=== PATIENT | female | born 1950 | race Caucasian/White ===

== ENCOUNTER 2018-09-05 12:04 | Day surgery (SDC) | payer MEDICARE, OTHER ==
[2018-09-02 08:54] VITALS: BMI 37.3
--- NOTE | 2018-09-05 06:38 | P.GSHP ---
History of Present Illness H&P Date: 09/05/18 CHIEF COMPLAINT: GERD HISTORY OF PRESENT ILLNESS: The patient is a 68-year-old female who presents reports gastroesophageal reflux disease. Upper endoscopy was offered for further evaluation and management. PAST MEDICAL HISTORY: Please see list. PAST SURGICAL HISTORY: Please see list. MEDICATIONS: Please see list. ALLERGIES: Please see list. SOCIAL HISTORY: No illicit drug use FAMILY HISTORY: No reports of Crohn disease or ulcerative colitis. REVIEW OF ORGAN SYSTEMS: CONSTITUTIONAL: No reports of fevers or chills. GI: Denies any blood in stools or constipation. PHYSICAL EXAM: VITAL SIGNS: Stable GENERAL: Well-developed and pleasant in no acute distress. HEENT: No scleral icterus. Extraocular movements grossly intact. Moist buccal mucosa. NECK: Supple without lymphadenopathy. CHEST: Unlabored respirations. Equal bilateral excursions. CARDIOVASCULAR: Regular rate and rhythm. Distal 2+ pulses. ABDOMEN: Soft, nondistended. MUSCULOSKELETAL: No clubbing, cyanosis, or edema. ASSESSMENT: 1. Gastroesophageal reflux disease PLAN: 1. Recommend proceeding with an upper endoscopy Past Medical History Past Medical History: GERD/Reflux, Hypertension History of Any Multi-Drug Resistant Organisms: None Reported Past Surgical History: Bariatric Surgery, Cholecystectomy, Hysterectomy, Orthopedic Surgery Additional Past Surgical History / Comment(s): bilateral knee replacement sleeve gastrectomy 2016 at [facility] Past Anesthesia/Blood Transfusion Reactions: No Reported Reaction, Motion Sickness Smoking Status: Never smoker - Past Family History Mother Family Medical History: Cancer Additional Family Medical History / Comment(s): uterine cancer Medications and Allergies Home Medications Medication Instructions Recorded Confirmed Type Bisoprolol-Hctz 5-6.25 mg [Ziac 1 tab PO DAILY 09/01/18 09/02/18 History 5-6.25 MG] Omeprazole 20 mg PO DAILY 09/01/18 09/02/18 History Allergies Allergy/AdvReac Type Severity Reaction Status Date / Time Sulfa (Sulfonamide Allergy Rash/Hives Verified 09/02/18 08:47 Antibiotics) milk AdvReac Abdominal Verified 09/02/18 08:47 Pain
[~2018-09-05 12:04] MED LIST: LACTATED RINGERS 1,000 ML IV SCH; LIDOCAINE 1% 20 ML VIAL (10MG/ML) FOR IV START INTRADERMA PRN
[2018-09-05 13:05] VITALS: RESP 16; TEMP 97.3
[2018-09-05] MEDS ORDERED: PROPOFOL 10 MG/ML 20 ML VIAL IV ONE (16:30)
--- NOTE | 2018-09-05 16:49 | P.PCN ---
Date of Procedure: 09/05/18 Description of Procedure: PREOPERATIVE DIAGNOSIS: Status post sleeve gastrectomy. Gastroesophageal reflux disease. Epigastric abdominal pain. POSTOPERATIVE DIAGNOSIS: Status post sleeve gastrectomy. Gastroesophageal reflux disease. Epigastric abdominal pain. Diaphragmatic hiatal hernia without obstruction. Chronic superficial gastritis. OPERATION: Esophagogastroduodenoscopy with cold forceps biopsies along the antrum. SURGEON: Mackenzie Travis MD ANESTHESIA: MAC. INDICATIONS: The patient is a 68-year-old female who presents with a history of sleeve gastrectomy with abdominal pain. She is over 1 years out from her bariatric procedure. Benefits and risks of the procedure were described. Informed consent was obtained. DESCRIPTION: The patient was brought into the endoscopy suite and laid in the left lateral decubitus position. An Olympus gastroscope was passed along the posterior oropharynx down to the distal esophagus where the squamocolumnar junction was at 35 centimeters from the incisors remarkable for chronic erosive esophagitis, LA grade A without ulceration. The stomach was entered where she had a 5-cm hiatal hernia with a diaphragmatic hiatus found at 40 cm. The sleeve reservoir moderately large allowing easy retroflexion of the scope to view the lower esophageal valve. Moderate chronic gastritis was found along the antrum with cold biopsies obtained. The first through third portion of the duodenum was examined and unremarkable. The scope again had easily retroflexed along the antrum. The stomach was desufflated. The patient tolerated the procedure well. FINDINGS: No acute ulceration found along her sleeve. No corkscrewing sleeve gastrectomy. Squamocolumnar junction at 35 cm from the incisors. Diaphragmatic hiatus at 40 cm. Moderate large gastric reservoir with prior history of sleeve gastrectomy allowing easy retroflexion of the gastroscope to view the lower esophageal valve. Hiatal hernia 5 cm, fixed. LA grade A erosive esophagitis. No active duodenitis. Moderate chronic gastritis. RECOMMENDATIONS: Upper endoscopy as needed. May benefit from antireflux operation. Plan - Discharge Summary New Discharge Prescriptions: No Action Bisoprolol-Hctz 5-6.25 mg [Ziac 5-6.25 MG] 1 tab PO DAILY Omeprazole 20 mg PO DAILY Discharge Medication List Bisoprolol-Hctz 5-6.25 mg [Ziac 5-6.25 MG] 1 tab PO DAILY 09/01/18 [History] Omeprazole 20 mg PO DAILY 09/01/18 [History]
[2018-09-05 17:06] VITALS: BP 144/94; PULSE 55
== END 2018-09-05 17:26 | disposition home or self-care (01) ==
LOC: ORWHC2ENDO 12:04
PROVIDERS: ATTEND Surgery Plastic and Reconstructive Surgery
DX: K21.0 Gastro-esophageal reflux disease with esophagitis (principal); K29.30 Chronic superficial gastritis without bleeding; K31.9 Disease of stomach and duodenum, unspecified; K44.9 Diaphragmatic hernia without obstruction or gangrene; Z98.84 Bariatric surgery status; I10 Essential (primary) hypertension; Z79.899 Other long term (current) drug therapy; Z88.2 Allergy status to sulfonamides; Z91.011 Allergy to milk products
CPT/HCPCS: 88305; 43239; J2704

== ENCOUNTER → 2018-09-05 | Outpatient (CLI) | payer MEDICARE ==
[2018-09-05 17:47] LABS: HCT 37.6 % (34.0-46.0); HGB 12.7 gm/dL (11.4-16.0); MCH 31.7 pg (25.0-35.0); MCHC 33.8 g/dL (31.0-37.0); MCV 93.9 fL (80.0-100.0); Platelet Count 188 k/uL (150-450); RDW 12.6 % (11.5-15.5); WBC 4.8 k/uL (3.8-10.6)
[2018-09-05 17:57] LABS: INR 1.1 (<1.2); Partial Thromboplastin Time 22.7 sec (22.0-30.0); Prothrombin Time 10.8 sec (9.0-12.0)
[2018-09-06 03:43] LABS: Albumin 4.2 g/dL (3.80-4.90); Albumin/Globulin Ratio 2.33 (1.20-2.10); Anion Gap 7.2 mmol/L (4.00-12.00); Calcium 9.2 mg/dL (8.7-10.3); Carbon Dioxide 29.8 mmol/L (21.6-31.8); Globulin 1.8 g/dL (2.1-3.7); LDL Cholesterol,Calculated 84.8 mg/dL (0.0-131.0); Magnesium 1.6 mg/dL (1.5-2.4); Phosphorus 3.6 mg/dL (2.4-5.1); Potassium 3.8 mmol/L (3.5-5.5); Total Bilirubin 0.8 mg/dL (0.3-1.2); VLDL Calculation 21.2 mg/dL (5.00-40.00)
[2018-09-06 04:13] LABS: Iron Saturation 34.12 (12.00-45.00)
[2018-09-06 04:22] LABS: Vitamin D 25 Hydroxy 54.7 ng/mL (30.0-100.0)
[2018-09-06 05:10] LABS: Folate, Serum >24.0 ng/mL
[2018-09-06 05:12] LABS: Parathyroid Hormone Intact 44.9 pg/mL (14.0-72.0)
[2018-09-06 05:19] LABS: Hemoglobin A1C 5.4 % (4.0-6.0)
[2018-09-07 13:31] LABS: Zinc, Serum 90 ug/dL (60-130)
[2018-09-07 14:45] LABS: Vitamin A 22 ug/dL (38-106)
[2018-09-08 07:41] LABS: Vitamin B1 76 ug/L (38-122)
== END | disposition home or self-care (01) ==
LOC: LABWHC1 17:26
PROVIDERS: ATTEND Surgery Plastic and Reconstructive Surgery
DX: E66.01 Morbid (severe) obesity due to excess calories (principal); D50.8 Other iron deficiency anemias; E89.1 Postprocedural hypoinsulinemia; E44.0 Moderate protein-calorie malnutrition; E55.9 Vitamin D deficiency, unspecified; K74.1 Hepatic sclerosis; N19 Unspecified kidney failure; K50.90 Crohn's disease, unspecified, without complications
CPT/HCPCS: 36415; 80053; 80061; 82306; 82525; 82607; 82728; 82746; 83036; 83540; 83550; 83735; 83970; 84100; 84134; 84255; 84425; 84443; 84590; 84630; 85027; 85610; 85730

== ENCOUNTER → 2018-09-21 | Outpatient (CLI) | payer MEDICARE, OTHER ==
[2018-09-21 14:11] VITALS: BP 126/82; PULSE 48; RESP 16; TEMP 97.8; BMI 38.0
--- NOTE | 2018-09-21 14:18 | P.HPBAR ---
Bariatric H&P - History & Physicial H&P Date: 09/21/18 History & Physicial: Visit/CC: EGD follow-up/sleeve 2016 Patient initial contact: Initial weight: 127.006 kg Initial weight in pounds: 280.00 Height: 5 ft 2 in Initial BMI: 51.2 Last weight: Current weight: 94.347 kg Current weight in pounds: 208.00 Current BMI: 38.0 [place] body weight (based on NIH guidelines): 49.895 kg Excess body weight loss: 42.3% The patient is a 68 year-old F who presents for Bariatric Assessment. DATE OF SERVICE: 09/21/2018 REASON FOR CONSULTATION: Initial bariatric evaluation. HISTORY OF PRESENT ILLNESS: Deepti Dyson is a 68-year-old female who presents as a transfer from [place], [place] bariatric program. She had a sleeve gastrectomy over 2 years ago 2016 in [place], [place]. Her nutrition has been suboptimal. She comes in with complications of her sleeve gastrectomy including gastroesophageal reflux disease. Now she presents for possible revision of her sleeve gastrectomy. At height of 5 feet 2 inches, her ideal body weight is 135 pounds. She comes in 208 pounds. Her body mass index highest is 38.0. She is 73 pounds overweight. PAST MEDICAL HISTORY: 1. Morbid obesity due to excess calories 2. Body mass index of 38.0 3. Gastroesophageal reflux disease 4. Hypertensive heart disease 5. Osteoarthritis bilateral knees PAST SURGICAL HISTORY: 1. Sleeve gastrectomy 2. Bilateral knee replacement 3. Cholecystectomy 4. Hysterectomy HOME MEDICATIONS: ALLERGIES: Medications and Allergies Home Medications Medication Instructions Recorded Confirmed Type Bisoprolol-Hctz 5-6.25 mg [Ziac 2 tab PO DAILY 09/01/18 09/21/18 History 5-6.25 MG] Omeprazole 20 mg PO AC-[id number] 09/01/18 09/21/18 History Omeprazole 40 mg PO HS 09/21/18 09/21/18 History Allergies Allergy/AdvReac Type Severity Reaction Status Date / Time Sulfa (Sulfonamide Allergy Rash/Hives Verified 09/21/18 15:50 Antibiotics) milk AdvReac Abdominal Verified 09/21/18 15:50 Pain SOCIAL HISTORY: No past tobacco use. FAMILY HISTORY: No family history of ulcerative colitis disease or Crohn's disease. Family history of morbid obesity. No lupus in the family. No reports of stomach or esophageal cancer. REVIEW OF ORGAN SYSTEMS: CONSTITUTIONAL: At height of 5 feet 2 inches, her ideal body weight is 135 pounds. She comes in 208 pounds. Her body mass index highest is 38.0. She is 73 pounds overweight. HEENT: Denies any active troubles with vision or hearing. Has troubles with swallowing. ENDOCRINE: No diabetes. No hypothyroidism. CARDIOVASCULAR: No reports of palpitations or heart attacks or chest pain. RESPIRATORY: No daytime somnolence. Has asthma. GI: Denies any bright red blood per rectum. No diarrhea. Has GERD. MUSCULOSKELETAL: Has lower back pain and joint pain. Has osteoarthritis of the knees. NEURO: No headaches. No seizure disorders. PSYCH: No depression. No suicidal ideation. RHEUMATOLOGIC: No lupus. No rheumatoid arthritis. HEMATOLOGIC: Denies any abnormal bleeding or bruising. No personal history of DVTs. SKIN: No rash. No skin cancer. PHYSICAL EXAM: VITAL SIGNS: Height 5 foot 2 inches, weight 208 pounds. BMI 38.0 Vital Signs Temp 97.8 F 09/21/18 14:08 Pulse 48 L 09/21/18 14:08 Resp 16 09/21/18 14:08 BP 126/82 09/21/18 14:08 Pulse Ox GENERAL: Well-developed in no acute distress. HEENT: No scleral icterus. Extraocular movements grossly intact. Hears conversational speech. No nasal drainage. NECK: Supple without lymphadenopathy. CHEST: Nonlabored respirations with equal bilateral excursions. CARDIOVASCULAR: Regular rate and regular rhythm. Distal 2+ pulses. ABDOMEN: Obese, soft, nontender, nondistended. MUSCULOSKELETAL: No clubbing, cyanosis. Gross strength 5/5 distal lower extremities. NEURO: No focal or lateralizing signs. Cranial nerves 2 through 12 grossly within normal limits. PSYCH: Appropriate affect. Alert and oriented to person, place and time. SKIN: Good skin turgor. Well perfused. STUDIES: EGD FINDINGS: No acute ulceration found along her sleeve. No corkscrewing sleeve gastrectomy. Squamocolumnar junction at 35 cm from the incisors. Diaphragmatic hiatus at 40 cm. Moderate large gastric reservoir with prior history of sleeve gastrectomy allowing easy retroflexion of the gastroscope to view the lower esophageal valve. Hiatal hernia 5 cm, fixed. LA grade A erosive esophagitis. No active duodenitis. Moderate chronic gastritis. Final Pathologic Diagnosis GASTRIC ANTRAL MUCOSA, BIOPSY: Reactive gastropathy. No Helicobacter type microorganisms identified. LABS: Total protein is low. Pre-albumin is low. Vitamin A is low. Selenium is elevated. ASSESSMENT: 1. Morbid obesity due to excess calories 2. Body mass index of 38.0 3. Gastroesophageal reflux disease 4. Hypertensive heart disease 5. Osteoarthritis bilateral knees 6. Inadequate protein intake 7. Hiatal hernia 8. Vitamin A deficiency 9. Esophageal dysmotility PLAN: 1. Studies reviewed consistent with esophageal dysmotility. 2. Recommend manometry. 3. Vitamin A replacement of 8000 units prescribed 4. Increase protein intake over 75 grams daily. 5. She may need revision of her sleeve. Thank you for this consultation. Past Medical History Past Medical History: GERD/Reflux, Hypertension History of Any Multi-Drug Resistant Organisms: None Reported Past Surgical History: Bariatric Surgery, Cholecystectomy, Hysterectomy, Orthopedic Surgery Additional Past Surgical History / Comment(s): bilateral knee replacement sleeve gastrectomy 2016 at [facility] Past Anesthesia/Blood Transfusion Reactions: No Reported Reaction, Motion Sickness Past Psychological History: No Psychological Hx Reported Smoking Status: Never smoker Past Alcohol Use History: None Reported Past Drug Use History: None Reported - Past Family History Mother Family Medical History: Cancer Additional Family Medical History / Comment(s): uterine cancer Surgical - Exam Vital Signs Temp Pulse Resp BP 97.8 F 48 L 16 126/82 09/21/18 14:08 09/21/18 14:08 09/21/18 14:08 09/21/18 14:08 Bariatric Checklist Checklist: Plan: Checklist: EGD: 1. Hiatal hernia: 2. H. Pylori: HgbA1c: Vitamin D: Smoking: Never smoker Primary care physician referral: Psychiatry clearance: Cardiology clearance: Sleep study: Diet journal: VTE risk score: VTE risk level: Rehab needs at discharge:
== END | disposition home or self-care (01) ==
LOC: BARWHC3 12:55
PROVIDERS: ATTEND Surgery Plastic and Reconstructive Surgery
DX: E66.01 Morbid (severe) obesity due to excess calories (principal); K21.9 Gastro-esophageal reflux disease without esophagitis; I11.9 Hypertensive heart disease without heart failure; M17.0 Bilateral primary osteoarthritis of knee; K44.9 Diaphragmatic hernia without obstruction or gangrene; E50.9 Vitamin A deficiency, unspecified; K22.4 Dyskinesia of esophagus; E46 Unspecified protein-calorie malnutrition; Z68.38 Body mass index [BMI] 38.0-38.9, adult; Z98.84 Bariatric surgery status; Z90.49 Acquired absence of other specified parts of digestive tract; Z79.899 Other long term (current) drug therapy; Z88.2 Allergy status to sulfonamides
CPT/HCPCS: 97803; G0463; 99211

== ENCOUNTER → 2018-09-21 | Outpatient (CLI) | payer MEDICARE, OTHER ==
--- NOTE | 2018-09-21 11:33 | FL ---
EXAMINATION TYPE: FL barium swallow DATE OF EXAM: 09/21/2018 CLINICAL HISTORY: Acid reflux or epigastric pain since gastric sleeve surgery December 09, 2015 per patie nt. History of some sort of reversal? Per patient. TECHNIQUE: A single contrast esophagram is performed utilizing barium only due to history of prior s urgery. A total of 57 seconds of fluoroscopic time was utilized during procedure. 74 spot images are saved to PACS. COMPARISON: None FINDINGS: The esophagus shows some mild dysmotility with satisfactory emptying into the stomach. No evidence of fixed hiatal hernia or stricture noted. No diverticulum is present. Small sliding-type hi atal hernia is identified during portions of study. There is good caliber channel throughout the esop hagus including at level of diaphragmatic hiatus. Occasional gastroesophageal reflux was seen during real time performance of this study. IMPRESSION: Small sliding-type hiatal hernia. No obstruction. No suspicious mass or stricture. Occas ional gastroesophageal reflux. Mild underlying esophageal dysmotility.
== END | disposition home or self-care (01) ==
LOC: RADFLWHC 10:36
PROVIDERS: ATTEND Surgery Plastic and Reconstructive Surgery
DX: K44.9 Diaphragmatic hernia without obstruction or gangrene (principal); K21.9 Gastro-esophageal reflux disease without esophagitis; K22.4 Dyskinesia of esophagus; Z88.3 Allergy status to other anti-infective agents; Z91.011 Allergy to milk products
CPT/HCPCS: 74220

== ENCOUNTER → 2019-01-06 | Outpatient (CLI) | payer MEDICARE, OTHER ==
[2018-12-27 09:36] VITALS: BMI 36.6
[~2019-01-06] MED LIST changes: +CHLORHEXIDINE GLUCONATE 15 ML CUP MUCOUS MEM ONE; +DEXAMETHASONE SOD PHOSPHATE 10 MG/ML 1 ML VIAL IV ONE; +HEPARIN SODIUM,PORCINE 5,000 UNIT/ML 1 ML VIAL SQ ONE; +MIDAZOLAM (PF) 2 MG/2 ML VIAL IV PRN; +PANTOPRAZOLE 40 MG/10 ML VIAL IV ONE; +ceFAZolin IN SWFI 2 GM/20 ML SYRINGE IVP ONE; +fentaNYL (PF) 50 MCG/ML 2 ML AMP IV PRN
--- NOTE | 2019-01-06 02:49 | P.GSHP ---
History of Present Illness H&P Date: 01/06/19 CHIEF COMPLAINT: Paraesophageal hiatal hernia with gastroesophageal reflux disease. HISTORY OF PRESENT ILLNESS: The patient is a 68-year-old female who presents with paraesophageal hiatal hernia. She has completed an esophageal manometry including upper endoscopy workup. Now she presents for surgical intervention. PAST MEDICAL HISTORY: Please see list. PAST SURGICAL HISTORY: Please see list. MEDICATIONS: Please see list. ALLERGIES: Please see list. SOCIAL HISTORY: No illicit drug use FAMILY HISTORY: No reports of Crohn disease or ulcerative colitis. REVIEW OF ORGAN SYSTEMS: CONSTITUTIONAL: No reports of fevers or chills. GI: Denies any blood in stools or constipation. PHYSICAL EXAM: VITAL SIGNS: Stable GENERAL: Well-developed pleasant and in no acute distress. HEENT: No scleral icterus. Extraocular movements grossly intact. Moist buccal mucosa. NECK: Supple without lymphadenopathy. CHEST: Unlabored respirations. Equal bilateral excursions. CARDIOVASCULAR: Regular rate and rhythm. Distal 2+ pulses. ABDOMEN: Soft, nondistended. No peritoneal signs. MUSCULOSKELETAL: No clubbing, cyanosis, or edema. SKIN: Well-perfused. Good skin turgor. MANOMETRY: Shows no evidence of achalasia or scleroderma. ASSESSMENT: 1. Diaphragmatic paraesophageal hiatal hernia with severe gastroesophageal reflux disease. PLAN: 1. Recommend proceeding with a robotic paraesophageal hiatal hernia with possible mesh. 2. Benefits and risks of surgical intervention was discussed including possibility of open technique. 3. Inpatient hospitalization recommended of 2 nights 4. DVT prophylaxis. 5. Antibiotic prophylaxis. 6. She has also completed a very low caloric high-protein diet to address underlying hepatomegaly. Past Medical History Past Medical History: GERD/Reflux, Hypertension Additional Past Medical History / Comment(s): hiatal hernia, History of Any Multi-Drug Resistant Organisms: None Reported Past Surgical History: Bariatric Surgery, Cholecystectomy, Hernia Repair, Hysterectomy, Orthopedic Surgery Additional Past Surgical History / Comment(s): bilateral knee replacement, sleeve gastrectomy 2016 at [facility], hiatal hernia repair Past Anesthesia/Blood Transfusion Reactions: Motion Sickness Additional Past Anesthesia/Blood Transfusion Reaction / Comment(s): pt states always get UTI's from mcneal catheters Smoking Status: Never smoker - Past Family History Mother Family Medical History: Cancer Additional Family Medical History / Comment(s): uterine cancer Medications and Allergies Home Medications Medication Instructions Recorded Confirmed Type Omeprazole 40 mg PO QAM 09/21/18 12/27/18 History Bariatric Vitamin 1 tab PO TID 12/27/18 12/27/18 History Bisoprol/Hydrochlorothiazide [Ziac 1 each PO DAILY 12/27/18 12/27/18 History 10-6.25 MG] Calcium + Vitamin D 2 tab PO W/LUNCH 12/27/18 12/27/18 History Allergies Allergy/AdvReac Type Severity Reaction Status Date / Time Sulfa (Sulfonamide Allergy Rash/Hives Verified 12/27/18 09:26 Antibiotics) milk AdvReac Abdominal Verified 12/27/18 09:26 Pain
--- NOTE | 2019-01-06 12:54 | P.PN ---
Progress Note - Text Progress Note Date: 01/06/19 Case re-scheduled due to multiple surgical emergencies and trauma.
== END ==
LOC: EDSTATUS 07:30 → 2ORMAIN 11:58 → UNDOADMIN 11:58 → ORWHC2ENDO 11:58
PROVIDERS: ATTEND Surgery Plastic and Reconstructive Surgery
DX: K44.9 Diaphragmatic hernia without obstruction or gangrene (principal); Z53.9 Procedure and treatment not carried out, unspecified reason

== ENCOUNTER 2019-01-25 05:55 | Inpatient (IN) | payer MEDICARE, OTHER ==
[2019-01-20 14:55] VITALS: BMI 36.2
[~2019-01-25 05:55] MED LIST changes: -CHLORHEXIDINE GLUCONATE 15 ML CUP MUCOUS MEM ONE; -DEXAMETHASONE SOD PHOSPHATE 10 MG/ML 1 ML VIAL IV ONE; +HYDROmorphone 0.5 MG/0.5 ML SYRINGE IVP PRN; -MIDAZOLAM (PF) 2 MG/2 ML VIAL IV PRN; -PANTOPRAZOLE 40 MG/10 ML VIAL IV ONE; -fentaNYL (PF) 50 MCG/ML 2 ML AMP IV PRN
[2019-01-25] MEDS ORDERED: LIDOCAINE 1% 20 ML VIAL (10MG/ML) FOR IV START INTRADERMA ONE (06:38)
[2019-01-25] MEDS ORDERED: DEXAMETHASONE SOD PHOSPHATE 4 MG/ML 1 ML VIAL IVP ONE (06:42)
[2019-01-25] MEDS: ONDANSETRON 4 MG/2 ML VIAL IVP ONE ×2 (06:42→11:31)
[2019-01-25 06:59] LABS: Basophils % (A) 1 %; Eosinophils # (A) 0.1 k/uL (0-0.7); Eosinophils % (A) 3 %; HCT 39.5 % (34.0-46.0); HGB 13.4 gm/dL (11.4-16.0); Lymphocytes # (A) 1.5 k/uL (1.0-4.8); Lymphocytes % (A) 38 %; MCH 31.7 pg (25.0-35.0); MCHC 33.9 g/dL (31.0-37.0); MCV 93.5 fL (80.0-100.0); Mean Platelet Volume 6.6; Monocytes # (A) 0.2 k/uL (0-1.0); Monocytes % (A) 6 %; Neutrophils % (A) 51 %; Platelet Count 187 k/uL (150-450); RBC 4.22 m/uL (3.80-5.40); RDW 12.1 % (11.5-15.5); WBC 3.9 k/uL (3.8-10.6)
[2019-01-25 07:20] LABS: Anion Gap 9 mmol/L; Blood Urea Nitrogen 26 mg/dL (7-17); Calcium 9.3 mg/dL (8.4-10.2); Carbon Dioxide 26 mmol/L (22-30); Chloride 107 mmol/L (98-107); Glucose 83 mg/dL (74-99); Potassium 4.1 mmol/L (3.5-5.1); Sodium 142 mmol/L (137-145)
--- NOTE | 2019-01-25 07:42 | P.GSHP ---
History of Present Illness H&P Date: 01/25/19 CHIEF COMPLAINT: Paraesophageal hiatal hernia with gastroesophageal reflux disease. HISTORY OF PRESENT ILLNESS: The patient is a 68-year-old female who presents with paraesophageal hiatal hernia. She has completed an esophageal manometry including upper endoscopy workup. Now she presents for surgical intervention. PAST MEDICAL HISTORY: Please see list. PAST SURGICAL HISTORY: Please see list. MEDICATIONS: Please see list. ALLERGIES: Please see list. SOCIAL HISTORY: No illicit drug use FAMILY HISTORY: No reports of Crohn disease or ulcerative colitis. REVIEW OF ORGAN SYSTEMS: CONSTITUTIONAL: No reports of fevers or chills. GI: Denies any blood in stools or constipation. PHYSICAL EXAM: VITAL SIGNS: Stable GENERAL: Well-developed pleasant and in no acute distress. HEENT: No scleral icterus. Extraocular movements grossly intact. Moist buccal mucosa. NECK: Supple without lymphadenopathy. CHEST: Unlabored respirations. Equal bilateral excursions. CARDIOVASCULAR: Regular rate and rhythm. Distal 2+ pulses. ABDOMEN: Soft, nondistended. No peritoneal signs. MUSCULOSKELETAL: No clubbing, cyanosis, or edema. SKIN: Well-perfused. Good skin turgor. MANOMETRY: Shows no evidence of achalasia or scleroderma. ASSESSMENT: 1. Diaphragmatic paraesophageal hiatal hernia with severe gastroesophageal reflux disease. PLAN: 1. Recommend proceeding with a robotic paraesophageal hiatal hernia with possible mesh. 2. Benefits and risks of surgical intervention was discussed including possibility of open technique. 3. Inpatient hospitalization recommended of 2 nights 4. DVT prophylaxis. 5. Antibiotic prophylaxis. 6. She has also completed a very low caloric high-protein diet to address underlying hepatomegaly. Past Medical History Past Medical History: GERD/Reflux, Hypertension Additional Past Medical History / Comment(s): Hiatal hernia. History of Any Multi-Drug Resistant Organisms: None Reported Past Surgical History: Bariatric Surgery, Cholecystectomy, Hernia Repair, Hysterectomy, Orthopedic Surgery Additional Past Surgical History / Comment(s): bilateral knee replacement, sleeve gastrectomy [address] [facility], hiatal hernia repair Past Anesthesia/Blood Transfusion Reactions: Motion Sickness Additional Past Anesthesia/Blood Transfusion Reaction / Comment(s): pt states always get UTI's from mcneal catheters Smoking Status: Never smoker - Past Family History Mother Family Medical History: Cancer Additional Family Medical History / Comment(s): uterine cancer Medications and Allergies Home Medications Medication Instructions Recorded Confirmed Type Omeprazole 40 mg PO QAM 09/21/18 01/25/19 History Bariatric Vitamin 1 tab PO TID 12/27/18 01/25/19 History Bisoprol/Hydrochlorothiazide [Ziac 1 tab PO DAILY 12/27/18 01/25/19 History 10-6.25 MG] Calcium + Vitamin D 2 tab PO W/LUNCH 12/27/18 01/25/19 History Allergies Allergy/AdvReac Type Severity Reaction Status Date / Time Sulfa (Sulfonamide Allergy Rash/Hives Verified 01/25/19 06:31 Antibiotics) milk AdvReac Abdominal Verified 01/25/19 06:31 Pain Surgical - Exam Vital Signs Temp Pulse Resp BP Pulse Ox 97.6 F 48 L 16 177/77 100 01/25/19 06:27 01/25/19 06:27 01/25/19 06:27 01/25/19 06:27 01/25/19 06:27 Results - Labs 01/25/19 06:45 01/25/19 06:45 Abnormal Lab Results - Last 24 Hours (Table) 01/25/19 Range/Units 06:45 BUN 26 H (7-17) mg/dL Diabetes panel 01/25/19 Range/Units 06:45 Sodium 142 (137-145) mmol/L Potassium 4.1 (3.5-5.1) mmol/L Chloride 107 (98-107) mmol/L Carbon Dioxide 26 (22-30) mmol/L BUN 26 H (7-17) mg/dL Creatinine 0.57 (0.52-1.04) mg/dL Glucose 83 (74-99) mg/dL Calcium 9.3 (8.4-10.2) mg/dL Calcium panel 01/25/19 Range/Units 06:45 Calcium 9.3 (8.4-10.2) mg/dL Pituitary panel 01/25/19 Range/Units 06:45 Sodium 142 (137-145) mmol/L Potassium 4.1 (3.5-5.1) mmol/L Chloride 107 (98-107) mmol/L Carbon Dioxide 26 (22-30) mmol/L BUN 26 H (7-17) mg/dL Creatinine 0.57 (0.52-1.04) mg/dL Glucose 83 (74-99) mg/dL Calcium 9.3 (8.4-10.2) mg/dL Adrenal panel 01/25/19 Range/Units 06:45 Sodium 142 (137-145) mmol/L Potassium 4.1 (3.5-5.1) mmol/L Chloride 107 (98-107) mmol/L Carbon Dioxide 26 (22-30) mmol/L BUN 26 H (7-17) mg/dL Creatinine 0.57 (0.52-1.04) mg/dL Glucose 83 (74-99) mg/dL Calcium 9.3 (8.4-10.2) mg/dL
[2019-01-25] MEDS ORDERED: KETOROLAC 30 MG/ML 1 ML VIAL ONE (07:43)
[2019-01-25] MEDS ORDERED: ePHEDrine SULFATE/0.9% NACL/PF 50 MG/5 ML SYRINGE IV ONE (07:43)
[2019-01-25] MEDS ORDERED: fentaNYL (PF) 50 MCG/ML 2 ML AMP ONE (07:43)
[2019-01-25] MEDS ORDERED: MIDAZOLAM 2 MG/2 ML VIAL ONE (07:43)
[2019-01-25] MEDS ORDERED: LIDOCAINE 1% INJ 10MG/ML (20 ML MDV) ONE (07:43)
[2019-01-25] MEDS ORDERED: SUCCINYLCHOLINE CHLORIDE 100 MG/5 ML SYR IV ONE (07:43)
[2019-01-25] MEDS ORDERED: GLYCOPYRROLATE 0.2 MG/ML 2 ML VIAL ONE (07:43)
[2019-01-25] MEDS ORDERED: PROPOFOL 10 MG/ML 20 ML VIAL IV ONE (07:43)
[2019-01-25] MEDS ORDERED: MORPHINE SULFATE (PF) 0.3 MG/0.3 ML SYR ONE (07:43)
[2019-01-25] MEDS ORDERED: HYDROmorphone (PF) 1 MG/ML ONE (07:43)
[2019-01-25] MEDS ORDERED: ROCURONIUM BROMIDE 10 MG/ML 10 ML VIAL IV ONE (07:43)
[2019-01-25] MEDS ORDERED: NEOSTIGMINE 1 MG/ML 10 ML VIAL ONE (07:43)
[2019-01-25] MEDS ORDERED: BUPIVACAIN-EPI 0.5%-1:200,000 30 ML VIAL SQ ONE ×2 (08:01→08:17)
[2019-01-25] MEDS ORDERED: HYDROcodone/APAP 15 ML SOLUTION PO PRN (10:30)
[2019-01-25] MEDS ORDERED: diphenhydrAMINE 50 MG/ML 1 ML VIAL IVP PRN (10:30)
[2019-01-25] MEDS ORDERED: NALOXONE 0.4 MG/ML 1 ML VIAL IV PRN (10:30)
[2019-01-25] MEDS ORDERED: HYDROmorphone 1 MG/ML 1 ML SYRINGE IVP PRN (10:30)
[2019-01-25] MEDS ORDERED: ONDANSETRON 4 MG/2 ML VIAL IVP PRN (10:30)
--- NOTE | 2019-01-25 11:00 | P.OP ---
Date of Procedure: 01/25/19 Description of Procedure: DESCRIPTION OF PROCEDURE(S): SURGEON: HUMBERTO SCHILLING MD PREOPERATIVE DIAGNOSES: 1. Gastroesophageal reflux disease, with erosive esophagitis 2. Paraesophageal hiatal hernia, midline, recurrent 3. Morbid obesity due to excess calories, BMI of 36.2. 4. History of sleeve gastrectomy 5. Epigastric abdominal pain. 6. Ineffective esophageal motility 7. Upper esophageal sphincter hypertension 8. Complications from sleeve gastrectomy. 9. Dysphagia 10. Hypertensive heart disease POSTOPERATIVE DIAGNOSES: 1. Gastroesophageal reflux disease, with erosive esophagitis 2. Paraesophageal hiatal hernia, midline, recurrent with incarceration, 4 x 7 cm, type III 3. Morbid obesity due to excess calories, BMI of 36.2. 4. History of sleeve gastrectomy 5. Epigastric abdominal pain. 6. Ineffective esophageal motility 7. Upper esophageal sphincter hypertension 8. Complications from sleeve gastrectomy. 9. Dysphagia 10. Hypertensive heart disease 11. 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 Robotic-assisted da Khoa Xi laparoscopic reduction and repair of recurrent incarcerated paraesophageal hiatal hernia, 7 x 4 cm, with Cuttyhunk Biopatch A 8 x 8 cm. 2. Intraoperative esophagogastroscopy ANESTHESIA: General with local anesthetic. ESTIMATED BLOOD LOSS: 5 mL Pathology: None COMPLICATIONS: None. FINDINGS: 1. Thoracic length 14 cm. 2. Port placed 12 cm distal. 3. Incarcerated upper pole of the stomach within the mediastinum with moderate dissection performed with incision of mediastinal hernia sac, type III paraesophageal hiatal hernia 4. 7 cm paraesophageal incarcerated diaphragmatic hiatal hernia with moderate dissection into the mediastinum 5. Cuttyhunk Biopatch A onlay mesh placed. 6. Identified previous hiatal hernia repair with retained suture consistent with recurrent incarcerated hiatal hernia 7. Reduction of incarcerated 7 cm superior pole of stomach from previously gastrectomy 8. GE junction at 35 cm from the incisors 9. Intra-abdominal esophageal length over 1 cm obtained INDICATIONS: The patient is a 68-year-old female who presents with epigastric abdominal pain, dysphagia, history of sleeve gastrectomy, gastroesophageal reflux recalcitrant to medical therapy with a symptomatic diaphragmatic hiatal hernia. Preoperative workup including upper endoscopy demonstrated hiatal hernia with erosive esophagitis. She completed manometry demonstrating ineffective esophageal motility including hypertensive upper esophageal sphincter. Given the severity of her symptoms, she had elected for surgical intervention. Benefits and risks including bleeding, infection, recurrence, dysphagia, injury to the lung, need for further surgery was described at length. Informed consent was obtained. DESCRIPTION: The patient was brought into the operating room and placed in s upine position. Preoperatively she had received heparin subcutaneously for DVT prophylaxis. After general induction, the abdomen was prepped and draped in standard sterile fashion. The patient had previously voided prior to coming to the operating room. Ioban draping was placed along the abdomen. A timeout protocol was confirmed with the surgical team, for which the patient's name, procedure to be performed including DVT prophylaxis with bilateral SCDs, and preoperative antibiotics were also confirmed. A robotic da Khoa Xi system was prepped and primed. At 15 cm from the xiphoid to just below the umbilicus, proposed port sites were marked with indelible marker along the left axillary line, left mid-clavicular line with each ports were marked 10 cm from each other. A 5 mm 0 degrees laparoscopic trocar entry was performed along the left upper quadrant. The abdomen was insufflated to 15 mmHg pressure was tolerated well. Diagnostic laparoscopy demonstrated no injury to bowel, viscera. Severe peritoneal of the lower abdomen was identified and undisturbed. No additional adhesions were found along the liver or the sleeve gastrectomy to the liver. Next, one 8 mm robotic port was placed along the right upper abdomen. An 8-mm port was were placed along the left lateral abdominal wall. The camera 8-mm port was maintained along the epigastrium. Another 12 mm port was placed along the left upper abdominal wall after exchanging the 5 mm port. Please note that the ports were placed at least 20 cm away from the target anatomy. Care was taken to check that each robotic arm were safely away from collision with the bed or the patient. The patient was repositioned in reverse Trendelenburg position at 14-degrees after lowering the bed. The robot was docked above the left side of the patient. Using a grasper for arm 3, a grasper for arm 1, including vessel sealer for arm 2, the robotic system was docked and primed as described. Instruments were interchanged by the assistant cross country coach. I had sat at the console. Initial attention was brought to hiatus. Circumferentially the dissection at the hiatus was performed using vessel sealer including blunt dissection. Pre vious retained suture was found along the hiatus consistent with a prior repair. The hiatus hernia recurred anteriorly including a retained sac acting as a lead point for recurrence. To prevent any injury to the esophagus including proximal stomach, I performed an intraoperative upper endoscopy with the scope entering along the posterior oropharynx into the distal stomach and left in place as a bougie. The remnant gastrohepatic ligament was cleaved using a vessel sealer. Next, the phrenoesophageal ligament was mobilized and the distal esophagus was mobilized circumferentially. An incarcerated hernia sac was found into the mediastinum. As a result, deep dissection well into the mediastinum was needed to free the proximal sleeve gastrectomy including the mid to distal esophagus with retained gastric funduc consistent with a type III hiatal hernia. The left and right crura was identified. Significant mobilization of the distal to mid esophagus into the mediastinum was performed. Circumferentially, the hernia sac was incised and brought into the abdominal cavity. Care was taken to avoid any gastrotomy to the incarcerated upper pole of the stomach. The measured defect was measured with a ruler consistent with 7 cm axial length and 4 cm in width. After extensive dissection, the distal esophagus at least 1 cm was brought into the abdominal cavity. Once the hiatus and crura was dissected, 2-0 VLOC suture was placed as a running suture to re-approximate the diaphragmatic hiatus posteriorly. To buttress the repair, a Cuttyhunk Biopatch A was prepared along the back table and cut in a half gomez-hole fashion as to reinforce the repair as an underlay. The mesh was resized posteriorly placed along the crural repair and tagged using 2- 0 VLOC. I went to the head of the bed to perform intraoperative esophagogastroduodenoscopy. An Olympus gastroscope was passed through posterior oropharynx, where the squamocolumnar junction was confirmed at 35 cm from the incisors. The hiatus repair was confirmed from the incisors. The stomach was entered. The stomach had been desufflated. No evidence of leaks were found or mucosal defects of the esophagus or stomach. This concluded the endoscopic portion of the case. The robot was undocked from the patient. I re-scrubbed into the case. All instruments and pneumoperitoneum were evacuated from the abdominal cavity. The incisions were cleansed with dilute hydrogen peroxide with saline solution. Incisions were reapproximated using 4-0 Monocryl in an interrupted subcuticular fashion. The 12-mm port site fascial defect was less than 8 mm in size. Exofin was applied to the skin. Local anesthetic was infiltrated in all wounds for postop analgesia. Multiple intra-abdominal films were obtained. At the end of the procedure, needle, sponge, and instrument count was verified correct by the hydrology technician. The patient had tolerated the procedure well and was taken to the postanesthesia unit in stable condition. Intraoperative films were reviewed with the patient's family who were pleased with the level of care. Console time: 86 minutes
[2019-01-25] MEDS ORDERED: ACETAMINOPHEN IV (For NPO) 1,000 MG in EMPTY BAG 1 BAG IVPB ONE (11:30)
[2019-01-25] MEDS: ALBUTEROL NEBULIZED 2.5 MG/3 ML INHALATION SCH ×3 (11:57→19:36)
[2019-01-25] MEDS: SIMETHICONE 40 MG/0.6 ML DROPS 2,000 MG/30 ML BOTTLE PO SCH ×2 (11:58→17:35)
[2019-01-25] MEDS: METOCLOPRAMIDE 5 MG/ML 2 ML VIAL IVP SCH ×2 (11:58→17:35)
[2019-01-25] MEDS ORDERED: HYOSCYAMINE ORAL DROPS 1.875 MG/15 ML BOTTLE PO SCH (12:00)
[2019-01-25] MEDS: 0.9% NACL WITH KCL 20 MEQ/L 1,000 ML IV SCH ×2 (16:20→18:48)
[2019-01-25] MEDS: ceFAZolin IN SWFI 2 GM/20 ML SYRINGE IVP SCH (16:21)
[2019-01-25] MEDS ORDERED: SODIUM CHLORIDE 0.9% 1,000 ML IV ONE (16:32)
[2019-01-25] MEDS: DEXAMETHASONE SOD PHOSPHATE 4 MG/ML 1 ML VIAL IV SCH (17:35)
[2019-01-26] MEDS: 0.9% NACL WITH KCL 20 MEQ/L 1,000 ML IV SCH ×3 (00:17→11:00)
[2019-01-26] MEDS: METOCLOPRAMIDE 5 MG/ML 2 ML VIAL IVP SCH ×3 (00:18→12:18)
[2019-01-26] MEDS: DEXAMETHASONE SOD PHOSPHATE 4 MG/ML 1 ML VIAL IV SCH ×3 (00:18→12:18)
[2019-01-26] MEDS: ceFAZolin IN SWFI 2 GM/20 ML SYRINGE IVP SCH (00:19)
[2019-01-26] MEDS: SIMETHICONE 40 MG/0.6 ML DROPS 2,000 MG/30 ML BOTTLE PO SCH ×3 (00:20→12:17)
[2019-01-26 08:44] VITALS: RESP 16
[2019-01-26] MEDS ORDERED: ENOXAPARIN 40 MG/0.4 ML SYRINGE SQ SCH (09:00)
[2019-01-26 09:22] LABS: Basophils % (A) 0 %; Eosinophils % (A) 0 %; HCT 37.1 % (34.0-46.0); HGB 12.2 gm/dL (11.4-16.0); Lymphocytes # (A) 0.5 k/uL (1.0-4.8); Lymphocytes % (A) 7 %; MCH 30.7 pg (25.0-35.0); MCHC 32.8 g/dL (31.0-37.0); MCV 93.7 fL (80.0-100.0); Mean Platelet Volume 7.1; Monocytes # (A) 0.2 k/uL (0-1.0); Monocytes % (A) 3 %; Neutrophils # (A) 6.7 k/uL (1.3-7.7); Neutrophils % (A) 90 %; Platelet Count 171 k/uL (150-450); RBC 3.96 m/uL (3.80-5.40); RDW 12.8 % (11.5-15.5); WBC 7.4 k/uL (3.8-10.6)
--- NOTE | 2019-01-26 09:28 | FL ---
EXAMINATION TYPE: FL UGI DATE OF EXAM: 01/26/2019 CLINICAL HISTORY: Status post Zelda fundoplication with history of axillary TECHNIQUE: Postoperative upper GI is performed utilizing 1 ounce of Isovue-370. A total of 45 seconds of fluoroscopic time was utilized during procedure. 13 fluoroscopic images were saved FINDINGS: Small amount of pneumoperitoneum is seen deep to the right hemidiaphragm. The patient swall owed contrast without difficulty or delay. Esophageal peristalsis and motility are within normal campos its. There is good mildly delayed flow of contrast along the diaphragmatic hiatus into the stomach, t here is no evidence of contrast extravasation to suggest leak. No persistent hiatal hernia is seen. P atient remains asymptomatic. IMPRESSION: 1. No evidence of leak or with only mild delay at the gastroesophageal junction likely on the basis o f postoperative edema status post Toy fundoplication. 2. Small amount of postoperative pneumoperitoneum.
[2019-01-26] MEDS ORDERED: ACETAMINOPHEN ORAL SUSP 160 MG/5 ML CUP PO PRN (09:34)
[2019-01-26 09:35] LABS: Anion Gap 7 mmol/L; Blood Urea Nitrogen 15 mg/dL (7-17); Calcium 8.9 mg/dL (8.4-10.2); Carbon Dioxide 25 mmol/L (22-30); Chloride 108 mmol/L (98-107); Magnesium 1.6 mg/dL (1.6-2.3); Phosphorus 2.7 mg/dL (2.5-4.5); Potassium 4.4 mmol/L (3.5-5.1); Sodium 140 mmol/L (137-145)
[2019-01-26] MEDS: ALBUTEROL NEBULIZED 2.5 MG/3 ML INHALATION SCH ×2 (09:51→10:33)
[2019-01-26] MEDS ORDERED: Magnesium Replacement Protocol 1 EACH MISC MISCELLANE PRN (10:19)
--- NOTE | 2019-01-26 10:30 | P.DS ---
Providers Date of admission: 01/25/19 05:55 Expected date of discharge: 01/26/19 Attending physician: Mackenzie Travis Primary care physician: Stated None - Discharge Diagnosis(es) (1) Hiatal hernia Current Visit: Yes Status: Acute (2) History of sleeve gastrectomy Current Visit: Yes Status: Acute (3) Dysphagia Current Visit: Yes Status: Acute (4) Morbid obesity due to excess calories Current Visit: Yes Status: Acute (5) GERD (gastroesophageal reflux disease) Current Visit: Yes Status: Acute (6) GERD with esophagitis Current Visit: Yes Status: Acute Hospital Course: 68-year-old female who underwent robotic-assisted da Khoa Xi laparoscopic reduction and repair of recurrent incarcerated paraesophageal hiatal hernia by Dr. Travis on 01/25/2019. The patient is doing well postoperatively without immediate complications. She is tolerating clear liquid diet. Denies nausea. Pain is controlled with Tylenol. Vital signs stable. She is stable for discharge home today. Patient met with dietitian prior to discharge. Discharge diagnosis: 1. Gastroesophageal reflux disease, with erosive esophagitis 2. Paraesophageal hiatal hernia, midline, recurrent with incarceration, 4 x 7 cm, type III 3. Morbid obesity due to excess calories, BMI of 36.2. 4. History of sleeve gastrectomy 5. Epigastric abdominal pain. 6. Ineffective esophageal motility 7. Upper esophageal sphincter hypertension 8. Complications from sleeve gastrectomy. 9. Dysphagia 10. Hypertensive heart disease 11. Severe lower midline peritoneal adhesions of omentum to abdominal wall Nurse practitioner note has been reviewed by physician. Signing provider agrees with the documented findings, assessment, and plan of care. Patient Condition at Discharge: Stable Plan - Discharge Summary Discharge Rx Participant: No New Discharge Prescriptions: New Ondansetron Odt [Zofran Odt] 4 mg PO Q8HR PRN #9 tab PRN Reason: Nausea Bisacodyl [Dulcolax] 5 mg PO DAILY PRN #10 tablet.dr PRN Reason: Constipation Simethicone 40 mg/0.6 ml Drops [Mylicon Drops] 40 mg PO PCHS PRN #30 ml PRN Reason: gas No Action Omeprazole 40 mg PO QAM Bisoprol/Hydrochlorothiazide [Ziac 10-6.25 MG] 1 tab PO DAILY Bariatric Vitamin 1 tab PO TID Calcium + Vitamin D 2 tab PO W/LUNCH Discharge Medication List Omeprazole 40 mg PO QAM 09/21/18 [History] Bariatric Vitamin 1 tab PO TID 12/27/18 [History] Bisoprol/Hydrochlorothiazide [Ziac 10-6.25 MG] 1 tab PO DAILY 12/27/18 [History] Calcium + Vitamin D 2 tab PO W/LUNCH 12/27/18 [History] Bisacodyl [Dulcolax] 5 mg PO DAILY PRN #10 tablet. 01/26/19 [Rx] Ondansetron Odt [Zofran Odt] 4 mg PO Q8HR PRN #9 tab 01/26/19 [Rx] Simethicone 40 mg/0.6 ml Drops [Mylicon Drops] 40 mg PO PCHS PRN #30 ml 01/26/19 [Rx] Follow up Appointment(s)/Referral(s): Mackenzie Travis MD [STAFF PHYSICIAN] - 1 Week Activity/Diet/Wound Care/Special Instructions: Tylenol PRN for pain No lifting over 10 pounds You may shower. No soaking or tub baths Very light activity until you are reevaluated at your follow up appointment with your surgeon
[2019-01-26] MEDS: MAGNESIUM SULFATE-D5W PMX 1 GM in DEXTROSE/WATER 1 100ML.BAG IVPB SCH ×2 (10:59→12:17)
[2019-01-26 13:36] VITALS: BP 136/70; PULSE 70; TEMP 97.9
--- NOTE | 2019-01-30 12:28 | CDI ---
Documentation Clarification Form Date: 01/30/19 From: Beverly Izaguirre Phone: If you have a question regarding this query, please contact Em Wallace at [phone] between 8am and 5pm. Admit Date: 01/25/2019 5:55:00 AM Patient Name: Deepti Dyson Visit Number: [id number] Discharge Date: 01/26/2019 1:42:00 PM ATTENTION: The Clinical Documentation Specialists (CDI) and [facility] Coding Staff appreciate your assistance in clarifying documentation. Please respond to the clarification below the line at the bottom and electronically sign. The CDI & [facility] Coding staff will review the response and follow-up if needed. Please note: Queries are made part of the Legal Health Record. If you have any questions, please contact the author of this message via ITS. Dr. Mackenzie Travis The patient presented with paraesophageal hiatal hernia and GERD. Documentation in the Op Note and discharge summary also states complications from sleeve gastrectomy. History/Risk Factors: Patient has morbid obesity and previous sleeve gastrectomy. Clinical Indicators: Incarcerated hiatal hernia, GERD with esophagitis and dysphagia. Lab findings: Admit labs: BUN 26, all other values within normal limits. Vital Signs: T. 97.6, P. 48, R. 16, BP 177/77 Treatment: Repair of hiatal hernia. Consults: In your professional opinion, can you please clarify what the complications of the sleeve gastrectomy are? Hiatal Hernia GERD Esophagitis Hypertensive Esophageal Sphincter Other, please specify Unable to determine see discharge summary addendum MTDD
== END 2019-01-26 13:42 | disposition home or self-care (01) | DRG 327 ==
LOC: 2ORMAIN 05:55 → 6PED 11:10
PROVIDERS: ADMIT Surgery Plastic and Reconstructive Surgery; ATTEND Surgery Plastic and Reconstructive Surgery
PROC: 8E0W4CZ Robotic Assisted Procedure of Trunk Region, Percutaneous Endoscopic Approach (ICD-10-PCS; 2019-01-25)
PROC: 0DJ08ZZ Inspection of Upper Intestinal Tract, Via Natural or Artificial Opening Endoscopic (ICD-10-PCS; 2019-01-25)
PROC: 0BUT4JZ Supplement Diaphragm with Synthetic Substitute, Percutaneous Endoscopic Approach (ICD-10-PCS; principal; 2019-01-25 07:45)
DX: K44.0 Diaphragmatic hernia with obstruction, without gangrene (principal); K95.89 Other complications of other bariatric procedure; E66.01 Morbid (severe) obesity due to excess calories; I11.9 Hypertensive heart disease without heart failure; K21.0 Gastro-esophageal reflux disease with esophagitis; K66.0 Peritoneal adhesions (postprocedural) (postinfection); K22.4 Dyskinesia of esophagus; K22.8 Other specified diseases of esophagus; Z68.36 Body mass index [BMI] 36.0-36.9, adult; Z96.653 Presence of artificial knee joint, bilateral; Z79.899 Other long term (current) drug therapy; Z88.2 Allergy status to sulfonamides; Z91.011 Allergy to milk products; Z90.49 Acquired absence of other specified parts of digestive tract; Z80.49 Family history of malignant neoplasm of other genital organs
CPT/HCPCS: 74240; 80048; 80051; 82310; 82565; 83735; 84100; 84520; 85025; 94640

== ENCOUNTER → 2019-07-12 | Outpatient (CLI) | payer MEDICARE, OTHER ==
--- NOTE | 2019-07-12 13:33 | P.PN ---
Subjective Progress Note Date: 07/12/19 She comes in with recurrent reflux. She is back on omeprazole and does not improve her symptoms. She has chest pain from it. She has the sleeve and has choking. Her symptoms came back 2 months after her surgery. She comes in with trouble with water and has coughing spells. She feels fluids get stuck. PLAN: 1. Get esophogram 2. May need esophogram rigid may be of benefit 3. EGD with dilation 4. She has excellent weight loss.
[2019-07-12 13:34] VITALS: RESP 16; TEMP 97.7; BMI 36.0
[2019-07-12 13:52] VITALS: BP 187/121; PULSE 66
--- NOTE | 2019-07-12 15:24 | FL ---
EXAMINATION TYPE: FL barium swallow DATE OF EXAM: 07/12/2019 CLINICAL HISTORY: Gastroesophageal reflux with history of hiatal hernia repair 6 months ago and gastr ic sleeve for years ago. TECHNIQUE: A single contrast esophagram is performed utilizing thin barium only. A total of 1 minut e and 40 seconds of fluoroscopic time was utilized during procedure. 39 fluoroscopic images were save d during the examination. COMPARISON: None FINDINGS: The esophagus shows abnormal motility with blunted secondary wave and few tertiary contract ions. Recurrent small hiatal hernia is seen. This results in moderate degree gastroesophageal reflux. No stricture is identified. Patient swallows contrast difficulty without pain. IMPRESSION: Recurrent small hiatal hernia resulting in moderate degree gastroesophageal junction. 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
== END | disposition home or self-care (01) ==
LOC: BARWHC3 12:53
PROVIDERS: ATTEND Surgery Plastic and Reconstructive Surgery
DX: K21.9 Gastro-esophageal reflux disease without esophagitis (principal); Z98.890 Other specified postprocedural states; Z79.899 Other long term (current) drug therapy; K44.9 Diaphragmatic hernia without obstruction or gangrene; Z88.2 Allergy status to sulfonamides; Z91.011 Allergy to milk products
CPT/HCPCS: 74220; G0463; 99211

== ENCOUNTER 2019-08-14 11:00 | Day surgery (SDC) | payer MEDICARE, OTHER ==
[2019-08-09 16:06] VITALS: BMI 36.4
--- NOTE | 2019-08-13 15:55 | P.PN ---
Progress Note - Text Progress Note Date: 08/13/19 Message left on telephone regarding impending snowstorm tomorrow. Patient offered for rescheduling or start travel time earlier to make visit.
--- NOTE | 2019-08-13 19:46 | P.GSHP ---
History of Present Illness H&P Date: 08/14/19 CHIEF COMPLAINT: GERD HISTORY OF PRESENT ILLNESS: The patient is a [id number] female who presents reports gastroesophageal reflux disease. Upper endoscopy was offered for further evaluation and management. PAST MEDICAL HISTORY: Please see list. PAST SURGICAL HISTORY: Please see list. MEDICATIONS: Please see list. ALLERGIES: Please see list. SOCIAL HISTORY: No illicit drug use FAMILY HISTORY: No reports of Crohn disease or ulcerative colitis. REVIEW OF ORGAN SYSTEMS: CONSTITUTIONAL: No reports of fevers or chills. GI: Denies any blood in stools or constipation. PHYSICAL EXAM: VITAL SIGNS: Stable GENERAL: Well-developed and pleasant in no acute distress. HEENT: No scleral icterus. Extraocular movements grossly intact. Moist buccal mucosa. NECK: Supple without lymphadenopathy. CHEST: Unlabored respirations. Equal bilateral excursions. CARDIOVASCULAR: Regular rate and rhythm. Distal 2+ pulses. ABDOMEN: Soft, nondistended. MUSCULOSKELETAL: No clubbing, cyanosis, or edema. ASSESSMENT: 1. Gastroesophageal reflux disease PLAN: 1. Recommend proceeding with an upper endoscopy Past Medical History Past Medical History: GERD/Reflux, Hypertension Additional Past Medical History / Comment(s): Current UTI on antibiotic, having Ultrasound to rule out kidney stones 08/10/19, advised to notify Dr Travis. Hx of and current Hiatal Hernia. History of Any Multi-Drug Resistant Organisms: None Reported Past Surgical History: Bariatric Surgery, Cholecystectomy, Hernia Repair, Hysterectomy, Joint Replacement Additional Past Surgical History / Comment(s): Bilateral knee replacement, sleeve gastrectomy, hiatal hernia repair. Past Anesthesia/Blood Transfusion Reactions: Motion Sickness Additional Past Anesthesia/Blood Transfusion Reaction / Comment(s): Pt states "always get UTI's from mcneal catheters." Past Psychological History: No Psychological Hx Reported Smoking Status: Never smoker Past Alcohol Use History: None Reported Past Drug Use History: None Reported - Past Family History Mother Family Medical History: Cancer Additional Family Medical History / Comment(s): Uterine cancer. Medications and Allergies Home Medications Medication Instructions Recorded Confirmed Type Bariatric Vitamin 1 tab PO TID 12/27/18 08/09/19 History Ciprofloxacin HCl [Cipro] 250 mg PO Q12HR 08/09/19 08/09/19 History Hydrochlorothiazide 12.5 mg PO QAM 08/09/19 08/09/19 History Irbesartan [Avapro] 150 mg PO QAM 08/09/19 08/09/19 History amLODIPine BESYLATE [Norvasc] 10 mg PO 1700 08/09/19 08/09/19 History Allergies Allergy/AdvReac Type Severity Reaction Status Date / Time Sulfa (Sulfonamide Allergy Rash/Hives Verified 08/09/19 15:52 Antibiotics) milk AdvReac Abdominal Verified 08/09/19 15:52 Pain
[~2019-08-14 11:00] MED LIST changes: -HEPARIN SODIUM,PORCINE 5,000 UNIT/ML 1 ML VIAL SQ ONE; -HYDROmorphone 0.5 MG/0.5 ML SYRINGE IVP PRN; -ceFAZolin IN SWFI 2 GM/20 ML SYRINGE IVP ONE
[2019-08-14] MEDS ORDERED: PROPOFOL 10 MG/ML 20 ML VIAL IV ONE (11:26)
[2019-08-14 11:33] VITALS: TEMP 97.1
--- NOTE | 2019-08-14 11:42 | P.PCN ---
Date of Procedure: 08/14/19 Description of Procedure: PREOPERATIVE DIAGNOSIS: Gastroesophageal reflux disease. Dysphagia POSTOPERATIVE DIAGNOSIS: Gastroesophageal reflux disease. Dysphagia Diaphragmatic hiatal hernia without obstruction. Chronic superficial gastritis with gastric ulcer OPERATION: Esophagogastroduodenoscopy with cold forceps biopsies along the antrum. SURGEON: Mackenzie Travis MD ANESTHESIA: MAC. INDICATIONS: The patient is a 69-year-old female who presents with recurrent gastroesophageal reflux disease including dysphagia. Benefits and risks of the procedure were described. Informed consent was obtained. DESCRIPTION: The patient was brought into the endoscopy suite and laid in the left lateral decubitus position. An Olympus gastroscope was passed along the posterior oropharynx down to the distal esophagus that was tortuous where the squamocolumnar junction was at 35 centimeters from the incisors remarkable for chronic erosive esophagitis, LA grade A without ulceration. The stomach was entered where she had a 2-cm hiatal hernia. The sleeve reservoir was within normal limits. Chronic gastritis with gastric ulcers were found along the antrum with cold biopsies obtained. The first through third portion of the duodenum was examined and unremarkable. The stomach was desufflated. The patien t tolerated the procedure well. FINDINGS: No acute ulceration found along her sleeve. Mild corkscrewing sleeve gastrectomy. Distorted distal esophagus Hiatal hernia 2 cm LA grade A erosive esophagitis. No active duodenitis. Chronic gastritis with ulcer along the antrum and biopsies obtained RECOMMENDATIONS: Upper endoscopy as needed. May benefit from antireflux operation. Start omeprazole Plan - Discharge Summary Discharge Rx Participant: Yes New Discharge Prescriptions: New Omeprazole 40 mg PO DAILY #30 capsule. No Action Bariatric Vitamin 1 tab PO TID Ciprofloxacin HCl [Cipro] 250 mg PO Q12HR Irbesartan [Avapro] 150 mg PO QAM amLODIPine BESYLATE [Norvasc] 10 mg PO 1700 Hydrochlorothiazide 12.5 mg PO QAM Discharge Medication List Bariatric Vitamin 1 tab PO TID 12/27/18 [History] Ciprofloxacin HCl [Cipro] 250 mg PO Q12HR 08/09/19 [History] Hydrochlorothiazide 12.5 mg PO QAM 08/09/19 [History] Irbesartan [Avapro] 150 mg PO QAM 08/09/19 [History] amLODIPine BESYLATE [Norvasc] 10 mg PO 1700 08/09/19 [History] Omeprazole 40 mg PO DAILY #30 capsule. 08/14/19 [Rx] Follow up Appointment(s)/Referral(s): [facility] [NON-STAFF] - 08/30/19 Patient Instructions/Handouts: Gastroesophageal Reflux Disease (DC), Peptic Ulcer (DC) Activity/Diet/Wound Care/Special Instructions: Follow-up at the bariatric center Discharge Disposition: HOME SELF-CARE
[2019-08-14 12:17] VITALS: BP 134/85; PULSE 56; RESP 18
== END 2019-08-14 12:24 | disposition home or self-care (01) ==
LOC: ORWHC2ENDO 11:00
PROVIDERS: ATTEND Surgery Plastic and Reconstructive Surgery
DX: Q39.8 Other congenital malformations of esophagus (principal); K22.10 Ulcer of esophagus without bleeding; K44.9 Diaphragmatic hernia without obstruction or gangrene; K25.7 Chronic gastric ulcer without hemorrhage or perforation; Z79.899 Other long term (current) drug therapy; K21.9 Gastro-esophageal reflux disease without esophagitis; I10 Essential (primary) hypertension; N39.0 Urinary tract infection, site not specified; Z98.84 Bariatric surgery status; Z90.49 Acquired absence of other specified parts of digestive tract; Z90.710 Acquired absence of both cervix and uterus; Z96.653 Presence of artificial knee joint, bilateral; Z80.49 Family history of malignant neoplasm of other genital organs; Z88.2 Allergy status to sulfonamides; Z91.011 Allergy to milk products
CPT/HCPCS: 88305; 43239; J2704

== ENCOUNTER → 2019-09-06 | Outpatient (CLI) | payer MEDICARE, OTHER ==
[2019-09-06 11:53] VITALS: BP 154/88; PULSE 71; TEMP 98.7; BMI 36.2
--- NOTE | 2019-09-06 13:24 | P.PN ---
Subjective Progress Note Date: 09/06/19 DATE OF SERVICE: 09/06/2019 CHIEF COMPLAINT: Morbid obesity HISTORY OF PRESENT ILLNESS: Deepti Dyson is a 69-year-old female status post sleeve gastrectomy in 2016 in [place], [place]. She is 3 years out. She comes in with problems with her sleeve despite hiatal hernia repair. She has severe gastroesophageal reflux disease despite prior repair. She wakes up at night with severe reflux. She reports intermittent epigastric abdominal pain. She also reports dysphagia. She is taking Zantac and Omeprazole with no improvement of her symptoms. She comes with kidney stones. She comes in with complications of her sleeve gastrectomy and is seeking options for repair. At height of 5 feet 2 inches, her ideal body weight is 135 pounds. She comes in 198 pounds from 197 pounds, 1 month ago. She has gained 1 pounds in 1 month. Her body mass index highest is 38.0. Her lifetime weight loss is 10 pounds. Percent excess weight loss is 14%. She is 63 pounds overweight. PAST MEDICAL HISTORY: 1. Morbid obesity due to excess calories 2. Body mass index of 38.0 3. Gastroesophageal reflux disease 4. Hypertensive heart disease 5. Osteoarthritis bilateral knees PAST SURGICAL HISTORY: 1. Sleeve gastrectomy 2. Bilateral knee replacement 3. Cholecystectomy 4. Hysterectomy 5. Hiatal hernia repair HOME MEDICATIONS: ALLERGIES: Medications and Allergies Home Medications Medication Instructions Recorded Confirmed Type Bisoprolol-Hctz 5-6.25 mg [Ziac 2 tab PO DAILY 09/01/18 09/21/18 History 5-6.25 MG] Omeprazole 20 mg PO AC-BRKFST 09/01/18 09/21/18 History Omeprazole 40 mg PO HS 09/21/18 09/21/18 History Allergies Allergy/AdvReac Type Severity Reaction Status Date / Time Sulfa (Sulfonamide Allergy Rash/Hives Verified 09/21/18 15:50 Antibiotics) milk AdvReac Abdominal Verified 09/21/18 15:50 Pain SOCIAL HISTORY: No past tobacco use. FAMILY HISTORY: No family history of ulcerative colitis disease or Crohn's disease. Family history of morbid obesity. No lupus in the family. No reports of stomach or esophageal cancer. REVIEW OF ORGAN SYSTEMS: CONSTITUTIONAL: At height of 5 feet 2 inches, her ideal body weight is 135 pounds. Highest weight 208 pounds. Her body mass index highest is 38.0. HEENT: Denies any active troubles with vision or hearing. Has troubles with swallowing. ENDOCRINE: No diabetes. No hypothyroidism. CARDIOVASCULAR: No reports of palpitations or heart attacks or chest pain. RESPIRATORY: No daytime somnolence. Has asthma. GI: Denies any bright red blood per rectum. No diarrhea. Has GERD. MUSCULOSKELETAL: Has lower back pain and joint pain. Has osteoarthritis of the knees. NEURO: No headaches. No seizure disorders. PSYCH: No depression. No suicidal ideation. RHEUMATOLOGIC: No lupus. No rheumatoid arthritis. HEMATOLOGIC: Denies any abnormal bleeding or bruising. No personal history of DVTs. SKIN: No rash. No skin cancer. : Kidney stones. PHYSICAL EXAM: VITAL SIGNS: Height 5 foot 2 inches, weight 198 pounds. BMI 36.2 Vital Signs Temp 98.7 F 09/06/19 11:50 Pulse 71 09/06/19 11:50 Resp BP 154/88 09/06/19 11:50 Pulse Ox GENERAL: Well-developed in no acute distress. HEENT: No scleral icterus. Extraocular movements grossly intact. Hears conversational speech. No nasal drainage. NECK: Supple without lymphadenopathy. CHEST: Nonlabored respirations with equal bilateral excursions. CARDIOVASCULAR: Regular rate and regular rhythm. Distal 2+ pulses. ABDOMEN: Obese, soft, nontender, nondistended. MUSCULOSKELETAL: No clubbing, cyanosis. NEURO: No focal or lateralizing signs. Cranial nerves 2 through 12 grossly within normal limits. PSYCH: Appropriate affect. Alert and oriented to person, place and time. SKIN: Good skin turgor. Well perfused. STUDIES: Esophagram independently reviewed shows intra-esophageal reflux infludi ng hiatal hernia RADIOLOGY REPORT: Show esophageal dysmotility and recurrent hiatal hernia with presbyesophagus EGD FINDINGS: No acute ulceration found along her sleeve. Mild corkscrewing sleeve gastrectomy. Distorted distal esophagus Hiatal hernia 2 cm LA grade A erosive esophagitis. No active duodenitis. Chronic gastritis with ulcer along the antrum and biopsies obtained Final Pathologic Diagnosis GASTRIC ANTRUM, BIOPSY: Benign gastric mucosa with minimal chronic gastritis. Helicobacter organisms are not identified on routine H+E stained sections. ASSESSMENT: 1. Morbid obesity due to excess calories 2. Body mass index of 38.0 to 36.2 3. Gastroesophageal reflux disease 4. Hypertensive heart disease 5. Osteoarthritis bilateral knees 6. Inadequate protein intake 7. Hiatal hernia 8. Vitamin A deficiency 9. Esophageal dysmotility 10. Dysphagia 11. Complications from sleeve gastrectomy PLAN: 1. Surgical options for conversion from sleeve to gastric bypass reviewed. 2. Off label use of Linx procedure also reveiwed as well to control reflux. 3. She is double dose and high dose antacids without improvement of her symptoms. Recommend conversion to gastric bypass to ameliorate and correct her symptoms. Will need criteria per insurance. 4. An 8 page second-generation bariatric consent form was reviewed in detail including potential of bleeding, infection, leaks, adequate weight loss, nutritional deficiencies which the patient demonstrated understanding of the risks. 5. A 2 week high-protein low caloric 800 kcal diet described to address hepatomegaly. 6. Preoperative labs including complete metabolic panel and CBC with type and screen recommended. Will need correction of all nutritional deficiences. 7. DVT prophylaxis per [place] [facility]. 8. Antibiotic prophylaxis. 9. Inpatient hospitalization anticipated for more than 2 nights. 10. All questions and concerns were addressed with the patient. She is high risk for mikal-procedural complications including leaks and strictures. Laboratory Last Values WBC 4.2 k/uL (3.8-10.6) 09/06/19 13:54 RBC 3.74 m/uL (3.80-5.40) L 09/06/19 13:54 Hgb 12.2 gm/dL (11.4-16.0) 09/06/19 13:54 Hct 35.6 % (34.0-46.0) 09/06/19 13:54 MCV 95.1 fL (80.0-100.0) 09/06/19 13:54 MCH 32.7 pg (25.0-35.0) 09/06/19 13:54 MCHC 34.4 g/dL (31.0-37.0) 09/06/19 13:54 RDW 12.4 % (11.5-15.5) 09/06/19 13:54 Plt Count 193 k/uL (150-450) 09/06/19 13:54 PT 10.5 sec (9.0-12.0) 09/06/19 13:54 INR 1.0 (<1.2) 09/06/19 13:54 APTT 22.9 sec (22.0-30.0) 09/06/19 13:54 Sodium 143 mmol/L (135-145) 09/06/19 13:54 Potassium 3.9 mmol/L (3.5-5.5) 09/06/19 13:54 Chloride 104 mmol/L (96-109) 09/06/19 13:54 Carbon Dioxide 30.7 mmol/L (21.6-31.8) 09/06/19 13:54 Anion Gap 8.30 mmol/L (4.00-12.00) 09/06/19 13:54 BUN 26.0 mg/dL (9.0-27.0) 09/06/19 13:54 Creatinine 0.8 mg/dL (0.6-1.5) 09/06/19 13:54 Est GFR (CKD-EPI)AfAm 86.0 (60.0-200.0) 09/06/19 13:54 Est GFR (CKD-EPI)NonAf 74.2 (60.0-200.0) 09/06/19 13:54 BUN/Creatinine Ratio 32.50 Ratio (12.00-20.00) H 09/06/19 13:54 Glucose 127 mg/dL (70-110) H 09/06/19 13:[address] Glu mg/dL 105 09/06/19 13:54 Hemoglobin A1c 5.3 % (4.0-6.0) 09/06/19 13:54 Calcium 9.4 mg/dL (8.7-10.3) 09/06/19 13:54 Phosphorus 4.2 mg/dL (2.4-5.1) 09/06/19 13:54 Magnesium 1.9 mg/dL (1.5-2.4) 09/06/19 13:54 Iron 100 ug/dL (50-170) 09/06/19 13:54 TIBC 310 ug/dL (228-460) 09/06/19 13:54 % Saturation 32.26 (12.00-45.00) 09/06/19 13:54 Ferritin 37.6 ng/mL (10.0-291.0) 09/06/19 13:54 Total Bilirubin 0.4 mg/dL (0.3-1.2) 09/06/19 13:54 AST 38 U/L (13-35) H 09/06/19 13:54 ALT 37 U/L (8-44) 09/06/19 13:54 Alkaline Phosphatase 114 U/L (41-126) 09/06/19 13:54 Total Protein 6.2 g/dL (6.2-8.2) 09/06/19 13:54 Albumin 4.40 g/dL (3.80-4.90) 09/06/19 13:54 Globulin 1.8 g/dL (1.6-3.3) 09/06/19 13:54 Albumin/Globulin Ratio 2.44 g/dL (1.60-3.17) 09/06/19 13:54 Prealbumin 13.0 mg/dL (18.0-42.0) L 09/06/19 13:54 Triglycerides 78.0 mg/dL (0.0-149.0) 09/06/19 13:54 Cholesterol 144 mg/dL (0-200) 09/06/19 13:54 LDL Cholesterol, Calc 76.4 mg/dL (0.0-131.0) 09/06/19 13:54 VLDL Cholesterol, Calc 15.60 mg/dL (5.00-40.00) 09/06/19 13:54 HDL Cholesterol 52.0 mg/dL (40.0-60.0) 09/06/19 13:54 Cholesterol/HDL Ratio 2.77 09/06/19 13:54 Vitamin A 29 ug/dL (38-106) L 09/06/19 13:54 Vitamin B1 101 ug/L (38-122) 09/06/19 13:54 Vitamin B12 1702.0 pg/mL (200.0-944.0) H 09/06/19 13:54 Vitamin D 25-Hydroxy 53.7 ng/mL (30.0-100.0) 09/06/19 13:54 Folate >24.0 ng/mL 09/06/19 13:54 TSH 0.810 uIU/mL (0.350-5.500) 09/06/19 13:54 PTH Intact 46.1 pg/mL (14.0-72.0) 09/06/19 13:54 Copper 1187 ug/L (810-1990) 09/06/19 13:54 Selenium 126 mcg/L (63-160) 09/06/19 13:54 Zinc 70 ug/dL (60-130) 09/06/19 13:54 Pre-albumin is low Vitamin A is low Objective - Vital Signs Vital signs: Vital Signs Temp 98.7 F 09/06/19 11:50 Pulse 71 09/06/19 11:50 Resp BP 154/88 09/06/19 11:50 Pulse Ox Intake & Output 09/05/19 09/06/19 09/06/19 18:59 06:59 18:59 Weight 89.811 kg - Labs CBC & Chem 7: 09/06/19 13:54 09/06/19 13:54
[2019-09-06 14:18] LABS: HCT 35.6 % (34.0-46.0); HGB 12.2 gm/dL (11.4-16.0); MCH 32.7 pg (25.0-35.0); MCHC 34.4 g/dL (31.0-37.0); MCV 95.1 fL (80.0-100.0); Mean Platelet Volume 7.1; Platelet Count 193 k/uL (150-450); RBC 3.74 m/uL (3.80-5.40); RDW 12.4 % (11.5-15.5); WBC 4.2 k/uL (3.8-10.6)
[2019-09-06 14:33] LABS: Partial Thromboplastin Time 22.9 sec (22.0-30.0); Prothrombin Time 10.5 sec (9.0-12.0)
[2019-09-06 20:04] LABS: % Iron Saturation 32.26 (12.00-45.00); ALT 37 U/L (8-44); AST 38 U/L (13-35); Albumin/Globulin Ratio 2.44 (1.60-3.17); Alkaline Phosphatase 114 U/L (41-126); Calcium 9.4 mg/dL (8.7-10.3); Carbon Dioxide 30.7 mmol/L (21.6-31.8); Chloride 104 mmol/L (96-109); Chol/HDL Ratio 2.77; Cholesterol 144 mg/dL (0-200); Globulin 1.8 g/dL (1.6-3.3); Glucose 127 mg/dL (70-110); Iron 100 ug/dL (50-170); LDL Cholesterol,Calculated 76.4 mg/dL (0.0-131.0); Magnesium 1.9 mg/dL (1.5-2.4); Non-African American GFR(CKD) 74.2 (60.0-200.0); Phosphorus 4.2 mg/dL (2.4-5.1); Potassium 3.9 mmol/L (3.5-5.5); Sodium 143 mmol/L (135-145); Total Bilirubin 0.4 mg/dL (0.3-1.2); Total Iron Binding Capacity 310 ug/dL (228-460); Total Protein 6.2 g/dL (6.2-8.2)
[2019-09-06 20:12] LABS: Ferritin 37.6 ng/mL (10.0-291.0)
[2019-09-06 20:45] LABS: Folate, Serum >24.0 ng/mL
[2019-09-06 21:16] LABS: Hemoglobin A1C 5.3 % (4.0-6.0)
[2019-09-07 12:56] LABS: Zinc, Serum 70 ug/dL (60-130)
[2019-09-08 06:24] LABS: Vitamin A 29 ug/dL (38-106)
[2019-09-08 06:50] LABS: Vit B1(Thiamine) 101 ug/L (38-122)
[2019-09-11 18:29] LABS: Selenium 126 mcg/L (63-160)
== END | disposition home or self-care (01) ==
LOC: BARWHC3 11:07
PROVIDERS: ATTEND Surgery Plastic and Reconstructive Surgery
DX: Z48.815 Encounter for surgical aftercare following surgery on the digestive system (principal); E66.01 Morbid (severe) obesity due to excess calories; Z68.36 Body mass index [BMI] 36.0-36.9, adult; K21.9 Gastro-esophageal reflux disease without esophagitis; I11.9 Hypertensive heart disease without heart failure; M17.0 Bilateral primary osteoarthritis of knee; E63.8 Other specified nutritional deficiencies; K44.9 Diaphragmatic hernia without obstruction or gangrene; E50.9 Vitamin A deficiency, unspecified; K22.8 Other specified diseases of esophagus; K95.89 Other complications of other bariatric procedure; Z83.49 Family history of other endocrine, nutritional and metabolic diseases; Z90.49 Acquired absence of other specified parts of digestive tract; Z79.899 Other long term (current) drug therapy; Z88.2 Allergy status to sulfonamides; E21.1 Secondary hyperparathyroidism, not elsewhere classified; E89.1 Postprocedural hypoinsulinemia; D50.9 Iron deficiency anemia, unspecified; K90.9 Intestinal malabsorption, unspecified; E55.9 Vitamin D deficiency, unspecified; K76.9 Liver disease, unspecified; N19 Unspecified kidney failure; K50.90 Crohn's disease, unspecified, without complications
CPT/HCPCS: 84255; 84134; 84425; 80061; 80053; 82607; 82728; 82525; 82746; 83540; 83550; 83735; 84100; 84443; 84590; 84630; 85027; 85610; 85730; 82306; 83970; 83036; G0463; 99211

== ENCOUNTER → 2019-09-18 | Outpatient (CLI) | payer MEDICARE, OTHER ==
[2019-09-18 11:42] VITALS: BMI 35.7
== END | disposition home or self-care (01) ==
LOC: BARWHC3 08:32
PROVIDERS: ATTEND Surgery Plastic and Reconstructive Surgery
DX: E66.01 Morbid (severe) obesity due to excess calories (principal)
CPT/HCPCS: 97804

== ENCOUNTER → 2019-11-08 | Outpatient (CLI) | payer MEDICARE, OTHER ==
[2019-11-08 14:04] LABS: Basophils % (A) 1 %; Eosinophils # (A) 0.1 k/uL (0-0.7); Eosinophils % (A) 3 %; HCT 37.2 % (34.0-46.0); HGB 12.2 gm/dL (11.4-16.0); Lymphocytes # (A) 1.5 k/uL (1.0-4.8); Lymphocytes % (A) 33 %; MCH 31.7 pg (25.0-35.0); MCHC 32.9 g/dL (31.0-37.0); MCV 96.3 fL (80.0-100.0); Mean Platelet Volume 7.5; Monocytes # (A) 0.2 k/uL (0-1.0); Monocytes % (A) 4 %; Neutrophils # (A) 2.7 k/uL (1.3-7.7); Neutrophils % (A) 57 %; Platelet Count 175 k/uL (150-450); RBC 3.86 m/uL (3.80-5.40); RDW 12.1 % (11.5-15.5); WBC 4.6 k/uL (3.8-10.6)
[2019-11-08 14:15] LABS: Albumin 3.8 g/dL (3.5-5.0); Potassium 3.9 mmol/L (3.5-5.1); Total Bilirubin 0.4 mg/dL (0.2-1.3); Total Protein 6.4 g/dL (6.3-8.2)
== END | disposition home or self-care (01) ==
LOC: LABPAT 13:05
PROVIDERS: ATTEND Surgery Plastic and Reconstructive Surgery
DX: Z01.818 Encounter for other preprocedural examination (principal)
CPT/HCPCS: 36415; 80053; 85025

== ENCOUNTER 2019-11-13 06:16 | Inpatient (IN) | payer MEDICARE, OTHER ==
[~2019-11-13 06:16] MED LIST changes: +DEXAMETHASONE SOD PHOSPHATE 10 MG/ML 1 ML VIAL IV ONE; +HYDROmorphone 0.5 MG/0.5 ML SYRINGE IVP PRN; -LACTATED RINGERS 1,000 ML IV SCH; -LIDOCAINE 1% 20 ML VIAL (10MG/ML) FOR IV START INTRADERMA PRN; +MIDAZOLAM 2 MG/2 ML VIAL IV PRN; +ONDANSETRON 4 MG/2 ML VIAL IVP ONE
[2019-11-13] MEDS ORDERED: LIDOCAINE 1% 20 ML VIAL (10MG/ML) FOR IV START INTRADERMA ONE (07:05)
[2019-11-13] MEDS: LACTATED RINGERS 1,000 ML IV SCH (07:11)
[2019-11-13] MEDS ORDERED: ENOXAPARIN 40 MG/0.4 ML SYRINGE SQ STA (07:23)
[2019-11-13] MEDS ORDERED: PANTOPRAZOLE 40 MG/10 ML VIAL IV STA (07:23)
[2019-11-13] MEDS ORDERED: CHLORHEXIDINE GLUCONATE 15 ML CUP MUCOUS MEM ONE (07:23)
--- NOTE | 2019-11-13 07:25 | P.GSHP ---
History of Present Illness H&P Date: 11/13/19 DATE OF SERVICE: 11/13/2019 CHIEF COMPLAINT: Morbid obesity HISTORY OF PRESENT ILLNESS: Deepti Dyson is a 69-year-old female status post sleeve gastrectomy in 2016 in [place], [place]. She is 3 years out. She comes in with problems with her sleeve despite hiatal hernia repair. She has severe gastroesophageal reflux disease despite prior repair. She wakes up at night with severe reflux. She reports intermittent epigastric abdominal pain. She also reports dysphagia. She is taking Zantac and Omeprazole with no improvement of her symptoms. She comes with kidney stones. She comes in with complications of her sleeve gastrectomy and is seeking options for repair. At height of 5 feet 2 inches, her ideal body weight is 135 pounds. She comes in 198 pounds from 197 pounds, 1 month ago. She has gained 1 pounds in 1 month. Her body mass index highest is 38.0. Her lifetime weight loss is 10 pounds. Percent excess weight loss is 14%. She is 63 pounds overweight. PAST MEDICAL HISTORY: 1. Morbid obesity due to excess calories 2. Body mass index of 38.0 3. Gastroesophageal reflux disease 4. Hypertensive heart disease 5. Osteoarthritis bilateral knees PAST SURGICAL HISTORY: 1. Sleeve gastrectomy 2. Bilateral knee replacement 3. Cholecystectomy 4. Hysterectomy 5. Hiatal hernia repair HOME MEDICATIONS: ALLERGIES: Medications and Allergies Home Medications Medication Instructions Recorded Confirmed Type Bisoprolol-Hctz 5-6.25 mg [Ziac 2 tab PO DAILY 09/01/18 09/21/18 History 5-6.25 MG] Omeprazole 20 mg PO AC-BRKFST 09/01/18 09/21/18 History Omeprazole 40 mg PO HS 09/21/18 09/21/18 History Allergies Allergy/AdvReac Type Severity Reaction Status Date / Time Sulfa (Sulfonamide Allergy Rash/Hives Verified 09/21/18 15:50 Antibiotics) milk AdvReac Abdominal Verified 09/21/18 15:50 Pain SOCIAL HISTORY: No past tobacco use. FAMILY HISTORY: No family history of ulcerative colitis disease or Crohn's disease. Family history of morbid obesity. No lupus in the family. No reports of stomach or esophageal cancer. REVIEW OF ORGAN SYSTEMS: CONSTITUTIONAL: At height of 5 feet 2 inches, her ideal body weight is 135 pounds. Highest weight 208 pounds. Her body mass index highest is 38.0. HEENT: Denies any active troubles with vision or hearing. Has troubles with swallowing. ENDOCRINE: No diabetes. No hypothyroidism. CARDIOVASCULAR: No reports of palpitations or heart attacks or chest pain. RESPIRATORY: No daytime somnolence. Has asthma. GI: Denies any bright red blood per rectum. No diarrhea. Has GERD. MUSCULOSKELETAL: Has lower back pain and joint pain. Has osteoarthritis of the knees. NEURO: No headaches. No seizure disorders. PSYCH: No depression. No suicidal ideation. RHEUMATOLOGIC: No lupus. No rheumatoid arthritis. HEMATOLOGIC: Denies any abnormal bleeding or bruising. No personal history of DVTs. SKIN: No rash. No skin cancer. : Kidney stones. PHYSICAL EXAM: VITAL SIGNS: Height 5 foot 2 inches, weight 198 pounds. BMI 36.2 GENERAL: Well-developed in no acute distress. HEENT: No scleral icterus. Extraocular movements grossly intact. Hears conversational speech. No nasal drainage. NECK: Supple without lymphadenopathy. CHEST: Nonlabored respirations with equal bilateral excursions. CARDIOVASCULAR: Regular rate and regular rhythm. Distal 2+ pulses. ABDOMEN: Obese, soft, nontender, nondistended. MUSCULOSKELETAL: No clubbing, cyanosis. NEURO: No focal or lateralizing signs. Cranial nerves 2 through 12 grossly within normal limits. PSYCH: Appropriate affect. Alert and oriented to person, place and time. SKIN: Good skin turgor. Well perfused. STUDIES: Esophagram independently reviewed shows intra-esophageal reflux influding hiatal hernia RADIOLOGY REPORT: Show esophageal dysmotility and recurrent hiatal hernia with presbyesophagus EGD FINDINGS: No acute ulceration found along her sleeve. Mild corkscrewing sleeve gastrectomy. Distorted distal esophagus Hiatal hernia 2 cm LA grade A erosive esophagitis. No active duodenitis. Chronic gastritis with ulcer along the antrum and biopsies obtained Final Pathologic Diagnosis GASTRIC ANTRUM, BIOPSY: Benign gastric mucosa with minimal chronic gastritis. Helicobacter organisms are not identified on routine H+E stained sections. ASSESSMENT: 1. Morbid obesity due to excess calories 2. Body mass index of 38.0 to 36.2 3. Gastroesophageal reflux disease 4. Hypertensive heart disease 5. Osteoarthritis bilateral knees 6. Inadequate protein intake 7. Hiatal hernia 8. Vitamin A deficiency 9. Esophageal dysmotility 10. Dysphagia 11. Complications from sleeve gastrectomy PLAN: 1. Surgical options for conversion from sleeve to gastric bypass reviewed. 2. Off label use of Linx procedure also reveiwed as well to control reflux. 3. She is double dose and high dose antacids without improvement of her symptoms. Recommend conversion to gastric bypass to ameliorate and correct her symptoms. Will need criteria per insurance. 4. An 8 page second-generation bariatric consent form was reviewed in detail including potential of bleeding, infection, leaks, adequate weight loss, nutritional deficiencies which the patient demonstrated understanding of the risks. 5. A 2 week high-protein low caloric 800 kcal diet described to address hepatomegaly. 6. Preoperative labs including complete metabolic panel and CBC with type and screen recommended. Will need correction of all nutritional deficiences. 7. DVT prophylaxis per [place] [facility]. 8. Antibiotic prophylaxis. 9. Inpatient hospitalization anticipated for more than 2 nights. 10. All questions and concerns were addressed with the patient. She is high risk for mikal-procedural complications including leaks and strictures. Past Medical History Past Medical History: GERD/Reflux, Hypertension Additional Past Medical History / Comment(s): Hx of and current Hiatal Hernia, hx. frequent UTI's, urinary incontinence History of Any Multi-Drug Resistant Organisms: None Reported Past Surgical History: Bariatric Surgery, Cholecystectomy, Hernia Repair, Hysterectomy, Joint Replacement Additional Past Surgical History / Comment(s): Bilateral knee replacement, sleeve gastrectomy, hiatal hernia repair. Past Anesthesia/Blood Transfusion Reactions: Motion Sickness Additional Past Anesthesia/Blood Transfusion Reaction / Comment(s): Pt states "always get UTI's from mcneal catheters." Smoking Status: Never smoker - Past Family History Mother Family Medical History: Cancer Additional Family Medical History / Comment(s): Uterine cancer. Medications and Allergies Home Medications Medication Instructions Recorded Confirmed Type Bariatric Vitamin 1 tab PO BID 12/27/18 11/13/19 History Omeprazole 40 mg PO DAILY #30 capsule. 08/14/19 11/13/19 Rx Irbesartan/Hydrochlorothiazide 1 tab PO DAILY 09/06/19 11/13/19 History [Avalide 150-12.5 mg Tablet] amLODIPine [Norvasc] 10 mg PO DAILY 09/18/19 11/13/19 History Oxybutynin Chloride [Ditropan XL] 10 mg PO DAILY 11/08/19 11/13/19 History Allergies Allergy/AdvReac Type Severity Reaction Status Date / Time Sulfa (Sulfonamide Allergy Rash/Hives Verified 11/13/19 06:52 Antibiotics) milk AdvReac Abdominal Verified 11/13/19 06:52 Pain Surgical - Exam Vital Signs Temp Pulse Resp BP Pulse Ox 97.8 F 54 L 16 127/67 100 11/13/19 06:50 11/13/19 06:50 11/13/19 06:50 11/13/19 06:50 11/13/19 06:50
[2019-11-13] MEDS ORDERED: MIDAZOLAM 2 MG/2 ML VIAL IVP ONE (07:43)
[2019-11-13] MEDS ORDERED: fentaNYL (PF) 50 MCG/ML 2 ML AMP IV ONE (07:43)
[2019-11-13 07:44] LABS: Basophils % (A) 1 %; Eosinophils # (A) 0.1 k/uL (0-0.7); Eosinophils % (A) 3 %; HGB 12.7 gm/dL (11.4-16.0); Lymphocytes # (A) 1.5 k/uL (1.0-4.8); Lymphocytes % (A) 36 %; MCH 31.3 pg (25.0-35.0); MCHC 33.6 g/dL (31.0-37.0); MCV 93.4 fL (80.0-100.0); Mean Platelet Volume 7.2; Monocytes # (A) 0.2 k/uL (0-1.0); Monocytes % (A) 5 %; Neutrophils # (A) 2.2 k/uL (1.3-7.7); Neutrophils % (A) 54 %; Platelet Count 203 k/uL (150-450); RBC 4.07 m/uL (3.80-5.40); WBC 4.2 k/uL (3.8-10.6)
[2019-11-13] MEDS ORDERED: GLYCOPYRROLATE 0.2 MG/ML 2 ML VIAL ONE (08:07)
[2019-11-13] MEDS ORDERED: ePHEDrine SULFATE/0.9% NACL/PF 50 MG/5 ML SYRINGE IV ONE (08:07)
[2019-11-13] MEDS ORDERED: PHENYLEPHRINE-0.9% NACL SYG 1 MG/10 ML SYRINGE ONE (08:07)
[2019-11-13] MEDS ORDERED: fentaNYL (PF) 50 MCG/ML 2 ML AMP ONE (08:07)
[2019-11-13] MEDS ORDERED: PROPOFOL 10 MG/ML 20 ML VIAL IV ONE (08:07)
[2019-11-13] MEDS ORDERED: DEXAMETHASONE SOD PHOSPHATE 4 MG/ML 1 ML VIAL ONE (08:07)
[2019-11-13] MEDS ORDERED: HYDROmorphone (PF) 1 MG/ML ONE (08:07)
[2019-11-13] MEDS ORDERED: SUCCINYLCHOLINE CHLORIDE 100 MG/5 ML SYR IV ONE (08:07)
[2019-11-13] MEDS ORDERED: ROCURONIUM BROMIDE 10 MG/ML 5 ML VIAL IV ONE (08:07)
[2019-11-13] MEDS ORDERED: ROPIVACAINE 5 MG/ML 30 ML VIAL ONE (08:07)
[2019-11-13] MEDS ORDERED: LIDOCAINE 1% INJ 10MG/ML (20 ML MDV) ONE (08:07)
[2019-11-13] MEDS ORDERED: NEOSTIGMINE 1 MG/ML 10 ML VIAL ONE (08:07)
[2019-11-13] MEDS ORDERED: MIDAZOLAM 2 MG/2 ML VIAL ONE (08:07)
--- NOTE | 2019-11-13 08:41 | P.ANPRN ---
Procedure Note - Anesthesia - Nerve Block Performed Bilateral Transversus Abdominis Single Time Out Performed: Yes Date of Procedure: 11/13/19 Procedure Start Time: 07:47 Procedure Stop Time: 07:57 Location of Patient: PreOp Indication: Acute Post-Operative Pain, Requested by Surgeon Sedation Type: Sedate with meaningful contact maintained Preparation: Sterile Prep Position: Supine Catheter: None Needle Types: Pajunk Needle Gauge: 21 Ultrasound used to visualize needle placement: Yes Ultrasound used to observe medication spread: Yes Injectate: 0.5% Ropivacaine (see comment for volume) (ropivacaine 0.5%- 15 cc+ PFNS 5cc+ decadron 4 mg--- per side) Blood Aspirated: No Pain Paresthesia on Injection Noted: No Resistance on Injection: Normal Image Stored and Saved: Yes Events: Uneventful and Well Tolerated
[2019-11-13] MEDS ORDERED: LIDOCAINE 1%-EPI 1:100,000 20 ML VIAL SQ ONE (09:23)
[2019-11-13] MEDS ORDERED: LACTATED RINGERS 1,000 ML IV ONE (10:59)
--- NOTE | 2019-11-13 11:33 | P.OP ---
Date of Procedure: 11/13/19 Description of Procedure: DESCRIPTION OF PROCEDURE(S): SURGEON: HUMBERTO SCHILLING MD ROTARY DRUM TANNER: 1. GEMINI GUERRA PREOPERATIVE DIAGNOSES: 1. Morbid obesity due to excess calories 2. Body mass index of 38.0 3. Gastroesophageal reflux disease 4. Hypertensive heart disease 5. Osteoarthritis bilateral knees 6. Hiatal hernia, recurrent 7. Esophageal dysmotility 8. Dysphagia 9. 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 Morbid obesity due to excess calories 2. Body mass index of 38.0 3. Gastroesophageal reflux disease 4. Hypertensive heart disease 5. Osteoarthritis bilateral knees 6. Hiatal hernia, recurrent 7. Esophageal dysmotility 8. Dysphagia 9. 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 Intra-abdominal adhesions from greater omentum to anterior abdominal wall, epigastrium OPERATION: 1. Robotic assisted da Khoa Xi laparoscopic Geovanni-en-Y gastric bypass, 100cm antecolic antegastric Geovanni limb, with 25 mm EEA. 2. Robotic assisted da Khoa Xi laparoscopic extensive lysis of adhesions 30 minutes. 3. Robotic assisted da Khoa Xi laparoscopic hiatal hernia repair without mesh 4. Intraoperative esophagogastrojejunoscopy with removal of foreign body using snare technique ANESTHESIA: General with local ESTIMATED BLOOD LOSS: 5 mL SPECIMENS REMOVED: None. COMPLICATIONS: NONE. INDICATIONS: Deepti Dyson is a 69-year-old female status post sleeve gastrectomy in 2016 in [place], [place]. She is 4 years out. She comes in with problems with her sleeve despite prior hiatal hernia repair. She reports intermittent epigastric abdominal pain. She also reports dysphagia. She is taking Zantac and Omeprazole with no improvement of her symptoms. She comes in with complications of her sleeve gastrectomy and is seeking options for repair. At height of 5 feet 2 inches, her ideal body weight is 135 pounds. She comes in 198 pounds. Her body mass index highest is 38.0. Her lifetime weight loss is 10 pounds. Percent excess weight loss is 14%. She is 63 pounds overweight. She now presents to undergo robotic assisted gastric bypass. A second-generation bariatric consent form was described in detail including the possibility of protein malnutrition, leaks, gastrojejunal stricture, venous thrombosis, need for further surgery for which she demonstrated understanding. Benefits and risks of the procedure were described at length. Informed consent was obtained. DESCRIPTION: The patient was brought into the operating room theater. She was placed on a split leg table. Preoperatively she had received Lovenox subcutaneously for DVT prophylaxis. Additionally she had undergone Peridex oral solution as an oral decontaminant. After general induction, the abdomen was prepped and draped in standard sterile fashion. Ioban draping was placed along the abdomen. A robotic da Khoa Xi system was prepped and primed. The xiphoid to umbilicus was measured of 15 cm. Proposed port sites were marked with indelible marker along the anterior axillary line bilaterally, mid clavicular line bilaterally with each port marked 10 cm from each other. The certified physician's assistant port was marked along the right lateral lower abdominal wall. The robotic stapler port was marked for the right midclavicular line including along the left midclavicular line. A 5 mm 0 degrees laparoscopic trocar entry was performed along the left upper quadrant. The abdomen was insufflated to 15 mmHg pressure, which she tolerated well. Diagnostic laparoscopy demonstrated no injury to bowel, viscera, or mesentery. The liver surface was unremarkable. Recurrent hiatal hernia was encountered anteriorly. No small bowel dilation was identified or evidence of bowel obstruction. Moderate greater omental adhesions to abdominal wall was identified involving the epigastrium and lower abdomen. An 8 mm camera port was placed left lateral to the umbilicus at the epigastrium, 12 cm distal to the xiphoid. Next, 12-mm robot stapler port was placed along the right mid abdomen. An 12 mm port was exchanged along the left upper quadrant. An 8 mm port was placed on the left lateral abdominal wall under direct localization. Please note that the ports were placed 18 to 20 cm away from the target anatomy of the stomach. Care was taken to check that each robotic arm was safely away from collision with the bed or the patient. At the epigastrium, a medium sized Denisse liver retractor was placed under direct visualization with the Iron Visual Effects Editor placed under the right shoulder of the patient. The patient was repositioned in reverse Trendelenburg position at 20-degress after lowering the bed. The robot was docked over the patient. Using grasper for arm 3, a grasper for arm 1, including vessel sealer for arm 4, the robotic system was docked and primed as described. Instruments were interchanged by the certified physician's assistant including endoscissors, the needle driver sales, and sta pler. I had sat at the console. Next, the transverse mesocolon was reflected into the upper abdomen preparing for the jejunojejunostomy portion of the case. Greater omental adhesions were addressed using vessel sealer to allow mobilization of the transverse mesocolon for 30 minutes for lysis of adhesions. The ligament of Treitz was identified and measured 60 cm antegrade and marked using 2-0 Silk. The jejunum was divided at the 60 cm point using 60-mm white load above the suture measurement. The biliopancreatic limb was held in place. The Geovanni limb was measured 100 cm in an antegrade fashion to avoid tension along the proposed gastrojejunal anastomosis. At 100 cm along the anti-mesenteric border of the Geovanni limb, a jejunojejunostomy was proposed whereby enterotomies were created along the biliopancreatic limb including the Geovanni limb using a Bovie cautery. A stay suture of 2-0 Silk was placed to align and create the anastomosis. The enterotomies along the anti-mesenteric borders were created followed by unidirectional fire from the patient's right side using 60 mm blue load Smart technology robotic stapler. The jejunojejunostomy was found to be hemostatic. The enterotomy was closed after horizontal mattress stitch of 2-0 silk used to elevate the enterotomy followed by closure with the robotic stapler blue loads. The jejunal limb was temporarily tacked along the left upper quadrant. Attention was now brought to the creation of the gastrojejunostomy. Along the lesser curvature of the stomach between the second and third veins and above the angularis incisura, dissection was made along the retrogastric space to allow first firing of the robotic staple. A60-mm green load staplers was used to divide the stomach from the gastric sleeve. Hemostasis was excellent. The patient was then prepared for placement of a Orvil. The patient was Mallampati 2. A 25-mm Orvil was selected for placement by the nurse clerk typist. The Orvil was stuck at the distal esophagus. At which point a double snare technique was used to retrieve the Orvil initially from the gastric pouch to the mouth. The Orvil tubing was tied and sutured to the snare and brought out through the gastrotomy. I went to the bedside of the patient to retrieve the Orvil. The Orvil tubing was placed anterior to the staple line of the gastric pouch and brought out through the left inferior lateral port. The Orvil was then carefully and successfully navigated with the help of the nurse clerk typist into the gastric pouch. The sutures were identified and divided. The tubing was from the 25 mm anvil. Using aseptic technique all instruments including port sites were exchanged. As the Orvil had been placed, the blind jejunal limb was brought proximally into the upper abdomen. No torsion was found upon the Geovanni limb. No tension was identified as the limb was brought along the upper abdomen. The blind jejunal limb was opened using Bovie cautery. The 25-mm EEA stapler was brought through the left anterior lateral port site from the left side. Please note that the trocars from the Orvil tubing, including the port, were removed to minimize contamination from the oral oscar. The EEA stapler was brought through the open jejunal limb and its needle was deployed at the antimesenteric border where the anvil were mated for approximately 1 minute upon firing. The stapler was removed after irrigating the shaft of the instrument with warm normal saline. Donuts were found to be intact and thick on both sides. The da Khoa XiI robot was then re-docked. The open jejunal limb defect was closed using 60 mm blue loads after releasing any tension from the blind jejunal limb. Care was taken to avoid any long blind limb to avoid candycane syndrome. Reinforcement sutures were placed along the gastrojejunal anastomosis at the 3:00 and 9 o'clock position. The Alvarez and jejunojejunostomy mesenteric defects were closed using nonabsorbable 2-0V LOC . Attention was brought to the anterior hiatal hernia defect which was oversewn using nonabsorbable 2-0V LOC anteriorly. I then went to the head of the bed to perform the esophagogastrojejunoscopy and a leak test. An Olympus gastroscope was passed along the posterior oropharynx which was unremarkable for any injury to the vocal cords. The scope was passed down to the proximal portion of the pouch, whereby no active bleeding was encountered. Excellent visualization of the gastrojejunostomy anastomosis, including the Geovanni limb was encountered with endoscopic image obtained. The anastomosis was found to be patent. The gastrointestinal tract was desufflated. No evidence of intraoperative leak was encountered as the gastric pouch and anastomosis were submerged under normal saline solution. The robot was then undocked. I then went back to the bedside of the patient, whereby with coordinated effort of the certified physician's assistant, irrigation was aspirated from the upper abdominal cavity. Tisseel was placed circumferentially over the anastomosis of the gastrojejunostomy. The fascial defect of the EEA stapler was closed using Amor Castillo and 0 Vicryl. All instruments and pneumoperitoneum were evacuated from the abdominal cavity. The port correlating with the EEA stapler device was copiously irrigated normal saline solution and hydrogen peroxide. The rest of incisions were reapproximated using by 4-0 Monocryl in an interrupted subcuticular fashion. Local anesthetic was infiltrated along the skin for postop analgesia. Liquid glue was applied to the skin. OptiFoam dressing was placed along the EEA stapler site. At the end of the procedure, needle, sponge and instrument count had been verified correct by the processing technician. She had tolerated the procedure well and was extubated and taken to the postanesthesia unit in stable condition. Operative Findings: 1. Severe peritoneal adhesions along the epigastrium greater omentum to the anterior abdominal wall 2. Bypass performed using 100 cm geovanni limb secondary to avoid increased tension at 150 cm. 3. Beverly defect and jejunojejunostomy defect closed with 2-0 VLOC. 4. Leak test negative with gastrojejunal anastomosis patent and hemostatic. 5. Hiatal hernia defect repaired without mesh.
[2019-11-13] MEDS ORDERED: diphenhydrAMINE 50 MG/ML 1 ML VIAL IVP PRN (11:41)
[2019-11-13] MEDS ORDERED: NALOXONE 0.4 MG/ML 1 ML VIAL IV PRN (11:41)
[2019-11-13] MEDS ORDERED: HYOSCYAMINE ORAL DROPS 1.875 MG/15 ML BOTTLE PO PRN (11:41)
[2019-11-13] MEDS ORDERED: SODIUM CHLORIDE 0.9% 1,000 ML IV ONE (11:44)
[2019-11-13] MEDS ORDERED: ACETAMINOPHEN ORAL SUSP 160 MG/5 ML CUP PO PRN (11:45)
[2019-11-13] MEDS ORDERED: ONDANSETRON 4 MG/2 ML VIAL IVP ONE (12:02)
[2019-11-13] MEDS ORDERED: PROMETHAZINE INJ 25 MG/ML 1 ML VIAL IVPB ONE (12:14)
[2019-11-13] MEDS ORDERED: METOCLOPRAMIDE 5 MG/ML 2 ML VIAL IVP PRN (15:18)
[2019-11-13] MEDS: HYDROmorphone 1 MG/ML 1 ML SYRINGE IVP PRN ×2 (15:30→21:48)
[2019-11-13] MEDS: SIMETHICONE 40 MG/0.6 ML DROPS 2,000 MG/30 ML BOTTLE PO SCH ×3 (15:40→23:53)
[2019-11-13] MEDS ORDERED: ACETAMINOPHEN IV (For NPO) 1,000 MG in EMPTY BAG 1 BAG IVPB ONE (16:00)
--- NOTE | 2019-11-13 16:51 | P.PN ---
Progress Note - Text Progress Note Date: 11/13/19 Patient seen this evening. Nausea resolved. Recommend IV fluid hydration. As this is a high-risk operation, hospitalization through November 15 described.
[2019-11-13] MEDS: 0.9% NACL WITH KCL 20 MEQ/L 1,000 ML IV SCH ×2 (16:55→23:50)
[2019-11-13] MEDS: KETOROLAC 30 MG/ML 1 ML VIAL IVP SCH ×2 (18:20→23:52)
[2019-11-13] MEDS: ONDANSETRON 4 MG/2 ML VIAL IVP SCH ×2 (18:20→23:53)
[2019-11-13] MEDS: ALBUTEROL NEBULIZED 2.5 MG/3 ML INHALATION SCH (20:02)
[2019-11-14] MEDS: ONDANSETRON 4 MG/2 ML VIAL IVP SCH ×4 (05:25→23:27)
[2019-11-14] MEDS: KETOROLAC 30 MG/ML 1 ML VIAL IVP SCH ×4 (05:25→23:26)
[2019-11-14] MEDS: 0.9% NACL WITH KCL 20 MEQ/L 1,000 ML IV SCH (05:25)
[2019-11-14] MEDS: SIMETHICONE 40 MG/0.6 ML DROPS 2,000 MG/30 ML BOTTLE PO SCH ×4 (05:26→23:26)
[2019-11-14] MEDS: LACTATED RINGERS 1,000 ML IV SCH (05:26)
[2019-11-14] MEDS ORDERED: ENOXAPARIN 40 MG/0.4 ML SYRINGE SQ SCH (07:00)
[2019-11-14] MEDS: ALBUTEROL NEBULIZED 2.5 MG/3 ML INHALATION SCH ×4 (08:00→20:31)
[2019-11-14 08:04] LABS: Basophils % (A) 0 %; Eosinophils % (A) 0 %; HCT 31.5 % (34.0-46.0); HGB 10.3 gm/dL (11.4-16.0); Lymphocytes # (A) 0.9 k/uL (1.0-4.8); Lymphocytes % (A) 10 %; MCH 31.5 pg (25.0-35.0); MCHC 32.7 g/dL (31.0-37.0); MCV 96.2 fL (80.0-100.0); Mean Platelet Volume 7.7; Monocytes # (A) 0.4 k/uL (0-1.0); Monocytes % (A) 5 %; Neutrophils # (A) 7.1 k/uL (1.3-7.7); Neutrophils % (A) 84 %; Platelet Count 125 k/uL (150-450); RBC 3.28 m/uL (3.80-5.40); RDW 12.3 % (11.5-15.5); WBC 8.4 k/uL (3.8-10.6)
[2019-11-14 08:13] LABS: African American GFR (CKD) >90 (>60 ml/min/1.73 sqM); Anion Gap 4 mmol/L; Blood Urea Nitrogen 29 mg/dL (7-17); Calcium 8.1 mg/dL (8.4-10.2); Carbon Dioxide 26 mmol/L (22-30); Chloride 109 mmol/L (98-107); Magnesium 1.8 mg/dL (1.6-2.3); Non-African American GFR(CKD) 90 (>60 ml/min/1.73 sqM); Phosphorus 3.4 mg/dL (2.5-4.5); Potassium 4.8 mmol/L (3.5-5.1); Sodium 139 mmol/L (137-145)
[2019-11-14] MEDS: PANTOPRAZOLE 40 MG/10 ML VIAL IV SCH (09:06)
[2019-11-14] MEDS: amLODIPine 10 MG TAB PO SCH (09:07)
[2019-11-14] MEDS: LOSARTAN 50 MG TAB PO SCH (09:07)
[2019-11-14] MEDS: OXYBUTYNIN 10 MG TAB.ER.24 PO SCH (09:07)
[2019-11-14] MEDS: 1: MVI, ADULT NO.4 WITH VIT K 10 ML, THIAMINE 100 MG, FOLIC ACID 1 MG, POTASSIUM CHLORID IV SCH ×12 (09:08→21:12)
[2019-11-14] MEDS: HYDROCHLOROTHIAZIDE 12.5 MG CAP PO SCH (09:27)
[2019-11-14] MEDS: HYDROmorphone 1 MG/ML 1 ML SYRINGE IVP PRN (10:24)
--- NOTE | 2019-11-14 10:24 | P.PN ---
<Bridget Fernandez Kirt - Last Filed: 11/14/19 10:20> Subjective Progress Note Date: 11/14/19 CHIEF COMPLAINT: Morbid obesity HISTORY OF PRESENT ILLNESS: 69-year-old female who is status post robotic- assisted laparoscopic Danay-en-Y gastric bypass, extensive lysis of adhesions, and hiatal hernia repair without mesh with Dr. Travis. Postoperative day #1. Patient examined this morning at the bedside. Patient denies abdominal pain. Tolerating clear liquid diet. WBC 8.4. Hemoglobin 10.3. Platelet count 125, down from 203. PHYSICAL EXAM: VITAL SIGNS: Currently stable. GENERAL: Well-developed in no acute distress. HEENT: No sclera icterus. Extraocular movements grossly intact. Moist buccal mucosa. Head is atraumatic, normocephalic. Hears conversational speech. No nasal drainage. NECK: Supple without lymphadenopathy. CHEST: Non-labored respirations and equal bilateral excursions. CARDIOVASCULAR: Regular rate with regular rhythm. Palpable 2+ radial pulses. ABDOMEN: Soft. Nondistended. Appropriate surgical tenderness. Laparoscopic sites clean dry and intact without drainage or erythema. Abdominal binder present. MUSCULOSKELETAL: No clubbing, cyanosis or edema. NEUROLOGIC: No focal or lateralizing signs. Cranial nerves II through XII grossly intact. PSYCH: Appropriate affect. Alert and oriented to person, place and time. SKIN: Well perfused. Good skin turgor. ASSESSMENT: 1. Morbid obesity due to excess calories 2. Body mass index of 38.0 3. Gastroesophageal reflux disease 4. Hypertensive heart disease 5. Osteoarthritis bilateral knees 6. Hiatal hernia, recurrent 7. Esophageal dysmotility 8. Dysphagia 9. 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 Intra-abdominal adhesions from greater omentum to anterior abdominal wall, epigastrium PLAN: -Continue clear liquid diet -Discontinue Lovenox due to decreasing platelet count per Dr. Travis. Repeat CBC at 1400 -Pain control -Incentive spirometer 10 times an hour while awake -Increase activity as tolerated -Anticipate discharge home tomorrow Nurse practitioner note has been reviewed by physician. Signing provider agrees with the documented findings, assessment, and plan of care. Objective - Vital Signs Vital signs: Vital Signs Temp 97.9 F 11/14/19 01:52 Pulse 100 11/14/19 08:10 Resp 16 11/14/19 07:00 BP 131/78 11/14/19 07:00 Pulse Ox 98 11/14/19 01:52 Intake & Output 11/13/19 11/14/19 11/14/19 18:59 06:59 18:59 Intake Total [id number] Output Total 275 1150 Balance 1425 850 Weight 89 kg Intake: IV 1700 Intake, IV Titration 1800 Amount 0.9% NaCl with KCl 20 Meq 1800 /l 1,000 ml @ 150 mls/hr IV .Q6H40M [facility] Rx#: [id number] Oral 200 Output: Urine 270 1150 Estimated Blood Loss 5 Other: Voiding Method Indwelling Catheter Indwelling Catheter - Labs CBC & Chem 7: 11/14/19 07:18 11/14/19 07:18 Labs: Abnormal Lab Results - Last 24 Hours (Table) 11/14/19 11/14/19 Range/Units 07:18 07:18 RBC 3.28 L (3.80-5.40) m/uL Hgb 10.3 L (11.4-16.0) gm/dL Hct 31.5 L (34.0-46.0) % Plt Count 125 L (150-450) k/uL Lymphocytes # 0.9 L (1.0-4.8) k/uL Chloride 109 H (98-107) mmol/L BUN 29 H (7-17) mg/dL Calcium 8.1 L (8.4-10.2) mg/dL <Mackenzie Travis - Last Filed: 11/14/19 21:05> Subjective Repeat Hgb stable. Heparin and Lovenox products held secondary to acute drop in platelets. Continue mechanical DVT prophylaxis. This evening she feels much better. No further nausea. Agree with discharge home tomorrow. Objective - Vital Signs Vital signs: Vital Signs Temp 98.1 F 11/14/19 19:25 Pulse 75 11/14/19 20:42 Resp 18 11/14/19 19:25 BP 128/76 11/14/19 19:25 Pulse Ox 96 11/14/19 20:31 Intake & Output 11/14/19 11/14/19 11/15/19 06:59 18:59 06:59 Intake Total 1999 Output Total 1150 300 Balance 850 -300 Weight 89 kg Intake: Intake, IV Titration 1800 Amount 0.9% NaCl with KCl 20 Meq 1800 /l 1,000 ml @ 150 mls/hr IV .Q6H40M [facility] Rx#: [id number] Oral 200 Output: Urine 1150 300 Other: Voiding Method Indwelling Catheter - Labs CBC & Chem 7: 11/14/19 13:40 11/14/19 07:18 Labs: Abnormal Lab Results - Last 24 Hours (Table) 11/14/19 11/14/19 11/14/19 Range/Units 07:18 07:18 13:40 RBC 3.28 L 3.35 L (3.80-5.40) m/uL Hgb 10.3 L 10.5 L (11.4-16.0) gm/dL Hct 31.5 L 32.5 L (34.0-46.0) % Plt Count 125 L 118 L (150-450) k/uL Lymphocytes # 0.9 L (1.0-4.8) k/uL Chloride 109 H (98-107) mmol/L BUN 29 H (7-17) mg/dL Calcium 8.1 L (8.4-10.2) mg/dL
[2019-11-14 11:07] VITALS: BMI 37.0
[2019-11-14] MEDS ORDERED: HYDROCHLOROTHIAZIDE 12.5 MG CAP PO ONE (13:15)
[2019-11-14 13:57] LABS: Basophils % (A) 0 %; Eosinophils % (A) 0 %; HCT 32.5 % (34.0-46.0); HGB 10.5 gm/dL (11.4-16.0); Lymphocytes # (A) 1.1 k/uL (1.0-4.8); Lymphocytes % (A) 15 %; MCH 31.3 pg (25.0-35.0); MCHC 32.3 g/dL (31.0-37.0); MCV 96.8 fL (80.0-100.0); Mean Platelet Volume 7.4; Monocytes # (A) 0.4 k/uL (0-1.0); Monocytes % (A) 5 %; Neutrophils # (A) 5.8 k/uL (1.3-7.7); Neutrophils % (A) 80 %; Platelet Count 118 k/uL (150-450); RBC 3.35 m/uL (3.80-5.40); RDW 12.3 % (11.5-15.5); WBC 7.3 k/uL (3.8-10.6)
[2019-11-15] MEDS: 1: MVI, ADULT NO.4 WITH VIT K 10 ML, THIAMINE 100 MG, FOLIC ACID 1 MG, POTASSIUM CHLORID IV SCH ×6 (03:20)
[2019-11-15] MEDS: SIMETHICONE 40 MG/0.6 ML DROPS 2,000 MG/30 ML BOTTLE PO SCH (05:29)
[2019-11-15] MEDS: KETOROLAC 30 MG/ML 1 ML VIAL IVP SCH (05:29)
[2019-11-15] MEDS: ONDANSETRON 4 MG/2 ML VIAL IVP SCH (05:29)
[2019-11-15] MEDS: LACTATED RINGERS 1,000 ML IV SCH (05:29)
[2019-11-15 07:57] LABS: Basophils % (A) 0 %; Eosinophils # (A) 0.1 k/uL (0-0.7); Eosinophils % (A) 2 %; HCT 30.8 % (34.0-46.0); HGB 10.2 gm/dL (11.4-16.0); Lymphocytes # (A) 1.3 k/uL (1.0-4.8); Lymphocytes % (A) 21 %; MCH 32.1 pg (25.0-35.0); MCHC 33.1 g/dL (31.0-37.0); MCV 96.7 fL (80.0-100.0); Mean Platelet Volume 7.4; Monocytes # (A) 0.3 k/uL (0-1.0); Monocytes % (A) 4 %; Neutrophils # (A) 4.5 k/uL (1.3-7.7); Neutrophils % (A) 72 %; Platelet Count 114 k/uL (150-450); RBC 3.18 m/uL (3.80-5.40); RDW 12.2 % (11.5-15.5); WBC 6.2 k/uL (3.8-10.6)
[2019-11-15] MEDS ORDERED: BISACODYL 5 MG TABLET.DR PO PRN (08:00)
[2019-11-15 08:03] LABS: African American GFR (CKD) >90 (>60 ml/min/1.73 sqM); Anion Gap 4 mmol/L; Blood Urea Nitrogen 14 mg/dL (7-17); Calcium 8.5 mg/dL (8.4-10.2); Carbon Dioxide 27 mmol/L (22-30); Chloride 109 mmol/L (98-107); Glucose 89 mg/dL (74-99); Magnesium 1.8 mg/dL (1.6-2.3); Non-African American GFR(CKD) 89 (>60 ml/min/1.73 sqM); Potassium 4.3 mmol/L (3.5-5.1); Sodium 140 mmol/L (137-145)
[2019-11-15] MEDS: HYDROCHLOROTHIAZIDE 12.5 MG CAP PO SCH (08:51)
[2019-11-15] MEDS: LOSARTAN 50 MG TAB PO SCH (08:51)
[2019-11-15] MEDS: amLODIPine 10 MG TAB PO SCH (08:51)
[2019-11-15] MEDS: OXYBUTYNIN 10 MG TAB.ER.24 PO SCH (08:51)
[2019-11-15] MEDS: PANTOPRAZOLE 40 MG/10 ML VIAL IV SCH (08:52)
[2019-11-15] MEDS: ALBUTEROL NEBULIZED 2.5 MG/3 ML INHALATION SCH (09:09)
[2019-11-15 09:35] VITALS: RESP 14; TEMP 97.8
--- NOTE | 2019-11-15 09:40 | P.DS ---
<Bridget Fernandez - Last Filed: 11/15/19 09:38> Providers Expected date of discharge: 11/15/19 Hospital Course: 69-year-old female who is status post robotic-assisted laparoscopic Danay-en-Y gastric bypass, extensive lysis of adhesions, and hiatal hernia repair without mesh with Dr. Travis. Patient is doing well postoperatively without any immediate complications. Pain is controlled on oral medications. She is tolerating liquid diet. She is stable for discharge home today per Dr. Travis. Please see EMR for hospital course details. Discharge Diagnosis: 1. Morbid obesity due to excess calories 2. Body mass index of 38.0 3. Gastroesophageal reflux disease 4. Hypertensive heart disease 5. Osteoarthritis bilateral knees 6. Hiatal hernia, recurrent 7. Esophageal dysmotility 8. Dysphagia 9. 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 Intra-abdominal adhesions from greater omentum to anterior abdominal wall, epigastrium Nurse practitioner note has been reviewed by physician. Signing provider agrees with the documented findings, assessment, and plan of care. Plan - Discharge Summary Discharge Rx Participant: Yes New Discharge Prescriptions: New Bisacodyl [Dulcolax] 5 mg PO DAILY PRN #10 tablet. PRN Reason: Constipation Simethicone 40 mg/0.6 ml Drops [Mylicon Drops] 40 mg PO PCHS PRN #30 ml PRN Reason: Gas Omeprazole [PriLOSEC] 40 mg PO DAILY #30 capsule. Ondansetron Odt [Zofran Odt] 4 mg PO Q8HR PRN #9 tab PRN Reason: Nausea Acetaminophen Oral Susp [Tylenol Oral Susp] 650 mg PO Q4-6H PRN #400 ml PRN Reason: Pain Continue Omeprazole 40 mg PO DAILY #30 capsule. Irbesartan/Hydrochlorothiazide [Avalide 150-12.5 mg Tablet] 1 tab PO DAILY amLODIPine [Norvasc] 10 mg PO DAILY Oxybutynin Chloride [Ditropan XL] 10 mg PO DAILY Discontinued Bariatric Vitamin 1 tab PO BID Discharge Medication List Omeprazole 40 mg PO DAILY #30 capsule. 08/14/19 [Rx] Irbesartan/Hydrochlorothiazide [Avalide 150-12.5 mg Tablet] 1 tab PO DAILY 09/06/19 [History] amLODIPine [Norvasc] 10 mg PO DAILY 09/18/19 [History] Oxybutynin Chloride [Ditropan XL] 10 mg PO DAILY 11/08/19 [History] Acetaminophen Oral Susp [Tylenol Oral Susp] 650 mg PO Q4-6H PRN #400 ml 11/15/19 [Rx] Bisacodyl [Dulcolax] 5 mg PO DAILY PRN #10 tablet. 11/15/19 [Rx] Omeprazole [PriLOSEC] 40 mg PO DAILY #30 capsule. 11/15/19 [Rx] Ondansetron Odt [Zofran Odt] 4 mg PO Q8HR PRN #9 tab 11/15/19 [Rx] Simethicone 40 mg/0.6 ml Drops [Mylicon Drops] 40 mg PO PCHS PRN #30 ml 11/15/19 [Rx] Follow up Appointment(s)/Referral(s): [facility] [[facility] - [place], [place] [NON-STAFF] - 11/17/19 10:00 am Patient Instructions/Handouts: Abdominal Binder (ED), Nutrition after Bariatric Surgery (DC), Danay-en-Y Gastric Bypass (DC) Activity/Diet/Wound Care/Special Instructions: Please start stage II bariatric diet. No lifting over 4 pounds in 4 weeks, December 11. Open, crushed, cut tablets larger than the size of a tic tach. May shower tomorrow. No soaking in bath tubs. Pleast notify your surgeon if you develop nausea and vomiting including new onset of abdominal pain. Please ambulate at all times. Continue to use her incentive spirometry to prevent pneumonias. Please continue to ambulate at home to prevent blood clots in her legs. Discharge Disposition: HOME WITH HOME HEALTH SERVICES <Mackenzie Travis - Last Filed: 11/15/19 12:36> Providers Date of admission: 11/13/19 06:16 Attending physician: Mackenzie Travis Primary care physician: Lilliana Vazquez MD
[2019-11-15 09:45] VITALS: PULSE 99
[2019-11-15 10:32] VITALS: BP 165/76
== END 2019-11-15 11:27 | disposition home health service (06) | DRG 620 ==
LOC: 2ORMAIN 06:16 → 4SSUR 15:02
PROVIDERS: ADMIT Surgery Plastic and Reconstructive Surgery; ATTEND Surgery Plastic and Reconstructive Surgery
PROC: 0DNU4ZZ Release Omentum, Percutaneous Endoscopic Approach (ICD-10-PCS; 2019-11-13)
PROC: 0BQT4ZZ Repair Diaphragm, Percutaneous Endoscopic Approach (ICD-10-PCS; 2019-11-13)
PROC: 8E0W4CZ Robotic Assisted Procedure of Trunk Region, Percutaneous Endoscopic Approach (ICD-10-PCS; 2019-11-13)
PROC: 0DJ08ZZ Inspection of Upper Intestinal Tract, Via Natural or Artificial Opening Endoscopic (ICD-10-PCS; 2019-11-13)
PROC: 0DC88ZZ Extirpation of Matter from Small Intestine, Via Natural or Artificial Opening Endoscopic (ICD-10-PCS; 2019-11-13)
PROC: 0D164ZA Bypass Stomach to Jejunum, Percutaneous Endoscopic Approach (ICD-10-PCS; principal; 2019-11-13 08:05)
DX: E66.01 Morbid (severe) obesity due to excess calories (principal); K95.89 Other complications of other bariatric procedure; E50.9 Vitamin A deficiency, unspecified; I11.9 Hypertensive heart disease without heart failure; K21.0 Gastro-esophageal reflux disease with esophagitis; K44.9 Diaphragmatic hernia without obstruction or gangrene; K22.4 Dyskinesia of esophagus; K66.0 Peritoneal adhesions (postprocedural) (postinfection); N20.0 Calculus of kidney; Z68.38 Body mass index [BMI] 38.0-38.9, adult; Z79.899 Other long term (current) drug therapy; Z80.49 Family history of malignant neoplasm of other genital organs; Z87.440 Personal history of urinary (tract) infections; R32 Unspecified urinary incontinence; Z90.710 Acquired absence of both cervix and uterus; Z96.653 Presence of artificial knee joint, bilateral; R13.10 Dysphagia, unspecified; K29.50 Unspecified chronic gastritis without bleeding; K25.9 Gastric ulcer, unspecified as acute or chronic, without hemorrhage or perforation
CPT/HCPCS: 64488; 80048; 80051; 82310; 82565; 83735; 84100; 84520; 85025; 94640

== ENCOUNTER → 2019-11-22 | Outpatient (CLI) | payer MEDICARE, OTHER ==
[2019-11-22 13:31] VITALS: BMI 33.8
--- NOTE | 2019-11-22 13:37 | P.PN ---
Subjective Progress Note Date: 11/22/19 DATE OF SERVICE: 11/22/2019 CHIEF COMPLAINT: Status post gastric bypass HISTORY OF PRESENT ILLNESS: Deepti Dyson is a 69-year-old female status post gastric bypass, 11/13/2019. She is POD 9. She is doing well. She comes in with concern of low blood pressure. She denies gastroesophageal reflux disease. At height of 5 feet 2 inches, her ideal body weight is 135 pounds. Her highest weight was 208 pounds. She comes in 185 pounds from 189 pounds, 1 week ago. She has lost 4 pounds 1 week ago. Her body mass index highest is 38.0 now down to 33.8. Her lifetime weight loss is 23 pounds. Lifetime percent excess weight loss is 32 %. She is 50 pounds overweight. PHYSICAL EXAM: VITAL SIGNS: Height 5 foot 2 inches, weight 185 pounds. BMI 33.8 Vital Signs Temp 97.5 F L 11/22/19 13:30 Pulse 72 11/22/19 13:30 Resp BP 115/75 11/22/19 13:30 Pulse Ox GENERAL: Well-developed in no acute distress. HEENT: No scleral icterus. Extraocular movements grossly intact. Hears conversational speech. No nasal drainage. NECK: Supple without lymphadenopathy. CHEST: Nonlabored respirations with equal bilateral excursions. CARDIOVASCULAR: Regular rate and regular rhythm. Distal 2+ pulses. ABDOMEN: Dimpling along left upper abdomen. No infection. MUSCULOSKELETAL: No clubbing, cyanosis. NEURO: No focal or lateralizing signs. Cranial nerves 2 through 12 grossly within normal limits. PSYCH: Appropriate affect. Alert and oriented to person, place and time. SKIN: Good skin turgor. Well perfused. ASSESSMENT: 1. Morbid obesity due to excess calories 2. Body mass index of 38.0 to 33.8 3. Gastroesophageal reflux disease 4. Hypertensive heart disease 5. Osteoarthritis bilateral knees 6. Inadequate protein intake 7. Hiatal hernia 8. Vitamin A deficiency 9. Esophageal dysmotility 10. Dysphagia 11. Complications from sleeve gastrectomy 12. Status post gastric bypass PLAN: 1. Follow up in 1 month 2. Recommend adjust blood pressure medication to none today. 3. Re-check for tomorrow. 4. May restart 1/2 tablet Avalide. Objective - Vital Signs Vital signs: Intake & Output 11/21/19 11/22/19 11/22/19 18:59 06:59 18:59 Weight 83.915 kg
[2019-11-22 13:43] VITALS: BP 115/75; PULSE 72; TEMP 97.5
== END | disposition home or self-care (01) ==
LOC: BARWHC3 12:51
PROVIDERS: ATTEND Surgery Plastic and Reconstructive Surgery
DX: Z48.815 Encounter for surgical aftercare following surgery on the digestive system (principal); E66.01 Morbid (severe) obesity due to excess calories; K21.9 Gastro-esophageal reflux disease without esophagitis; I11.9 Hypertensive heart disease without heart failure; M17.0 Bilateral primary osteoarthritis of knee; E63.8 Other specified nutritional deficiencies; K44.9 Diaphragmatic hernia without obstruction or gangrene; E50.9 Vitamin A deficiency, unspecified; K22.8 Other specified diseases of esophagus; K95.89 Other complications of other bariatric procedure; Z68.33 Body mass index [BMI] 33.0-33.9, adult; Z98.84 Bariatric surgery status
CPT/HCPCS: 97803; G0463; 99211

== ENCOUNTER → 2019-12-01 | Outpatient (CLI) | payer MEDICARE, OTHER ==
[2019-12-01 11:37] VITALS: BP 150/80; PULSE 60; RESP 16; TEMP 92.2; BMI 33.6
--- NOTE | 2019-12-01 15:40 | P.PN ---
Progress Note - Text Progress Note Date: 12/01/19 Nurse Visit only
== END | disposition home or self-care (01) ==
LOC: BARWHC3 10:54
PROVIDERS: ATTEND Surgery Plastic and Reconstructive Surgery
DX: E66.01 Morbid (severe) obesity due to excess calories (principal); Z98.84 Bariatric surgery status; Z68.33 Body mass index [BMI] 33.0-33.9, adult
CPT/HCPCS: 99211

== ENCOUNTER 2019-12-06 13:48 | Observation (INO) | payer MEDICARE, OTHER ==
[2019-12-06] MEDS ORDERED: ONDANSETRON 4 MG/2 ML VIAL IVP PRN (17:22)
[2019-12-06] MEDS ORDERED: NALOXONE 0.4 MG/ML 1 ML VIAL IV PRN (17:22)
[2019-12-06] MEDS ORDERED: ACETAMINOPHEN IV (For NPO) 1,000 MG in EMPTY BAG 1 BAG IVPB PRN (17:27)
[2019-12-06 18:07] LABS: Basophils % (A) 0 %; Eosinophils # (A) 0.1 k/uL (0-0.7); Eosinophils % (A) 2 %; HCT 33.9 % (34.0-46.0); Lymphocytes # (A) 1.3 k/uL (1.0-4.8); Lymphocytes % (A) 31 %; MCHC 32.5 g/dL (31.0-37.0); MCV 95.4 fL (80.0-100.0); Mean Platelet Volume 7.5; Monocytes # (A) 0.2 k/uL (0-1.0); Monocytes % (A) 5 %; Neutrophils # (A) 2.5 k/uL (1.3-7.7); Neutrophils % (A) 61 %; RBC 3.56 m/uL (3.80-5.40); RDW 12.8 % (11.5-15.5); WBC 4.2 k/uL (3.8-10.6)
--- NOTE | 2019-12-06 18:08 | P.GSHP ---
History of Present Illness H&P Date: 12/06/19 CHIEF COMPLAINT: Esophageal obstruction HISTORY OF PRESENT ILLNESS: Deepti Dyson is a 69-year-old female status post revision from sleeve gastrectomy to gastric bypass on 11/13/2019. She was revised from sleeve gastrectomy secondary to mechanical complications from her sleeve performed at [facility] 3+ years ago. She was doing very well postoperatively including managing her fluids. No reports of nausea or vomiting. Now 2-3 days ago she developed burping. The last 24 hours she has p ersistent nausea including vomiting. Her oral intake is subpar. Despite IV fluid hydration, she had persistent symptoms. She is unable to tolerate by mouth water or liquids. With her surgical procedure, she is high risk of stricture and esophageal obstruction were described. Patient presents with esophageal obstruction. At height of 5 feet 2 inches, her ideal body weight is 135 pounds. She comes in 188 pounds from 198 pounds, 1 month ago. She has lost 10 pounds in 1 month. Highest weight 208 pounds. Her body mass index highest is 38.0. Her body mass index is down to 34.5. Her lifetime weight loss is 20 pounds. PAST MEDICAL HISTORY: 1. Morbid obesity due to excess calories 2. Body mass index of 38.0 3. Gastroesophageal reflux disease 4. Hypertensive heart disease 5. Osteoarthritis bilateral knees PAST SURGICAL HISTORY: 1. Sleeve gastrectomy 2. Bilateral knee replacement 3. Cholecystectomy 4. Hysterectomy 5. Hiatal hernia repair 6. Gastric bypass HOME MEDICATIONS: ALLERGIES: Home Medications Medication Instructions Recorded Confirmed Oxybutynin Chloride [Ditropan XL] 10 mg PO DAILY 11/08/19 12/06/19 Irbesartan/Hydrochlorothiazide 1 each PO DAILY 12/06/19 12/06/19 [Avalide 300-12.5 mg Tablet] Previous Rx's Medication Instructions Recorded Acetaminophen Oral Susp [Tylenol 650 mg PO Q4-6H PRN #400 ml 11/15/19 Oral Susp] Bisacodyl [Dulcolax] 5 mg PO DAILY PRN #10 tablet. 11/15/19 Omeprazole [PriLOSEC] 40 mg PO DAILY #30 capsule. 11/15/19 Ondansetron Odt [Zofran Odt] 4 mg PO Q8HR PRN #9 tab 11/15/19 Simethicone 40 mg/0.6 ml Drops 40 mg PO [facility] PRN #30 ml 11/15/19 [Mylicon Drops] SOCIAL HISTORY: No past tobacco use. FAMILY HISTORY: No family history of ulcerative colitis disease or Crohn's disease. Family history of morbid obesity. No lupus in the family. No reports of stomach or esophageal cancer. REVIEW OF ORGAN SYSTEMS: CONSTITUTIONAL: At height of 5 feet 2 inches, her ideal body weight is 135 pounds. Highest weight 208 pounds. Her body mass index highest is 38.0. HEENT: Denies any active troubles with vision or hearing. Has troubles with swallowing. ENDOCRINE: No diabetes. No hypothyroidism. CARDIOVASCULAR: No reports of palpitations or heart attacks or chest pain. RESPIRATORY: No daytime somnolence. Has asthma. GI: Denies any bright red blood per rectum. No diarrhea. Has GERD. MUSCULOSKELETAL: Has lower back pain and joint pain. Has osteoarthritis of the knees. NEURO: No headaches. No seizure disorders. PSYCH: No depression. No suicidal ideation. RHEUMATOLOGIC: No lupus. No rheumatoid arthritis. HEMATOLOGIC: Denies any abnormal bleeding or bruising. No personal history of DVTs. SKIN: No rash. No skin cancer. : Kidney stones. PHYSICAL EXAM: VITAL SIGNS: Height 5 foot 2 inches, weight 188 pounds. BMI 34.5 Vital Signs Temp 98.0 F 12/06/19 16:30 Pulse 63 12/06/19 16:30 Resp 17 12/06/19 16:30 BP 157/101 12/06/19 16:30 Pulse Ox 100 12/06/19 16:30 Intake & Output 12/05/19 12/06/19 12/06/19 18:59 06:59 18:59 Weight 85.5 kg GENERAL: Well-developed in no acute distress. HEENT: No scleral icterus. Extraocular movements grossly intact. Hears conversational speech. No nasal drainage. NECK: Supple without lymphadenopathy. CHEST: Nonlabored respirations with equal bilateral excursions. CARDIOVASCULAR: Regular rate and regular rhythm. Distal 2+ pulses. ABDOMEN: Obese, soft, nontender, nondistended. MUSCULOSKELETAL: No clubbing, cyanosis. NEURO: No focal or lateralizing signs. Cranial nerves 2 through 12 grossly within normal limits. PSYCH: Appropriate affect. Alert and oriented to person, place and time. SKIN: Good skin turgor. Well perfused. ASSESSMENT: 1. Esophageal obstruction 2. Dysphagia 3. Complications from sleeve gastrectomy 4. Status post gastric bypass 5. Dehydration PLAN: 1. Continue nothing by mouth status except ice chips. 2. For both therapeutic including diagnostic management, upper endoscopy advised 3. CBC and CMP 4. Secondary to dehydration, inability for oral intake, and esophageal obstruction, admission advised. Past Medical History Past Medical History: GERD/Reflux, Hypertension Additional Past Medical History / Comment(s): Hx of and current Hiatal Hernia, hx. frequent UTI's, urinary incontinence History of Any Multi-Drug Resistant Organisms: None Reported Past Surgical History: Bariatric Surgery, Cholecystectomy, Hernia Repair, Hysterectomy, Joint Replacement Additional Past Surgical History / Comment(s): Bilateral knee replacement, sleeve gastrectomy (conversion to gastric bypass 11-13-19), hiatal hernia repair Past Anesthesia/Blood Transfusion Reactions: Motion Sickness Additional Past Anesthesia/Blood Transfusion Reaction / Comment(s): Pt states "always get UTI's from mcneal catheters." Past Psychological History: No Psychological Hx Reported Smoking Status: Never smoker Past Alcohol Use History: None Reported Past Drug Use History: None Reported - Past Family History Mother Family Medical History: Cancer Additional Family Medical History / Comment(s): Uterine cancer. Medications and Allergies Home Medications Medication Instructions Recorded Confirmed Type Oxybutynin Chloride [Ditropan XL] 10 mg PO DAILY 11/08/19 12/06/19 History Acetaminophen Oral Susp [Tylenol 650 mg PO Q4-6H PRN #400 ml 11/15/19 12/06/19 Rx Oral Susp] Bisacodyl [Dulcolax] 5 mg PO DAILY PRN #10 tablet. 11/15/19 12/06/19 Rx Omeprazole [PriLOSEC] 40 mg PO DAILY #30 capsule. 11/15/19 12/06/19 Rx Ondansetron Odt [Zofran Odt] 4 mg PO Q8HR PRN #9 tab 11/15/19 12/06/19 Rx Simethicone 40 mg/0.6 ml Drops 40 mg PO [facility] PRN #30 ml 11/15/19 12/06/19 Rx [Mylicon Drops] Irbesartan/Hydrochlorothiazide 1 each PO DAILY 12/06/19 12/06/19 History [Avalide 300-12.5 mg Tablet] Allergies Allergy/AdvReac Type Severity Reaction Status Date / Time Sulfa (Sulfonamide Allergy Rash/Hives Verified 12/06/19 14:32 Antibiotics) milk AdvReac Abdominal Verified 12/06/19 14:32 Pain Surgical - Exam Vital Signs Temp Pulse Resp BP Pulse Ox 98.0 F 63 17 157/101 100 12/06/19 16:30 12/06/19 16:30 12/06/19 16:30 12/06/19 16:30 12/06/19 16:30 Assessment and Plan (1) Esophageal obstruction Current Visit: Yes Status: Acute Code(s): K22.2 - ESOPHAGEAL OBSTRUCTION SNOMED Code(s): 822645611 (2) History of gastric bypass Current Visit: Yes Status: Acute Code(s): Z98.84 - BARIATRIC SURGERY STATUS SNOMED Code(s): 771002211 (3) GERD (gastroesophageal reflux disease) Current Visit: No Status: Acute Code(s): K21.9 - GASTRO-ESOPHAGEAL REFLUX DISEASE WITHOUT ESOPHAGITIS SNOMED Code(s): 106851851 (4) History of sleeve gastrectomy Current Visit: No Status: Acute Code(s): Z90.3 - ACQUIRED ABSENCE OF STOMACH [PART OF] SNOMED Code(s): 173002300611134 (5) Morbid obesity due to excess calories Current Visit: No Status: Acute Code(s): E66.01 - MORBID (SEVERE) OBESITY DUE TO EXCESS CALORIES SNOMED Code(s): 463271971 (6) Hypertensive heart disease Current Visit: No Status: Acute Code(s): I11.9 - HYPERTENSIVE HEART DISEASE WITHOUT HEART FAILURE SNOMED Code(s): 86527482
[2019-12-06 18:20] LABS: Platelet Count 186 k/uL (150-450)
[2019-12-06] MEDS: 0.9% NACL WITH KCL 20 MEQ/L 1,000 ML IV SCH (18:25)
[2019-12-06] MEDS: PANTOPRAZOLE 40 MG/10 ML VIAL IV SCH (18:25)
[2019-12-06 18:26] LABS: African American GFR (CKD) >90 (>60 ml/min/1.73 sqM); Anion Gap 6 mmol/L; Blood Urea Nitrogen 17 mg/dL (7-17); Calcium 8.5 mg/dL (8.4-10.2); Carbon Dioxide 28 mmol/L (22-30); Chloride 106 mmol/L (98-107); Glucose 89 mg/dL (74-99); Non-African American GFR(CKD) >90 (>60 ml/min/1.73 sqM); Potassium 3.7 mmol/L (3.5-5.1); Sodium 140 mmol/L (137-145)
[2019-12-06] MEDS: SIMETHICONE 40 MG/0.6 ML DROPS 2,000 MG/30 ML BOTTLE PO SCH ×2 (20:21→23:20)
[2019-12-07] MEDS: 0.9% NACL WITH KCL 20 MEQ/L 1,000 ML IV SCH (02:19)
[2019-12-07] MEDS: SIMETHICONE 40 MG/0.6 ML DROPS 2,000 MG/30 ML BOTTLE PO SCH ×2 (06:11→11:21)
[2019-12-07 07:15] VITALS: RESP 16
[2019-12-07] MEDS ORDERED: 0.9% NACL WITH KCL 20 MEQ/L 1,000 ML IV SCH (08:00)
[2019-12-07] MEDS: PANTOPRAZOLE 40 MG/10 ML VIAL IV SCH (09:00)
[2019-12-07] MEDS ORDERED: LIDOCAINE 1% INJ 10MG/ML (20 ML MDV) ONE (09:57)
[2019-12-07] MEDS ORDERED: PROPOFOL 10 MG/ML 20 ML VIAL IV ONE (09:57)
[2019-12-07] MEDS ORDERED: IV FLUID CONTINUATION 1,000 ML IV ONE ×2 (10:01)
--- NOTE | 2019-12-07 10:33 | P.PCN ---
Date of Procedure: 12/07/19 Description of Procedure: PREOPERATIVE DIAGNOSIS: Esophageal obstruction Dysphagia. Gastroesophageal reflux disease Nausea with vomiting. Morbid obesity. POSTOPERATIVE DIAGNOSIS: Dysphagia Gastroesophageal reflux disease Nausea with vomiting. Morbid obesity. Gastrojejunal stricture without chronic ulcer without perforation OPERATION: Esophagogastrojejunoscopy with balloon dilatation from 4 mm to 10 mm. SURGEON: Mackenzie Travis MD ANESTHESIA: MAC. INDICATIONS: The patient is a 69-year-old female who presents with a history of dysphagia, esophageal obstruction including new-onset nausea and vomiting. Benefits and risks of the procedure were described. Informed consent was obtained. DESCRIPTION: The patient was brought into the endoscopy suite and laid in the left lateral decubitus position. After a timeout was confirmed, the procedure was initiated. An Olympus gastroscope was passed along the posterior oropharynx down to the distal esophagus where the squamocolumnar junction was unremarkable. A small diaphragmatic hernia, 2 cm was found. Residual fluid within the distal esophagus was found and suctioned. The gastric pouch was entered. A gastrojejunal stricture of 4 mm was found as the adult gastroscope was 9.5 mm in size. A [employer] balloon dilator was placed through the scope. Final insufflation up to 10 mm was performed with a total of 2 minutes. Secondary to moderate edema, the scope was not advanced beyond the anastomosis. The mucosa of the gastrojejunal anastomosis was intact. No chronic gastrojejunal marginal ulcer was encountered. No full-thickness injury was encountered. The GI tract was desufflated. The patient tolerated the procedure well. FINDINGS: Recurrent diaphragmatic hiatal hernia, 2 cm Stricture of approximately 4 mm encountered. No chronic gastrojejunal ulceration encountered. Balloon dilatation to 10 mm. RECOMMENDATIONS: Increase omeprazole to 40 mg by mouth daily 4 weeks. Will need repeat upper endoscopy in 3 weeks with balloon dilation
[2019-12-07 10:50] VITALS: BP 165/88; PULSE 63; TEMP 98.1
--- NOTE | 2019-12-07 14:02 | P.DS ---
Providers Date of admission: 12/06/19 15:50 Expected date of discharge: 12/07/19 Attending physician: Mackenzie Travis Primary care physician: Stated None Hospital Course: Deepti Dyson is a 69-year-old female status post revision from sleeve gastrectomy to gastric bypass on 11/13/2019. She was revised from sleeve gastrectomy secondary to mechanical complications from her sleeve performed at [facility] 3+ years ago. She was doing very well postoperatively including managing her fluids. No reports of nausea or vomiting. Now 2-3 days ago she developed burping. The last 24 hours she has persistent nausea including vomiting. Her oral intake is subpar. Despite IV fluid hydration, she had persistent symptoms. She is unable to tolerate by mouth water or liquids. With her surgical procedure, she is high risk of stricture and esophageal obstruction were described. Patient presents with esophageal obstruction. The patient underwent EGD with balloon dilatation from 4 mm to [address] Travis on 12/07/2019. Patient is able to tolerate liquids post-procedure without any difficulty. She is stable for discharge home today per Dr. Travis. Patients Prilosec increased from 40mg PO daily to 40mg PO BID per Dr. Travis. Please see EMR for further hospital course details. Discharge diagnosis Dysphagia Gastroesophageal reflux disease Nausea with vomiting Morbid obesity Gastrojejunal stricture without chronic ulcer without perforation Nurse practitioner note has been reviewed by physician. Signing provider agrees with the documented findings, assessment, and plan of care. Plan - Discharge Summary Discharge Rx Participant: Yes New Discharge Prescriptions: New Omeprazole [PriLOSEC] 40 mg PO BID #60 cap Acetaminophen Oral Susp [Tylenol] 650 mg PO Q4H PRN #500 ml PRN Reason: Pain Discontinued Omeprazole [PriLOSEC] 40 mg PO DAILY #30 capsule. No Action Oxybutynin Chloride [Ditropan XL] 10 mg PO DAILY Bisacodyl [Dulcolax] 5 mg PO DAILY PRN #10 tablet. PRN Reason: Constipation Simethicone 40 mg/0.6 ml Drops [Mylicon Drops] 40 mg PO [facility] PRN #30 ml PRN Reason: Gas Ondansetron Odt [Zofran Odt] 4 mg PO Q8HR PRN #9 tab PRN Reason: Nausea Acetaminophen Oral Susp [Tylenol Oral Susp] 650 mg PO Q4-6H PRN #400 ml PRN Reason: Pain Irbesartan/Hydrochlorothiazide [Avalide 300-12.5 mg Tablet] 0.5 tab PO DAILY Discharge Medication List Oxybutynin Chloride [Ditropan XL] 10 mg PO DAILY 11/08/19 [History] Acetaminophen Oral Susp [Tylenol Oral Susp] 650 mg PO Q4-6H PRN #400 ml 11/15/19 [Rx] Bisacodyl [Dulcolax] 5 mg PO DAILY PRN #10 tablet. 11/15/19 [Rx] Ondansetron Odt [Zofran Odt] 4 mg PO Q8HR PRN #9 tab 11/15/19 [Rx] Simethicone 40 mg/0.6 ml Drops [Mylicon Drops] 40 mg PO [facility] PRN #30 ml 11/15/19 [Rx] Irbesartan/Hydrochlorothiazide [Avalide 300-12.5 mg Tablet] 0.5 tab PO DAILY 12/06/19 [History] Acetaminophen Oral Susp [Tylenol] 650 mg PO Q4H PRN #500 ml 12/07/19 [Rx] Omeprazole [PriLOSEC] 40 mg PO BID #60 cap 12/07/19 [Rx] [facility]Ref[place] - 12/13/19 1:30 pm Patient Instructions/Handouts: Esophageal Stricture (DC) Activity/Diet/Wound Care/Special Instructions: Continue full liquid diet
[2019-12-07] MEDS ORDERED: PANTOPRAZOLE 40 MG/10 ML VIAL IVP SCH (21:00)
== END 2019-12-07 15:19 | disposition home or self-care (01) ==
LOC: 4SSUR 15:50
PROVIDERS: ADMIT Surgery Plastic and Reconstructive Surgery; ATTEND Surgery Plastic and Reconstructive Surgery
DX: K22.2 Esophageal obstruction (principal); K21.9 Gastro-esophageal reflux disease without esophagitis; R11.2 Nausea with vomiting, unspecified; I11.9 Hypertensive heart disease without heart failure; E86.0 Dehydration; E66.01 Morbid (severe) obesity due to excess calories; Z68.34 Body mass index [BMI] 34.0-34.9, adult; K44.9 Diaphragmatic hernia without obstruction or gangrene; Z98.84 Bariatric surgery status; M17.0 Bilateral primary osteoarthritis of knee; Z90.3 Acquired absence of stomach [part of]; Z91.011 Allergy to milk products; Z88.2 Allergy status to sulfonamides; Z79.899 Other long term (current) drug therapy; Z96.653 Presence of artificial knee joint, bilateral; Z90.49 Acquired absence of other specified parts of digestive tract; Z87.440 Personal history of urinary (tract) infections; R32 Unspecified urinary incontinence; Z90.710 Acquired absence of both cervix and uterus; Z80.49 Family history of malignant neoplasm of other genital organs
CPT/HCPCS: 96376; 96365; 96375; 80048; 85025; 96360; 96361; 43249; G0378 ×2; G0379; J2405; J2001; J0131; J2704; C9113 ×2; G0463; C1726; 99211

== ENCOUNTER → 2019-12-06 | Outpatient (CLI) | payer MEDICARE, OTHER ==
[~2019-12-06] MED LIST changes: -DEXAMETHASONE SOD PHOSPHATE 10 MG/ML 1 ML VIAL IV ONE; -HYDROmorphone 0.5 MG/0.5 ML SYRINGE IVP PRN; -MIDAZOLAM 2 MG/2 ML VIAL IV PRN
[2019-12-06 13:03] VITALS: BP 145/107; PULSE 105; BMI 33.3
[2019-12-06] MEDS: SODIUM CHLORIDE 0.9% 1,000 ML IV SCH ×2 (13:15→14:15)
--- NOTE | 2019-12-06 13:36 | P.PN ---
Subjective Progress Note Date: 12/06/19 She comes in with dehydration. She had yogurt and had emesis. She has been vomiting. She reports phlegm. She reports burping. She started vomiting yesterday. She had cream soup that was then. She has been taking Omeprazole daily. She is getting hydrated. She started burping 2 to 3 days ago. She has intolerance to oral liquids including water. Recommend esophageal dilation Symptoms consistent with esophageal obstruction. Recommend observation Objective - Vital Signs Vital signs: Vital Signs Temp 98.6 F 12/06/19 12:57 Pulse 105 H 12/06/19 12:57 Resp BP 145/107 12/06/19 12:57 Pulse Ox Intake & Output 12/05/19 12/06/19 12/06/19 18:59 06:59 18:59 Weight 82.554 kg
[2019-12-06 14:43] VITALS: RESP 16; TEMP 97.8
== END ==
LOC: BARWHC3 12:40
PROVIDERS: ATTEND Surgery Plastic and Reconstructive Surgery
DX: K21.9 Gastro-esophageal reflux disease without esophagitis (principal); E86.0 Dehydration
CPT/HCPCS: 96360; 96361; J2405; G0463; 99211

== ENCOUNTER → 2019-12-13 | Outpatient (CLI) | payer MEDICARE, OTHER ==
[2019-12-13 12:54] VITALS: BP 131/74; PULSE 62; TEMP 97.2; BMI 33.6
--- NOTE | 2019-12-13 13:40 | P.PN ---
Subjective Progress Note Date: 12/13/19 DATE OF SERVICE: 12/13/2019 CHIEF COMPLAINT: Status post gastric bypass HISTORY OF PRESENT ILLNESS: Deepti Dyson is a 69-year-old female status post gastric bypass, 11/13/2019. She is 1 month out. She reports feeling so much better since her stretch of her gastrojejunal stricture. She denies abdominal pain. No reports of nausea or vomiting. She is tolerating liquids. At height of 5 feet 2 inches, her ideal body weight is 135 pounds. Her highest weight was 208 pounds. She comes in 184 pounds from 182 pounds, 1 week ago. She has gained 2 pounds in 1 week. Her body mass index highest is 38.0 now down to 33.7. Her lifetime weight loss is 24 pounds. Lifetime percent excess weight loss is 33 %. She is 49 pounds overweight. PHYSICAL EXAM: VITAL SIGNS: Height 5 foot 2 inches, weight 184 pounds. BMI 33.7 Vital Signs Temp 97.2 F L 12/13/19 12:52 Pulse 62 12/13/19 12:52 Resp BP 131/74 12/13/19 12:52 Pulse Ox GENERAL: Well-developed in no acute distress. HEENT: No scleral icterus. Extraocular movements grossly intact. Hears conversational speech. No nasal drainage. NECK: Supple without lymphadenopathy. CHEST: Nonlabored respirations with equal bilateral excursions. CARDIOVASCULAR: Regular rate and rhytm. Distal 2+ pulses. ABDOMEN: Soft, nondistended. No peritonitis MUSCULOSKELETAL: No clubbing, cyanosis. NEURO: No focal or lateralizing signs. Cranial nerves 2 through 12 grossly within normal limits. PSYCH: Appropriate affect. Alert and oriented to person, place and time. SKIN: Good skin turgor. Well perfused. ASSESSMENT: 1. Morbid obesity due to excess calories 2. Body mass index of 38.0 to 33.7 3. Gastroesophageal reflux disease 4. Hypertensive heart disease 5. Osteoarthritis bilateral knees 6. Inadequate protein intake 7. Hiatal hernia 8. Vitamin A deficiency 9. 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 Status post gastric bypass 11. Gastrojejunal stricture 12. Dehydration 13. Esophageal obstruction, improved PLAN: 1. Recommend warm beverages. 2. May need repeat upper endscopy in the future. 3. Continue Omeprazole twice daily for 1 month. 4. Recommend bariatric labs. Laboratory Last Values WBC 4.7 k/uL (3.8-10.6) 12/13/19 14:24 RBC 3.76 m/uL (3.80-5.40) L 12/13/19 14:24 Hgb 12.0 gm/dL (11.4-16.0) 12/13/19 14:24 Hct 36.1 % (34.0-46.0) 12/13/19 14:24 MCV 95.9 fL (80.0-100.0) 12/13/19 14:24 MCH 31.9 pg (25.0-35.0) 12/13/19 14:24 MCHC 33.3 g/dL (31.0-37.0) 12/13/19 14:24 RDW 12.9 % (11.5-15.5) 12/13/19 14:24 Plt Count 167 k/uL (150-450) 12/13/19 14:24 PT 10.7 sec (9.0-12.0) 12/13/19 14:24 INR 1.0 (<1.2) 12/13/19 14:24 APTT 22.9 sec (22.0-30.0) 12/13/19 14:24 Sodium 145 mmol/L (135-145) 12/13/19 14:24 Potassium 3.7 mmol/L (3.5-5.5) 12/13/19 14:24 Chloride 107 mmol/L (96-109) 12/13/19 14:24 Carbon Dioxide 30.9 mmol/L (21.6-31.8) 12/13/19 14:24 Anion Gap 7.10 mmol/L (4.00-12.00) 12/13/19 14:24 BUN 24.0 mg/dL (9.0-27.0) 12/13/19 14:24 Creatinine 0.7 mg/dL (0.6-1.5) 12/13/19 14:24 Est GFR (CKD-EPI)AfAm 101.0 (60.0-200.0) 12/13/19 14:24 Est GFR (CKD-EPI)NonAf 87.2 (60.0-200.0) 12/13/19 14:24 BUN/Creatinine Ratio 34.29 Ratio (12.00-20.00) H 12/13/19 14:24 Glucose 97 mg/dL (70-110) 12/13/19 14:[address] Glu mg/dL 97 12/13/19 14:24 Hemoglobin A1c 5.0 % (4.0-6.0) 12/13/19 14:24 Calcium 9.2 mg/dL (8.7-10.3) 12/13/19 14:24 Phosphorus 3.4 mg/dL (2.4-5.1) 12/13/19 14:24 Magnesium 1.7 mg/dL (1.5-2.4) 12/13/19 14:24 Iron 106 ug/dL (50-170) 12/13/19 14:24 TIBC 274 ug/dL (228-460) 12/13/19 14:24 % Saturation 38.69 (12.00-45.00) 12/13/19 14:24 Ferritin 39.1 ng/mL (10.0-291.0) 12/13/19 14:24 Total Bilirubin 0.6 mg/dL (0.3-1.2) 12/13/19 14:24 AST 25 U/L (13-35) 12/13/19 14:24 ALT 18 U/L (8-44) 12/13/19 14:24 Alkaline Phosphatase 87 U/L (41-126) 12/13/19 14:24 Total Protein 6.0 g/dL (6.2-8.2) L 12/13/19 14:24 Albumin 4.00 g/dL (3.80-4.90) 12/13/19 14:24 Globulin 2.0 g/dL (1.6-3.3) 12/13/19 14:24 Albumin/Globulin Ratio 2.00 g/dL (1.60-3.17) 12/13/19 14:24 Prealbumin 7.0 mg/dL (18.0-42.0) L 12/13/19 14:24 Triglycerides 118.0 mg/dL (0.0-149.0) 12/13/19 14:24 Cholesterol 144 mg/dL (0-200) 12/13/19 14:24 LDL Cholesterol, Calc 85.4 mg/dL (0.0-131.0) 12/13/19 14:24 VLDL Cholesterol, Calc 23.60 mg/dL (5.00-40.00) 12/13/19 14:24 HDL Cholesterol 35.0 mg/dL (40.0-60.0) L 12/13/19 14:24 Cholesterol/HDL Ratio 4.11 12/13/19 14:24 Vitamin A 19 ug/dL (38-106) L 12/13/19 14:24 Vitamin B1 60 ug/L (38-122) 12/13/19 14:24 Vitamin B12 621.0 pg/mL (200.0-944.0) 12/13/19 14:24 Vitamin D 25-Hydroxy 55.3 ng/mL (30.0-100.0) 12/13/19 14:24 Folate 19.2 ng/mL 12/13/19 14:24 TSH 0.120 uIU/mL (0.350-5.500) L 12/13/19 14:24 PTH Intact 40.5 pg/mL (14.0-72.0) 12/13/19 14:24 Copper 1043 ug/L (810-1990) 12/13/19 14:24 Selenium 111 mcg/L (63-160) 12/13/19 14:24 Zinc 66 ug/dL (60-130) 12/13/19 14:24 Total protein is low Pre-albumin is low Vitamin A is low TSH is low Objective - Vital Signs Vital signs: Vital Signs Temp 97.2 F L 12/13/19 12:52 Pulse 62 12/13/19 12:52 Resp BP 131/74 12/13/19 12:52 Pulse Ox Intake & Output 12/12/19 12/13/19 12/13/19 18:59 06:59 18:59 Weight 83.461 kg - Labs CBC & Chem 7: 12/13/19 14:24 12/13/19 14:24
[2019-12-13 14:55] LABS: HCT 36.1 % (34.0-46.0); MCH 31.9 pg (25.0-35.0); MCHC 33.3 g/dL (31.0-37.0); MCV 95.9 fL (80.0-100.0); Mean Platelet Volume 7.8; Platelet Count 167 k/uL (150-450); RBC 3.76 m/uL (3.80-5.40); RDW 12.9 % (11.5-15.5); WBC 4.7 k/uL (3.8-10.6)
[2019-12-13 15:05] LABS: Partial Thromboplastin Time 22.9 sec (22.0-30.0); Prothrombin Time 10.7 sec (9.0-12.0)
[2019-12-13 20:03] LABS: Ferritin 39.1 ng/mL (10.0-291.0)
[2019-12-13 20:27] LABS: % Iron Saturation 38.69 (12.00-45.00); Anion Gap 7.1 mmol/L (4.00-12.00); BUN/Creat Ratio 34.29 Ratio (12.00-20.00); Calcium 9.2 mg/dL (8.7-10.3); Carbon Dioxide 30.9 mmol/L (21.6-31.8); Chol/HDL Ratio 4.11; Folate, Serum 19.2 ng/mL; LDL Cholesterol,Calculated 85.4 mg/dL (0.0-131.0); Magnesium 1.7 mg/dL (1.5-2.4); Non-African American GFR(CKD) 87.2 (60.0-200.0); Phosphorus 3.4 mg/dL (2.4-5.1); Potassium 3.7 mmol/L (3.5-5.5); Total Bilirubin 0.6 mg/dL (0.3-1.2); VLDL Calculation 23.6 mg/dL (5.00-40.00)
[2019-12-14 15:08] LABS: Zinc, Serum 66 ug/dL (60-130)
[2019-12-14 15:22] LABS: Vitamin A 19 ug/dL (38-106)
[2019-12-15 08:00] LABS: Vit B1(Thiamine) 60 ug/L (38-122)
[2019-12-16 00:14] LABS: Selenium 111 mcg/L (63-160)
== END | disposition home or self-care (01) ==
LOC: BARWHC3 12:20
PROVIDERS: ATTEND Surgery Plastic and Reconstructive Surgery
DX: Z48.815 Encounter for surgical aftercare following surgery on the digestive system (principal); E66.01 Morbid (severe) obesity due to excess calories; K21.9 Gastro-esophageal reflux disease without esophagitis; I11.9 Hypertensive heart disease without heart failure; M17.0 Bilateral primary osteoarthritis of knee; K44.9 Diaphragmatic hernia without obstruction or gangrene; E50.9 Vitamin A deficiency, unspecified; K95.89 Other complications of other bariatric procedure; K92.89 Other specified diseases of the digestive system; E86.0 Dehydration; K22.2 Esophageal obstruction; Z68.33 Body mass index [BMI] 33.0-33.9, adult; Z79.899 Other long term (current) drug therapy; Z98.84 Bariatric surgery status; E21.1 Secondary hyperparathyroidism, not elsewhere classified; E89.1 Postprocedural hypoinsulinemia; D50.9 Iron deficiency anemia, unspecified; K90.9 Intestinal malabsorption, unspecified; E55.9 Vitamin D deficiency, unspecified; K74.1 Hepatic sclerosis; N19 Unspecified kidney failure; K50.90 Crohn's disease, unspecified, without complications
CPT/HCPCS: 84255; 84134; 84425; 80061; 80053; 82607; 82728; 82525; 82746; 83540; 83550; 83735; 84100; 84443; 84590; 84630; 85027; 85610; 85730; 82306; 83970; 83036; 97803; G0463; 99211

== ENCOUNTER 2019-12-20 07:13 | Day surgery (SDC) | payer MEDICARE, OTHER ==
[2019-12-19 08:24] VITALS: BMI 33.8
[~2019-12-20 07:13] MED LIST changes: +LACTATED RINGERS 1,000 ML IV SCH; +LIDOCAINE 1% (10MG/ML) FOR IV START INTRADERMA PRN; -ONDANSETRON 4 MG/2 ML VIAL IVP ONE
[2019-12-20 07:45] VITALS: TEMP 97.5
[2019-12-20] MEDS ORDERED: ONDANSETRON 4 MG/2 ML VIAL IVP ONE (07:58)
[2019-12-20] MEDS ORDERED: LIDOCAINE 1% INJ 10MG/ML (20 ML MDV) ONE (08:04)
[2019-12-20] MEDS ORDERED: PROPOFOL 10 MG/ML 20 ML VIAL IV ONE (08:04)
--- NOTE | 2019-12-20 08:07 | P.GSHP ---
History of Present Illness H&P Date: 12/20/19 CHIEF COMPLAINT: Dysphasia HISTORY OF PRESENT ILLNESS: The patient is a 46-year-old female who presents reports dysphagia. Upper endoscopy was offered for further evaluation and management. PAST MEDICAL HISTORY: Please see list. PAST SURGICAL HISTORY: Please see list. MEDICATIONS: Please see list. ALLERGIES: Please see list. SOCIAL HISTORY: No illicit drug use FAMILY HISTORY: No reports of Crohn disease or ulcerative colitis. REVIEW OF ORGAN SYSTEMS: CONSTITUTIONAL: No reports of fevers or chills. GI: Denies any blood in stools or constipation. PHYSICAL EXAM: VITAL SIGNS: Stable GENERAL: Well-developed and pleasant in no acute distress. HEENT: No scleral icterus. Extraocular movements grossly intact. Moist buccal mucosa. NECK: Supple without lymphadenopathy. CHEST: Unlabored respirations. Equal bilateral excursions. CARDIOVASCULAR: Regular rate and rhythm. Distal 2+ pulses. ABDOMEN: Soft, nondistended. MUSCULOSKELETAL: No clubbing, cyanosis, or edema. ASSESSMENT: 1. Dysphasia PLAN: 1. Recommend proceeding with an upper endoscopy with dilation Past Medical History Past Medical History: GERD/Reflux, Hypertension Additional Past Medical History / Comment(s): Hx of and current Hiatal Hernia, hx. frequent UTI's, urinary incontinence, constipation, diff swallowing and keeping food down History of Any Multi-Drug Resistant Organisms: None Reported Past Surgical History: Bariatric Surgery, Cholecystectomy, Hernia Repair, Hysterectomy, Joint Replacement Additional Past Surgical History / Comment(s): Bilateral knee replacement, sleeve gastrectomy (conversion to gastric bypass 11-13-19), hiatal hernia repair Past Anesthesia/Blood Transfusion Reactions: Motion Sickness Additional Past Anesthesia/Blood Transfusion Reaction / Comment(s): Pt states "always get UTI's from mcneal catheters." Smoking Status: Never smoker - Past Family History Mother Family Medical History: Cancer Additional Family Medical History / Comment(s): Uterine cancer. Medications and Allergies Home Medications Medication Instructions Recorded Confirmed Type Oxybutynin Chloride [Ditropan XL] 10 mg PO DAILY 11/08/19 12/20/19 History Bisacodyl [Dulcolax] 5 mg PO DAILY PRN #10 tablet. 11/15/19 12/19/19 Rx Ondansetron Odt [Zofran Odt] 4 mg PO Q8HR PRN #9 tab 11/15/19 12/20/19 Rx Irbesartan/Hydrochlorothiazide 0.5 tab PO DAILY 12/06/19 12/20/19 History [Avalide 300-12.5 mg Tablet] Omeprazole [PriLOSEC] 40 mg PO BID #60 cap 12/07/19 12/20/19 Rx Allergies Allergy/AdvReac Type Severity Reaction Status Date / Time Sulfa (Sulfonamide Allergy Rash/Hives Verified 12/19/19 08:16 Antibiotics) milk AdvReac Abdominal Verified 12/19/19 08:16 Pain Surgical - Exam Vital Signs Temp Pulse Resp BP Pulse Ox 97.5 F L 56 L 16 176/78 100 12/20/19 07:34 12/20/19 07:34 12/20/19 07:34 12/20/19 07:34 12/20/19 07:34
--- NOTE | 2019-12-20 08:34 | P.PCN ---
Date of Procedure: 12/20/19 Description of Procedure: PREOPERATIVE DIAGNOSIS: Gastrojejunal stricture Dysphagia. Gastroesophageal reflux disease Nausea with vomiting. POSTOPERATIVE DIAGNOSIS: Dysphagia Gastroesophageal reflux disease Nausea with vomiting. Gastrojejunal stricture without chronic ulcer without perforation OPERATION: Esophagogastrojejunoscopy with balloon dilatation from 2 mm to 12 mm. SURGEON: Mackenzie Travis MD ANESTHESIA: MAC. INDICATIONS: The patient is a 69-year-old female who presents with a history of dysphagia, esophageal obstruction including nausea and vomiting. Benefits and risks of the procedure were described. Informed consent was obtained. DESCRIPTION: The patient was brought into the endoscopy suite and laid in the left lateral decubitus position. After a timeout was confirmed, the procedure was initiated. An Olympus gastroscope was passed along the posterior oropharynx down to the d istal esophagus where the squamocolumnar junction was unremarkable. A small diaphragmatic hernia, 2 cm was found. The gastric pouch was entered. A gastrojejunal stricture of 2 mm was found as the adult gastroscope was 9.5 mm in size. A [employer] balloon dilator was placed through the scope. Final insufflation up to 12 mm was performed with a total of 2 minutes. Secondary to moderate edema, the scope was not advanced beyond the anastomosis. The mucosa of the gastrojejunal anastomosis was intact. No chronic gastrojejunal marginal ulcer was encountered. No full-thickness injury was encountered. The GI tract was desufflated. The patient tolerated the procedure well. FINDINGS: Recurrent diaphragmatic hiatal hernia, 2 cm Stricture of approximately 2 mm encountered. No chronic gastrojejunal ulceration encountered. Balloon dilatation to 12 mm. RECOMMENDATIONS: Increase omeprazole to 40 mg by mouth BID daily Will need repeat upper endoscopy in 2 weeks with balloon dilation Plan - Discharge Summary New Discharge Prescriptions: No Action Oxybutynin Chloride [Ditropan XL] 10 mg PO DAILY Bisacodyl [Dulcolax] 5 mg PO DAILY PRN #10 tablet.dr PRN Reason: Constipation Ondansetron Odt [Zofran Odt] 4 mg PO Q8HR PRN #9 tab PRN Reason: Nausea Irbesartan/Hydrochlorothiazide [Avalide 300-12.5 mg Tablet] 0.5 tab PO DAILY Omeprazole [PriLOSEC] 40 mg PO BID #60 cap Discharge Medication List Oxybutynin Chloride [Ditropan XL] 10 mg PO DAILY 11/08/19 [History] Bisacodyl [Dulcolax] 5 mg PO DAILY PRN #10 tablet.dr 11/15/19 [Rx] Ondansetron Odt [Zofran Odt] 4 mg PO Q8HR PRN #9 tab 11/15/19 [Rx] Irbesartan/Hydrochlorothiazide [Avalide 300-12.5 mg Tablet] 0.5 tab PO DAILY 12/06/19 [History] Omeprazole [PriLOSEC] 40 mg PO BID #60 cap 12/07/19 [Rx]
[2019-12-20] MEDS ORDERED: SODIUM CHLORIDE 0.9% 1,000 ML IV ONE (08:35)
[2019-12-20] MEDS ORDERED: DEXTROSE 5%-0.9% NACL 1,000 ML IV ONE (09:00)
[2019-12-20 09:09] LABS: Basophils % (A) 0 %; Eosinophils # (A) 0.2 k/uL (0-0.7); Eosinophils % (A) 5 %; HCT 36.7 % (34.0-46.0); HGB 11.9 gm/dL (11.4-16.0); Lymphocytes # (A) 1.2 k/uL (1.0-4.8); Lymphocytes % (A) 33 %; MCH 30.9 pg (25.0-35.0); MCHC 32.5 g/dL (31.0-37.0); MCV 94.9 fL (80.0-100.0); Mean Platelet Volume 7.5; Monocytes # (A) 0.2 k/uL (0-1.0); Monocytes % (A) 6 %; Neutrophils # (A) 1.9 k/uL (1.3-7.7); Neutrophils % (A) 53 %; Platelet Count 172 k/uL (150-450); RBC 3.86 m/uL (3.80-5.40); RDW 12.9 % (11.5-15.5); WBC 3.6 k/uL (3.8-10.6)
--- NOTE | 2019-12-20 09:39 | XR ---
EXAMINATION TYPE: XR chest 1V portable DATE OF EXAM: 12/20/2019 COMPARISON: NONE HISTORY: Cough after recent esophageal dilatation. TECHNIQUE: Single AP portable frontal upright view of the chest is obtained. FINDINGS: There is no focal air space opacity, pleural effusion, or pneumothorax seen. The cardiac silhouette size is upper limits of normal. The osseous structures are intact. Some overlying blanke t material. No obvious pneumomediastinum. IMPRESSION: No acute process.
[2019-12-20] MEDS ORDERED: LOSARTAN 25 MG TAB PO STA (10:01)
[2019-12-20] MEDS ORDERED: HYDROCHLOROTHIAZIDE 25 MG TAB PO STA (10:01)
[2019-12-20 10:13] VITALS: RESP 20
[2019-12-20 10:59] VITALS: BP 153/74; PULSE 56
== END 2019-12-20 11:23 | disposition home or self-care (01) ==
LOC: ORWHC2ENDO 07:13
PROVIDERS: ATTEND Surgery Plastic and Reconstructive Surgery
DX: K95.89 Other complications of other bariatric procedure (principal); K56.699 Other intestinal obstruction unspecified as to partial versus complete obstruction; K44.9 Diaphragmatic hernia without obstruction or gangrene; K21.9 Gastro-esophageal reflux disease without esophagitis; I10 Essential (primary) hypertension; R32 Unspecified urinary incontinence; Z91.011 Allergy to milk products; Z88.2 Allergy status to sulfonamides; Z87.19 Personal history of other diseases of the digestive system; Z87.440 Personal history of urinary (tract) infections; Z98.84 Bariatric surgery status; Z90.49 Acquired absence of other specified parts of digestive tract; Z98.890 Other specified postprocedural states; Z90.710 Acquired absence of both cervix and uterus; Z96.653 Presence of artificial knee joint, bilateral; Z87.898 Personal history of other specified conditions; Z79.899 Other long term (current) drug therapy; Z87.39 Personal history of other diseases of the musculoskeletal system and connective tissue; Z91.89 Other specified personal risk factors, not elsewhere classified; Z80.49 Family history of malignant neoplasm of other genital organs
CPT/HCPCS: 85025; 71045; 43245; J2405; J2001; J2704; C1726 ×2; 43249

== ENCOUNTER 2019-12-26 12:45 | Inpatient (IN) | payer MEDICARE, OTHER ==
[2019-12-26] MEDS ORDERED: SODIUM CHLORIDE 0.9% 500 ML 500 ML IV STA (12:53)
[2019-12-26] MEDS ORDERED: MORPHINE SULFATE 4 MG/ML SYRINGE IVP STA (13:09)
[2019-12-26] MEDS ORDERED: ONDANSETRON 4 MG/2 ML VIAL IVP STA (13:09)
--- NOTE | 2019-12-26 13:10 | ED ---
URI HPI - General Chief Complaint: Upper Respiratory Infection Stated Complaint: sent by /possible appendicitis Time Seen by Provider: 12/26/19 12:52 Source: patient, RN notes reviewed Mode of arrival: ambulatory Limitations: no limitations - History of Present Illness Initial Comments: This is a 69-year-old female presents emergency Department chief complaint of abdominal pain. Patient states the pain awoke her this morning. She was seen by her primary physician who sent her here to rule out acute appendicitis. Patient denies any no fevers or chills she has been to some nausea, dry heaving. No flank pain she does have a history of kidney stones and states is not feels some redness. She's also had a prior cholecystectomy. Patient denies any chest pain, shortness breath, headache or dizziness. Nothing makes the pain feel better or worse at this time. - Related Data Home Medications Medication Instructions Recorded Confirmed Oxybutynin Chloride [Ditropan XL] 10 mg PO DAILY 11/08/19 12/20/19 Irbesartan/Hydrochlorothiazide 0.5 tab PO DAILY 12/06/19 12/20/19 [Avalide 300-12.5 mg Tablet] Previous Rx's Medication Instructions Recorded Bisacodyl [Dulcolax] 5 mg PO DAILY PRN #10 tablet. 11/15/19 Ondansetron Odt [Zofran ODT] 4 mg PO Q8HR PRN #9 tab 11/15/19 Omeprazole [PriLOSEC] 40 mg PO BID #60 cap 12/07/19 Sucralfate [Carafate] 1 gm PO BID #480 ml 12/20/19 Allergies Allergy/AdvReac Type Severity Reaction Status Date / Time Sulfa (Sulfonamide Allergy Rash/Hives Verified 12/19/19 08:16 Antibiotics) milk AdvReac Abdominal Verified 12/19/19 08:16 Pain Review of Systems ROS Statement: Those systems with pertinent positive or pertinent negative responses have been documented in the HPI. ROS Other: All systems not noted in ROS Statement are negative. Past Medical History Past Medical History: GERD/Reflux, Hypertension Additional Past Medical History / Comment(s): Hx of and current Hiatal Hernia, hx. 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 General Exam Limitations: no limitations General appearance: alert, in no apparent distress Head exam: Present: atraumatic, normocephalic, normal inspection Eye exam: Present: normal appearance, PERRL, EOMI. Absent: scleral icterus, conjunctival injection, periorbital swelling ENT exam: Present: normal exam, mucous membranes moist Neck exam: Present: normal inspection. Absent: tenderness, meningismus, lymphadenopathy Respiratory exam: Present: normal lung sounds bilaterally. Absent: respiratory distress, wheezes, rales, rhonchi, stridor Cardiovascular Exam: Present: regular rate, normal rhythm, normal heart sounds. Absent: systolic murmur, diastolic murmur, rubs, gallop, clicks GI/Abdominal exam: Present: soft, tenderness (Moderate right lower quadrant tenderness), normal bowel sounds. Absent: distended, guarding, rebound, rigid Back exam: Absent: CVA tenderness (R), CVA tenderness (L) Neurological exam: Present: alert, oriented X3, CN II-XII intact Skin exam: Present: warm, dry, intact, normal color. Absent: rash Course Vital Signs 12/26/19 12/26/19 12/26/19 12:50 14:05 15:08 Temperature 98.5 F Pulse Rate 68 66 67 Respiratory 20 18 18 Rate Blood Pressure 200/108 193/98 153/96 O2 Sat by Pulse 97 97 97 Oximetry Medical Decision Making - Medical Decision Making Patient's found to have a large obstructing right ureteral calculi measuring 6.4 no major by 1.3 cm stone. Case discussed with Dr. Self who admit the patient. Patient be hydrated, given pain control. - Lab Data Result diagrams: 12/26/19 13:21 12/26/19 13:21 Lab Results 12/26/19 12/26/19 12/26/19 Range/Units 13:21 13:21 13:21 WBC 5.1 (3.8-10.6) k/uL RBC 4.23 (3.80-5.40) m/uL Hgb 13.2 (11.4-16.0) gm/dL Hct 39.3 (34.0-46.0) % MCV 92.9 (80.0-100.0) fL MCH 31.3 (25.0-35.0) pg MCHC 33.7 (31.0-37.0) g/dL RDW 12.5 (11.5-15.5) % Plt Count 170 (150-450) k/uL Neutrophils % 85 % Lymphocytes % 11 % Monocytes % 3 % Eosinophils % 1 % Basophils % 0 % Neutrophils # 4.3 (1.3-7.7) k/uL Lymphocytes # 0.6 L (1.0-4.8) k/uL Monocytes # 0.1 (0-1.0) k/uL Eosinophils # 0.0 (0-0.7) k/uL Basophils # 0.0 (0-0.2) k/uL Sodium 137 (137-145) mmol/L Potassium 3.7 (3.5-5.1) mmol/L Chloride 100 (98-107) mmol/L Carbon Dioxide 27 (22-30) mmol/L Anion Gap 10 mmol/L BUN 17 (7-17) mg/dL Creatinine 0.53 (0.52-1.04) mg/dL Est GFR (CKD-EPI)AfAm >90 (>60 ml/min/1.73 sqM) Est GFR (CKD-EPI)NonAf >90 (>60 ml/min/1.73 sqM) Glucose 139 H (74-99) mg/dL Plasma Lactic Acid Sanya 1.0 (0.7-2.0) mmol/L Calcium 9.4 (8.4-10.2) mg/dL Total Bilirubin 0.8 (0.2-1.3) mg/dL AST 32 (14-36) U/L ALT 16 (4-34) U/L Alkaline Phosphatase 114 (38-126) U/L Total Protein 7.4 (6.3-8.2) g/dL Albumin 4.5 (3.5-5.0) g/dL Amylase 36 (30-110) U/L Lipase 56 (23-300) U/L Urine Color Urine Appearance (Clear) Urine pH (5.0-8.0) Ur Specific [place] (1.001-1.035) Urine Protein (Negative) Urine Glucose (UA) (Negative) Urine Ketones (Negative) Urine Blood (Negative) Urine Nitrite (Negative) Urine Bilirubin (Negative) Urine Urobilinogen (<2.0) mg/dL Ur Leukocyte Esterase (Negative) Urine RBC (0-5) /hpf Urine WBC (0-5) /hpf Ur Squamous Epith Cells (0-4) /hpf Urine Mucus (None) /hpf 12/26/19 Range/Units 14:45 WBC (3.8-10.6) k/uL RBC (3.80-5.40) m/uL Hgb (11.4-16.0) gm/dL Hct (34.0-46.0) % MCV (80.0-100.0) fL MCH (25.0-35.0) pg MCHC (31.0-37.0) g/dL RDW (11.5-15.5) % Plt Count (150-450) k/uL Neutrophils % % Lymphocytes % % Monocytes % % Eosinophils % % Basophils % % Neutrophils # (1.3-7.7) k/uL Lymphocytes # (1.0-4.8) k/uL Monocytes # (0-1.0) k/uL Eosinophils # (0-0.7) k/uL Basophils # (0-0.2) k/uL Sodium (137-145) mmol/L Potassium (3.5-5.1) mmol/L Chloride (98-107) mmol/L Carbon Dioxide (22-30) mmol/L Anion Gap mmol/L BUN (7-17) mg/dL Creatinine (0.52-1.04) mg/dL Est GFR (CKD-EPI)AfAm (>60 ml/min/1.73 sqM) Est GFR (CKD-EPI)NonAf (>60 ml/min/1.73 sqM) Glucose (74-99) mg/dL Plasma Lactic Acid Sanya (0.7-2.0) mmol/L Calcium (8.4-10.2) mg/dL Total Bilirubin (0.2-1.3) mg/dL AST (14-36) U/L ALT (4-34) U/L Alkaline Phosphatase (38-126) U/L Total Protein (6.3-8.2) g/dL Albumin (3.5-5.0) g/dL Amylase (30-110) U/L Lipase (23-300) U/L Urine Color Yellow Urine Appearance Clear (Clear) Urine pH 7.0 (5.0-8.0) Ur Specific [place] 1.019 (1.001-1.035) Urine Protein Trace H (Negative) Urine Glucose (UA) Negative (Negative) Urine Ketones 2+ H (Negative) Urine Blood Moderate H (Negative) Urine Nitrite Negative (Negative) Urine Bilirubin Negative (Negative) Urine Urobilinogen <2.0 (<2.0) mg/dL Ur Leukocyte Esterase Negative (Negative) Urine RBC 128 H (0-5) /hpf Urine WBC 4 (0-5) /hpf Ur Squamous Epith Cells <1 (0-4) /hpf Urine Mucus Rare H (None) /hpf Disposition Clinical Impression: Hydronephrosis with urinary obstruction due to ureteral calculus Disposition: ADMITTED IP TO THIS HOSP Condition: Fair Referrals: Lilliana Vazquez MD [Primary Care Provider] - 1-2 days
[2019-12-26 13:40] LABS: Basophils % (A) 0 %; Eosinophils % (A) 1 %; HCT 39.3 % (34.0-46.0); HGB 13.2 gm/dL (11.4-16.0); Lymphocytes # (A) 0.6 k/uL (1.0-4.8); Lymphocytes % (A) 11 %; MCH 31.3 pg (25.0-35.0); MCHC 33.7 g/dL (31.0-37.0); MCV 92.9 fL (80.0-100.0); Monocytes # (A) 0.1 k/uL (0-1.0); Monocytes % (A) 3 %; Neutrophils # (A) 4.3 k/uL (1.3-7.7); Neutrophils % (A) 85 %; Platelet Count 170 k/uL (150-450); RBC 4.23 m/uL (3.80-5.40); RDW 12.5 % (11.5-15.5); WBC 5.1 k/uL (3.8-10.6)
[2019-12-26 13:43] LABS: ALT 16 U/L (4-34); AST 32 U/L (14-36); African American GFR (CKD) >90 (>60 ml/min/1.73 sqM); Albumin 4.5 g/dL (3.5-5.0); Alkaline Phosphatase 114 U/L (38-126); Amylase 36 U/L (30-110); Anion Gap 10 mmol/L; Blood Urea Nitrogen 17 mg/dL (7-17); Calcium 9.4 mg/dL (8.4-10.2); Carbon Dioxide 27 mmol/L (22-30); Chloride 100 mmol/L (98-107); Glucose 139 mg/dL (74-99); Non-African American GFR(CKD) >90 (>60 ml/min/1.73 sqM); Potassium 3.7 mmol/L (3.5-5.1); Sodium 137 mmol/L (137-145); Total Bilirubin 0.8 mg/dL (0.2-1.3); Total Protein 7.4 g/dL (6.3-8.2)
[2019-12-26] MEDS ORDERED: hydrALAZINE HCL 20 MG/ML 1 ML VIAL IVP STA (14:15)
--- NOTE | 2019-12-26 15:00 | CT ---
EXAMINATION TYPE: CT abdomen pelvis w con DATE OF EXAM: 12/26/2019 COMPARISON: None HISTORY: Abdominal pain CT DLP: 1008.2 mGycm CONTRAST: CT scan of the abdomen and pelvis is performed without Oral Contrast and with IV Contrast, patient in jected with 100 ml mL of Isovue 300. FINDINGS: LUNG BASES-: No visible nodule. No infiltrate. LIVER/GB: The gallbladder is surgically absent. No space occupying hepatic lesion. Biliary tree is of normal caliber. PANCREAS: No inflammation. No distinct mass. SPLEEN: No splenic enlargement. No lesion seen. ADRENALS: No nodule. No thickening. KIDNEYS/BLADDER: There is a distal right ureteral obstructing calculus measuring 6.4 mm in transverse dimension by 1.3 cm craniocaudal dimension. There is moderate to severe right-sided hydroureteroneph rosis. There is right renal edema with perinephric stranding. Extravasated fluid is identified. Under lying infection is difficult to exclude. There is an additional calculus adjacent to the mid right ur eter which appears to reside outside of the confines of the right ureter. No additional renal calculi are seen. Air is seen within the urinary bladder likely from recent catheterization. BOWEL: Nonvisualization of the appendix. Postoperative changes about the stomach. Normal bowel calib er. No inflammation. GENITAL ORGANS: No gross abnormality. LYMPH NODES: No greater than 1cm abdominal or pelvic lymph nodes are appreciated. AORTA: No significant abnormality. OSSEOUS STRUCTURES: No significant abnormality is seen. OTHER: No significant additional abnormality is seen. IMPRESSION: 1. There is a distal right ureteral obstructing calculus measuring 6.4 mm in transverse dimension by 1.3 cm craniocaudal dimension. There is moderate to severe right-sided hydroureteronephrosis. There i s right renal edema with perinephric stranding. Extravasated fluid is identified. Underlying infectio n is difficult to exclude.
[2019-12-26 15:28] LABS: Appearance,Urine Clear (Clear); Bilirubin,Urine Negative (Negative); Blood,Urine Moderate (Negative); Color,Urine Yellow; Glucose,Urine (UA) Negative (Negative); Ketones,Urine 2+ (Negative); Leukocyte Esterase,Urine Negative (Negative); Mucus,Urine Rare /hpf; Nitrite,Urine Negative (Negative); Protein,Urine Trace (Negative); RBC,Urine 128 /hpf (0-5); Specific Gravity,Urine 1.019 (1.001-1.035); Squamous Epithelial Cell,Urine <1 /hpf (0-4); Urobilinogen,Urine <2.0 mg/dL (<2.0); WBC,Urine 4 /hpf (0-5)
[2019-12-26] MEDS ORDERED: NALOXONE 0.4 MG/ML 1 ML VIAL IV PRN (15:51)
[2019-12-26] MEDS ORDERED: MORPHINE SULFATE 4 MG/ML SYRINGE IV PRN (15:51)
--- NOTE | 2019-12-26 16:19 | XR ---
EXAMINATION TYPE: XR KUB DATE OF EXAM: 12/26/2019 HISTORY: Pain Comparison: CT abdomen pelvis 12/26/2019 Single KUB is submitted for interpretation. Findings: Right renal calculi: None Visualized. Right ureteral calculi: Moderate to severe right-sided hydroureteronephrosis up to the level of the p reviously described calculus on the recent CT. Normalized distal ureter noted. Left renal calculi: None Visualized. Left ureteral calculi: None Visualized. Pelvic calcifications: None Visualized. Contrast is identified within the urinary bladder. Bowel gas pattern is unremarkable. No free air. No mass effects. IMPRESSION: 1. Distal right ureteral calculus mid right sacral level with moderate to severe hydroureteronephrosi s noted.
[2019-12-26] MEDS: SODIUM CHLORIDE 0.9% 1,000 ML IV SCH (17:33)
[2019-12-26] MEDS: KETOROLAC 30 MG/ML 1 ML VIAL IVP PRN (17:36)
[2019-12-26] MEDS: ONDANSETRON 4 MG/2 ML VIAL IVP PRN (17:38)
[2019-12-27] MEDS: SODIUM CHLORIDE 0.9% 1,000 ML IV SCH ×2 (05:45→19:47)
[2019-12-27] MEDS: KETOROLAC 30 MG/ML 1 ML VIAL IVP PRN (05:46)
[2019-12-27] MEDS: PANTOPRAZOLE 40 MG TABLET PO SCH ×2 (09:29→17:33)
[2019-12-27] MEDS: SUCRALFATE 1 GM TAB PO SCH ×2 (09:29→19:44)
--- NOTE | 2019-12-27 09:47 | P.GSHP ---
History of Present Illness H&P Date: 12/27/19 Chief Complaint: Right lower abdominal pain The patient is a 69-year-old female admitted through the emergency room late yesterday afternoon for evaluation of lower abdominal pain. She said that she developed low back pain approximately 2 AM and took some Tylenol. Later in the morning she developed nausea and retching. She was instructed to come to the emergency room for further evaluation. Computed tomography scan of the abdomen and pelvis with IV contrast identified moderately severe right hydroureteronephrosis secondary to a 6 x 12 mm calculus located in the distal ureter near the level of the ischial spine. since that time the patient says that her pain has been minimal. She no longer has nausea but does have some epigastric discomfort which she says is secondary to esophageal spasm. She normally takes Carafate and omeprazole for this but has not had a dose yet today. Patient has a history of urolithiasis and spontaneously passed a stone over 25 years ago. She believes that her stone at that time was related to the use of calcium-containing oral antacids. A daughter has also had kidney stones. Patient has a history of intermittent urinary tract infections but currently has no symptoms. She says she usually voids every 1-2 hours during the day and 3 or 4 times at night. She has urgency with periodic urge incontinence and says that she uses a panty liner for this. - Constitutional Constitutional: Denies chills, Denies fever - Cardiovascular Cardiovascular: Reports high blood pressure, Denies palpitations, Denies shortness of breath, Denies syncope - Respiratory Respiratory: Denies cough, Denies wheezing - Gastrointestinal Gastrointestinal: Reports heartburn, Reports indigestion, Denies diarrhea - Genitourinary (Female) Genitourinary: Reports as per HPI Past Medical History Past Medical History: GERD/Reflux, Hypertension Additional Past Medical History / Comment(s): Hx of and current Hiatal Hernia, hx. 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 Medications and Allergies Home Medications Medication Instructions Recorded Confirmed Type Oxybutynin Chloride [Ditropan XL] 10 mg PO DAILY 11/08/19 12/26/19 History Bisacodyl [Dulcolax] 5 mg PO DAILY PRN #10 tablet. 11/15/19 12/26/19 Rx Ondansetron Odt [Zofran ODT] 4 mg PO Q8HR PRN #9 tab 11/15/19 12/26/19 Rx Irbesartan/Hydrochlorothiazide 0.5 tab PO DAILY 12/06/19 12/26/19 History [Avalide 300-12.5 mg Tablet] Omeprazole [PriLOSEC] 40 mg PO BID #60 cap 12/07/19 12/26/19 Rx Sucralfate [Carafate] 1 gm PO BID #480 ml 12/20/19 12/26/19 Rx Allergies Allergy/AdvReac Type Severity Reaction Status Date / Time Sulfa (Sulfonamide Allergy Rash/Hives Verified 12/19/19 08:16 Antibiotics) milk AdvReac Abdominal Verified 12/19/19 08:16 Pain Surgical - Exam Vital Signs Temp Pulse Resp BP Pulse Ox 98.5 F 68 20 200/108 97 12/26/19 12:50 12/26/19 12:50 12/26/19 12:50 12/26/19 12:50 12/26/19 12:50 - General well developed, well nourished, no distress, obese - ENT no hearing loss - Neck no masses, no lymphadectomy - Respiratory normal respiratory effort - Abdomen Abdomen: soft, non tender, no organomegaly Results - Labs 12/26/19 13:21 12/26/19 13:21 Abnormal Lab Results - Last 24 Hours (Table) 12/26/19 12/26/19 12/26/19 Range/Units 13:21 13:21 14:45 Lymphocytes # 0.6 L (1.0-4.8) k/uL Glucose 139 H (74-99) mg/dL Urine Protein Trace H (Negative) Urine Ketones 2+ H (Negative) Urine Blood Moderate H (Negative) Urine RBC 128 H (0-5) /hpf Urine Mucus Rare H (None) /hpf Diabetes panel 12/26/19 Range/Units 13:21 Sodium 137 (137-145) mmol/L Potassium 3.7 (3.5-5.1) mmol/L Chloride 100 (98-107) mmol/L Carbon Dioxide 27 (22-30) mmol/L BUN 17 (7-17) mg/dL Creatinine 0.53 (0.52-1.04) mg/dL Glucose 139 H (74-99) mg/dL Calcium 9.4 (8.4-10.2) mg/dL AST 32 (14-36) U/L ALT 16 (4-34) U/L Alkaline Phosphatase 114 (38-126) U/L Total Protein 7.4 (6.3-8.2) g/dL Albumin 4.5 (3.5-5.0) g/dL Calcium panel 12/26/19 Range/Units 13:21 Calcium 9.4 (8.4-10.2) mg/dL Albumin 4.5 (3.5-5.0) g/dL Pituitary panel 12/26/19 Range/Units 13:21 Sodium 137 (137-145) mmol/L Potassium 3.7 (3.5-5.1) mmol/L Chloride 100 (98-107) mmol/L Carbon Dioxide 27 (22-30) mmol/L BUN 17 (7-17) mg/dL Creatinine 0.53 (0.52-1.04) mg/dL Glucose 139 H (74-99) mg/dL Calcium 9.4 (8.4-10.2) mg/dL Adrenal panel 12/26/19 Range/Units 13:21 Sodium 137 (137-145) mmol/L Potassium 3.7 (3.5-5.1) mmol/L Chloride 100 (98-107) mmol/L Carbon Dioxide 27 (22-30) mmol/L BUN 17 (7-17) mg/dL Creatinine 0.53 (0.52-1.04) mg/dL Glucose 139 H (74-99) mg/dL Calcium 9.4 (8.4-10.2) mg/dL Total Bilirubin 0.8 (0.2-1.3) mg/dL AST 32 (14-36) U/L ALT 16 (4-34) U/L Alkaline Phosphatase 114 (38-126) U/L Total Protein 7.4 (6.3-8.2) g/dL Albumin 4.5 (3.5-5.0) g/dL Assessment and Plan (1) Hydronephrosis with urinary obstruction due to ureteral calculus Narrative/Plan: the patient's recent right flank pain appears to be secondary to a 6 x 12 mm calculus located in the pelvic ureter. Stress treatment options including further observation with the use of an alpha nahed, right ureteroscopy with lithotripsy or ESWL. Due to the severe pain that the patient experienced yesterday and the size of the calculus the patient requests to proceed with right ureteroscopy with lithotripsy. This will be set up later today. She is aware of the operative risks which include inability to remove the calculus, ureteral damage and the need for a double-J catheter postop. Current Visit: Yes Status: Acute Code(s): N13.2 - HYDRONEPHROSIS WITH RENAL AND URETERAL CALCULOUS OBSTRUCTION SNOMED Code(s): 226668039
[2019-12-27] MEDS ORDERED: DEXAMETHASONE SOD PHOSPHATE 10 MG/ML 1 ML VIAL IV ONE (14:35)
[2019-12-27] MEDS ORDERED: ONDANSETRON 4 MG/2 ML VIAL IVP ONE (14:35)
[2019-12-27] MEDS ORDERED: LACTATED RINGERS 1,000 ML IV ONE (14:35)
[2019-12-27] MEDS ORDERED: SUCCINYLCHOLINE CHLORIDE 100 MG/5 ML SYR IV ONE (15:08)
[2019-12-27] MEDS ORDERED: NEOSTIGMINE 1 MG/ML 10 ML VIAL ONE (15:08)
[2019-12-27] MEDS ORDERED: MIDAZOLAM 2 MG/2 ML VIAL ONE (15:08)
[2019-12-27] MEDS ORDERED: fentaNYL (PF) 50 MCG/ML 2 ML AMP ONE (15:08)
[2019-12-27] MEDS ORDERED: GLYCOPYRROLATE 0.2 MG/ML 2 ML VIAL ONE (15:08)
[2019-12-27] MEDS ORDERED: ROCURONIUM BROMIDE 10 MG/ML 5 ML VIAL IV ONE (15:08)
[2019-12-27] MEDS ORDERED: ePHEDrine SULFATE/0.9% NACL/PF 50 MG/5 ML SYRINGE IV ONE (15:08)
[2019-12-27] MEDS ORDERED: PROPOFOL 10 MG/ML 20 ML VIAL IV ONE (15:08)
[2019-12-27] MEDS ORDERED: SODIUM CHLORIDE 0.9% 50 ML with ceFAZolin 1,000 MG IV ONE ×2 (15:25)
--- NOTE | 2019-12-27 16:34 | FL ---
EXAMINATION TYPE: FL fluoroscopy <1hr DATE OF EXAM: 12/27/2019 FLUOROSCOPY Fluoroscopy time of 30 seconds was used during right sided lithotripsy for kidney stone. 2 image/s d ocument/s the procedure.
--- NOTE | 2019-12-27 16:41 | P.OP ---
Date of Procedure: 12/27/19 Preoperative Diagnosis: Right hydroureteronephrosis secondary to right ureteral calculus Postoperative Diagnosis: Right hydroureteronephrosis secondary to right ureteral calculus Procedure(s) Performed: Cystoscopy with right ureteroscopy, lithotripsy and placement of right double-J catheter Implants: 6-Cymro x 22 cm double-J catheter Anesthesia: ELIJAH Surgeon: Nixon Self Estimated Blood Loss (ml): 0 Pathology: other (Fragments of right ureteral calculus) Condition: stable Disposition: PACU Indications for Procedure: The patient is a 69-year-old female admitted through the emergency room yesterday afternoon for control of right flank pain secondary to an 8 x 12 mm distal right ureteral calculus. After reviewing treatment options for the calculus the patient has elected to proceed with right ureteroscopy with lithotripsy. Description of Procedure: The patient was taken to the operating suite where adequate general anesthesia via orotracheal intubation was instituted. She was placed in the dorsal lithotomy position with her legs suspended from padded Román stirrups. Pneumatic compression stockings were applied to the lower legs. The genitalia was prepped with Betadine solution and draped in a sterile fashion. The 17-Cymro cystoscope sheath with 30 lens was passed through the urethra and into the bladder. Both ureteral orifices were of normal location and configuration. Bladder was free of tumor, foreign body and diverticulum. A straight 0.035 Glidewire was advanced through the right ureteral orifice and under fluoroscopic guidance the Glidewire was advanced beyond the calculus which was located in the region of the mid sacrum. The cystoscope was withdrawn leaving the Glidewire in place. The distal ureter was then dilated to 11-Cymro using the obturator from a 13-Cymro ureteral reentry sheath. The semirigid ureteroscope with offset lens was then advanced through the urethra and into the bladder. The ureteroscope was advanced along the Glidewire and into the right ureter. The ureteroscope was then advanced up to the calculus. The calculus was then broken down into multiple small fragments using the 270 fiber and the holmium laser at a setting of 400 mJ and 22 cps. The calculus fragments were then retrieved from the ureter using a 1.9-Cymro nitinol stone basket. At the completion of the procedure all fragments had been removed. The ureteroscope was withdrawn. The 22-Cymro cystoscope sheath with 30 lens was backloaded over the Glidewire and introduced into the bladder. A 6-Cymro by 22 cm double- J catheter was then advanced over the Glidewire and positioned so that the proximal end coiled in the region of the renal pelvis and the distal end coiled in the bladder. The bladder was drained and the cystoscope was withdrawn. The patient tolerated procedure well and left the operative room awake and in satisfactory condition. There was no blood loss. The patient will return in 1 week to my office at which time her double-J catheter will be removed.
--- NOTE | 2019-12-27 16:43 | P.DS ---
Providers Date of admission: 12/26/19 16:48 Expected date of discharge: 12/27/19 Attending physician: Nixon Self Primary care physician: Lilliana Vazquez MD - Discharge Diagnosis(es) (1) Hydronephrosis with urinary obstruction due to ureteral calculus The patient was admitted for pain control due to an 8 x 12 mm distal right ureteral calculus. After reviewing treatment options the patient elected to proceed with right ureteroscopy with lithotripsy. The procedure was performed on 12/26. The calculus was completely removed and a double-J catheter was left postop. The patient was discharged later in the day and will return in 1 week to my office at which time her double-J catheter will be removed. Current Visit: Yes Status: Acute Patient Condition at Discharge: Fair Plan - Discharge Summary New Discharge Prescriptions: No Action Oxybutynin Chloride [Ditropan XL] 10 mg PO DAILY Bisacodyl [Dulcolax] 5 mg PO DAILY PRN #10 tablet. PRN Reason: Constipation Ondansetron Odt [Zofran ODT] 4 mg PO Q8HR PRN #9 tab PRN Reason: Nausea Irbesartan/Hydrochlorothiazide [Avalide 300-12.5 mg Tablet] 0.5 tab PO DAILY Omeprazole [PriLOSEC] 40 mg PO BID #60 cap Sucralfate [Carafate] 1 gm PO BID #480 ml Discharge Medication List Oxybutynin Chloride [Ditropan XL] 10 mg PO DAILY 11/08/19 [History] Bisacodyl [Dulcolax] 5 mg PO DAILY PRN #10 tablet. 11/15/19 [Rx] Ondansetron Odt [Zofran ODT] 4 mg PO Q8HR PRN #9 tab 11/15/19 [Rx] Irbesartan/Hydrochlorothiazide [Avalide 300-12.5 mg Tablet] 0.5 tab PO DAILY 12/06/19 [History] Omeprazole [PriLOSEC] 40 mg PO BID #60 cap 12/07/19 [Rx] Sucralfate [Carafate] 1 gm PO BID #480 ml 12/20/19 [Rx] Follow up Appointment(s)/Referral(s): Lilliana Vazquez MD [Primary Care Provider] - As Needed Nixon Self MD [STAFF PHYSICIAN] - 1 Week Activity/Diet/Wound Care/Special Instructions: [facility]: #[phone] Discharge Disposition: HOME SELF-CARE
[2019-12-27] MEDS: ONDANSETRON 4 MG/2 ML VIAL IVP PRN (17:33)
[2019-12-28 07:30] VITALS: BP 142/92; PULSE 62; RESP 16; TEMP 97.6
[2019-12-28] MEDS: PANTOPRAZOLE 40 MG TABLET PO SCH (08:19)
[2019-12-28] MEDS: SUCRALFATE 1 GM TAB PO SCH (08:19)
[2019-12-28] MEDS: SODIUM CHLORIDE 0.9% 1,000 ML IV SCH (08:20)
== END 2019-12-28 10:01 | disposition home health service (06) | DRG 661 ==
LOC: EC 12:45 → 4SSUR 16:48
PROVIDERS: ADMIT Urology; ATTEND Urology
DX: N13.2 Hydronephrosis with renal and ureteral calculous obstruction (principal); I10 Essential (primary) hypertension; N39.41 Urge incontinence; K21.9 Gastro-esophageal reflux disease without esophagitis; K22.4 Dyskinesia of esophagus; K59.00 Constipation, unspecified; R11.2 Nausea with vomiting, unspecified; Z79.899 Other long term (current) drug therapy; Z87.442 Personal history of urinary calculi; Z90.49 Acquired absence of other specified parts of digestive tract; Z87.440 Personal history of urinary (tract) infections; Z96.653 Presence of artificial knee joint, bilateral; Z98.890 Other specified postprocedural states; Z98.84 Bariatric surgery status; Z87.891 Personal history of nicotine dependence; Z90.710 Acquired absence of both cervix and uterus; Z88.2 Allergy status to sulfonamides; Z91.011 Allergy to milk products; Z80.49 Family history of malignant neoplasm of other genital organs; Z84.1 Family history of disorders of kidney and ureter
CPT/HCPCS: 36415; 74018; 74177; 76000; 80053; 81001; 82150; 82365; 83605; 83690; 85025; 96361; 96374; 96375; 96376; 99285

== ENCOUNTER 2020-01-04 07:43 | Day surgery (SDC) | payer MEDICARE, OTHER ==
[2020-01-04 08:07] VITALS: TEMP 97
[2020-01-04] MEDS ORDERED: LACTATED RINGERS 1,000 ML IV ONE (08:20)
[2020-01-04] MEDS ORDERED: LIDOCAINE 1% INJ 10MG/ML (20 ML MDV) ONE (08:22)
[2020-01-04] MEDS ORDERED: fentaNYL (PF) 50 MCG/ML 2 ML AMP ONE (08:22)
[2020-01-04] MEDS ORDERED: PROPOFOL 10 MG/ML 20 ML VIAL IV ONE (08:22)
[2020-01-04] MEDS ORDERED: MIDAZOLAM 2 MG/2 ML VIAL ONE (08:22)
--- NOTE | 2020-01-04 09:00 | P.GSHP ---
History of Present Illness H&P Date: 01/04/20 CHIEF COMPLAINT: Esophageal obstruction HISTORY OF PRESENT ILLNESS: The patient is a 69-year-old female who presents reports with history of esophageal obstruction. Upper endoscopy was offered for further evaluation and management. PAST MEDICAL HISTORY: Please see list. PAST SURGICAL HISTORY: Please see list. MEDICATIONS: Please see list. ALLERGIES: Please see list. SOCIAL HISTORY: No illicit drug use FAMILY HISTORY: No reports of Crohn disease or ulcerative colitis. REVIEW OF ORGAN SYSTEMS: CONSTITUTIONAL: No reports of fevers or chills. GI: Denies any blood in stools or constipation. PHYSICAL EXAM: VITAL SIGNS: Stable GENERAL: Well-developed and pleasant in no acute distress. HEENT: No scleral icterus. Extraocular movements grossly intact. Moist buccal mucosa. NECK: Supple without lymphadenopathy. CHEST: Unlabored respirations. Equal bilateral excursions. CARDIOVASCULAR: Regular rate and rhythm. Distal 2+ pulses. ABDOMEN: Soft, nondistended. MUSCULOSKELETAL: No clubbing, cyanosis, or edema. ASSESSMENT: 1. Esophageal obstruction PLAN: 1. Recommend proceeding with an upper endoscopy with dilation Past Medical History Past Medical History: GERD/Reflux, Hypertension Additional Past Medical History / Comment(s): Hiatal Hernia. ,frequent UTI's, urinary incontinence, constipation, diff swallowing and keeping food down, Recent kidney stone with lithotripsy and stent. History of Any Multi-Drug Resistant Organisms: None Reported Past Surgical History: Bariatric Surgery, Cholecystectomy, Hernia Repair, Hysterectomy, Joint Replacement Additional Past Surgical History / Comment(s): Bilateral knee replacement, sleeve gastrectomy (conversion to gastric bypass 11-13-19), hiatal hernia repair, LITHOTRIPSY WITH STENT (12/27/19) Past Anesthesia/Blood Transfusion Reactions: Motion Sickness, Postoperative Nausea & Vomiting (PONV) Additional Past Anesthesia/Blood Transfusion Reaction / Comment(s): Pt states "always get UTI's from mcneal catheters." Past Psychological History: No Psychological Hx Reported Smoking Status: Never smoker Past Alcohol Use History: None Reported Past Drug Use History: None Reported - Past Family History Mother Family Medical History: Cancer Additional Family Medical History / Comment(s): Uterine cancer. Medications and Allergies Home Medications Medication Instructions Recorded Confirmed Type Oxybutynin Chloride [Ditropan XL] 10 mg PO DAILY 11/08/19 01/03/20 History Bisacodyl [Dulcolax] 5 mg PO DAILY PRN #10 tablet. 11/15/19 01/03/20 Rx Irbesartan/Hydrochlorothiazide 0.5 tab PO DAILY 12/06/19 01/03/20 History [Avalide 300-12.5 mg Tablet] Omeprazole [PriLOSEC] 40 mg PO BID #60 cap 12/07/19 01/03/20 Rx Sucralfate [Carafate] 1 gm PO BID #480 ml 12/20/19 01/03/20 Rx Acetaminophen [Acetaminophen Oral 650 mg PO Q4-6H 01/02/20 01/03/20 History Soln] Ciprofloxacin HCl [Cipro] 250 mg PO Q12HR 01/03/20 01/03/20 History Allergies Allergy/AdvReac Type Severity Reaction Status Date / Time Sulfa (Sulfonamide Allergy Rash/Hives Verified 01/03/20 12:32 Antibiotics) milk AdvReac Abdominal Verified 01/03/20 12:32 Pain Surgical - Exam Vital Signs Temp Pulse Resp BP Pulse Ox 97.0 F L 57 L 18 164/87 100 01/04/20 08:01 01/04/20 08:01 01/04/20 08:01 01/04/20 08:01 01/04/20 08:01
[2020-01-04] MEDS ORDERED: LACTATED RINGERS 1,000 ML IV SCH (09:06)
--- NOTE | 2020-01-04 09:10 | P.PCN ---
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 INDICATIONS: The patient is a 69-year-old female who presents with history of recurrent e sophageal obstruction. Upper endoscopy was offered for further diagnostic evaluation and treatment. DESCRIPTION: The patient was brought into the endoscopy suite and laid in the left lateral decubitus position. After a timeout was confirmed, the procedure was initiated. An Olympus gastroscope was passed along the posterior oropharynx down to the distal esophagus where the squamocolumnar junction was unremarkable. A 2 cm recurrent diaphragmatic hiatal hernia was identified causing a stricture. The gastric pouch was entered. A gastrojejunal stricture of 6 mm was found as the adult gastroscope was 9.5 mm in size. A [employer] balloon dilator was placed through the scope. Final insufflation up to 10 mm was performed with a total of 2 minutes. The scope was advanced up to 60 cm from the incisors into the Geovanni limb. The mucosa of the gastrojejunal anastomosis was intact. No chronic gastrojejunal marginal ulcer was encountered. No full-thickness injury was encountered. To address both esophageal stricture and gastrojejunal stricture, a guidewire was placed through the scope into the geovanni limb. The scope was removed. A 33- Maltese rigid dilator followed by a 36 Fr dilator was placed to 45 cm from the incisors. The dilator was left in place between 2-3 minutes. The dilator and guidewire were removed. The scope was reentered along the proximal esophagus whereby the stricture had improved. No full-thickness injury was found along the mucosa. The stomach was desufflated. The patient tolerated the procedure well. FINDINGS: Stricture of approximately 8 mm encountered of gastrojejunal anastomosis initially dilated with balloon dilator Separate esophageal stricture of 9 mm identified distal esophagus No chronic gastrojejunal ulceration encountered. Successful balloon dilatation to 12 mm, with rigid dilator RECOMMENDATIONS: Continue Carafate and omeprazole With both esophageal and gastrojejunal stricture, may benefit from esophagojejunostomy Plan - Discharge Summary New Discharge Prescriptions: No Action Oxybutynin Chloride [Ditropan XL] 10 mg PO DAILY Bisacodyl [Dulcolax] 5 mg PO DAILY PRN #10 tablet.dr DOAN Reason: Constipation Irbesartan/Hydrochlorothiazide [Avalide 300-12.5 mg Tablet] 0.5 tab PO DAILY Omeprazole [PriLOSEC] 40 mg PO BID #60 cap Sucralfate [Carafate] 1 gm PO BID #480 ml Acetaminophen [Acetaminophen Oral Soln] 650 mg PO Q4-6H Ciprofloxacin HCl [Cipro] 250 mg PO Q12HR Discharge Medication List Oxybutynin Chloride [Ditropan XL] 10 mg PO DAILY 11/08/19 [History] Bisacodyl [Dulcolax] 5 mg PO DAILY PRN #10 tablet. 11/15/19 [Rx] Irbesartan/Hydrochlorothiazide [Avalide 300-12.5 mg Tablet] 0.5 tab PO DAILY 12/06/19 [History] Omeprazole [PriLOSEC] 40 mg PO BID #60 cap 12/07/19 [Rx] Sucralfate [Carafate] 1 gm PO BID #480 ml 12/20/19 [Rx] Acetaminophen [Acetaminophen Oral Soln] 650 mg PO Q4-6H 01/02/20 [History] Ciprofloxacin HCl [Cipro] 250 mg PO Q12HR 01/03/20 [History]
[2020-01-04] MEDS ORDERED: hydrALAZINE HCL 20 MG/ML 1 ML VIAL IVP ONE (09:25)
[2020-01-04 09:53] VITALS: PULSE 58
[2020-01-04 10:04] VITALS: BP 171/94; RESP 16
== END 2020-01-04 10:30 | disposition home or self-care (01) ==
LOC: ORWHC2ENDO 07:43
PROVIDERS: ATTEND Surgery Plastic and Reconstructive Surgery
DX: K22.2 Esophageal obstruction (principal); K44.9 Diaphragmatic hernia without obstruction or gangrene; K91.89 Other postprocedural complications and disorders of digestive system; K31.89 Other diseases of stomach and duodenum; K21.9 Gastro-esophageal reflux disease without esophagitis; I10 Essential (primary) hypertension; Z79.899 Other long term (current) drug therapy; Z88.2 Allergy status to sulfonamides; Z87.442 Personal history of urinary calculi; Z98.84 Bariatric surgery status; Z90.49 Acquired absence of other specified parts of digestive tract; Z90.710 Acquired absence of both cervix and uterus; Z91.011 Allergy to milk products; Z96.653 Presence of artificial knee joint, bilateral; Z80.59 Family history of malignant neoplasm of other urinary tract organ
CPT/HCPCS: 43249; J2250; J0360; J2001; J3010; J2704; C1726

== ENCOUNTER 2020-01-17 07:45 | Day surgery (SDC) | payer MEDICARE, OTHER ==
[2020-01-16 08:24] VITALS: BMI 32.3
[2020-01-17 08:17] VITALS: TEMP 97.1
[2020-01-17] MEDS ORDERED: LACTATED RINGERS 1,000 ML IV SCH (08:24)
[2020-01-17] MEDS ORDERED: LIDOCAINE 1% (10MG/ML) FOR IV START INTRADERMA PRN (08:24)
[2020-01-17] MEDS ORDERED: ONDANSETRON 4 MG/2 ML VIAL IVP ONE (08:39)
[2020-01-17] MEDS ORDERED: PROPOFOL 10 MG/ML 20 ML VIAL IV ONE (08:42)
[2020-01-17] MEDS ORDERED: LIDOCAINE 1% INJ 10MG/ML (20 ML MDV) ONE (08:42)
--- NOTE | 2020-01-17 08:43 | P.GSHP ---
History of Present Illness H&P Date: 01/17/20 CHIEF COMPLAINT: Esophageal stricture HISTORY OF PRESENT ILLNESS: The patient is a 69-year-old female who presents reports dysphagia. Upper endoscopy was offered for further evaluation and management. PAST MEDICAL HISTORY: Please see list. PAST SURGICAL HISTORY: Please see list. MEDICATIONS: Please see list. ALLERGIES: Please see list. SOCIAL HISTORY: No illicit drug use FAMILY HISTORY: No reports of Crohn disease or ulcerative colitis. REVIEW OF ORGAN SYSTEMS: CONSTITUTIONAL: No reports of fevers or chills. GI: Denies any blood in stools or constipation. PHYSICAL EXAM: VITAL SIGNS: Stable GENERAL: Well-developed and pleasant in no acute distress. HEENT: No scleral icterus. Extraocular movements grossly intact. Moist buccal mucosa. NECK: Supple without lymphadenopathy. CHEST: Unlabored respirations. Equal bilateral excursions. CARDIOVASCULAR: Regular rate and rhythm. Distal 2+ pulses. ABDOMEN: Soft, nondistended. MUSCULOSKELETAL: No clubbing, cyanosis, or edema. ASSESSMENT: 1. Esophageal stricture PLAN: 1. Recommend proceeding with an upper endoscopy with rigid dilators. Past Medical History Past Medical History: GERD/Reflux, Hypertension Additional Past Medical History / Comment(s): Hiatal Hernia. ,frequent UTI's, urinary incontinence, constipation, diff swallowing and keeping food down, Recent kidney stone with lithotripsy and stent. History of Any Multi-Drug Resistant Organisms: None Reported Past Surgical History: Bariatric Surgery, Cholecystectomy, Hernia Repair, Hysterectomy, Joint Replacement Additional Past Surgical History / Comment(s): Bilateral knee replacement, sleeve gastrectomy (conversion to gastric bypass 11-13-19), hiatal hernia repair, LITHOTRIPSY WITH STENT (12/27/19), EGD with dilation 01/04/20 Past Anesthesia/Blood Transfusion Reactions: Motion Sickness, Postoperative Nausea & Vomiting (PONV) Additional Past Anesthesia/Blood Transfusion Reaction / Comment(s): Pt states "always get UTI's from mcneal catheters." Past Psychological History: No Psychological Hx Reported Smoking Status: Never smoker Past Alcohol Use History: None Reported Past Drug Use History: None Reported - Past Family History Mother Family Medical History: Cancer Additional Family Medical History / Comment(s): Uterine cancer. Medications and Allergies Home Medications Medication Instructions Recorded Confirmed Type Oxybutynin Chloride [Ditropan XL] 10 mg PO DAILY 11/08/19 01/17/20 History Irbesartan/Hydrochlorothiazide 0.5 tab PO DAILY 12/06/19 01/17/20 History [Avalide 300-12.5 mg Tablet] Omeprazole [PriLOSEC] 40 mg PO BID #60 cap 12/07/19 01/17/20 Rx Sucralfate [Carafate] 1 gm PO BID #480 ml 12/20/19 01/17/20 Rx Acetaminophen Oral Susp [Tylenol 500 mg PO Q4-6H PRN #400 ml 01/04/20 01/17/20 Rx Oral Susp] Allergies Allergy/AdvReac Type Severity Reaction Status Date / Time Sulfa (Sulfonamide Allergy Rash/Hives Verified 01/17/20 08:27 Antibiotics) milk AdvReac Abdominal Verified 01/17/20 08:27 Pain Surgical - Exam Vital Signs Temp Pulse Resp BP Pulse Ox 97.1 F L 56 L 16 174/83 98 01/17/20 08:16 01/17/20 08:16 01/17/20 08:16 01/17/20 08:16 01/17/20 08:16
--- NOTE | 2020-01-17 09:11 | P.PCN ---
Date of Procedure: 01/17/20 Description of Procedure: PREOPERATIVE DIAGNOSIS: History of esophageal obstruction Dysphagia Gastrojejunal stricture POSTOPERATIVE DIAGNOSIS: History of esophageal obstruction Dysphagia Gastrojejunal stricture with chronic ulcer Recurrent diaphragmatic hiatal hernia OPERATION: Esophagogastrojejunoscopy with balloon dilatation from 9 to 15 mm. SURGEON: Mackenzie Travis MD ANESTHESIA: MAC. INDICATIONS: The patient is a 69-year-old female who presents with a history of dysphagia and esophageal obstruction. Benefits and risks of the procedure were described. Informed consent was obtained. DESCRIPTION: The patient was brought into the endoscopy suite and laid in the left lateral decubitus position. After a timeout was confirmed, the procedure was initiated. An Olympus gastroscope was passed along the posterior oropharynx down to the distal esophagus. Moderate tertiary contractions were identified consistent with presbyesophagus. The gastric pouch was entered. A gastrojejunal stricture of 9 mm was found as the adult gastroscope was 9.5 mm in size. A [employer] balloon dilator was placed through the scope. Final insufflation stepwise from 8 to up to 15 mm was performed with a total of 2 minutes. The scope was advanced up to 60 cm from the incisors into the Danay limb. The mucosa of the gastrojejunal anastomosis was intact. Mild chronic gastrojejunal marginal ulcer was encountered. No full-thickness injury was encountered. The GI tract was desufflated. The patient tolerated the procedure well. FINDINGS: Squamocolumnar junction unremarkable at 35 cm. Presbyesophagus Stricture of approximately 9 mm encountered at 43 cm Mild chronic gastrojejunal ulceration encountered. Recurrent diaphragmatic hiatal hernia RECOMMENDATIONS: May benefit from revision of gastrojejunostomy to esophagojejunostomy for recurrent gastric strictures
[2020-01-17 09:33] VITALS: BP 143/81; PULSE 67; RESP 18
--- NOTE | 2020-01-17 09:39 | P.PN ---
Progress Note - Text Progress Note Date: 01/17/20 Patient's chest x-ray reviewed by me without any pneumoperitoneum. Patient is able to drink water without any complications. She reported improvement of all of her symptoms.
--- NOTE | 2020-01-17 09:57 | XR ---
EXAMINATION TYPE: XR chest 1V DATE OF EXAM: 01/17/2020 COMPARISON: 12/20/2019 INDICATION: Esophageal dilatation, stricture TECHNIQUE: Single frontal view of the chest is obtained. FINDINGS: The heart size is normal. The pulmonary vasculature is normal. The lungs are clear. No pneumomediastinum is identified on this image. No pneumothorax is evident. IMPRESSION: 1. No acute pulmonary process.
== END 2020-01-17 09:58 | disposition home or self-care (01) ==
LOC: ORWHC2ENDO 07:45
PROVIDERS: ATTEND Surgery Plastic and Reconstructive Surgery
DX: K28.7 Chronic gastrojejunal ulcer without hemorrhage or perforation (principal); K31.89 Other diseases of stomach and duodenum; K44.9 Diaphragmatic hernia without obstruction or gangrene; K22.8 Other specified diseases of esophagus; K21.9 Gastro-esophageal reflux disease without esophagitis; I10 Essential (primary) hypertension; Z88.2 Allergy status to sulfonamides; Z98.84 Bariatric surgery status; Z91.011 Allergy to milk products; Z79.899 Other long term (current) drug therapy; Z87.442 Personal history of urinary calculi; Z90.49 Acquired absence of other specified parts of digestive tract; Z90.710 Acquired absence of both cervix and uterus; Z96.653 Presence of artificial knee joint, bilateral; Z80.49 Family history of malignant neoplasm of other genital organs
CPT/HCPCS: 71045; 43245; J2405; J2001; J2704; C1726 ×2

== ENCOUNTER 2020-01-31 17:24 | Inpatient (IN) | payer MEDICARE, OTHER ==
[2020-01-31] MEDS ORDERED: SODIUM CHLORIDE 0.9% 1,000 ML IV STA ×2 (17:47)
[2020-01-31] MEDS ORDERED: ONDANSETRON 4 MG/2 ML VIAL IVP STA (17:48)
[2020-01-31] MEDS ORDERED: MORPHINE SULFATE 2 MG/ML SYRINGE IVP ONE (17:48)
[2020-01-31] MEDS ORDERED: ONDANSETRON 4 MG/2 ML VIAL IVP PRN (17:55)
[2020-01-31] MEDS ORDERED: NALOXONE 0.4 MG/ML 1 ML VIAL IV PRN (17:55)
[2020-01-31] MEDS ORDERED: MORPHINE SULFATE 4 MG/ML SYRINGE IV PRN (17:55)
--- NOTE | 2020-01-31 17:55 | ED ---
Abdominal Pain HPI - General Chief Complaint: Abdominal Pain Stated Complaint: abd pain Time Seen by Provider: 01/31/20 17:38 Source: patient, RN notes reviewed Mode of arrival: wheelchair Limitations: no limitations - History of Present Illness Initial Comments: This a 69-year-old female presents emergency Department chief complaint of abdominal pain. Patient states that she had an EGD with dilation performed this morning at 7:[address] Travis. Patient states she started to develop pain on the way home. Patient states pain is diffuse in her abdomen does not radiate to her chest or shortness of breath no fevers or chills. Patient states that she had this done multiple times in the past which she's never had pain. Patient states that she has difficulty swallowing prior to this. Patient's has been diagnosed with esophageal obstruction. Patient denies any vomiting or diarrhea at this time. - Related Data Home Medications Medication Instructions Recorded Confirmed Oxybutynin Chloride [Ditropan XL] 10 mg PO DAILY 11/08/19 01/31/20 Irbesartan/Hydrochlorothiazide 0.5 tab PO DAILY 12/06/19 01/31/20 [Avalide 300-12.5 mg Tablet] Acetaminophen Oral Susp [Tylenol] 650 mg PO Q4-6H PRN 01/31/20 01/31/20 Ondansetron Odt [Zofran Odt] 4 mg PO Q8H PRN 01/31/20 01/31/20 Previous Rx's Medication Instructions Recorded Omeprazole [PriLOSEC] 40 mg PO BID #60 cap 12/07/19 Sucralfate [Carafate] 1 gm PO BID #480 ml 12/20/19 Allergies Allergy/AdvReac Type Severity Reaction Status Date / Time Sulfa (Sulfonamide Allergy Rash/Hives Verified 01/31/20 18:58 Antibiotics) milk AdvReac Abdominal Verified 01/31/20 18:58 Pain Review of Systems ROS Statement: Those systems with pertinent positive or pertinent negative responses have been documented in the HPI. ROS Other: All systems not noted in ROS Statement are negative. Past Medical History Past Medical History: GERD/Reflux, Hypertension Additional Past Medical History / Comment(s): Hiatal Hernia. ,frequent UTI's, urinary incontinence, constipation, hX kidney stone with lithotripsy and stent., Dysphagia, Hx of gastric bypass., EGD with dilation 01/21/20 History of Any Multi-Drug Resistant Organisms: None Reported Past Surgical History: Bariatric Surgery, Cholecystectomy, Hernia Repair, Hysterectomy, Joint Replacement Additional Past Surgical History / Comment(s): Bilateral knee replacement, sleeve gastrectomy (conversion to gastric bypass 11-13-19), hiatal hernia repair, LITHOTRIPSY WITH STENT (12/27/19), EGD with dilation 01/04/20 Past Anesthesia/Blood Transfusion Reactions: Motion Sickness, Postoperative Nausea & Vomiting (PONV) Additional Past Anesthesia/Blood Transfusion Reaction / Comment(s): Pt states "always get UTI's from mcneal catheters." Past Psychological History: No Psychological Hx Reported Smoking Status: Never smoker Past Alcohol Use History: None Reported Past Drug Use History: None Reported - Past Family History Mother Family Medical History: Cancer Additional Family Medical History / Comment(s): Uterine cancer. General Exam Limitations: no limitations General appearance: alert, in no apparent distress Head exam: Present: atraumatic, normocephalic, normal inspection ENT exam: Present: normal exam, normal oropharynx, mucous membranes moist Neck exam: Present: normal inspection, full ROM. Absent: tenderness, meningismus, lymphadenopathy Respiratory exam: Present: normal lung sounds bilaterally. Absent: respiratory distress, wheezes, rales, rhonchi, stridor Cardiovascular Exam: Present: regular rate, normal rhythm, normal heart sounds. Absent: systolic murmur, diastolic murmur, rubs, gallop, clicks GI/Abdominal exam: Present: soft, tenderness (Mild to moderate diffuse, greatest in the epigastric region), normal bowel sounds. Absent: distended, guarding, r ebound, rigid Back exam: Absent: CVA tenderness (R), CVA tenderness (L) Neurological exam: Present: alert, oriented X3, CN II-XII intact Course Vital Signs 01/31/20 01/31/20 17:25 18:46 Temperature 98.8 F Pulse Rate 71 18 L Respiratory 18 20 Rate Blood Pressure 186/90 181/90 O2 Sat by Pulse 99 100 Oximetry - Reevaluation(s) Reevaluation #1: 01/31/20 19:04 Patient has evidence of urinary tract infection. Rocephin was ordered at this time. - Consultations Consultation #1: I did review the x-ray and received a phone call from radiologist stating that there was pneumopertinuem I did contact surgeon prior to this. Medical Decision Making - Medical Decision Making I did discuss case with Dr. Travis who recommends patient be admitted for bowel rest, IV fluids, pain control. - Lab Data Result diagrams: 01/31/20 18:20 01/31/20 18:20 Disposition Clinical Impression: Esophageal obstruction, Abdominal pain, Pneumoperitoneum, UTI (urinary tract infection) Disposition: ADMITTED IP TO THIS HOSP Condition: Stable Time of Disposition: 17:55
[2020-01-31] MEDS ORDERED: SODIUM CHLORIDE 0.9% 1,000 ML IV SCH (18:00)
[2020-01-31 18:34] LABS: Basophils % (A) 0 %; Eosinophils # (A) 0.1 k/uL (0-0.7); Eosinophils % (A) 1 %; HCT 35.3 % (34.0-46.0); HGB 11.7 gm/dL (11.4-16.0); Lymphocytes # (A) 0.8 k/uL (1.0-4.8); Lymphocytes % (A) 13 %; MCH 31.7 pg (25.0-35.0); MCHC 33.2 g/dL (31.0-37.0); MCV 95.4 fL (80.0-100.0); Mean Platelet Volume 7.5; Monocytes # (A) 0.2 k/uL (0-1.0); Monocytes % (A) 4 %; Neutrophils # (A) 4.8 k/uL (1.3-7.7); Neutrophils % (A) 81 %; Platelet Count 157 k/uL (150-450); RDW 12.9 % (11.5-15.5)
--- NOTE | 2020-01-31 18:39 | XR ---
EXAMINATION TYPE: XR chest 1V, XR KUB DATE OF EXAM: 01/31/2020 COMPARISON: 01/17/2020 HISTORY: Abdominal and chest pain after EGD TECHNIQUE: Single frontal view of the chest is obtained. Abdominal radiograph was also obtained in th e supine projection. FINDINGS: Pneumoperitoneum is noted deep to the right hemidiaphragm. No focal consolidation, pleural effusion or pneumothorax. Cardia mediastinal silhouette is upper limits of normal size. Surgical cli ps are seen in the right hemiabdomen. Mild degree colonic fecal stasis without dilated large or small bowel. Degenerative change of the spine and hips are moderate. IMPRESSION: Pneumoperitoneum indicative of hollow visceral perforation. Findings discussed with the ordering prov kimberlee Marcus by Dr. Hays at 1835 PM on 01/31/2020.
[2020-01-31 18:44] LABS: Appearance,Urine Cloudy (Clear); Bacteria,Urine Occasional /hpf; Bilirubin,Urine Negative (Negative); Blood,Urine Negative (Negative); Budding Yeast,Urine Occasional /hpf; Calcium Oxalate Crystals,Urine Few /hpf; Color,Urine Yellow; Glucose,Urine (UA) Negative (Negative); Ketones,Urine 2+ (Negative); Leukocyte Esterase,Urine Large (Negative); Mucus,Urine Moderate /hpf; Nitrite,Urine Positive (Negative); PH, Urine 5.5 (5.0-8.0); Protein,Urine Trace (Negative); RBC,Urine 3 /hpf (0-5); Specific Gravity,Urine 1.022 (1.001-1.035); Squamous Epithelial Cell,Urine 3 /hpf (0-4); WBC,Urine 44 /hpf (0-5)
[2020-01-31 18:44] LABS: ALT 12 U/L (4-34); AST 23 U/L (14-36); African American GFR (CKD) >90 (>60 ml/min/1.73 sqM); Albumin 3.7 g/dL (3.5-5.0); Alkaline Phosphatase 86 U/L (38-126); Anion Gap 7 mmol/L; Blood Urea Nitrogen 20 mg/dL (7-17); Calcium 8.9 mg/dL (8.4-10.2); Carbon Dioxide 27 mmol/L (22-30); Chloride 106 mmol/L (98-107); Glucose 99 mg/dL (74-99); Non-African American GFR(CKD) >90 (>60 ml/min/1.73 sqM); Sodium 140 mmol/L (137-145); Total Bilirubin 0.9 mg/dL (0.2-1.3); Total Protein 6.1 g/dL (6.3-8.2)
--- NOTE | 2020-01-31 19:24 | P.GSHP ---
History of Present Illness H&P Date: 01/31/20 DATE OF SERVICE: 01/31/2020 CHIEF COMPLAINT: Pneumoperitoneum HISTORY OF PRESENT ILLNESS: Deepti Dyson is a 69-year-old female whose history is significant for recent revision from sleeve to gastric bypass 11/13/2019 after developing complications from her sleeve gastrectomy including severe mikayla roesophageal reflux disease not responding to medical therapy or surgical correction of her hiatal hernia. After her procedure, she developed expected stricture which has now required multiple dilations. This morning, she had a balloon dilation of her gastrojejunal stricture to 20 mm. She reports she was tolerating water prior to discharge. She denied any chest pain or abdominal pain following her procedure as confirmed by her at bedside. She was released home. At home, she drank propel water and then developed increasing epigastric abdominal pain at least 6-8 hours after her procedure. She had contacted the office. She was advised to come to the ER. She reports her pain had improved after IV morphine. Her is at bedside. She reports her pain is gas-like and at the epigastrium. No reports of fevers or chills. PAST MEDICAL HISTORY: 1. Morbid obesity due to excess calories 2. Body mass index of 38.0 3. Gastroesophageal reflux disease 4. Hypertensive heart disease 5. Osteoarthritis bilateral knees PAST SURGICAL HISTORY: 1. Sleeve gastrectomy 2. Bilateral knee replacement 3. Cholecystectomy 4. Hysterectomy 5. Hiatal hernia repair 6. Status post gastric bypass 7. Status post upper endoscopy with dilation HOME MEDICATIONS: ALLERGIES: Medications and Allergies Home Medications Medication Instructions Recorded Confirmed Type Bisoprolol-Hctz 5-6.25 mg [Ziac 2 tab PO DAILY 09/01/18 09/21/18 History 5-6.25 MG] Omeprazole 20 mg PO AC-BRKFST 09/01/18 09/21/18 History Omeprazole 40 mg PO HS 09/21/18 09/21/18 History Allergies Allergy/AdvReac Type Severity Reaction Status Date / Time Sulfa (Sulfonamide Allergy Rash/Hives Verified 09/21/18 15:50 Antibiotics) milk AdvReac Abdominal Verified 09/21/18 15:50 Pain SOCIAL HISTORY: No past tobacco use. FAMILY HISTORY: No family history of ulcerative colitis disease or Crohn's disease. Family history of morbid obesity. No lupus in the family. No reports of stomach or esophageal cancer. REVIEW OF ORGAN SYSTEMS: CONSTITUTIONAL: At height of 5 feet 2 inches, her ideal body weight is 135 pounds. Highest weight 208 pounds. Weight loss of 38 pounds intentional in 2 months. Her body mass index highest is 38.0. HEENT: Denies any active troubles with vision or hearing. Has troubles with swallowing improved after dilation. History of esophageal dysmotility with presbyesophagus ENDOCRINE: No diabetes. No hypothyroidism. CARDIOVASCULAR: No reports of palpitations or heart attacks or chest pain. RESPIRATORY: No daytime somnolence. Has asthma. GI: Denies any bright red blood per rectum. No diarrhea. Has GERD. MUSCULOSKELETAL: Has lower back pain and joint pain. Has osteoarthritis of the knees. NEURO: No headaches. No seizure disorders. PSYCH: No depression. No suicidal ideation. RHEUMATOLOGIC: No lupus. No rheumatoid arthritis. HEMATOLOGIC: Denies any abnormal bleeding or bruising. No personal history of D VTs. SKIN: No rash. No skin cancer. : Kidney stones. PHYSICAL EXAM: VITAL SIGNS: Height 5 foot 2 inches, weight 174 pounds. BMI 32.9 GENERAL: Well-developed in no acute distress. HEENT: No scleral icterus. Extraocular movements grossly intact. Hears conversational speech. No nasal drainage. NECK: Supple without lymphadenopathy. CHEST: Nonlabored respirations with equal bilateral excursions. CARDIOVASCULAR: Regular rate and regular rhythm. Distal 2+ pulses. ABDOMEN: Obese, soft. Minimal distention. No diffuse peritonitis. Tenderness epigastrium. MUSCULOSKELETAL: No clubbing, cyanosis. NEURO: No focal or lateralizing signs. Cranial nerves 2 through 12 grossly within normal limits. PSYCH: Appropriate affect. Alert and oriented to person, place and time. SKIN: Good skin turgor. Well perfused. STUDIES: Chest x-ray independently reviewed by me demonstrating free air und erneath the right diaphragm. No air along the mediastinum. Abdominal x-ray also independently reviewed demonstrating stool. No signs of obstruction. LABS: White blood cell count normal. ASSESSMENT: 1. Gastrojejunal perforation 2. Pneumoperitoneum 3. History of revision from sleeve gastrectomy due to complications to gastric bypass 4. History of esophageal obstruction 5. 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 Morbid obesity due to excess calories 7. Body mass index of 38.0 to 32.9 8. Gastroesophageal reflux disease 9. Hypertensive heart disease 10. Osteoarthritis bilateral knees 11. Inadequate protein intake 12. Hiatal hernia 13. Vitamin A deficiency 14. Esophageal dysmotility, presbyesophagus PLAN: 1. Full inpatient admission greater than 2 nights described for history of pneumoperitoneum 2. Strict nothing by mouth 3. IV antibiotics 4. IV fluid hydration and interim 5. Benefits and risks of surgical intervention including robotic-assisted laparoscopic repair of gastrojejunal perforation described with placement of JASSI drain. Possibility of open technique also reviewed. 6. DVT prophylaxis 7. Incentive spirometer 10 times per hour described 8. Avoid all NSAIDs secondary to history of gastrojejunal ulcer Past Medical History Past Medical History: GERD/Reflux, Hypertension Additional Past Medical History / Comment(s): Hiatal Hernia. ,frequent UTI's, u rinary incontinence, constipation, hX kidney stone with lithotripsy and stent., Dysphagia, Hx of gastric bypass., EGD with dilation 01/21/20 History of Any Multi-Drug Resistant Organisms: None Reported Past Surgical History: Bariatric Surgery, Cholecystectomy, Hernia Repair, Hysterectomy, Joint Replacement Additional Past Surgical History / Comment(s): Bilateral knee replacement, sleeve gastrectomy (conversion to gastric bypass 11-13-19), hiatal hernia repair, LITHOTRIPSY WITH STENT (12/27/19), EGD with dilation 01/04/20 Past Anesthesia/Blood Transfusion Reactions: Motion Sickness, Postoperative Nausea & Vomiting (PONV) Additional Past Anesthesia/Blood Transfusion Reaction / Comment(s): Pt states "always get UTI's from mcneal catheters." Past Psychological History: No Psychological Hx Reported Smoking Status: Never smoker Past Alcohol Use History: None Reported Past Drug Use History: None Reported - Past Family History Mother Family Medical History: Cancer Additional Family Medical History / Comment(s): Uterine cancer. Medications and Allergies Home Medications Medication Instructions Recorded Confirmed Type Oxybutynin Chloride [Ditropan XL] 10 mg PO DAILY 11/08/19 01/31/20 History Irbesartan/Hydrochlorothiazide 0.5 tab PO DAILY 12/06/19 01/31/20 History [Avalide 300-12.5 mg Tablet] Omeprazole [PriLOSEC] 40 mg PO BID #60 cap 12/07/19 01/31/20 Rx Sucralfate [Carafate] 1 gm PO BID #480 ml 12/20/19 01/31/20 Rx Acetaminophen Oral Susp [Tylenol] 650 mg PO Q4-6H PRN 01/31/20 01/31/20 History Ondansetron Odt [Zofran Odt] 4 mg PO Q8H PRN 01/31/20 01/31/20 History Allergies Allergy/AdvReac Type Severity Reaction Status Date / Time Sulfa (Sulfonamide Allergy Rash/Hives Verified 01/31/20 18:58 Antibiotics) milk AdvReac Abdominal Verified 01/31/20 18:58 Pain Surgical - Exam Vital Signs Temp Pulse Resp BP Pulse Ox 98.8 F 71 18 186/90 99 01/31/20 17:25 01/31/20 17:25 01/31/20 17:25 01/31/20 17:25 01/31/20 17:25 Results - Labs 01/31/20 18:20 01/31/20 18:20 Abnormal Lab Results - Last 24 Hours (Table) 01/31/20 01/31/20 01/31/20 Range/Units 18:20 18:20 18:30 RBC 3.70 L (3.80-5.40) m/uL Lymphocytes # 0.8 L (1.0-4.8) k/uL Potassium 3.0 L (3.5-5.1) mmol/L BUN 20 H (7-17) mg/dL Total Protein 6.1 L (6.3-8.2) g/dL Urine Appearance Cloudy H (Clear) Urine Protein Trace H (Negative) Urine Ketones 2+ H (Negative) Urine Nitrite Positive H (Negative) Ur Leukocyte Esterase Large H (Negative) Urine WBC 44 H (0-5) /hpf Calcium Oxalate Crystal Few H (None) /hpf Urine Bacteria Occasional H (None) /hpf Urine Mucus Moderate H (None) /hpf Urine Yeast (Budding) Occasional H (None) /hpf Diabetes panel 01/31/20 Range/Units 18:20 Sodium 140 (137-145) mmol/L Potassium 3.0 L (3.5-5.1) mmol/L Chloride 106 (98-107) mmol/L Carbon Dioxide 27 (22-30) mmol/L BUN 20 H (7-17) mg/dL Creatinine 0.55 (0.52-1.04) mg/dL Glucose 99 (74-99) mg/dL Calcium 8.9 (8.4-10.2) mg/dL AST 23 (14-36) U/L ALT 12 (4-34) U/L Alkaline Phosphatase 86 (38-126) U/L Total Protein 6.1 L (6.3-8.2) g/dL Albumin 3.7 (3.5-5.0) g/dL Calcium panel 01/31/20 Range/Units 18:20 Calcium 8.9 (8.4-10.2) mg/dL Albumin 3.7 (3.5-5.0) g/dL Pituitary panel 01/31/20 Range/Units 18:20 Sodium 140 (137-145) mmol/L Potassium 3.0 L (3.5-5.1) mmol/L Chloride 106 (98-107) mmol/L Carbon Dioxide 27 (22-30) mmol/L BUN 20 H (7-17) mg/dL Creatinine 0.55 (0.52-1.04) mg/dL Glucose 99 (74-99) mg/dL Calcium 8.9 (8.4-10.2) mg/dL Adrenal panel 01/31/20 Range/Units 18:20 Sodium 140 (137-145) mmol/L Potassium 3.0 L (3.5-5.1) mmol/L Chloride 106 (98-107) mmol/L Carbon Dioxide 27 (22-30) mmol/L BUN 20 H (7-17) mg/dL Creatinine 0.55 (0.52-1.04) mg/dL Glucose 99 (74-99) mg/dL Calcium 8.9 (8.4-10.2) mg/dL Total Bilirubin 0.9 (0.2-1.3) mg/dL AST 23 (14-36) U/L ALT 12 (4-34) U/L Alkaline Phosphatase 86 (38-126) U/L Total Protein 6.1 L (6.3-8.2) g/dL Albumin 3.7 (3.5-5.0) g/dL Assessment and Plan (1) Gastrojejunal ulcer with perforation and obstruction Current Visit: Yes Status: Acute Code(s): K28.5 - CHRONIC OR UNSPECIFIED GASTROJEJUNAL ULCER WITH PERFORATION; K56.699 - OTHER INTESTNL OBST UNSP TO PARTIAL VERSUS COMPLETE OBST SNOMED Code(s): 26182884 (2) Pneumoperitoneum Current Visit: Yes Status: Acute Code(s): K66.8 - OTHER SPECIFIED DISORDERS OF PERITONEUM SNOMED Code(s): 80817672 (3) Bariatric surgery status Current Visit: Yes Status: Acute Code(s): Z98.84 - BARIATRIC SURGERY STATUS SNOMED Code(s): 780055961
[2020-01-31] MEDS: SODIUM CHLORIDE 0.9% 1,000 ML IV SCH (20:38)
[2020-01-31] MEDS: ACETAMINOPHEN IV (For NPO) 1,000 MG in EMPTY BAG 1 BAG IVPB SCH (21:21)
[2020-01-31] MEDS ORDERED: Potassium Replacement Protocol 1 EACH MISC MISCELLANE PRN (22:12)
[2020-01-31] MEDS: POTASSIUM CHLORIDE 10 MEQ in WATER FOR INJECTION 1 100ML.BAG IVPB SCH (23:32)
[2020-02-01] MEDS: ACETAMINOPHEN IV (For NPO) 1,000 MG in EMPTY BAG 1 BAG IVPB SCH ×5 (01:03→20:01)
[2020-02-01] MEDS: POTASSIUM CHLORIDE 10 MEQ in WATER FOR INJECTION 1 100ML.BAG IVPB SCH ×3 (01:40→04:43)
[2020-02-01] MEDS: SODIUM CHLORIDE 0.9% 1,000 ML IV SCH (04:44)
--- NOTE | 2020-02-01 09:46 | P.PN ---
Subjective Progress Note Date: 02/01/20 CHIEF COMPLAINT: Pneumoperitoneum HISTORY OF PRESENT ILLNESS: Deepti Dyson is a 69-year-old female admitted secondary to abdominal pain that developed yesterday evening following dilation of her gastrojejunal stricture. She reports the morning feeling much better. Abdominal pain almost completely resolved. She reports left shoulder pain which is mild. She has been nothing by mouth. REVIEW OF ORGAN SYSTEMS: No fevers. No productive sputum. No new chest pain. PHYSICAL EXAM: VITAL SIGNS: Reviewed GENERAL: Well-developed in no acute distress. HEENT: No scleral icterus. Extraocular movements grossly intact. Hears conversational speech. No nasal drainage. NECK: Supple without lymphadenopathy. CHEST: Nonlabored respirations with equal bilateral excursions. CARDIOVASCULAR: Regular rate and regular rhythm. Distal 2+ pulses. ABDOMEN: Obese, soft. Nondistended. No peritonitis. Minimal tenderness epigastrium moderately improved from yesterday MUSCULOSKELETAL: No clubbing, cyanosis. NEURO: No focal or lateralizing signs. Cranial nerves 2 through 12 grossly within normal limits. PSYCH: Appropriate affect. Alert and oriented to person, place and time. SKIN: Good skin turgor. Well perfused. ASSESSMENT: 1. Gastrojejunal perforation 2. Pneumoperitoneum 3. History of revision from sleeve gastrectomy due to complications to gastric bypass 4. History of esophageal obstruction 5. 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 Morbid obesity due to excess calories 7. Body mass index of 38.0 to 32.9 8. Gastroesophageal reflux disease 9. Hypertensive heart disease 10. Osteoarthritis bilateral knees 11. Inadequate protein intake 12. Hiatal hernia 13. Vitamin A deficiency 14. Esophageal dysmotility, presbyesophagus PLAN: 1. She reports feeling much better today. Will repeat chest x-ray 2 view. 2. Continue nothing by mouth by mouth. 3. Start Diflucan for Rafia of the urine 4. Will add Flagyl to cover with ceftriaxone for gastric perforation 5. Surgical intervention was still described pending additional studies. Objective - Vital Signs Vital signs: Vital Signs Temp 97.9 F 02/01/20 04:30 Pulse 71 02/01/20 04:30 Resp 20 02/01/20 04:30 BP 141/76 02/01/20 04:30 Pulse Ox 97 02/01/20 04:30 Intake & Output 01/31/20 02/01/20 02/01/20 18:59 06:59 18:59 Intake Total 1450 Balance 1450 Weight 78.925 kg 77 kg Intake: Intake, IV Titration 1450 Amount Potassium Chloride 10 meq 400 In Water For Injection 1 100ml.bag @ 100 mls/hr IVPB Q1HR [facility] Rx#: [id number] Sodium Chloride 0.9% 1, 400 000 ml @ 100 mls/hr IV . Q10H [facility] Rx#:[id number] Sodium Chloride 0.9% 1, 600 000 ml @ 75 mls/hr IV . [id number] [facility] Rx#:[id number] cefTRIAXone 1 gm In 50 Sodium Chloride 0.9% 50 ml @ 100 mls/hr IVPB Q24HR [facility] Rx#:[id number] Oral 0 Other: Voiding Method Toilet Toilet # Voids 2 - Labs CBC & Chem 7: 01/31/20 18:20 01/31/20 18:20 Labs: Abnormal Lab Results - Last 24 Hours (Table) 01/31/20 01/31/20 01/31/20 Range/Units 18:20 18:20 18:30 RBC 3.70 L (3.80-5.40) m/uL Lymphocytes # 0.8 L (1.0-4.8) k/uL Potassium 3.0 L (3.5-5.1) mmol/L BUN 20 H (7-17) mg/dL Total Protein 6.1 L (6.3-8.2) g/dL Urine Appearance Cloudy H (Clear) Urine Protein Trace H (Negative) Urine Ketones 2+ H (Negative) Urine Nitrite Positive H (Negative) Ur Leukocyte Esterase Large H (Negative) Urine WBC 44 H (0-5) /hpf Calcium Oxalate Crystal Few H (None) /hpf Urine Bacteria Occasional H (None) /hpf Urine Mucus Moderate H (None) /hpf Urine Yeast (Budding) Occasional H (None) /hpf Microbiology - Last 24 Hours (Table) 01/31/20 18:30 Urine Culture - Preliminary Urine,Voided Assessment and Plan (1) Gastrojejunal ulcer with perforation and obstruction Current Visit: Yes Status: Acute Code(s): K28.5 - CHRONIC OR UNSPECIFIED GASTROJEJUNAL ULCER WITH PERFORATION; K56.699 - OTHER INTESTNL OBST UNSP TO PARTIAL VERSUS COMPLETE OBST SNOMED Code(s): 28275853 (2) Pneumoperitoneum Current Visit: Yes Status: Acute Code(s): K66.8 - OTHER SPECIFIED DISORDERS OF PERITONEUM SNOMED Code(s): 64852620 (3) Bariatric surgery status Current Visit: Yes Status: Acute Code(s): Z98.84 - BARIATRIC SURGERY STATUS SNOMED Code(s): 710372777 (4) Rafia albicans infection Current Visit: Yes Status: Acute Code(s): B37.9 - CANDIDIASIS, UNSPECIFIED SNOMED Code(s): 33228080 (5) UTI (urinary tract infection) Current Visit: Yes Status: Acute Code(s): N39.0 - URINARY TRACT INFECTION, SITE NOT SPECIFIED SNOMED Code(s): 64399339
[2020-02-01] MEDS ORDERED: HEPARIN SODIUM,PORCINE 5,000 UNIT/ML 1 ML VIAL SQ STA (10:14)
[2020-02-01] MEDS ORDERED: IV FLUID CONTINUATION 1,000 ML IV ONE (10:15)
[2020-02-01] MEDS ORDERED: HEPARIN SODIUM,PORCINE 5,000 UNIT/ML 1 ML VIAL SQ ONE (10:22)
[2020-02-01] MEDS ORDERED: DEXAMETHASONE SOD PHOS (MDV) 100 MG/10 ML VIAL IVP ONE (10:22)
[2020-02-01] MEDS ORDERED: MIDAZOLAM 2 MG/2 ML VIAL IVP ONE (10:45)
[2020-02-01] MEDS ORDERED: metroNIDAZOLE-NS PMX 500 MG in SALINE 1 100ML.BAG IVPB ONE (10:45)
[2020-02-01 11:43] LABS: Basophils % (A) 0 %; Eosinophils # (A) 0.1 k/uL (0-0.7); Eosinophils % (A) 2 %; HGB 10.2 gm/dL (11.4-16.0); Hypochromasia Slight; Lymphocytes # (A) 0.7 k/uL (1.0-4.8); Lymphocytes % (A) 19 %; MCH 31.2 pg (25.0-35.0); MCHC 31.9 g/dL (31.0-37.0); MCV 97.9 fL (80.0-100.0); Mean Platelet Volume 7.6; Monocytes # (A) 0.1 k/uL (0-1.0); Monocytes % (A) 4 %; Neutrophils # (A) 2.6 k/uL (1.3-7.7); Neutrophils % (A) 75 %; Platelet Count 134 k/uL (150-450); RBC 3.27 m/uL (3.80-5.40); RDW 12.9 % (11.5-15.5); WBC 3.5 k/uL (3.8-10.6)
[2020-02-01 11:51] LABS: African American GFR (CKD) >90 (>60 ml/min/1.73 sqM); Anion Gap 6 mmol/L; Blood Urea Nitrogen 18 mg/dL (7-17); Calcium 8.2 mg/dL (8.4-10.2); Carbon Dioxide 25 mmol/L (22-30); Chloride 108 mmol/L (98-107); Glucose 74 mg/dL (74-99); Non-African American GFR(CKD) >90 (>60 ml/min/1.73 sqM); Potassium 3.6 mmol/L (3.5-5.1); Sodium 139 mmol/L (137-145)
[2020-02-01] MEDS ORDERED: BUPIVACAIN-EPI 0.25%-1:200,000 30 ML VIAL SQ ONE (12:15)
[2020-02-01] MEDS ORDERED: MIDAZOLAM 2 MG/2 ML VIAL ONE (12:15)
[2020-02-01] MEDS ORDERED: ROCURONIUM BROMIDE 10 MG/ML 5 ML VIAL IV ONE (12:15)
[2020-02-01] MEDS ORDERED: ONDANSETRON 4 MG/2 ML VIAL ONE (12:15)
[2020-02-01] MEDS ORDERED: NEOSTIGMINE 1 MG/ML 10 ML VIAL ONE (12:15)
[2020-02-01] MEDS ORDERED: LIDOCAINE 1% INJ 10MG/ML (20 ML MDV) ONE (12:15)
[2020-02-01] MEDS ORDERED: ePHEDrine SULFATE/0.9% NACL/PF 50 MG/5 ML SYRINGE IV ONE (12:15)
[2020-02-01] MEDS ORDERED: fentaNYL (PF) 50 MCG/ML 2 ML AMP ONE (12:15)
[2020-02-01] MEDS ORDERED: PROPOFOL 10 MG/ML 20 ML VIAL IV ONE (12:15)
[2020-02-01] MEDS ORDERED: GLYCOPYRROLATE 0.2 MG/ML 2 ML VIAL ONE (12:15)
[2020-02-01] MEDS ORDERED: SUCCINYLCHOLINE CHLORIDE 100 MG/5 ML SYR IV ONE (12:15)
[2020-02-01] MEDS ORDERED: LACTATED RINGERS 1,000 ML IV ONE ×2 (12:30→13:51)
[2020-02-01] MEDS ORDERED: diphenhydrAMINE 50 MG/ML 1 ML VIAL IVP ONE (14:15)
[2020-02-01] MEDS ORDERED: HYDROmorphone 0.5 MG/0.5 ML SYRINGE IVP ONE ×3 (14:20→15:20)
--- NOTE | 2020-02-01 14:34 | P.OP ---
Date of Procedure: 02/01/20 Description of Procedure: SURGEON: HUMBERTO SCHILLING MD PREOPERATIVE DIAGNOSES: 1. Epigastric abdominal pain 2. Pneumoperitoneum 3. Perforated gastrojejunal anastomosis status post balloon dilation for gastrojejunal stricture 4. History of gastric bypass POSTOPERATIVE DIAGNOSES: 1. Epigastric abdominal pain 2. Pneumoperitoneum 3. Perforated gastrojejunal anastomosis status post balloon dilation for gastrojejunal stricture 4. History of gastric bypass 5. Peritoneal adhesions periumbilical and left upper quadrant 6. Abdominal ascites OPERATION: 1. Robotic-assisted da Khoa Xi laparoscopic exploration of gastrojejunal perforation with lysis of adhesions, over 1 hour 2. Abdominal washout with peritoneal lavage 1 L normal saline 3. Placement of #19 round Mikey-Zaragoza drain gastrojejunal anastomosis 4. Intraoperative esophagogastrojejunoscopy ESTIMATED BLOOD LOSS: 5 mL. SPECIMENS REMOVED: None. COMPLICATIONS: None. OPERATIVE FINDINGS: 1. Upper endoscopy confirms sealed gastrojejunal perforation 2. Peritoneal adhesions left upper quadrant including periumbilical with lysis of adhesions of the left upper quadrant 3. Negative leak test upon upper endoscopy 4. Abdominal washout for abdominal ascites 1 L normal saline with peritoneal lavage 5. Placement of JASSI drain posterior left lateral to gastrojejunal anastomosis 6. Minimal to no contamination identified at or near gastrojejunal anastomosis INDICATIONS: The patient is a 69-year-old female who presented status post upper endoscopy with balloon dilation of chronic gastrojejunal stricture. She then presented back to the hospital with new epigastric abdominal pain. Chest x-ray confirmed pneumoperitoneum. Surgical intervention with diagnostic laparoscopy, lysis of adhesions were described, closure of gastrojejunal perforation was described including placement of drain. Robotic assisted laparoscopic approach was described. Benefits and risks of the procedure including but not limited to bleeding, infection, injury to the small bowel was described. Informed consent was obtained. DESCRIPTION OF PROCEDURE: Patient was brought to the operating room, placed in supine position. After general induction, the abdomen had been prepped and draped in standard sterile fashion. The robotic da Khoa XI system was primed. After a timeout protocol was performed, the patient had been prepped and draped in standard sterile fashion. The robot was docked along the left lateral abdomen. Please note prior to docking of the robot; however, a 5 mm 0 degrees laparoscopic trocar entry was performed along the right upper quadrant. The abdomen was insufflated to 15 mmHg pressure which s he tolerated well. Diagnostic laparoscopy was performed. Next, three 8 mm robotic ports were placed along the upper abdomen. The 5-mm trocar was exchanged for a 12 mm trocar at the left upper quadrant. Please note that the ports were placed at least 10 to 15 cm away from the target anatomy. A medium-sized Denisse liver retractor was used to elevate the left lobe of the liver and held in place using iron physician internist. Instruments including grasp suction potato grader and needle bulk delivery driver were interchanged by the sales assistant entertainment and media. I had sat at the console. Abdominal ascites was identified along the upper and lower abdomen however clear. Little to no contamination was identified at the upper abdomen along the gastrojejunal anastomosis. The upper abdomen was irrigated with normal saline. Peritoneal adhesions including omentum was found along the left upper quadrant including along the periumbilical area. Next, the gastrojejunal anastomosis was explored where minimal bleeding was verified along the 3 o'clock position otherwise left lateral portion of the anastomosis. I went to the head of the bed to perform an upper endoscopy and confirmed any leaks. The gastroscope was entered into the mouth and posterior oropharynx to the anastomosis. With air insufflation, o evidence of air leak was found. The anastomosis had been submerged under normal saline also confirming no air leak or further tear. The gastrojejunal anastomosis perforation had sealed. Next, the omental adhesions along the abdominal wall was lysed and omentum was placed to buttress the perforated site. Around the upper 19 Mikey-Zaragoza drain was entered via the left lateral trocar and positioned along the left lateral aspect to the anastomosis. The drain was secured to skin using 2-0 nylon. The patient was flattened. The pelvis was irrigated and washed using normal saline. The irrigant was aspirated. All pneumoperitoneum and instruments were evacuated from the abdominal cavity using a closed suction system. The incisions were reapproximated using 4-0 Monocryl in an interrupted subcuticular fashion. Please note along the trocar sites, local anesthetic was placed as a field block prior to insertion of all instruments. Exofin was applied to the skin. At the left upper quadrant, Optifoam dressing was placed along the JASSI site. At the end of the procedure needle, sponge, and instrument count had been verified correct by the surgical pathologist. The patient was transferred to postanesthesia care unit in stable condition. The patient's was called and notified of her intraoperative findings as well as care plan. All questions were answered.
[2020-02-01] MEDS ORDERED: METHYLENE BLUE 50 MG/10 ML AMPUL MISCELLANE ONE (14:40)
[2020-02-01] MEDS: FLUCONAZOLE IN NACL,ISO-OSM 100 MG in SALINE 1 50ML.BAG IVPB SCH (15:55)
[2020-02-01] MEDS: PANTOPRAZOLE 40 MG/10 ML VIAL IVP SCH ×2 (16:10→22:26)
[2020-02-01] MEDS: DEXTROSE 5%-0.9% NACL 1,000 ML IV SCH (16:10)
[2020-02-01 16:46] LABS: HCT 32.6 % (34.0-46.0); HGB 10.6 gm/dL (11.4-16.0); Hypochromasia Slight; MCH 32.4 pg (25.0-35.0); MCHC 32.6 g/dL (31.0-37.0); MCV 99.4 fL (80.0-100.0); Mean Platelet Volume 8.3; Platelet Count 126 k/uL (150-450); RBC 3.28 m/uL (3.80-5.40); RDW 12.9 % (11.5-15.5); WBC 4.8 k/uL (3.8-10.6)
[2020-02-01] MEDS: PIPERACILLIN-TAZOBACTAM 3.375 GM in SODIUM CHLORIDE 0.9% 100 ML IVPB SCH (17:20)
[2020-02-01] MEDS: metroNIDAZOLE-NS PMX 500 MG in SALINE 1 100ML.BAG IVPB SCH ×2 (18:54→23:09)
--- NOTE | 2020-02-01 19:09 | CONS ---
CONSULTATION REASON FOR CONSULTATION: Advice regarding hypertension and other multiple medical issues, requested by Dr. Travis. HISTORY OF PRESENT ILLNESS: This 69-year-old woman with a past medical history of GERD, hypertension, hiatal hernia, recurrent UTIs, had bariatric surgery, being followed by Dr. Savanah Vazquez in the outpatient setting, had multiple procedures previously. Currently the patient was admitted with hemoperitoneum, perforated gastrojejunal anastomosis after balloon dilatation. Patient underwent robotic-assisted laparoscopic exploration with lysis of adhesions as well as placement of JASSI drain. The patient is being closely monitored. No chest pain. No palpitations. No fever. Patient is slightly drowsy after surgery. PAST MEDICAL HISTORY: History of GERD, hypertension, hiatal hernia, history of multiple bariatric surgeries, history of esophageal dilatations. MEDICATIONS PRIOR TO ADMISSION: 1. Carafate 1 gram p.o. b.i.d. 2. Ditropan XL 10 mg p.o. daily. 3. Zofran 4 mg q.8 p.r.n. 4. Prilosec 40 mg p.o. b.i.d. I will add 0.5 mg daily. 5. Tylenol 650 q.6 p.r.n. ALLERGIES: SULFA, MILK. FAMILY HISTORY: History of uterine cancer in the family. SOCIAL HISTORY: No history of smoking. No history of alcohol. REVIEW OF SYSTEMS: ENT: No diminished hearing. No diminished vision. CARDIOVASCULAR SYSTEM: No angina, palpitations. RESPIRATORY SYSTEM: No cough, hemoptysis. GI: As mentioned earlier. : No dysuria or retention. NERVOUS SYSTEM: No numbness, weakness. ALLERGY/IMMUNOLOGY: No asthma, hayfever. MUSCULOSKELETAL: As mentioned earlier. HEMATOLOGY/ONCOLOGY: No history of anemia. ENDOCRINE: No history of diabetes, hypothyroidism. CONSTITUTIONAL: As mentioned earlier. DERMATOLOGY: Negative. RHEUMATOLOGY: Negative. PSYCHIATRY: As mentioned earlier. PHYSICAL EXAMINATION: Patient alert and oriented x3. Pulse is 74, blood pressure 135/80, respirations 17, temperature 98.3, pulse ox 98% on room air. HEENT: Conjunctivae normal. Oral mucosa moist. NECK: No jugular venous distention. No carotid bruit. No lymph node enlargement. CARDIOVASCULAR SYSTEM: S1, S2 muffled. RESPIRATORY SYSTEM: Breath sounds diminished at the bases. No rhonchi. No crackles. ABDOMEN: Soft. Status post surgery. LEGS: No edema. No swelling. NERVOUS SYSTEM: No focal deficit. LABS: WBC 3.5, hemoglobin 10.2. Platelets 134. UA with 44 WBCs and large leukocyte esterase. ASSESSMENT: 1. Possible perforated gastrojejunal anastomosis, status post balloon dilatation and laparoscopic exploration with peritoneal lavage and JASSI drain insertion. 2. Possible urinary tract infection. 3. Mild leukopenia. 4. Anemia. 5. Mild thrombocytopenia. 6. History of esophageal stricture and dilatation. 7. Hypertension. 8. Hiatal hernia. 9. History of frequent urinary tract infections. 10.History of dysphagia. 11.History of bariatric surgery. 12.History of cholecystectomy. 13.History of degenerative joint disease. 14.FULL CODE. RECOMMENDATIONS AND DISCUSSION: In this 69-year-old woman who presented with multiple complex medical issues, we will monitor the patient closely, continue the current medications, continue with symptomatic treatment. Otherwise, DVT prophylaxis. Monitor blood pressure closely. Resume the p.o. medication once p.o. Otherwise, broad-spectrum IV antibiotics. Cultures. We will follow the patient closely with you. The patient may be asked to follow with Dr. Vazquez closely after discharge. Thank you, Dr. Travis, for letting us participate in the care of this patient. MMODL / IJN: [id number] /
[2020-02-01] MEDS ORDERED: MORPHINE SULFATE 4 MG/ML SYRINGE IVP PRN (19:24)
[2020-02-01] MEDS: MORPHINE SULFATE 4 MG/ML SYRINGE IVP PRN (23:13)
[2020-02-02] MEDS: PIPERACILLIN-TAZOBACTAM 3.375 GM in SODIUM CHLORIDE 0.9% 100 ML IVPB SCH ×3 (00:10→17:04)
[2020-02-02] MEDS: DEXTROSE 5%-0.9% NACL 1,000 ML IV SCH ×3 (04:15→23:41)
[2020-02-02] MEDS: ACETAMINOPHEN IV (For NPO) 1,000 MG in EMPTY BAG 1 BAG IVPB SCH ×2 (04:17→09:49)
[2020-02-02] MEDS: metroNIDAZOLE-NS PMX 500 MG in SALINE 1 100ML.BAG IVPB SCH ×4 (05:37→23:20)
[2020-02-02 07:27] LABS: Basophils % (A) 0 %; Eosinophils % (A) 1 %; HGB 10.3 gm/dL (11.4-16.0); Lymphocytes # (A) 0.9 k/uL (1.0-4.8); Lymphocytes % (A) 20 %; MCH 31.9 pg (25.0-35.0); MCV 96.4 fL (80.0-100.0); Mean Platelet Volume 7.7; Monocytes # (A) 0.2 k/uL (0-1.0); Monocytes % (A) 4 %; Neutrophils # (A) 3.4 k/uL (1.3-7.7); Neutrophils % (A) 75 %; Platelet Count 151 k/uL (150-450); RBC 3.22 m/uL (3.80-5.40); RDW 12.8 % (11.5-15.5); WBC 4.6 k/uL (3.8-10.6)
[2020-02-02 07:32] LABS: African American GFR (CKD) >90 (>60 ml/min/1.73 sqM); Anion Gap 5 mmol/L; Blood Urea Nitrogen 18 mg/dL (7-17); Calcium 8.3 mg/dL (8.4-10.2); Carbon Dioxide 25 mmol/L (22-30); Chloride 108 mmol/L (98-107); Glucose 92 mg/dL (74-99); Magnesium 1.7 mg/dL (1.6-2.3); Non-African American GFR(CKD) >90 (>60 ml/min/1.73 sqM); Potassium 3.6 mmol/L (3.5-5.1); Sodium 138 mmol/L (137-145)
[2020-02-02] MEDS: ENOXAPARIN 30 MG/0.3 ML SYRINGE SQ SCH (08:34)
[2020-02-02] MEDS: PANTOPRAZOLE 40 MG/10 ML VIAL IVP SCH ×2 (08:34→19:46)
[2020-02-02] MEDS ORDERED: METHYLENE BLUE 50 MG/10 ML AMPUL MISCELLANE ONE (09:45)
--- NOTE | 2020-02-02 10:37 | P.PN ---
Subjective Progress Note Date: 02/02/20 CHIEF COMPLAINT: Pneumoperitoneum HISTORY OF PRESENT ILLNESS: Deepti Dyson is a 69-year-old female admitted secondary to gastrojejunal perforation. She is postop day 1 following robotic exploration for gastrojejunal perforation with lysis of adhesions, abdominal washout and placement of JASSI drain at anastomosis. This morning, she feels very well. No further chest pain or abdominal pain or shoulder pain. She denies any dysphagia. She has remain nothing by mouth, strict. REVIEW OF ORGAN SYSTEMS: No fevers. No new chest pain. PHYSICAL EXAM: VITAL SIGNS: Reviewed GENERAL: Well-developed in no acute distress. HEENT: No scleral icterus. Extraocular movements grossly intact. Hears conversational speech. No nasal drainage. NECK: Supple without lymphadenopathy. CHEST: Nonlabored respirations with equal bilateral excursions. CARDIOVASCULAR: Regular rate and regular rhythm. Distal 2+ pulses. ABDOMEN: Obese, soft. Nondistended. JASSI serosanguineous. Nontender. Leaking around JASSI site reinforced with dressings. MUSCULOSKELETAL: No clubbing, cyanosis. NEURO: No focal or lateralizing signs. Cranial nerves 2 through 12 grossly within normal limits. PSYCH: Appropriate affect. Alert and oriented to person, place and time. SKIN: Good skin turgor. Well perfused. ASSESSMENT: 1. Gastrojejunal perforation 2. Pneumoperitoneum 3. 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 History of esophageal obstruction 5. 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 Morbid obesity due to excess calories 7. Body mass index of 38.0 to 32.9 8. Gastroesophageal reflux disease 9. Hypertensive heart disease 10. Osteoarthritis bilateral knees 11. Inadequate protein intake 12. Hiatal hernia 13. Vitamin A deficiency 14. Esophageal dysmotility, presbyesophagus 15. Lower urinary tract infection with E. coli, present on admission 16. Candidiasis, urogenital, present on admission PLAN: 1. Overall, patient reports feeling much better. Pain on abdomen chest and shoulders resolved. 2. She presents with urinary tract infection including candidiasis present on admission. Continue Diflucan and Flagyl. Antibiotic switched to Zosyn per medicine. 3. Bedside swallow study performed using methylene blue, 20 drops added to 16 ounces of water. After 10 minutes, no evidence of methylene blue in JASSI drain. 4. Patient advanced to noncarbonated beverages, no straws, low sugar, high protein clear liquid diet. Recommend ensure clear protein drinks to address inadequate protein intake. DO NOT ADVANCE DIET FOR 7 DAYS. 5. Recommend inpatient hospitalization with continuance of IV antibiotics and monitoring of cautious liquid diet in the interim. 6. Will reevaluate for discontinuing JASSI drain including advancement of diet after 7 days. 7. NO WHOLE TABLETS, ONLY CRUSHED OR LIQUID MEDICATIONS. Objective - Vital Signs Vital signs: Vital Signs Temp 98.6 F 02/02/20 05:00 Pulse 71 02/02/20 05:00 Resp 16 02/02/20 05:00 BP 132/72 02/02/20 05:00 Pulse Ox 96 02/02/20 05:00 Intake & Output 02/01/20 02/02/20 02/02/20 18:59 06:59 18:59 Intake Total 2750 300 Output Total 175 75 Balance 2575 225 Weight 77 kg Intake: IV 2750 Intake, IV Titration 300 Amount Piperacillin-Tazobactam 3 100 .375 gm In Sodium Chloride 0.9% 100 ml @ 25 mls/hr IVPB Q8HR [facility] Rx# :[id number] metroNIDAZOLE-NS PMX 500 200 mg In Saline 1 100ml.bag @ 100 mls/hr IVPB Q6HR [facility] Rx#:[id number] Output: Urine 170 Estimated Blood Loss 5 Other 75 Other: Voiding Method Toilet Indwelling Catheter Indwelling Catheter - Labs CBC & Chem 7: 02/02/20 06:19 02/02/20 06:19 Labs: Abnormal Lab Results - Last 24 Hours (Table) 02/01/20 02/01/20 02/01/20 Range/Units 11:18 11:18 16:23 WBC 3.5 L (3.8-10.6) k/uL RBC 3.27 L 3.28 L (3.80-5.40) m/uL Hgb 10.2 L 10.6 L (11.4-16.0) gm/dL Hct 32.0 L 32.6 L (34.0-46.0) % Plt Count 134 L 126 L (150-450) k/uL Lymphocytes # 0.7 L (1.0-4.8) k/uL Chloride 108 H (98-107) mmol/L BUN 18 H (7-17) mg/dL Creatinine 0.49 L (0.52-1.04) mg/dL Calcium 8.2 L (8.4-10.2) mg/dL 02/02/20 02/02/20 Range/Units 06:19 06:19 WBC (3.8-10.6) k/uL RBC 3.22 L (3.80-5.40) m/uL Hgb 10.3 L (11.4-16.0) gm/dL Hct 31.0 L (34.0-46.0) % Plt Count (150-450) k/uL Lymphocytes # 0.9 L (1.0-4.8) k/uL Chloride 108 H (98-107) mmol/L BUN 18 H (7-17) mg/dL Creatinine (0.52-1.04) mg/dL Calcium 8.3 L (8.4-10.2) mg/dL Microbiology - Last 24 Hours (Table) 01/31/20 18:30 Urine Culture - Preliminary Urine,Voided Gram Neg Bacilli Assessment and Plan (1) Gastrojejunal ulcer with perforation and obstruction Current Visit: Yes Status: Acute Code(s): K28.5 - CHRONIC OR UNSPECIFIED GASTROJEJUNAL ULCER WITH PERFORATION; K56.699 - OTHER INTESTNL OBST UNSP TO PARTIAL VERSUS COMPLETE OBST SNOMED Code(s): 93219827 (2) Pneumoperitoneum Current Visit: Yes Status: Acute Code(s): K66.8 - OTHER SPECIFIED DISORDERS OF PERITONEUM SNOMED Code(s): 26762303 (3) Bariatric surgery status Current Visit: Yes Status: Acute Code(s): Z98.84 - BARIATRIC SURGERY STATUS SNOMED Code(s): 558703913 (4) Rafia albicans infection Current Visit: Yes Status: Acute Code(s): B37.9 - CANDIDIASIS, UNSPECIFIED SNOMED Code(s): 29457755 (5) UTI (urinary tract infection) Current Visit: Yes Status: Acute Code(s): N39.0 - URINARY TRACT INFECTION, SITE NOT SPECIFIED SNOMED Code(s): 11540376
[2020-02-02] MEDS: FLUCONAZOLE IN NACL,ISO-OSM 100 MG in SALINE 1 50ML.BAG IVPB SCH (11:45)
--- NOTE | 2020-02-02 16:30 | PN ---
PROGRESS NOTE DATE OF SERVICE: 02/02/2020 This 69-year-old woman who was admitted after pneumoperitoneum and gastric perforation is on conservative line of management. Patient underwent laparoscopy as well as additional lysis of adhesions and conservative line of management. The methylene blue test has been done. JASSI drain was inserted. The patient is on IV Zosyn at this time. Past medical history reviewed. REVIEW OF SYSTEMS: CARDIOVASCULAR SYSTEM: No angina, palpitations. RESPIRATORY SYSTEM: As mentioned earlier. GI: As mentioned earlier. : No dysuria or retention. NERVOUS SYSTEM: No numbness, weakness. CURRENT MEDICATIONS: Reviewed. They include: 1. Dextrose. 2. Lovenox 30 mg subcutaneously daily. 3. Diflucan. 4. Flagyl 500 mg. 5. Morphine sulfate. 6. Zofran. 7. Protonix. 8. Zosyn 3.375 IV q.6. PHYSICAL EXAMINATION: Patient is alert, oriented x3. Pulse 59, blood pressure 177/79, respirations 16, temperature 98.1, pulse ox 100% on room air. HEENT: Conjunctivae normal. NECK: No jugular venous distention. CARDIOVASCULAR SYSTEM: S1, S2 muffled. RESPIRATORY SYSTEM: Breath sounds diminished at the bases. No rhonchi. No crackles. ABDOMEN: Soft. Status post surgery. LEGS: No edema. No swelling. NERVOUS SYSTEM: No focal deficit. JASSI drain present. LABS: WBC 4.6, hemoglobin 10.3. Sodium 132, potassium 3.6. LFTs are normal. Otherwise, UA shows some evidence of UTI. Urine culture with Gram-negative bacilli. ASSESSMENT: 1. Possible perforated gastrojejunal anastomosis, status post laparoscopic exploration with peritoneal lavage and JASSI drain insertion and adhesiolysis. 2. 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 3. Possible urinary tract infection, present on admission. 4. Mild leukopenia. 5. Anemia. 6. Mild thrombocytopenia. 7. History of hypertension. 8. Hiatal hernia. 9. History of frequent urinary tract infection. 10.History of dysphagia. 11.History of bariatric surgery. 12.History of cholecystectomy. 13.History of degenerative joint disease. 14.FULL CODE. 15.Anemia, normocytic anemia of chronic disease. RECOMMENDATIONS AND DISCUSSION: In this 69-year-old woman who presented with multiple medical issues, we will monitor the patient closely, continue the current medications, continue symptomatic treatment. Otherwise, incentive spirometry. DVT prophylaxis. Broad-spectrum IV antibiotics. Follow the cultures. Closely follow with Surgery. Further recommendations to follow. Prognosis guarded. MMODL / IJN: [id number] /
[2020-02-02] MEDS: ACETAMINOPHEN ORAL SUSP (PEDS) 3,840 MG/120 ML BOTTLE PO SCH (19:34)
[2020-02-02] MEDS: MORPHINE SULFATE 4 MG/ML SYRINGE IVP PRN ×2 (19:37→22:26)
[2020-02-02] MEDS: ONDANSETRON 4 MG/2 ML VIAL IVP PRN (21:41)
[2020-02-03] MEDS: PIPERACILLIN-TAZOBACTAM 3.375 GM in SODIUM CHLORIDE 0.9% 100 ML IVPB SCH ×3 (00:42→16:38)
[2020-02-03] MEDS: ACETAMINOPHEN ORAL SUSP (PEDS) 3,840 MG/120 ML BOTTLE PO SCH ×4 (01:02→13:21)
[2020-02-03] MEDS: metroNIDAZOLE-NS PMX 500 MG in SALINE 1 100ML.BAG IVPB SCH ×4 (06:07→23:06)
[2020-02-03] MEDS: ONDANSETRON 4 MG/2 ML VIAL IVP PRN ×3 (08:23→19:18)
[2020-02-03] MEDS: MORPHINE SULFATE 4 MG/ML SYRINGE IVP PRN ×2 (08:23→12:15)
[2020-02-03] MEDS: PANTOPRAZOLE 40 MG/10 ML VIAL IVP SCH ×2 (08:29→20:57)
[2020-02-03] MEDS: DEXTROSE 5%-0.9% NACL 1,000 ML IV SCH ×2 (08:30→17:40)
[2020-02-03] MEDS: ENOXAPARIN 30 MG/0.3 ML SYRINGE SQ SCH (08:30)
--- NOTE | 2020-02-03 08:40 | P.PN ---
Subjective Progress Note Date: 02/03/20 Principal diagnosis: Anastomotic leak Patient says her nausea is persisting. Yesterday she did drink 50-75% of her meals. Today she feels too nauseated to try much. Her pain she says is about the same as it was yesterday may be slightly improved although rates it at a 7 out of 10. Morning labs pending. Objective - Vital Signs Vital signs: Vital Signs Temp 97.8 F 02/03/20 04:55 Pulse 56 L 02/03/20 04:55 Resp 12 02/03/20 04:55 BP 156/87 02/03/20 04:55 Pulse Ox 96 02/03/20 04:55 Intake & Output 02/02/20 02/03/20 02/03/20 18:59 06:59 18:59 Intake Total 1150 1100 Output Total 60 40 Balance 1090 1060 Intake: Intake, IV Titration 1050 1100 Amount Dextrose 5%-0.9% NaCl 1, 800 900 000 ml @ 100 mls/hr IV . Q10H [facility] Rx#:[id number] Fluconazole in NaCl,Iso- 50 Osm 100 mg In Saline 1 50ml.bag @ 50 mls/hr IVPB DAILY@1200 [facility] Rx#: [id number] Piperacillin-Tazobactam 3 100 100 .375 gm In Sodium Chloride 0.9% 100 ml @ 25 mls/hr IVPB Q8HR [facility] Rx# :[id number] metroNIDAZOLE-NS PMX 500 100 100 mg In Saline 1 100ml.bag @ 100 mls/hr IVPB Q6HR [facility] Rx#:[id number] Oral 100 Output: Drainage 60 40 Abdomen 60 40 Other: Voiding Method Indwelling Catheter Toilet # Voids 2 - Exam Abdomen: Soft, nondistended, mild upper abdominal tenderness, drain serosanguineous - Labs CBC & Chem 7: 02/02/20 06:19 02/02/20 06:19 Labs: Microbiology - Last 24 Hours (Table) 01/31/20 18:30 Urine Culture - Final Urine,Voided Escherichia coli Assessment and Plan (1) Pneumoperitoneum Narrative/Plan: Patient appears more nauseated today. Will change to nothing by mouth for now. May require TPN. Consider PICC line placement on Wednesday. Continue antibiotics. Current Visit: Yes Status: Acute Code(s): K66.8 - OTHER SPECIFIED DISORDERS OF PERITONEUM SNOMED Code(s): 03296353
[2020-02-03] MEDS: FLUCONAZOLE IN NACL,ISO-OSM 100 MG in SALINE 1 50ML.BAG IVPB SCH (11:52)
[2020-02-03] MEDS ORDERED: HYDROmorphone 1 MG/ML 1 ML SYRINGE IVP PRN (13:07)
[2020-02-03] MEDS: KETOROLAC 30 MG/ML 1 ML VIAL IVP SCH ×2 (13:23→17:39)
[2020-02-03 14:15] LABS: Basophils % (A) 0 %; Eosinophils # (A) 0.1 k/uL (0-0.7); Eosinophils % (A) 3 %; HCT 34.2 % (34.0-46.0); Hypochromasia Slight; Lymphocytes # (A) 0.9 k/uL (1.0-4.8); Lymphocytes % (A) 24 %; MCH 31.7 pg (25.0-35.0); MCHC 32.2 g/dL (31.0-37.0); MCV 98.7 fL (80.0-100.0); Mean Platelet Volume 8.3; Monocytes # (A) 0.2 k/uL (0-1.0); Monocytes % (A) 6 %; Neutrophils # (A) 2.3 k/uL (1.3-7.7); Neutrophils % (A) 64 %; Platelet Count 160 k/uL (150-450); RBC 3.47 m/uL (3.80-5.40); WBC 3.5 k/uL (3.8-10.6)
[2020-02-03] MEDS: ACETAMINOPHEN IV (For NPO) 1,000 MG in EMPTY BAG 1 BAG IVPB SCH ×2 (15:41→20:57)
[2020-02-03 15:53] LABS: ALT 38 U/L (4-34); AST 61 U/L (14-36); African American GFR (CKD) >90 (>60 ml/min/1.73 sqM); Albumin 2.8 g/dL (3.5-5.0); Alkaline Phosphatase 105 U/L (38-126); Anion Gap 3 mmol/L; Blood Urea Nitrogen 12 mg/dL (7-17); Calcium 8.1 mg/dL (8.4-10.2); Carbon Dioxide 27 mmol/L (22-30); Chloride 109 mmol/L (98-107); Glucose 116 mg/dL (74-99); Non-African American GFR(CKD) >90 (>60 ml/min/1.73 sqM); Potassium 3.5 mmol/L (3.5-5.1); Sodium 139 mmol/L (137-145); Total Bilirubin 0.3 mg/dL (0.2-1.3)
[2020-02-03] MEDS: METOCLOPRAMIDE 5 MG/ML 2 ML VIAL IVP SCH ×2 (17:40→23:28)
--- NOTE | 2020-02-03 18:52 | PN ---
PROGRESS NOTE DATE OF SERVICE: 02/03/2020 This 69-year-old woman who was admitted with possible perforated gastrojejunal anastomosis, had laparoscopic exploration and as well as lavage and JASSI drain incision by Dr. Travis. The patient had a methylene blue test yesterday which showed no leakage. However, today the patient was complaining of nausea. Dr. Newell is following the patient closely from the surgical point of view. There is no history of fever, rigors or chills. PAST MEDICAL HISTORY: Reviewed. REVIEW OF SYSTEMS: CARDIOVASCULAR SYSTEM: No angina or palpitations. RESPIRATION: No cough, hemoptysis. GI as mentioned earlier. CURRENT MEDICATIONS: Reviewed and include: 1. Tylenol p.r.n. 3. Lovenox 30 mg subcu. 4. Fluconazole daily. 5. Dilaudid p.r.n. 6. Toradol. 7. Reglan. 8. Flagyl. 9. Narcan. 10.Zofran. 11.Protonix. 12.Zosyn. PHYSICAL EXAM: Patient is alert, oriented x3. The pulse is 56. Blood pressure 170/92, respiration 16, temperature 97.8. Pulse ox 100 percent on room air. HEENT: Conjunctivae normal. NECK: No JVD. CARDIOVASCULAR: S1, S2 muffled. RESPIRATORY: Breath sounds diminished in the bases. No rhonchi. No crackles. ABDOMEN: Soft, mild diffuse discomfort. No guarding. No rigidity. No mass palpable. Bowel sounds diminished. No ascites. LEGS: No edema. No swelling. NERVOUS SYSTEM: No focal deficits. LABS: WBC 3.2, hemoglobin is 11. ASSESSMENT: 1. Possible perforated gastrojejunal anastomosis, status post laparoscopic exploration and peritoneal lavage and JASSI drain insertion and adhesiolysis. 2. 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 3. Possible acute urinary tract infection present on admission. 4. Mild leukopenia. 5. Persistent nausea. 6. Anemia. 7. Mild thrombocytopenia. 8. History of hypertension. 9. Hiatal hernia. 10.History of frequent urinary tract infection. 11.History of dysphagia. 12.History of bariatric surgery. 13.History of cholecystectomy. 14.History of degenerative joint disease. 15.Anemia, normocytic anemia of chronic disease. 16.FULL CODE. RECOMMENDATIONS AND DISCUSSION: I recommend to continue current medications, management and symptomatic treatment. Continue Protonix. Continue empiric antibiotics. Closely follow with surgery. We will repeat counts and the patient is on n.p.o. N.p.o. at this time. Guarded prognosis. Further recommendations to follow. Follow closely with surgery. CAREYL / IJN: [id number] / MTDD
[2020-02-04] MEDS: KETOROLAC 30 MG/ML 1 ML VIAL IVP SCH ×5 (00:28→23:18)
[2020-02-04] MEDS: PIPERACILLIN-TAZOBACTAM 3.375 GM in SODIUM CHLORIDE 0.9% 100 ML IVPB SCH ×3 (00:30→16:17)
[2020-02-04] MEDS: ACETAMINOPHEN IV (For NPO) 1,000 MG in EMPTY BAG 1 BAG IVPB SCH ×3 (03:37→21:18)
[2020-02-04] MEDS: DEXTROSE 5%-0.9% NACL 1,000 ML IV SCH ×3 (03:49→17:28)
[2020-02-04] MEDS: ONDANSETRON 4 MG/2 ML VIAL IVP PRN ×2 (04:30→09:33)
[2020-02-04] MEDS: metroNIDAZOLE-NS PMX 500 MG in SALINE 1 100ML.BAG IVPB SCH ×4 (05:55→23:19)
[2020-02-04] MEDS: METOCLOPRAMIDE 5 MG/ML 2 ML VIAL IVP SCH ×3 (05:55→17:20)
[2020-02-04 07:12] LABS: Basophils % (A) 1 %; Eosinophils # (A) 0.1 k/uL (0-0.7); Eosinophils % (A) 3 %; HCT 35.6 % (34.0-46.0); HGB 11.3 gm/dL (11.4-16.0); Hypochromasia Slight; Lymphocytes # (A) 0.9 k/uL (1.0-4.8); Lymphocytes % (A) 25 %; MCH 31.5 pg (25.0-35.0); MCHC 31.9 g/dL (31.0-37.0); Mean Platelet Volume 7.9; Monocytes # (A) 0.2 k/uL (0-1.0); Monocytes % (A) 4 %; Neutrophils # (A) 2.3 k/uL (1.3-7.7); Neutrophils % (A) 65 %; Platelet Count 188 k/uL (150-450); RBC 3.59 m/uL (3.80-5.40); RDW 13.2 % (11.5-15.5); WBC 3.5 k/uL (3.8-10.6)
[2020-02-04 07:21] LABS: African American GFR (CKD) >90 (>60 ml/min/1.73 sqM); Anion Gap 6 mmol/L; Blood Urea Nitrogen 10 mg/dL (7-17); Calcium 8.4 mg/dL (8.4-10.2); Carbon Dioxide 26 mmol/L (22-30); Chloride 108 mmol/L (98-107); Glucose 108 mg/dL (74-99); Non-African American GFR(CKD) >90 (>60 ml/min/1.73 sqM); Potassium 3.6 mmol/L (3.5-5.1); Sodium 140 mmol/L (137-145)
[2020-02-04] MEDS: ENOXAPARIN 30 MG/0.3 ML SYRINGE SQ SCH (07:28)
[2020-02-04] MEDS: PANTOPRAZOLE 40 MG/10 ML VIAL IVP SCH ×2 (07:28→21:29)
[2020-02-04] MEDS ORDERED: DEXAMETHASONE SOD PHOSPHATE 4 MG/ML 1 ML VIAL IV STA (11:58)
--- NOTE | 2020-02-04 12:01 | P.PN ---
Subjective Progress Note Date: 02/04/20 Principal diagnosis: Anastomotic leak Patient's pain has improved. Still having frequent episodes of nausea with dry heaves. Patient believes the nausea was exacerbated yesterday by her narcotic use. Pain improved with less dry heaves. She is afebrile. White blood cell count normal. No tachycardia. Remains nothing by mouth. Objective - Vital Signs Vital signs: Vital Signs Temp 98.3 F 02/04/20 05:00 Pulse 62 02/04/20 05:00 Resp 12 02/04/20 05:00 BP 166/88 02/04/20 05:00 Pulse Ox 98 02/04/20 05:00 Intake & Output 02/03/20 02/04/20 02/04/20 18:59 06:59 18:59 Intake Total 650 900 Output Total 160 65 50 Balance 490 835 -50 Intake: Intake, IV Titration 650 900 Amount Dextrose 5%-0.9% NaCl 1, 550 900 000 ml @ 100 mls/hr IV . Q10H [facility] Rx#:[id number] Piperacillin-Tazobactam 3 100 .375 gm In Sodium Chloride 0.9% 100 ml @ 25 mls/hr IVPB Q8HR [facility] Rx# :[id number] Output: Drainage 160 65 50 Abdomen 160 65 50 Other: Voiding Method Toilet # Voids 1 - Exam Abdomen: Soft, nondistended, mild tenderness, drain serosanguineous - Labs CBC & Chem 7: 02/04/20 06:22 02/04/20 06:22 Labs: Abnormal Lab Results - Last 24 Hours (Table) 02/03/20 02/03/20 02/04/20 Range/Units 13:58 15:23 06:22 WBC 3.5 L 3.5 L (3.8-10.6) k/uL RBC 3.47 L 3.59 L (3.80-5.40) m/uL Hgb 11.0 L 11.3 L (11.4-16.0) gm/dL Lymphocytes # 0.9 L 0.9 L (1.0-4.8) k/uL Chloride 109 H (98-107) mmol/L Creatinine 0.48 L (0.52-1.04) mg/dL Glucose 116 H (74-99) mg/dL Calcium 8.1 L (8.4-10.2) mg/dL AST 61 H (14-36) U/L ALT 38 H (4-34) U/L Total Protein 5.0 L (6.3-8.2) g/dL Albumin 2.8 L (3.5-5.0) g/dL 02/04/20 Range/Units 06:22 WBC (3.8-10.6) k/uL RBC (3.80-5.40) m/uL Hgb (11.4-16.0) gm/dL Lymphocytes # (1.0-4.8) k/uL Chloride 108 H (98-107) mmol/L Creatinine 0.49 L (0.52-1.04) mg/dL Glucose 108 H (74-99) mg/dL Calcium (8.4-10.2) mg/dL AST (14-36) U/L ALT (4-34) U/L Total Protein (6.3-8.2) g/dL Albumin (3.5-5.0) g/dL Assessment and Plan (1) Pneumoperitoneum Narrative/Plan: Patient likely with edema at the anastomotic site resulting in further obstructive symptoms. Will provide one dose of Decadron and IV. Keep nothing by mouth. Consult interventional radiology for PICC line tomorrow. Begin TPN following that. Continue antibiotics. Current Visit: Yes Status: Acute Code(s): K66.8 - OTHER SPECIFIED DISORDERS OF PERITONEUM SNOMED Code(s): 27084895
[2020-02-04 12:54] VITALS: BMI 32.1
[2020-02-04] MEDS: FLUCONAZOLE IN NACL,ISO-OSM 100 MG in SALINE 1 50ML.BAG IVPB SCH (14:00)
[2020-02-04] MEDS: amLODIPine 10 MG TAB PO SCH (16:17)
--- NOTE | 2020-02-04 16:32 | XR ---
EXAMINATION TYPE: XR chest 1V portable DATE OF EXAM: 02/04/2020 COMPARISON: 01/31/2020 HISTORY: Short of breath. Chest pain. TECHNIQUE: Single view. FINDINGS: There is no heart failure nor confluent pneumonic infiltrate. Costophrenic angles are clear. Bony tho rax is intact IMPRESSION: No active cardiopulmonary disease. There is clearing of pneumoperitoneum compared to old exam.
--- NOTE | 2020-02-04 17:28 | PN ---
PROGRESS NOTE DATE OF SERVICE: 02/04/2020 This 69-year-old woman who was admitted with possible perforated gastric anastomosis is being closely monitored. Patient is n.p.o. at this time. Dr. Newell is following the patient closely. Dr. Newell is also planning PICC line and possible started TPN. PAST MEDICAL HISTORY: Reviewed. REVIEW OF SYSTEMS: Cardiovascular system: No angina or palpitations. Respiration as mentioned earlier. GASTROINTESTINAL: As mentioned earlier. no dysuria. No retention. CENTRAL NERVOUS SYSTEM: No numbness or weakness. CURRENT MEDICATIONS: Reviewed and include: 1. Lovenox 30 mg subcu b.i.d. 2. Fluconazole. 3. Dilaudid 1 mg IV b.i.d. 4. Toradol 15 mg q.6h. 5. Reglan 10 mg q.6h. 6. Flagyl. 7. Narcan. 8. Zofran. 9. Protonix 40 mg IV b.i.d. 10.Zosyn 3.375 IV q.8. PHYSICAL EXAMINATION: Patient is alert and oriented times three. Pulse 58, blood pressure 197/84, respirations 16, temperature 98.4, pulse ox 98% on room air. HEENT: Conjunctivae normal. NECK: No JVD. CARDIOVASCULAR: S1, S2 muffled. RESPIRATORY: Breath sounds diminished in the bases. Bilateral scattered rhonchi and crackles. ABDOMEN: Soft, nontender. LEGS are no edema, no swelling. CENTRAL NERVOUS SYSTEM: No focal deficits. LABS: At this time shows WBC 3.5, hemoglobin 11.34. Sodium 140, potassium 4.6. ASSESSMENT: 1. Possible perforated gastric anastomosis status post laparoscopic exploration and peritoneal watch with JASSI drain insertion adhesiolysis. 2. History of balloon dilatation of the chronic stricture. 3. Possible acute urinary tract infection present on admission. 4. Mild leukopenia. 5. Persistent nausea. 6. Hypertension. 7. Anemia. 8. Thrombocytopenia. 9. Hiatal hernia. 10.History of frequent urinary tract infections. 11.History of dysphagia. 12.History of bariatric surgery. 13.History of cholecystectomy. 14.History of degenerative joint disease. 15.History of anemia, normocytic anemia of chronic disease. 16.FULL CODE. RECOMMENDATIONS AND DISCUSSION: This 69-year-old woman who presented with multiple complex medical issues, we will monitor the patient closely. Continue the current medications, management and symptomatic treatment. I would recommend repeat chest x-ray because the patient is having some cough. I would also recommend add Norvasc to the current regimen. Monitor blood pressure closely. Otherwise, further recommendations to follow. We will evaluate chest x-ray for any evidence of fluid overload or any other pathology. We will cut down the fluid to 60 mL/hour. MMODL / IJN: [id number] / MTDD
[2020-02-05] MEDS: METOCLOPRAMIDE 5 MG/ML 2 ML VIAL IVP SCH ×4 (00:46→17:37)
[2020-02-05] MEDS: PIPERACILLIN-TAZOBACTAM 3.375 GM in SODIUM CHLORIDE 0.9% 100 ML IVPB SCH ×3 (00:46→17:25)
[2020-02-05] MEDS: ACETAMINOPHEN IV (For NPO) 1,000 MG in EMPTY BAG 1 BAG IVPB SCH ×3 (03:51→15:58)
[2020-02-05] MEDS: DEXTROSE 5%-0.9% NACL 1,000 ML IV SCH (05:41)
[2020-02-05] MEDS: KETOROLAC 30 MG/ML 1 ML VIAL IVP SCH (05:42)
[2020-02-05] MEDS: metroNIDAZOLE-NS PMX 500 MG in SALINE 1 100ML.BAG IVPB SCH ×3 (05:43→18:10)
[2020-02-05 06:52] LABS: Basophils % (A) 0 %; Eosinophils % (A) 0 %; HCT 35.6 % (34.0-46.0); HGB 11.2 gm/dL (11.4-16.0); Lymphocytes # (A) 0.9 k/uL (1.0-4.8); Lymphocytes % (A) 23 %; MCH 30.6 pg (25.0-35.0); MCHC 31.5 g/dL (31.0-37.0); MCV 97.1 fL (80.0-100.0); Mean Platelet Volume 7.8; Monocytes # (A) 0.2 k/uL (0-1.0); Monocytes % (A) 6 %; Neutrophils # (A) 2.6 k/uL (1.3-7.7); Neutrophils % (A) 69 %; Platelet Count 192 k/uL (150-450); RBC 3.67 m/uL (3.80-5.40); WBC 3.7 k/uL (3.8-10.6)
[2020-02-05 06:55] LABS: INR 1.2 (<1.2); Prothrombin Time 11.8 sec (9.0-12.0)
[2020-02-05 07:20] LABS: African American GFR (CKD) >90 (>60 ml/min/1.73 sqM); Anion Gap 6 mmol/L; Blood Urea Nitrogen 6 mg/dL (7-17); Calcium 8.5 mg/dL (8.4-10.2); Carbon Dioxide 27 mmol/L (22-30); Chloride 106 mmol/L (98-107); Glucose 112 mg/dL (74-99); Non-African American GFR(CKD) >90 (>60 ml/min/1.73 sqM); Potassium 3.3 mmol/L (3.5-5.1); Sodium 139 mmol/L (137-145)
[2020-02-05] MEDS: amLODIPine 10 MG TAB PO SCH (08:29)
[2020-02-05] MEDS: ENOXAPARIN 30 MG/0.3 ML SYRINGE SQ SCH (08:29)
[2020-02-05] MEDS: PANTOPRAZOLE 40 MG/10 ML VIAL IVP SCH ×2 (08:29→21:11)
[2020-02-05] MEDS ORDERED: LIDOCAINE 1% INJ 10MG/ML (20 ML MDV) SQ ONE (10:10)
[2020-02-05] MEDS: POTASSIUM CHLORIDE 20 MEQ in WATER FOR INJECTION 1 100ML.BAG IVPB SCH ×2 (11:22→13:40)
--- NOTE | 2020-02-05 11:37 | IR ---
PICC LINE PLACEMENT: HISTORY: Infection requiring long-term antibiotic therapy PROCEDURE: Ultrasound and fluoroscopic guidance of PICC line placement. COMPLICATIONS: None ANESTHESIA: 1. 1% Lidocaine locally. FINDINGS/TECHNIQUE: The procedure was explained to the patient. The risks, complications, benefits and alternatives were discussed and any questions were answered. Informed consent was obtained. The patient was placed supine on the fluoroscopic table and prepped and draped in the usual sterile fash ion. Utilizing a 21 gauge needle and sonographic and fluoroscopic guidance, access in the left basi lic vein was achieved and there is placement of a 0.018 guidewire. The vein is patent. A 4-F sheath was placed over the guidewire. The guidewire and dilator were removed and a 4-F. PICC line was plac ed through the sheath with the tip at the level of the SVC. The sheath was removed, the catheter was flushed and sutured into position. The patient was stable throughout the procedure and remained sta ble upon discharge from the Department of Radiology. The vein puncture was patent under ultrasound. A recinos scale image was obtained to document patency of the vein punctured. All elements of the maximal barrier technique were utilized. FLUOROSCOPY TIME: 0.1 minutes and one image submitted IMPRESSION: Successful PICC line placement under ultrasound and fluoroscopic guidance.
--- NOTE | 2020-02-05 12:41 | P.PN ---
Subjective Progress Note Date: 02/05/20 CHIEF COMPLAINT: Esophageal obstruction HISTORY OF PRESENT ILLNESS: Patient is status post robotic-assisted laparoscopic exploration of gastrojejunal perforation with lysis of adhesions performed on 02/01/2020. Patient denies any further nausea or vomiting. She believes this was related to her morphine. She received PICC line today and is due to start TPN. PHYSICAL EXAM: VITAL SIGNS: Reviewed. GENERAL: Well-developed in no acute distress. HEENT: No sclera icterus. Extraocular movements grossly intact. Moist buccal mucosa. Head is atraumatic, normocephalic. ABDOMEN: Soft. Nondistended. Nontender. Surgical sites clean dry intact. JASSI with serous drainage. NEUROLOGIC: Alert and oriented. Cranial nerves II through XII grossly intact. ASSESSMENT: 1. Pneumoperitoneum, status post robotic-assisted laparoscopic exploration of gastrojejunal perforation with lysis of adhesions PLAN: -Patient received PICC line today. Continue NPO status. TPN to begin today -Pain control -Activity as tolerated -Patient will be re-evaluated by Dr. Nobles this afternoon Nurse practitioner note has been reviewed by physician. Signing provider agrees with the documented findings, assessment, and plan of care. Objective - Vital Signs Vital signs: Vital Signs Temp 98.4 F 02/05/20 12:24 Pulse 57 L 02/05/20 05:00 Resp 16 02/05/20 12:24 BP 143/78 02/05/20 12:24 Pulse Ox 99 02/05/20 12:24 Intake & Output 02/04/20 02/05/20 02/05/20 18:59 06:59 18:59 Intake Total 1050 740 Output Total 80 25 Balance 970 715 Weight 77 kg Intake: Intake, IV Titration 1050 740 Amount Dextrose 5%-0.9% NaCl 1, 800 540 000 ml @ 60 mls/hr IV . [id number] [facility] Rx#:[id number] Fluconazole in NaCl,Iso- 50 Osm 100 mg In Saline 1 50ml.bag @ 50 mls/hr IVPB DAILY@1200 [facility] Rx#: [id number] Piperacillin-Tazobactam 3 100 100 .375 gm In Sodium Chloride 0.9% 100 ml @ 25 mls/hr IVPB Q8HR [facility] Rx# :[id number] metroNIDAZOLE-NS PMX 500 100 100 mg In Saline 1 100ml.bag @ 100 mls/hr IVPB Q6HR [facility] Rx#:[id number] Output: Drainage 80 25 Abdomen 80 25 Other: Voiding Method Toilet Toilet # Voids 1 - Labs CBC & Chem 7: 02/05/20 06:26 02/05/20 06:26 Labs: Abnormal Lab Results - Last 24 Hours (Table) 02/05/20 02/05/20 02/05/20 Range/Units 06:26 06:26 06:26 WBC 3.7 L (3.8-10.6) k/uL RBC 3.67 L (3.80-5.40) m/uL Hgb 11.2 L (11.4-16.0) gm/dL Lymphocytes # 0.9 L (1.0-4.8) k/uL INR 1.2 H (<1.2) Potassium 3.3 L (3.5-5.1) mmol/L BUN 6 L (7-17) mg/dL Creatinine 0.49 L (0.52-1.04) mg/dL Glucose 112 H (74-99) mg/dL
[2020-02-05 13:38] LABS: Magnesium 1.5 mg/dL (1.6-2.3); Phosphorus 2.7 mg/dL (2.5-4.5)
[2020-02-05] MEDS: FLUCONAZOLE IN NACL,ISO-OSM 100 MG in SALINE 1 50ML.BAG IVPB SCH (13:40)
--- NOTE | 2020-02-05 14:35 | P.PN ---
Subjective Progress Note Date: 02/05/20 Principal diagnosis: This is a 69-year-old female who was recently admitted with possible perforated gastric anastomosis and is being closely monitored. Dr. Newell is following the patient closely although will be transferred to Dr. Nobles this afternoon. Patient received a PICC line today and awaiting initiation of TPN. Patient to remain nothing by mouth at this time. Patient's urine culture finalized showing E. coli and patient remains on IV antibiotics in the form of metronidazole, Zosyn, and Diflucan and will continue at this time. Patient's potassium is 3.3 today and will be replaced. Will repeat a.m. labs. Repeat chest x-ray yesterday shows no active cardiopulmonary disease along with clearing of the pneumoperitoneum compared to old exam. Review of systems: Constitutional: No reports of fevers or chills Cardiovascular: No reports of chest pain or palpitations Respiratory: No reports of shortness of breath or cough GI: No reports of nausea, vomiting, or diarrhea : No reports of dysuria or retention Neurological: No reports of weakness or numbness Active Medications Amlodipine Besylate (Norvasc) 10 mg PO DAILY [facility] Last Admin: 02/05/20 08:29 Dose: 10 mg Documented by: Enoxaparin Sodium (Lovenox) 40 mg SQ DAILY [facility] Hydromorphone HCl (Dilaudid) 1 mg IVP Q2HR PRN PRN Reason: Pain Fluconazole/Sodium Chloride (100 mg/ IV Solution) 50 mls @ 50 mls/hr IVPB DAILY@1200 [facility] Last Admin: 02/05/20 13:40 Dose: 50 mls/hr Documented by: Metronidazole 500 mg/ IV (Solution) 100 mls @ 100 mls/hr IVPB Q6HR [facility] Last Admin: 02/05/20 12:00 Dose: 100 mls/hr Documented by: Piperacillin Sod/Tazobactam (Sod 3.375 gm/ Sodium Chloride) 100 mls @ 25 mls/hr IVPB Q8HR [facility] Last Admin: 02/05/20 08:35 Dose: 25 mls/hr Documented by: Acetaminophen 1,000 mg/ IV (Solution) 100 mls @ 400 mls/hr IVPB Q6H [facility] Stop: 02/05/20 15:14 Last Admin: 02/05/20 08:26 Dose: 400 mls/hr Documented by: Potassium Chloride/Dextrose/Sod Cl (D5%-Ns-Kcl 40 Meq/L Iv Solution) 1,000 mls @ 60 mls/hr IV .[id number] [facility] Potassium Chloride 20 meq/ IV (Solution) 100 mls @ 50 mls/hr IVPB Q2H [facility] Stop: 02/05/20 14:59 Last Admin: 02/05/20 13:40 Dose: 50 mls/hr Documented by: Magnesium Sulfate/Dextrose 1 (gm/ IV Solution) 100 mls @ 100 mls/hr IVPB Q1H [facility] Stop: 02/05/20 15:44 Fat Emulsion Intravenous 250 (ml/ IV Solution) 250 mls @ 21 mls/hr IV [id number] [facility] Parenteral Vitamin Supplement 10 ml/ Chromium/Copper/Manganese/Seleni/Zn 1 ml/Amino Ac/Electrol/Dextrose/Calcium 1,011 mls @ 50 mls/hr IV .[id number] [facility] Stop: 02/06/20 11:13 Parenteral Vitamin Supplement 10 ml/ Chromium/Copper/Manganese/Seleni/Zn 1 ml/Amino Ac/Electrol/Dextrose/Calcium 1,011 mls @ 75 mls/hr IV .BY DURATION [facility] Amino Ac/Electrol/Dextrose/Calcium (Clinimix E 4.25%-D10% Solution) 1,000 mls @ 75 mls/hr IV .BY DURATION [facility] Metoclopramide HCl (Reglan) 10 mg IVP Q6HR [facility] Last Admin: 02/05/20 12:00 Dose: 10 mg Documented by: Miscellaneous Information (Potassium Per Protocol) 1 each MISCELLANE DAILY PRN; Protocol PRN Reason: Per Protocol Morphine Sulfate (Morphine Sulfate (Inj)) 4 mg IVP Q2HR PRN PRN Reason: Pain Last Admin: 02/03/20 12:15 Dose: 4 mg Documented by: Naloxone HCl (Narcan) 0.2 mg IV Q2M PRN PRN Reason: Opioid Reversal Ondansetron HCl (Zofran) 4 mg IVP Q6HR PRN PRN Reason: Nausea And Vomiting Last Admin: 02/04/20 09:33 Dose: 4 mg Documented by: Pantoprazole Sodium (Protonix) 40 mg IVP BID [facility] Last Admin: 02/05/20 08:29 Dose: 40 mg Documented by: Objective - Vital Signs Vital signs: Vital Signs Temp 98.4 F 02/05/20 12:24 Pulse 57 L 02/05/20 05:00 Resp 16 02/05/20 12:24 BP 143/78 02/05/20 12:24 Pulse Ox 99 02/05/20 12:24 Intake & Output 02/04/20 02/05/20 02/05/20 18:59 06:59 18:59 Intake Total 1050 740 Output Total 80 25 Balance 970 715 Weight 77 kg 77 kg Intake: Intake, IV Titration 1050 740 Amount Dextrose 5%-0.9% NaCl 1, 800 540 000 ml @ 60 mls/hr IV . [id number] [facility] Rx#:[id number] Fluconazole in NaCl,Iso- 50 Osm 100 mg In Saline 1 50ml.bag @ 50 mls/hr IVPB DAILY@1200 [facility] Rx#: [id number] Piperacillin-Tazobactam 3 100 100 .375 gm In Sodium Chloride 0.9% 100 ml @ 25 mls/hr IVPB Q8HR [facility] Rx# :[id number] metroNIDAZOLE-NS PMX 500 100 100 mg In Saline 1 100ml.bag @ 100 mls/hr IVPB Q6HR [facility] Rx#:[id number] Output: Drainage 80 25 Abdomen 80 25 Other: Voiding Method Toilet Toilet # Voids 1 - Exam Gen: This is a 69-year-old female sitting up in bed, awake, alert and oriented 3 well-developed, well-nourished. Temp is 98.4F, pulse is 57, respirations are 16, blood pressure is 143/78, oxygen saturation is 99% on room air. HEENT: Head is atraumatic, normocephalic. Pupils equal, round. Sclerae is anicteric. NECK: Supple. No JVD. No lymphadenopathy. No thyromegaly. LUNGS: Breath sounds diminished at the bases with a few scattered rhonchi and crackles noted. No intercostal retractions. HEART: S1, S2 are muffled ABDOMEN: Soft. No tenderness. EXTREMITIES: No pedal edema. No calf tenderness. NEUROLOGICAL: Patient is awake, alert and oriented x3. Cranial nerves 2 through 12 are grossly intact. - Labs CBC & Chem 7: 02/05/20 06:26 02/05/20 06:26 Labs: Abnormal Lab Results - Last 24 Hours (Table) 02/05/20 02/05/20 02/05/20 Range/Units 06:26 06:26 06:26 WBC 3.7 L (3.8-10.6) k/uL RBC 3.67 L (3.80-5.40) m/uL Hgb 11.2 L (11.4-16.0) gm/dL Lymphocytes # 0.9 L (1.0-4.8) k/uL INR 1.2 H (<1.2) Potassium 3.3 L (3.5-5.1) mmol/L BUN 6 L (7-17) mg/dL Creatinine 0.49 L (0.52-1.04) mg/dL Glucose 112 H (74-99) mg/dL Magnesium (1.6-2.3) mg/dL 02/05/20 Range/Units 06:26 WBC (3.8-10.6) k/uL RBC (3.80-5.40) m/uL Hgb (11.4-16.0) gm/dL Lymphocytes # (1.0-4.8) k/uL INR (<1.2) Potassium (3.5-5.1) mmol/L BUN (7-17) mg/dL Creatinine (0.52-1.04) mg/dL Glucose (74-99) mg/dL Magnesium 1.5 L (1.6-2.3) mg/dL Assessment and Plan Assessment: Possible perforated gastric anastomosis status post laparoscopic exploration and peritoneal watch with JASSI drain insertion adhesiolysis History of balloon dilatation of the chronic esophageal stricture Possible acute urinary tract infection, present on admission E. coli in the urine culture Mild leukopenia Persistent nausea Hypertension Anemia Thrombocytopenia Hiatal hernia History of frequent urinary tract infections history of dysphagia history of bariatric surgery History of cholecystectomy History of degenerative joint disease History of anemia, normocytic anemia of chronic disease Full code Recommendations and discussion: Recommend to continue current medications, management, and symptomatic treatment. Will continue to follow along closely with surgery. Norvasc initiated for hypertension. Will continue to monitor vital signs and labs closely. Continue with gentle IV hydration. Patient is continued on nothing by mouth and will initiate TPN today. Patient received her PICC line today. Will replace potassium and magnesium with repeat labs in the a.m. Due to multiple complex medical issues, prognosis is guarded. Further recommendations to follow.
[2020-02-05] MEDS ORDERED: MVI, ADULT NO.4 WITH VIT K 10 ML, TRACE (CONC-1ML/DOSE) 1 ML in AMINO ACID 4.25%-D10W+L... IV ONE ×3 (15:00)
[2020-02-05] MEDS: MAGNESIUM SULFATE-D5W PMX 1 GM in DEXTROSE/WATER 1 100ML.BAG IVPB SCH ×2 (15:42→17:24)
[2020-02-05] MEDS: D5-0.9% NACL WITH KCL 40 MEQ/L 1,000 ML IV SCH (15:42)
[2020-02-05] MEDS: FAT EMULSION 20% 250 ML in EMPTY BAG 1 BAG IV SCH (16:01)
[2020-02-06] MEDS: METOCLOPRAMIDE 5 MG/ML 2 ML VIAL IVP SCH ×5 (00:06→23:51)
[2020-02-06] MEDS: metroNIDAZOLE-NS PMX 500 MG in SALINE 1 100ML.BAG IVPB SCH ×5 (00:06→23:54)
[2020-02-06] MEDS: PIPERACILLIN-TAZOBACTAM 3.375 GM in SODIUM CHLORIDE 0.9% 100 ML IVPB SCH ×4 (00:06→23:53)
[2020-02-06] MEDS: D5-0.9% NACL WITH KCL 40 MEQ/L 1,000 ML IV SCH (06:19)
[2020-02-06 06:45] LABS: Basophils % (A) 1 %; Eosinophils # (A) 0.3 k/uL (0-0.7); Eosinophils % (A) 4 %; HCT 35.3 % (34.0-46.0); HGB 11.5 gm/dL (11.4-16.0); Lymphocytes # (A) 1.3 k/uL (1.0-4.8); Lymphocytes % (A) 22 %; MCH 31.7 pg (25.0-35.0); MCHC 32.6 g/dL (31.0-37.0); MCV 97.3 fL (80.0-100.0); Mean Platelet Volume 7.4; Monocytes # (A) 0.3 k/uL (0-1.0); Monocytes % (A) 5 %; Neutrophils # (A) 3.8 k/uL (1.3-7.7); Neutrophils % (A) 68 %; Platelet Count 205 k/uL (150-450); RBC 3.62 m/uL (3.80-5.40); RDW 13.2 % (11.5-15.5); WBC 5.7 k/uL (3.8-10.6)
[2020-02-06 06:50] LABS: Ionized Calcium 4.8 mg/dL (4.5-5.3)
[2020-02-06 06:56] LABS: ALT 54 U/L (4-34); AST 93 U/L (14-36); African American GFR (CKD) >90 (>60 ml/min/1.73 sqM); Albumin 2.9 g/dL (3.5-5.0); Alkaline Phosphatase 104 U/L (38-126); Anion Gap 5 mmol/L; Blood Urea Nitrogen 7 mg/dL (7-17); Calcium 8.2 mg/dL (8.4-10.2); Carbon Dioxide 29 mmol/L (22-30); Chloride 105 mmol/L (98-107); Glucose 121 mg/dL (74-99); Magnesium 1.9 mg/dL (1.6-2.3); Non-African American GFR(CKD) >90 (>60 ml/min/1.73 sqM); Phosphorus 3.3 mg/dL (2.5-4.5); Potassium 3.6 mmol/L (3.5-5.1); Sodium 139 mmol/L (137-145); Total Bilirubin 0.3 mg/dL (0.2-1.3); Total Protein 5.2 g/dL (6.3-8.2)
[2020-02-06] MEDS: ONDANSETRON 4 MG/2 ML VIAL IVP PRN (07:51)
[2020-02-06] MEDS: amLODIPine 10 MG TAB PO SCH (07:52)
[2020-02-06] MEDS: ENOXAPARIN 40 MG/0.4 ML SYRINGE SQ SCH (07:52)
[2020-02-06] MEDS: PANTOPRAZOLE 40 MG/10 ML VIAL IVP SCH ×2 (07:52→20:39)
[2020-02-06] MEDS: 1: MVI, ADULT NO.4 WITH VIT K 10 ML, TRACE (CONC-1ML/DOSE) 1 ML in AMINO ACID 4.25%-D10W IV SCH ×6 (10:02→23:15)
--- NOTE | 2020-02-06 10:50 | P.PN ---
Subjective Progress Note Date: 02/06/20 CHIEF COMPLAINT: Esophageal obstruction HISTORY OF PRESENT ILLNESS: Patient is status post robotic-assisted laparoscopic exploration of gastrojejunal perforation with lysis of adhesions performed on 02/01/2020. Patient examined at the bedside. She denies abdominal pain. She reports some mild nausea overnight due to pain medication she received for a headache. Denies nausea this morning. TPN is infusing. PHYSICAL EXAM: VITAL SIGNS: Reviewed. GENERAL: Well-developed in no acute distress. HEENT: No sclera icterus. Extraocular movements grossly intact. Moist buccal mucosa. Head is atraumatic, normocephalic. ABDOMEN: Soft. Nondistended. Nontender. Surgical sites clean dry intact. JASSI with serous drainage. NEUROLOGIC: Alert and oriented. Cranial nerves II through XII grossly intact. ASSESSMENT: 1. Pneumoperitoneum, status post robotic-assisted laparoscopic exploration of gastrojejunal perforation with lysis of adhesions PLAN: -Continue TPN -NPO -Pain control -Activity as tolerated -UGI ordered to rule out anastomotic leak. Await results Nurse practitioner note has been reviewed by physician. Signing provider agrees with the documented findings, assessment, and plan of care. Objective - Vital Signs Vital signs: Vital Signs Temp 98.3 F 02/06/20 05:00 Pulse 60 02/06/20 07:43 Resp 17 02/06/20 07:43 BP 159/94 02/06/20 05:00 Pulse Ox 98 02/06/20 07:43 Intake & Output 02/05/20 02/06/20 02/06/20 18:59 06:59 18:59 Intake Total 780 1119 Output Total 60 110 Balance 720 1009 Weight 77 kg Intake: Intake, IV Titration 780 1119 Amount D5-0.9% NaCl with KCl 40 240 Meq/l 1,000 ml @ 60 mls/ hr IV .[id number] [facility] Rx#: [id number] Dextrose 5%-0.9% NaCl 1, 480 000 ml @ 60 mls/hr IV . [id number] [facility] Rx#:[id number] Fat Emulsion 20% 250 ml 84 In Empty Bag 1 bag @ 21 mls/hr IV [id number]@1400 [facility] Rx#:[id number] Mvi, Adult No.4 with Vit 795 K 10 ml Trace (Conc-1Ml/ Dose) 1 ml In Amino Acid 4.25%-D10w+Lytes*E* 1,000 ml @ 50 mls/hr IV . [id number] [facility] Rx#:[id number] Piperacillin-Tazobactam 3 100 .375 gm In Sodium Chloride 0.9% 100 ml @ 25 mls/hr IVPB Q8HR [facility] Rx# :[id number] Potassium Chloride 20 meq 200 In Water For Injection 1 100ml.bag @ 50 mls/hr IVPB Q2H [facility] Rx#: [id number] Oral 0 Output: Drainage 60 110 Abdomen 60 110 Other: Voiding Method Toilet Toilet Toilet # Voids 3 - Labs CBC & Chem 7: 02/06/20 06:03 02/06/20 06:03 Labs: Abnormal Lab Results - Last 24 Hours (Table) 02/05/20 02/06/20 02/06/20 Range/Units 06:26 06:03 06:03 RBC 3.62 L (3.80-5.40) m/uL Creatinine 0.48 L (0.52-1.04) mg/dL Glucose 121 H (74-99) mg/dL Calcium 8.2 L (8.4-10.2) mg/dL Magnesium 1.5 L (1.6-2.3) mg/dL AST 93 H (14-36) U/L ALT 54 H (4-34) U/L Total Protein 5.2 L (6.3-8.2) g/dL Albumin 2.9 L (3.5-5.0) g/dL
--- NOTE | 2020-02-06 11:28 | FL ---
EXAMINATION TYPE: FL UGI w esophagus DATE OF EXAM: 02/06/2020 COMPARISON: NONE HISTORY: Gastric sleeve in 2016 with revision to Danay-en-Y in November 2019 with concern for anastomo tic leak. TECHNIQUE: A single contrast UGI study is performed. Fluoroscopy time of 48 seconds and 25 fluorosco pic images saved during the examination. FINDINGS: There is delayed passage of contrast at the mildly dilated distal esophagus resulting in mild gastroe sophageal reflux. Delayed passage of contrast is due to a moderate grade stricture at the distal esop hagus and upper stomach best delineated on image 17/25. Contrast does pass into the stomach with post surgical change of a Danay-en-Y. No evidence of anastomotic leak is seen. IMPRESSION: Moderate grade stricture at the gastroesophageal junction resulting in mild dilatation of the distal esophagus and mild gastroesophageal reflux. No evidence of anastomotic leak.
[2020-02-06] MEDS: POTASSIUM CHLORIDE 10 MEQ in WATER FOR INJECTION 1 100ML.BAG IVPB SCH ×2 (12:57→14:56)
[2020-02-06] MEDS: FLUCONAZOLE IN NACL,ISO-OSM 100 MG in SALINE 1 50ML.BAG IVPB SCH (12:58)
--- NOTE | 2020-02-06 15:16 | P.PN ---
Subjective Progress Note Date: 02/06/20 Principal diagnosis: This is a 69-year-old female who was recently admitted with possible perforated gastric anastomosis and is being closely monitored. Dr. Newell is following the patient closely although will be transferred to Dr. Nobles this afternoon. Patient received a PICC line today and awaiting initiation of TPN. Patient to remain nothing by mouth at this time. Patient's urine culture finalized showing E. coli and patient remains on IV antibiotics in the form of metronidazole, Zosyn, and Diflucan and will continue at this time. Patient's potassium is 3.3 today and will be replaced. Will repeat a.m. labs. Repeat chest x-ray yesterday shows no active cardiopulmonary disease along with clearing of the pneumoperitoneum compared to old exam. Review of systems: Constitutional: No reports of fevers or chills Cardiovascular: No reports of chest pain or palpitations Respiratory: No reports of shortness of breath or cough GI: No reports of nausea, vomiting, or diarrhea : No reports of dysuria or retention Neurological: No reports of weakness or numbness 02/06/2020 Patient is seen in follow-up today and received a PICC line and has been initiated on TPN as patient has esophageal stricture. Patient awaiting to undergo an upper GI barium swallow today. Following along with surgery. No acute overnight issues. Potassium replaced and is currently 3.6 today. Patient's liver functions also slightly elevated with an AST of 93 and ALT of 54. Magnesium today is 1.9. Objective - Vital Signs Vital signs: Vital Signs Temp 98.1 F 02/06/20 11:52 Pulse 58 L 02/06/20 11:52 Resp 17 02/06/20 11:52 BP 132/85 02/06/20 11:52 Pulse Ox 99 02/06/20 11:52 Intake & Output 02/05/20 02/06/20 02/06/20 18:59 06:59 18:59 Intake Total 780 1119 950 Output Total 60 110 Balance 720 1009 950 Weight 77 kg Intake: Intake, IV Titration 780 1119 950 Amount D5-0.9% NaCl with KCl 40 240 Meq/l 1,000 ml @ 60 mls/ hr IV .[id number] [facility] Rx#: [id number] Dextrose 5%-0.9% NaCl 1, 480 000 ml @ 60 mls/hr IV . [id number] [facility] Rx#:[id number] Fat Emulsion 20% 250 ml 84 In Empty Bag 1 bag @ 21 mls/hr IV [id number]@1400 [facility] Rx#:[id number] Fluconazole in NaCl,Iso- 50 Osm 100 mg In Saline 1 50ml.bag @ 50 mls/hr IVPB DAILY@1200 [facility] Rx#: [id number] Mvi, Adult No.4 with Vit 795 K 10 ml Trace (Conc-1Ml/ Dose) 1 ml In Amino Acid 4.25%-D10w+Lytes*E* 1,000 ml @ 50 mls/hr IV . [id number] [facility] Rx#:[id number] Mvi, Adult No.4 with Vit 600 K 10 ml Trace (Conc-1Ml/ Dose) 1 ml In Amino Acid 4.25%-D10w+Lytes*E* 1,000 ml @ 75 mls/hr IV .BY DURATION [facility] Rx#: [id number] Piperacillin-Tazobactam 3 100 100 .375 gm In Sodium Chloride 0.9% 100 ml @ 25 mls/hr IVPB Q8HR [facility] Rx# :[id number] Potassium Chloride 10 meq 100 In Water For Injection 1 100ml.bag @ 100 mls/hr IVPB Q1H [facility] Rx#: [id number] Potassium Chloride 20 meq 200 In Water For Injection 1 100ml.bag @ 50 mls/hr IVPB Q2H [facility] Rx#: [id number] metroNIDAZOLE-NS PMX 500 100 mg In Saline 1 100ml.bag @ 100 mls/hr IVPB Q6HR [facility] Rx#:[id number] Oral 0 Output: Drainage 60 110 Abdomen 60 110 Other: Voiding Method Toilet Toilet Toilet # Voids 3 - Exam Gen: This is a 69-year-old female sitting up in bed, awake, alert and oriented 3 well-developed, well-nourished. HEENT: Head is atraumatic, normocephalic. Pupils equal, round. Sclerae is anicteric. NECK: Supple. No JVD. No lymphadenopathy. No thyromegaly. LUNGS: Breath sounds diminished at the bases with a few scattered rhonchi noted. No intercostal retractions. HEART: S1, S2 are muffled ABDOMEN: Soft. No tenderness. EXTREMITIES: No pedal edema. No calf tenderness. NEUROLOGICAL: Patient is awake, alert and oriented x3. Cranial nerves 2 through 12 are grossly intact. - Labs CBC & Chem 7: 02/06/20 06:03 02/06/20 06:03 Labs: Abnormal Lab Results - Last 24 Hours (Table) 02/06/20 02/06/20 Range/Units 06:03 06:03 RBC 3.62 L (3.80-5.40) m/uL Creatinine 0.48 L (0.52-1.04) mg/dL Glucose 121 H (74-99) mg/dL Calcium 8.2 L (8.4-10.2) mg/dL AST 93 H (14-36) U/L ALT 54 H (4-34) U/L Total Protein 5.2 L (6.3-8.2) g/dL Albumin 2.9 L (3.5-5.0) g/dL Assessment and Plan Assessment: Possible perforated gastric anastomosis status post laparoscopic exploration and peritoneal watch with JASSI drain insertion adhesiolysis History of balloon dilatation of the chronic esophageal stricture Possible acute urinary tract infection, present on admission E. coli in the urine culture Mild leukopenia Persistent nausea Hypertension Anemia Thrombocytopenia Hiatal hernia History of frequent urinary tract infections history of dysphagia history of bariatric surgery History of cholecystectomy History of degenerative joint disease History of anemia, normocytic anemia of chronic disease Full code Recommendations and discussion: Recommend to continue current medications, management, and symptomatic treatment. Will continue to follow along closely with surgery. [facility] [place] [facility] Will continue to monitor vital signs and labs closely. Continue with gentle IV hydration. Patient is continued on nothing by mouth TPN initiated. Patient scheduled to undergo upper GI barium swallow today. Will await report. Further recommendations to follow.
[2020-02-07] MEDS: D5-0.9% NACL WITH KCL 40 MEQ/L 1,000 ML IV SCH ×3 (01:32→21:21)
[2020-02-07] MEDS: metroNIDAZOLE-NS PMX 500 MG in SALINE 1 100ML.BAG IVPB SCH ×3 (05:45→18:01)
[2020-02-07] MEDS: METOCLOPRAMIDE 5 MG/ML 2 ML VIAL IVP SCH ×3 (05:45→18:02)
[2020-02-07 06:57] LABS: African American GFR (CKD) >90 (>60 ml/min/1.73 sqM); Anion Gap 2 mmol/L; Blood Urea Nitrogen 15 mg/dL (7-17); Calcium 8.3 mg/dL (8.4-10.2); Carbon Dioxide 29 mmol/L (22-30); Chloride 106 mmol/L (98-107); Glucose 110 mg/dL (74-99); Magnesium 1.9 mg/dL (1.6-2.3); Non-African American GFR(CKD) >90 (>60 ml/min/1.73 sqM); Potassium 4.2 mmol/L (3.5-5.1); Sodium 137 mmol/L (137-145)
[2020-02-07 07:16] LABS: Basophils % (A) 0 %; Eosinophils # (A) 0.3 k/uL (0-0.7); Eosinophils % (A) 8 %; HCT 34.5 % (34.0-46.0); HGB 11.2 gm/dL (11.4-16.0); Lymphocytes # (A) 1.3 k/uL (1.0-4.8); Lymphocytes % (A) 32 %; MCH 31.6 pg (25.0-35.0); MCHC 32.5 g/dL (31.0-37.0); MCV 97.3 fL (80.0-100.0); Mean Platelet Volume 7.8; Monocytes # (A) 0.3 k/uL (0-1.0); Monocytes % (A) 7 %; Neutrophils # (A) 2.1 k/uL (1.3-7.7); Neutrophils % (A) 51 %; Platelet Count 190 k/uL (150-450); RBC 3.54 m/uL (3.80-5.40); RDW 13.3 % (11.5-15.5)
[2020-02-07] MEDS: ENOXAPARIN 40 MG/0.4 ML SYRINGE SQ SCH (07:48)
[2020-02-07] MEDS: PIPERACILLIN-TAZOBACTAM 3.375 GM in SODIUM CHLORIDE 0.9% 100 ML IVPB SCH ×2 (07:48→19:02)
[2020-02-07] MEDS: PANTOPRAZOLE 40 MG/10 ML VIAL IVP SCH ×2 (07:49→20:50)
[2020-02-07] MEDS: amLODIPine 10 MG TAB PO SCH (07:49)
[2020-02-07] MEDS: 1: MVI, ADULT NO.4 WITH VIT K 10 ML, TRACE (CONC-1ML/DOSE) 1 ML in AMINO ACID 4.25%-D10W IV SCH ×3 (11:28)
--- NOTE | 2020-02-07 14:03 | P.PN ---
Subjective Progress Note Date: 02/07/20 Principal diagnosis: This is a 69-year-old female who was recently admitted with possible perforated gastric anastomosis and is being closely monitored. Dr. Newell is following the patient closely although will be transferred to Dr. Nobles this afternoon. Patient received a PICC line today and awaiting initiation of TPN. Patient to remain nothing by mouth at this time. Patient's urine culture finalized showing E. coli and patient remains on IV antibiotics in the form of metronidazole, Zosyn, and Diflucan and will continue at this time. Patient's potassium is 3.3 today and will be replaced. Will repeat a.m. labs. Repeat chest x-ray yesterday shows no active cardiopulmonary disease along with clearing of the pneumoperitoneum compared to old exam. Review of systems: Constitutional: No reports of fevers or chills Cardiovascular: No reports of chest pain or palpitations Respiratory: No reports of shortness of breath or cough GI: No reports of nausea, vomiting, or diarrhea : No reports of dysuria or retention Neurological: No reports of weakness or numbness 02/06/2020 Patient is seen in follow-up today and received a PICC line and has been initiated on TPN as patient has esophageal stricture. Patient awaiting to undergo an upper GI barium swallow today. Following along with surgery. No acute overnight issues. Potassium replaced and is currently 3.6 today. Patient's liver functions also slightly elevated with an AST of 93 and ALT of 54. Magnesium today is 1.9. 02/07/2020 Patient is seen in follow-up today status post upper barium swallow and patient was initiated on clear liquids and tolerating. Patient states she is unable to tolerate the cold but is tolerating warm liquids. Patient continues to have drain from previous surgery and will be having it removed by Dr. Travis tomorrow. Patient remains on TPN and will need to discuss with surgery about weaning prior to discharge. No acute overnight issues. Patient's potassium today is 4.2. No reports of nausea, vomiting, or diarrhea. No reports of chest pain, shortness of breath, or palpitations. Patient is afebrile. Objective - Vital Signs Vital signs: Vital Signs Temp 98.0 F 02/07/20 11:17 Pulse 67 02/07/20 11:17 Resp 18 02/07/20 11:17 BP 124/67 02/07/20 11:17 Pulse Ox 98 02/07/20 11:17 Intake & Output 02/06/20 02/07/20 02/07/20 18:59 06:59 18:59 Intake Total 950 1731 Output Total 110 55 Balance 840 1676 Intake: Intake, IV Titration 950 1731 Amount D5-0.9% NaCl with KCl 40 720 Meq/l 1,000 ml @ 60 mls/ hr IV .[id number] [facility] Rx#: [id number] Fluconazole in NaCl,Iso- 50 Osm 100 mg In Saline 1 50ml.bag @ 50 mls/hr IVPB DAILY@1200 [facility] Rx#: [id number] Mvi, Adult No.4 with Vit 600 1011 K 10 ml Trace (Conc-1Ml/ Dose) 1 ml In Amino Acid 4.25%-D10w+Lytes*E* 1,000 ml @ 75 mls/hr IV .BY DURATION [facility] Rx#: [id number] Piperacillin-Tazobactam 3 100 .375 gm In Sodium Chloride 0.9% 100 ml @ 25 mls/hr IVPB Q8HR [facility] Rx# :[id number] Potassium Chloride 10 meq 100 In Water For Injection 1 100ml.bag @ 100 mls/hr IVPB Q1H [facility] Rx#: [id number] metroNIDAZOLE-NS PMX 500 100 mg In Saline 1 100ml.bag @ 100 mls/hr IVPB Q6HR [facility] Rx#:[id number] Output: Drainage 110 55 Abdomen 110 55 Other: Voiding Method Toilet Toilet Toilet # Voids 2 - Exam Gen: This is a 69-year-old female sitting up in bed, awake, alert and oriented 3 well-developed, well-nourished. HEENT: Head is atraumatic, normocephalic. Pupils equal, round. Sclerae is anicteric. NECK: Supple. No JVD. No lymphadenopathy. No thyromegaly. LUNGS: Breath sounds diminished at the bases with no wheezing or rhonchi noted. No intercostal retractions. HEART: S1, S2 are muffled ABDOMEN: Soft. No tenderness. EXTREMITIES: No pedal edema. No calf tenderness. NEUROLOGICAL: Patient is awake, alert and oriented x3. Cranial nerves 2 through 12 are grossly intact. - Labs CBC & Chem 7: 02/07/20 05:33 02/07/20 05:33 Labs: Abnormal Lab Results - Last 24 Hours (Table) 02/07/20 02/07/20 Range/Units 05:33 05:33 RBC 3.54 L (3.80-5.40) m/uL Hgb 11.2 L (11.4-16.0) gm/dL Creatinine 0.51 L (0.52-1.04) mg/dL Glucose 110 H (74-99) mg/dL Calcium 8.3 L (8.4-10.2) mg/dL Assessment and Plan Assessment: Possible perforated gastric anastomosis status post laparoscopic exploration and peritoneal watch with JASSI drain insertion adhesiolysis, patient to possibly have JASSI drain removed by Dr. Sexton tomorrow History of balloon dilatation of the chronic esophageal stricture Possible acute urinary tract infection, present on admission E. coli in the urine culture Mild leukopenia Persistent nausea Hypertension Anemia Thrombocytopenia Hiatal hernia History of frequent urinary tract infections history of dysphagia history of bariatric surgery History of cholecystectomy History of degenerative joint disease History of anemia, normocytic anemia of chronic disease Full code Recommendations and discussion: Recommend to continue current medications, management, and symptomatic treatment. Will continue to follow along closely with surgery. Will continue to monitor vital signs and labs closely. Continue with gentle IV hydration. Patient is continued on clear liquids and TPN. Discussed with surgery about weaning TPN. Patient underwent upper GI barium swallow yesterday showing moderate grade stricture of the gastroesophageal junction resulting in mild dilatation of the distal esophagus and mild gastroesophageal reflux with no evidence of anastomotic leak. Further recommendations to follow.
[2020-02-07] MEDS: FLUCONAZOLE IN NACL,ISO-OSM 100 MG in SALINE 1 50ML.BAG IVPB SCH (14:27)
[2020-02-07] MEDS: FAT EMULSION 20% 250 ML in EMPTY BAG 1 BAG IV SCH (15:54)
--- NOTE | 2020-02-07 16:23 | P.PN ---
Progress Note - Text Progress Note Date: 02/07/20 The patient is resting comfortably in her bed. She denies any abdominal pain. She has been tolerating clear liquid diet. On exam her vital signs are stable. Her abdomen soft. JASSI drain has some serous drainage. The patient will continue clear liquid diet. She'll be evaluated by Dr. Asif celaya tomorrow. She may have her diet advanced tomorrow after being evaluated by Dr. Somers.
[2020-02-07] MEDS ORDERED: METOCLOPRAMIDE 5 MG/ML 2 ML VIAL ONE (23:40)
[2020-02-08] MEDS: METOCLOPRAMIDE 5 MG/ML 2 ML VIAL IVP SCH ×3 (04:34→12:34)
[2020-02-08] MEDS: metroNIDAZOLE-NS PMX 500 MG in SALINE 1 100ML.BAG IVPB SCH ×3 (04:35→12:27)
[2020-02-08] MEDS: PIPERACILLIN-TAZOBACTAM 3.375 GM in SODIUM CHLORIDE 0.9% 100 ML IVPB SCH ×2 (04:35→08:23)
[2020-02-08] MEDS: 1: MVI, ADULT NO.4 WITH VIT K 10 ML, TRACE (CONC-1ML/DOSE) 1 ML in AMINO ACID 4.25%-D10W IV SCH ×6 (04:36→12:30)
[2020-02-08 05:18] VITALS: RESP 16
[2020-02-08 07:15] LABS: African American GFR (CKD) >90 (>60 ml/min/1.73 sqM); Anion Gap 6 mmol/L; Blood Urea Nitrogen 16 mg/dL (7-17); Calcium 8.6 mg/dL (8.4-10.2); Carbon Dioxide 27 mmol/L (22-30); Chloride 105 mmol/L (98-107); Glucose 106 mg/dL (74-99); Magnesium 1.9 mg/dL (1.6-2.3); Non-African American GFR(CKD) >90 (>60 ml/min/1.73 sqM); Phosphorus 4.6 mg/dL (2.5-4.5); Potassium 4.4 mmol/L (3.5-5.1); Sodium 138 mmol/L (137-145)
[2020-02-08] MEDS: ENOXAPARIN 40 MG/0.4 ML SYRINGE SQ SCH (08:24)
[2020-02-08] MEDS: amLODIPine 10 MG TAB PO SCH (08:25)
[2020-02-08] MEDS: PANTOPRAZOLE 40 MG/10 ML VIAL IVP SCH (08:25)
[2020-02-08 12:27] VITALS: BP 130/89; PULSE 70; TEMP 98
[2020-02-08] MEDS: FLUCONAZOLE IN NACL,ISO-OSM 100 MG in SALINE 1 50ML.BAG IVPB SCH (12:47)
--- NOTE | 2020-02-08 12:50 | P.PN ---
Subjective Progress Note Date: 02/08/20 Principal diagnosis: This is a 69-year-old female who was recently admitted with possible perforated gastric anastomosis and is being closely monitored. Dr. Newell is following the patient closely although will be transferred to Dr. Nobles this afternoon. Patient received a PICC line today and awaiting initiation of TPN. Patient to remain nothing by mouth at this time. Patient's urine culture finalized showing E. coli and patient remains on IV antibiotics in the form of metronidazole, Zosyn, and Diflucan and will continue at this time. Patient's potassium is 3.3 today and will be replaced. Will repeat a.m. labs. Repeat chest x-ray yesterday shows no active cardiopulmonary disease along with clearing of the pneumoperitoneum compared to old exam. Review of systems: Constitutional: No reports of fevers or chills Cardiovascular: No reports of chest pain or palpitations Respiratory: No reports of shortness of breath or cough GI: No reports of nausea, vomiting, or diarrhea : No reports of dysuria or retention Neurological: No reports of weakness or numbness 02/06/2020 Patient is seen in follow-up today and received a PICC line and has been initiated on TPN as patient has esophageal stricture. Patient awaiting to undergo an upper GI barium swallow today. Following along with surgery. No acute overnight issues. Potassium replaced and is currently 3.6 today. Patient's liver functions also slightly elevated with an AST of 93 and ALT of 54. Magnesium today is 1.9. 02/07/2020 Patient is seen in follow-up today status post upper barium swallow and patient was initiated on clear liquids and tolerating. Patient states she is unable to tolerate the cold but is tolerating warm liquids. Patient continues to have drain from previous surgery and will be having it removed by Dr. Travis tomorrow. Patient remains on TPN and will need to discuss with surgery about weaning prior to discharge. No acute overnight issues. Patient's potassium today is 4.2. No reports of nausea, vomiting, or diarrhea. No reports of chest pain, shortness of breath, or palpitations. Patient is afebrile. 02/08/2020 Patient was seen and evaluated in follow-up today awaiting to see Dr. Travis for possible JASSI drain removal and to discuss treatment plan. Patient continues on TPN and will need weaning is being discharged. She continues on a clear liquid diet and tolerating warm liquids. Discussion of possible advancing diet. No acute overnight issues. We'll continue to follow along with surgery. Patient denies any chest pain, shortness of breath, or palpitations. Patient is afebrile. No reports of nausea or vomiting and patient is tolerating diet. Patient has been up walking around in her room with no issues. Objective - Vital Signs Vital signs: Vital Signs Temp 98.5 F 02/08/20 05:00 Pulse 66 02/08/20 05:00 Resp 16 02/08/20 05:00 BP 127/76 02/08/20 05:00 Pulse Ox 99 02/08/20 05:00 Intake & Output 02/07/20 02/08/20 02/08/20 18:59 06:59 18:59 Intake Total 1430 Output Total 50 20 Balance 1380 -20 Intake: Intake, IV Titration 1430 Amount Amino Acid 4.25%-D10w+ 600 Lytes*E* 1,000 ml @ 75 mls/hr IV .BY DURATION [facility] Rx#:[id number] D5-0.9% NaCl with KCl 40 480 Meq/l 1,000 ml @ 60 mls/ hr IV .[id number] [facility] Rx#: [id number] Fluconazole in NaCl,Iso- 50 Osm 100 mg In Saline 1 50ml.bag @ 50 mls/hr IVPB DAILY@1200 [facility] Rx#: [id number] Piperacillin-Tazobactam 3 100 .375 gm In Sodium Chloride 0.9% 100 ml @ 25 mls/hr IVPB Q8HR [facility] Rx# :[id number] metroNIDAZOLE-NS PMX 500 200 mg In Saline 1 100ml.bag @ 100 mls/hr IVPB Q6HR [facility] Rx#:[id number] Output: Drainage 50 20 Abdomen 50 20 Other: Voiding Method Toilet Toilet # Voids 3 - Exam Gen: This is a 69-year-old female sitting up at the side of the bed, awake, alert and oriented 3 well-developed, well-nourished. HEENT: Head is atraumatic, normocephalic. Pupils equal, round. Sclerae is anicteric. NECK: Supple. No JVD. No lymphadenopathy. No thyromegaly. LUNGS: Breath sounds diminished at the bases with no wheezing or rhonchi noted. No intercostal retractions. HEART: S1, S2 are muffled ABDOMEN: Soft. No tenderness. EXTREMITIES: No pedal edema. No calf tenderness. NEUROLOGICAL: Patient is awake, alert and oriented x3. Cranial nerves 2 through 12 are grossly intact. - Labs CBC & Chem 7: 02/07/20 05:33 02/08/20 06:43 Labs: Abnormal Lab Results - Last 24 Hours (Table) 02/08/20 Range/Units 06:43 Glucose 106 H (74-99) mg/dL Phosphorus 4.6 H (2.5-4.5) mg/dL Assessment and Plan Assessment: Possible perforated gastric anastomosis status post laparoscopic exploration and peritoneal watch with JASSI drain insertion adhesiolysis, patient to possibly have JASSI drain removed by Dr. Sexton today, less drainage noted in the JASSI drain History of balloon dilatation of the chronic esophageal stricture Possible acute urinary tract infection, present on admission E. coli in the urine culture Mild leukopenia Persistent nausea Hypertension Anemia Thrombocytopenia Hiatal hernia History of frequent urinary tract infections history of dysphagia history of bariatric surgery History of cholecystectomy History of degenerative joint disease History of anemia, normocytic anemia of chronic disease Full code Recommendations and discussion: Recommend to continue current medications, management, and symptomatic treatment. Will continue to follow along closely with surgery. Will continue to monitor vital signs and labs closely. Continue with gentle IV hydration. Patient is continued on clear liquids and TPN. Discussed with surgery about weaning TPN. Further recommendations to follow. Patient states she may possibly be discharged today or tomorrow awaiting surgical evaluation with Dr. Adriana Redman today.
[2020-02-08] MEDS: D5-0.9% NACL WITH KCL 40 MEQ/L 1,000 ML IV SCH (13:00)
--- NOTE | 2020-02-08 15:13 | P.DS ---
Providers Date of admission: 01/31/20 17:47 Expected date of discharge: 02/08/20 Attending physician: Mackenzie Travis Consults: 01/31/20 19:29 Consult Physician Routine Consulting Provider: Chris Dejesus Consult Reason/Comments: Medical management Do you want consulting provider notified?: Yes Primary care physician: Lilliana Vazquez MD - Discharge Diagnosis(es) (1) Gastrojejunal ulcer with perforation and obstruction Current Visit: Yes Status: Acute (2) Pneumoperitoneum Current Visit: Yes Status: Acute (3) Bariatric surgery status Current Visit: Yes Status: Acute (4) Rafia albicans infection Current Visit: Yes Status: Acute (5) UTI (urinary tract infection) Current Visit: Yes Status: Acute Hospital Course: The patient is a 69-year-old female who was admitted following gastrojejunal perforation. She was taken to the operating room where abdominal washout was performed placement of a JASSI drain. She was placed on IV antibiotics for at least 7 days to allow for repair. She had intolerance to narcotics including morphine which caused intractable nausea and vomiting. Secondary to her prolonged nothing by mouth status she was placed with PICC line for TPN. Prior to discharge, she was tolerating liquids diet. She denies any dysphagia symptoms with diet. No reports of abdominal pain. JASSI drain had minimal serous output. Diagnostic studies confirmed no evidence of leak. JASSI drain was discontinued at bedside. PICC line was discontinued at bedside. Patient was sent home with home health care services. Patient Condition at Discharge: Good Plan - Discharge Summary Discharge Rx Participant: Yes New Discharge Prescriptions: New Omeprazole [PriLOSEC] 40 mg PO BID #90 cap Acetaminophen Oral Susp [Tylenol Oral Susp] 500 mg PO Q4-6H PRN #400 ml PRN Reason: Pain Continue Oxybutynin Chloride [Ditropan XL] 10 mg PO DAILY Irbesartan/Hydrochlorothiazide [Avalide 300-12.5 mg Tablet] 0.5 tab PO DAILY Omeprazole [PriLOSEC] 40 mg PO BID #60 cap Sucralfate [Carafate] 1 gm PO BID #480 ml Ondansetron Odt [Zofran ODT] 4 mg PO Q8H PRN PRN Reason: Nausea Discontinued Acetaminophen Oral Susp [Tylenol] 650 mg PO Q4-6H PRN PRN Reason: Pain Discharge Medication List Oxybutynin Chloride [Ditropan XL] 10 mg PO DAILY 11/08/19 [History] Irbesartan/Hydrochlorothiazide [Avalide 300-12.5 mg Tablet] 0.5 tab PO DAILY 12/06/19 [History] Omeprazole [PriLOSEC] 40 mg PO BID #60 cap 12/07/19 [Rx] Sucralfate [Carafate] 1 gm PO BID #480 ml 12/20/19 [Rx] Ondansetron Odt [Zofran ODT] 4 mg PO Q8H PRN 01/31/20 [History] Acetaminophen Oral Susp [Tylenol Oral Susp] 500 mg PO Q4-6H PRN #400 ml 02/08/20 [Rx] Omeprazole [PriLOSEC] 40 mg PO BID #90 cap 02/08/20 [Rx] Follow up Appointment(s)/Referral(s): Lilliana Vazquez MD [Primary Care Provider] [facility] [place] [facility] - 02/14/20 Patient Instructions/Handouts: Esophageal Dilation (DC), Full Liquid Diet (DC) Activity/Diet/Wound Care/Special Instructions: Liquid diet. Baby food consistency Discharge Disposition: HOME WITH HOME HEALTH SERVICES
--- NOTE | 2020-02-09 13:47 | P.PN ---
Progress Note - Text Progress Note Date: 02/09/20 Called patient at home. "I am doing wonderful!" She is tolerating liquids. No abdominal pain. Follow-up at bariatric center in 1 week.
== END 2020-02-08 17:28 | disposition home health service (06) | DRG 326 ==
LOC: EC 17:24 → OBSVTOIN 17:47 → 5NMEDONC 17:47
PROVIDERS: ADMIT Surgery Plastic and Reconstructive Surgery; ATTEND Surgery Plastic and Reconstructive Surgery
PROC: 0DN84ZZ Release Small Intestine, Percutaneous Endoscopic Approach (ICD-10-PCS; principal; 2020-02-01 08:45)
PROC: 3E1M38Z Irrigation of Peritoneal Cavity using Irrigating Substance, Percutaneous Approach (ICD-10-PCS; principal; 2020-02-01 08:45)
PROC: 0DJ08ZZ Inspection of Upper Intestinal Tract, Via Natural or Artificial Opening Endoscopic (ICD-10-PCS; principal; 2020-02-01 08:45)
PROC: 0DJ04ZZ Inspection of Upper Intestinal Tract, Percutaneous Endoscopic Approach (ICD-10-PCS; principal; 2020-02-01 08:45)
PROC: 8E0W4CZ Robotic Assisted Procedure of Trunk Region, Percutaneous Endoscopic Approach (ICD-10-PCS; principal; 2020-02-01 08:45)
PROC: 02HV33Z Insertion of Infusion Device into Superior Vena Cava, Percutaneous Approach (ICD-10-PCS; 2020-02-05)
DX: K25.5 Chronic or unspecified gastric ulcer with perforation (principal); K66.1 Hemoperitoneum; R18.8 Other ascites; B37.49 Other urogenital candidiasis; M17.0 Bilateral primary osteoarthritis of knee; K66.0 Peritoneal adhesions (postprocedural) (postinfection); Z68.32 Body mass index [BMI] 32.0-32.9, adult; B96.20 Unspecified Escherichia coli [E. coli] as the cause of diseases classified elsewhere; D63.8 Anemia in other chronic diseases classified elsewhere; D69.6 Thrombocytopenia, unspecified; D72.819 Decreased white blood cell count, unspecified; E50.9 Vitamin A deficiency, unspecified; E66.01 Morbid (severe) obesity due to excess calories; I11.9 Hypertensive heart disease without heart failure; K21.9 Gastro-esophageal reflux disease without esophagitis; K22.4 Dyskinesia of esophagus; K22.2 Esophageal obstruction; K44.9 Diaphragmatic hernia without obstruction or gangrene; Z80.49 Family history of malignant neoplasm of other genital organs; Z87.11 Personal history of peptic ulcer disease; Z87.440 Personal history of urinary (tract) infections; Z87.442 Personal history of urinary calculi; Z90.49 Acquired absence of other specified parts of digestive tract; Z90.710 Acquired absence of both cervix and uterus; Z96.653 Presence of artificial knee joint, bilateral; R13.10 Dysphagia, unspecified; Z88.5 Allergy status to narcotic agent; Z88.2 Allergy status to sulfonamides; Z91.011 Allergy to milk products; Z98.84 Bariatric surgery status
CPT/HCPCS: 36415; 36573; 43245; 71045; 74018; 74240; 80048; 80053; 81001; 82330; 83690; 83735; 84100; 84478; 85025; 85027; 85610; 87077; 87086; 87186; 87635; 96361; 96374; 96375; 99285

== ENCOUNTER → 2020-01-31 | Day surgery (SDC) | payer MEDICARE, OTHER ==
[2020-01-30 09:34] VITALS: BMI 32.3
[~2020-01-31] MED LIST changes: +LIDOCAINE 1% INJ 10MG/ML (20 ML MDV) ONE; +PROPOFOL 10 MG/ML 20 ML VIAL IV ONE
[2020-01-31 07:05] VITALS: RESP 17; TEMP 97.1
--- NOTE | 2020-01-31 07:35 | P.GSHP ---
History of Present Illness H&P Date: 01/31/20 CHIEF COMPLAINT: Esophageal and gastric stricture HISTORY OF PRESENT ILLNESS: The patient is a 69-year-old female who presents reports dysphagia and with history of esophageal and gastric stricture. Upper endoscopy was offered for further evaluation and management. PAST MEDICAL HISTORY: Please see list. PAST SURGICAL HISTORY: Please see list. MEDICATIONS: Please see list. ALLERGIES: Please see list. SOCIAL HISTORY: No illicit drug use FAMILY HISTORY: No reports of Crohn disease or ulcerative colitis. REVIEW OF ORGAN SYSTEMS: CONSTITUTIONAL: No reports of fevers or chills. GI: Denies any blood in stools or constipation. PHYSICAL EXAM: VITAL SIGNS: Stable GENERAL: Well-developed and pleasant in no acute distress. HEENT: No scleral icterus. Extraocular movements grossly intact. Moist buccal mucosa. NECK: Supple without lymphadenopathy. CHEST: Unlabored respirations. Equal bilateral excursions. CARDIOVASCULAR: Regular rate and rhythm. Distal 2+ pulses. ABDOMEN: Soft, nondistended. MUSCULOSKELETAL: No clubbing, cyanosis, or edema. ASSESSMENT: 1. Esophageal stricture 2. Gastric stricture PLAN: 1. Recommend proceeding with an upper endoscopy with balloon and rigid dilators. Past Medical History Past Medical History: GERD/Reflux, Hypertension Additional Past Medical History / Comment(s): Hiatal Hernia. ,frequent UTI's, urinary incontinence, constipation, hX kidney stone with lithotripsy and stent., Dysphagia, Hx of gastric bypass., EGD with dilation 01/17/20 History of Any Multi-Drug Resistant Organisms: None Reported Past Surgical History: Bariatric Surgery, Cholecystectomy, Hernia Repair, Hysterectomy, Joint Replacement Additional Past Surgical History / Comment(s): Bilateral knee replacement, sle sangeetha gastrectomy (conversion to gastric bypass 11-13-19), hiatal hernia repair, LITHOTRIPSY WITH STENT (12/27/19), EGD with dilation 01/04/20 Past Anesthesia/Blood Transfusion Reactions: Motion Sickness, Postoperative Nausea & Vomiting (PONV) Additional Past Anesthesia/Blood Transfusion Reaction / Comment(s): Pt states "always get UTI's from mcneal catheters." Past Psychological History: No Psychological Hx Reported Smoking Status: Never smoker Past Alcohol Use History: None Reported Past Drug Use History: None Reported - Past Family History Mother Family Medical History: Cancer Additional Family Medical History / Comment(s): Uterine cancer. Medications and Allergies Home Medications Medication Instructions Recorded Confirmed Type Oxybutynin Chloride [Ditropan XL] 10 mg PO DAILY 11/08/19 01/30/20 History Irbesartan/Hydrochlorothiazide 0.5 tab PO DAILY 12/06/19 01/31/20 History [Avalide 300-12.5 mg Tablet] Omeprazole [PriLOSEC] 40 mg PO BID #60 cap 12/07/19 01/30/20 Rx Sucralfate [Carafate] 1 gm PO BID #480 ml 12/20/19 01/30/20 Rx Acetaminophen Oral Susp [Tylenol] 500 mg PO Q4-6H PRN #400 ml 01/04/20 01/31/20 Rx Allergies Allergy/AdvReac Type Severity Reaction Status Date / Time Sulfa (Sulfonamide Allergy Rash/Hives Verified 01/31/20 07:00 Antibiotics) milk AdvReac Abdominal Verified 01/31/20 07:00 Pain Surgical - Exam Vital Signs Temp Pulse Resp BP Pulse Ox 97.1 F L 59 L 17 211/93 97 01/31/20 07:04 01/31/20 07:04 01/31/20 07:04 01/31/20 07:04 01/31/20 07:04
--- NOTE | 2020-01-31 07:59 | P.PCN ---
Date of Procedure: 01/31/20 Description of Procedure: PREOPERATIVE DIAGNOSIS: Dysphagia Gastrojejunal stricture Diaphragmatic hiatal hernia POSTOPERATIVE DIAGNOSIS: Dysphagia Gastrojejunal stricture Diaphragmatic hiatal hernia OPERATION: Esophagogastrojejunoscopy with balloon dilatation from 10 to 20 mm. SURGEON: Mackenzie Travis MD ANESTHESIA: MAC. INDICATIONS: The patient is a 69-year-old female who presents with a history of dysphagia and esophageal/gastric obstruction. Benefits and risks of the procedure were described. Informed consent was obtained. DESCRIPTION: The patient was brought into the endoscopy suite and laid in the left lateral decubitus position. After a timeout was confirmed, the procedure was initiated. An Olympus gastroscope was passed along the posterior oropharynx down to the distal esophagus. Moderate tertiary contractions were identified consistent with presbyesophagus. The gastric pouch was entered. A gastrojejunal stricture of 10 mm was found as the adult gastroscope was 9.5 mm in size. A [employer] balloon dilator was placed through the scope. Final insufflation 20 mm was performed with a total of 3 minutes. The scope was advanced up to 60 cm from the incisors into the Danay limb. The mucosa of the gastrojejunal anastomosis was intact. Resolving chronic gastrojejunal marginal ulcer was encountered. No full-thickness injury was encountered. The GI tract was desufflated. The patient tolerated the procedure well. FINDINGS: Squamocolumnar junction unremarkable at 35 cm. Presbyesophagus Stricture of approximately 10 mm encountered at 43 cm dilated to 20 mm Resolving chronic gastrojejunal ulceration encountered. Recurrent diaphragmatic hiatal hernia RECOMMENDATIONS: May future gastric/esophageal dilation Otherwise, recommend conversion from gastrojejunostomy to esophagoejunostomy Plan - Discharge Summary New Discharge Prescriptions: No Action Oxybutynin Chloride [Ditropan XL] 10 mg PO DAILY Irbesartan/Hydrochlorothiazide [Avalide 300-12.5 mg Tablet] 0.5 tab PO DAILY Omeprazole [PriLOSEC] 40 mg PO BID #60 cap Sucralfate [Carafate] 1 gm PO BID #480 ml Acetaminophen Oral Susp [Tylenol] 500 mg PO Q4-6H PRN #400 ml PRN Reason: Pain Discharge Medication List Oxybutynin Chloride [Ditropan XL] 10 mg PO DAILY 11/08/19 [History] Irbesartan/Hydrochlorothiazide [Avalide 300-12.5 mg Tablet] 0.5 tab PO DAILY 12/06/19 [History] Omeprazole [PriLOSEC] 40 mg PO BID #60 cap 12/07/19 [Rx] Sucralfate [Carafate] 1 gm PO BID #480 ml 12/20/19 [Rx] Acetaminophen Oral Susp [Tylenol] 500 mg PO Q4-6H PRN #400 ml 01/04/20 [Rx]
[2020-01-31 08:11] VITALS: BP 161/90; PULSE 59
== END | disposition home or self-care (01) ==
LOC: ORWHC2ENDO 06:51
PROVIDERS: ATTEND Surgery Plastic and Reconstructive Surgery
DX: K28.7 Chronic gastrojejunal ulcer without hemorrhage or perforation (principal); K31.89 Other diseases of stomach and duodenum; K22.8 Other specified diseases of esophagus; K44.9 Diaphragmatic hernia without obstruction or gangrene; I10 Essential (primary) hypertension; K21.9 Gastro-esophageal reflux disease without esophagitis; Z98.84 Bariatric surgery status; Z88.2 Allergy status to sulfonamides; Z91.011 Allergy to milk products; Z87.442 Personal history of urinary calculi; Z87.440 Personal history of urinary (tract) infections; Z90.49 Acquired absence of other specified parts of digestive tract; Z96.653 Presence of artificial knee joint, bilateral; Z90.710 Acquired absence of both cervix and uterus; Z80.49 Family history of malignant neoplasm of other genital organs
CPT/HCPCS: 87635; 43245; J2001; J2704; C1726

== ENCOUNTER → 2020-02-14 | Outpatient (CLI) | payer MEDICARE, OTHER ==
--- NOTE | 2019-12-26 09:52 | P.PN ---
Progress Note - Text Progress Note Date: 12/26/19 Patient notified the bariatric center regarding abdominal pain which started 3:30 this morning. She reports dry heaves. She also confirms still having her appendix despite having a hysterectomy in the past. Patient says pain is moderate to severe. Recommended patient to go to the emergency room for evaluation for appendicitis which may need surgical intervention.
--- NOTE | 2019-12-28 09:48 | P.PN ---
Progress Note - Text Progress Note Date: 12/28/19 Patient was seen and evaluated while hospitalized for kidney stones on both December 26 and December 27. I personally spoke to the urologist regarding the patient's case and known history of gastric ulcers. Patient continues to take Carafate including Protonix while hospitalized. NSAIDs has been avoided. Patient reports doing quite well and able to swallow and eat appropriately. Patient also looks very well and is no longer pale. No reports of epigastric abdominal pain or dysphagia. Labs were reviewed. Patient will follow up at the bariatric center 1 to 2 weeks. Telephone updates will be performed by the bariatric center.
--- NOTE | 2020-02-14 14:03 | P.PN ---
Subjective Progress Note Date: 02/14/20 DATE OF SERVICE: 02/14/2020 CHIEF COMPLAINT: Status post gastric bypass HISTORY OF PRESENT ILLNESS: Deepti Dyson is a 69-year-old female status post gastric bypass, 11/13/2019. She is 3 months out. She had recurrent stricture along the gastrojejunal anastomosis requiring multiple dilations. Her last dilation was 01/31/2020. She was admitted to the hospital after developing a perforation. She is status post abdominal washout 02/01/2020. She is 2 weeks out, postop day 13. She is 1 week out from discharge. She is still taking prilosec and needs carafate. She has a nurse at home. She had soup yesterday. She feels wonderful. She is tolerating banana and is doing well. She had talib wheat and was able to go down her pouch. She denies any pain. She denies any further need for her blood pressure medications. She can tolerate eggs for the first time in months. "I feel great." At height of 5 feet 2 inches, her ideal body weight is 135 pounds. Her highest weight was 289 pounds. She comes in 174 from 184 pounds, 2 months ago. She has lost 10 pounds in 2 months. Her body mass index highest is 53.0 down to 31.8. Her lifetime weight loss is 115 pounds. Lifetime percent excess weight loss is 75 %. She is 39 pounds overweight. PHYSICAL EXAM: VITAL SIGNS: Height 5 foot 2 inches, weight 174 pounds. BMI 33.7 Vital Signs Temp 98.9 F 02/14/20 14:39 Pulse 76 02/14/20 14:39 Resp BP 113/66 02/14/20 14:39 Pulse Ox Intake & Output 02/14/20 02/14/20 02/15/20 06:59 18:59 06:59 Weight 78.925 kg GENERAL: Well-developed in no acute distress. HEENT: No scleral icterus. Extraocular movements grossly intact. Hears conver sational speech. No nasal drainage. NECK: Supple without lymphadenopathy. CHEST: Nonlabored respirations with equal bilateral excursions. CARDIOVASCULAR: Regular rate and rhytm. Distal 2+ pulses. ABDOMEN: Soft, nondistended. No peritonitis MUSCULOSKELETAL: No clubbing, cyanosis. NEURO: No focal or lateralizing signs. Cranial nerves 2 through 12 grossly within normal limits. PSYCH: Appropriate affect. Alert and oriented to person, place and time. SKIN: Good skin turgor. Well perfused. ASSESSMENT: 1. Morbid obesity due to excess calories 2. Body mass index of 38.0 to 31.8 3. Gastroesophageal reflux disease 4. Hypertensive heart disease 5. Osteoarthritis bilateral knees 6. Inadequate protein intake 7. Hiatal hernia 8. Vitamin A deficiency 9. 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 Status post gastric bypass 11. 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 She has history of recurrent gastrojejunal strictures including ulcers. Robotic revision of gastrojejunal anastomosis described with Danay-en-Y reconstruction. She is at elevated risk for perioperative complications with prior history of multiple strictures and revisional bariatric surgery. 2. In the interim, recommend increasing diet to blenderized and ground diet 3. We'll continue to follow symptom resolution. 4. No further dilations advised Assessment and Plan (1) Gastrojejunal anastomotic stricture Current Visit: Yes Status: Acute Code(s): K91.89 - OTH POSTPROCEDURAL COMPLICATIONS AND DISORDERS OF DGSTV SYS SNOMED Code(s): 239561746
[2020-02-14 15:35] VITALS: BP 113/66; PULSE 76; TEMP 98.9; BMI 31.8
== END | disposition home or self-care (01) ==
LOC: BARWHC3 13:44
PROVIDERS: ATTEND Surgery Plastic and Reconstructive Surgery
DX: E66.01 Morbid (severe) obesity due to excess calories (principal); Z68.31 Body mass index [BMI] 31.0-31.9, adult; K21.9 Gastro-esophageal reflux disease without esophagitis; I11.9 Hypertensive heart disease without heart failure; M17.0 Bilateral primary osteoarthritis of knee; K44.9 Diaphragmatic hernia without obstruction or gangrene; E46 Unspecified protein-calorie malnutrition; E50.9 Vitamin A deficiency, unspecified; K91.89 Other postprocedural complications and disorders of digestive system; K95.89 Other complications of other bariatric procedure; Z98.84 Bariatric surgery status; Z98.890 Other specified postprocedural states
CPT/HCPCS: 99211

== ENCOUNTER → 2020-02-28 | Outpatient (CLI) | payer MEDICARE, OTHER ==
[2020-02-28 11:49] LABS: Basophils % (A) 0 %; Eosinophils # (A) 0.2 k/uL (0-0.7); Eosinophils % (A) 4 %; HCT 37.4 % (34.0-46.0); HGB 12.1 gm/dL (11.4-16.0); Lymphocytes # (A) 1.4 k/uL (1.0-4.8); Lymphocytes % (A) 41 %; MCH 31.4 pg (25.0-35.0); MCHC 32.3 g/dL (31.0-37.0); MCV 97.2 fL (80.0-100.0); Mean Platelet Volume 7.8; Monocytes # (A) 0.2 k/uL (0-1.0); Monocytes % (A) 6 %; Neutrophils # (A) 1.6 k/uL (1.3-7.7); Neutrophils % (A) 46 %; Platelet Count 184 k/uL (150-450); RBC 3.84 m/uL (3.80-5.40); WBC 3.5 k/uL (3.8-10.6)
[2020-02-28 12:03] LABS: ALT 20 U/L (4-34); AST 30 U/L (14-36); African American GFR (CKD) >90 (>60 ml/min/1.73 sqM); Albumin 4.3 g/dL (3.5-5.0); Alkaline Phosphatase 91 U/L (38-126); Anion Gap 7 mmol/L; Blood Urea Nitrogen 20 mg/dL (7-17); Calcium 9.3 mg/dL (8.4-10.2); Carbon Dioxide 28 mmol/L (22-30); Chloride 105 mmol/L (98-107); Glucose 98 mg/dL (74-99); Non-African American GFR(CKD) >90 (>60 ml/min/1.73 sqM); Potassium 3.3 mmol/L (3.5-5.1); Sodium 140 mmol/L (137-145); Total Bilirubin 0.6 mg/dL (0.2-1.3); Total Protein 6.7 g/dL (6.3-8.2)
== END | disposition home or self-care (01) ==
LOC: LABPAT 11:12
PROVIDERS: ATTEND Surgery Plastic and Reconstructive Surgery
DX: Z01.818 Encounter for other preprocedural examination (principal)
CPT/HCPCS: 80053; 85025

== ENCOUNTER → 2020-03-08 | Outpatient (CLI) | payer MEDICARE, OTHER ==
[2020-03-08 10:21] VITALS: BP 165/89; PULSE 56; TEMP 98.2; BMI 30.9
--- NOTE | 2020-03-08 12:44 | P.PN ---
Subjective Progress Note Date: 03/08/20 DATE OF SERVICE: 03/08/2020 CHIEF COMPLAINT: Status post gastric bypass HISTORY OF PRESENT ILLNESS: Deepti Dyson is a 69-year-old female status post gastric bypass, 11/13/2019. She is 4 months out. She comes in upon previous follow-up of dysphagia from her hospitalization. Her dysphagia is resolved. She is tolerating foods including shrimp scampi, egg salad, and textured foods. She reports her energy is back. She feels very well. She has pre-existing history of presbyesophagus. She is tolerating beverages. Overall, her symptoms have moderately improved. At height of 5 feet 2 inches, her ideal body weight is 135 pounds. Her highest weight was 289 pounds. She comes in 169 pounds from 174 pounds, 1 month ago. She has lost 5 pounds in 1 month. Her body mass index highest is 53.0 down to 30.9. Her lifetime weight loss is 120 pounds. Lifetime percent excess weight loss is 78 %. She is 34 pounds overweight. PHYSICAL EXAM: VITAL SIGNS: Height 5 foot 2 inches, weight 169 pounds. BMI 30.9 Vital Signs Temp 98.2 F 03/08/20 10:16 Pulse 56 L 03/08/20 10:16 Resp BP 165/89 03/08/20 10:16 Pulse Ox GENERAL: Well-developed in no acute distress. HEENT: No scleral icterus. Extraocular movements grossly intact. Hears conversational speech. No nasal drainage. NECK: Supple without lymphadenopathy. CHEST: Nonlabored respirations with equal bilateral excursions. CARDIOVASCULAR: Regular rate and rhytm. Distal 2+ pulses. ABDOMEN: Soft, nondistended. No peritonitis MUSCULOSKELETAL: No clubbing, cyanosis. NEURO: No focal or lateralizing signs. Cranial nerves 2 through 12 grossly within normal limits. PSYCH: Appropriate affect. Alert and oriented to person, place and time. SKIN: Good skin turgor. Well perfused. ASSESSMENT: 1. Morbid obesity due to excess calories 2. Body mass index of 53.0 to 30.9 3. Gastroesophageal reflux disease 4. Hypertensive heart disease 5. Osteoarthritis bilateral knees 6. Inadequate protein intake 7. Hiatal hernia 8. Vitamin A deficiency 9. 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 Status post gastric bypass 11. 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 Presbyesophagus PLAN: 1. Her symptoms of dysphagia have moderately improved. 2. Recommend bariatric labs as she is 3-4 months out. 3. For history of presbyesophagus, recommend warm beverages and warm foods. 4. At this time, surgery may be canceled. Objective - Vital Signs Vital signs: Vital Signs Temp 98.2 F 03/08/20 10:16 Pulse 56 L 03/08/20 10:16 Resp BP 165/89 03/08/20 10:16 Pulse Ox Intake & Output 03/07/20 03/08/20 03/08/20 18:59 06:59 18:59 Weight 76.657 kg
== END | disposition home or self-care (01) ==
LOC: BARWHC3 09:51
PROVIDERS: ATTEND Surgery Plastic and Reconstructive Surgery
DX: Z48.815 Encounter for surgical aftercare following surgery on the digestive system (principal); K21.9 Gastro-esophageal reflux disease without esophagitis; I11.9 Hypertensive heart disease without heart failure; M17.0 Bilateral primary osteoarthritis of knee; K44.9 Diaphragmatic hernia without obstruction or gangrene; E50.9 Vitamin A deficiency, unspecified; Z98.84 Bariatric surgery status; K22.8 Other specified diseases of esophagus; E63.8 Other specified nutritional deficiencies; Z68.30 Body mass index [BMI] 30.0-30.9, adult
CPT/HCPCS: 99211

== ENCOUNTER → 2020-03-08 | Outpatient (CLI) | payer MEDICARE, OTHER | END | disposition home or self-care (01) | LOC: LABWHC1 09:30 | PROVIDERS: ATTEND Surgery Plastic and Reconstructive Surgery | DX: U07.1 COVID-19 (principal) ==

== ENCOUNTER 2020-03-19 16:35 | Observation (INO) | payer MEDICARE, OTHER ==
[2020-03-19] MEDS ORDERED: SODIUM CHLORIDE 0.9% 1,000 ML IV ONE (17:06)
[2020-03-19] MEDS ORDERED: NALOXONE 0.4 MG/ML 1 ML VIAL IV PRN (17:10)
--- NOTE | 2020-03-19 17:17 | ED ---
General Adult HPI - General Chief complaint: Recheck/Abnormal Lab/Rx Stated complaint: Trouble swallowing Time Seen by Provider: 03/19/20 16:40 Source: patient Mode of arrival: ambulatory Limitations: no limitations - History of Present Illness Initial comments: The patient is a 69-year-old female with previous history of gastric sleeve and Rou-en-y bypass in November by Dr. Travis who presents to the emergency department with inability to swallow food and water. Patient has an extensive history of esophageal and gastric obstruction secondary to stricture. She has had 4 previous EGD with dilation by Dr. Travis. Admits hospital stay was in ay for which she had a anastomotic perforation with pneumoperitoneum. She ended up with a washout, JASSI drain and was on TPN. States that when she left the hospital she was feeling well. She has been able to eat and drink without difficulty up until yesterday morning. At that point she stated that her symptoms felt extremely familiar to her previous hospitalizations with her stricture. She has been unable to swallow even water. Because of this the patient call Dr. Travis who instructed that she come into the emergency department for evaluation. I also received a call from Dr. Travis who states he wants the patient fluid hydrated and admitted underneath her service. Patient denies any abdominal pain. No fevers or chills. Denies any nausea or vomiting. No diarrhea, constipation, melenic stools or hematochezia. There are no alleviating, precipitating or modifying factors - Related Data Home Medications Medication Instructions Recorded Confirmed Oxybutynin Chloride [Ditropan XL] 10 mg PO DAILY 11/08/19 03/19/20 amLODIPine [Norvasc] 10 mg PO DAILY 03/08/20 03/19/20 Previous Rx's Medication Instructions Recorded Omeprazole [PriLOSEC] 40 mg PO BID #60 cap 12/07/19 Acetaminophen Oral Susp [Tylenol] 500 mg PO Q4-6H PRN #400 ml 02/08/20 Sucralfate [Carafate] 1 gm PO BID #60 tab 02/14/20 Allergies Allergy/AdvReac Type Severity Reaction Status Date / Time Sulfa (Sulfonamide Allergy Rash/Hives Verified 03/19/20 17:16 Antibiotics) milk AdvReac Abdominal Verified 03/19/20 17:16 Pain morphine AdvReac Nausea & Verified 03/19/20 17:16 Vomiting Review of Systems ROS Statement: Those systems with pertinent positive or pertinent negative responses have been documented in the HPI. ROS Other: All systems not noted in ROS Statement are negative. Past Medical History Past Medical History: GERD/Reflux, Hypertension Additional Past Medical History / Comment(s): Hiatal Hernia. ,frequent UTI's, urinary incontinence, constipation, hX kidney stone Dysphagia, History of Any Multi-Drug Resistant Organisms: None Reported Past Surgical History: Bariatric Surgery, Cholecystectomy, Hernia Repair, Hysterectomy, Joint Replacement Additional Past Surgical History / Comment(s): Bilateral knee replacement, sleeve gastrectomy (conversion to gastric bypass 11-13-19), hiatal hernia repair, LITHOTRIPSY WITH STENT (12/27/19), EGD with dilation 01/04/20 Past Anesthesia/Blood Transfusion Reactions: Motion Sickness, Postoperative Nausea & Vomiting (PONV) Additional Past Anesthesia/Blood Transfusion Reaction / Comment(s): Pt states "always get UTI's from mcneal catheters." Past Psychological History: No Psychological Hx Reported Smoking Status: Never smoker Past Alcohol Use History: None Reported Past Drug Use History: None Reported - Past Family History Mother Family Medical History: Cancer Additional Family Medical History / Comment(s): Uterine cancer. General Exam Limitations: no limitations General appearance: alert, in no apparent distress Head exam: Present: atraumatic, normocephalic, normal inspection Eye exam: Present: normal appearance, PERRL, EOMI. Absent: scleral icterus, co njunctival injection, periorbital swelling ENT exam: Present: normal exam, mucous membranes moist Neck exam: Present: normal inspection. Absent: tenderness, meningismus, lymphadenopathy Respiratory exam: Present: normal lung sounds bilaterally. Absent: respiratory distress, wheezes, rales, rhonchi, stridor Cardiovascular Exam: Present: regular rate, normal rhythm, normal heart sounds. Absent: systolic murmur, diastolic murmur, rubs, gallop, clicks GI/Abdominal exam: Present: soft, normal bowel sounds. Absent: distended, tenderness, guarding, rebound, rigid Extremities exam: Present: normal inspection, full ROM, normal capillary refill. Absent: tenderness, pedal edema, joint swelling, calf tenderness Back exam: Present: normal inspection Neurological exam: Present: alert, oriented X3, CN II-XII intact Psychiatric exam: Present: normal affect, normal mood Skin exam: Present: warm, dry, intact, normal color. Absent: rash Course Vital Signs 03/19/20 03/19/20 16:36 18:16 Temperature 97.9 F Pulse Rate 60 Respiratory 18 18 Rate Blood Pressure 161/92 O2 Sat by Pulse 100 Oximetry Medical Decision Making - Medical Decision Making Upon arrival the patient is placed in room 24. I did discuss the patient's care with Dr. Travis. A CBC/ CMP is drawn. The patient is given a liter bolus of normal saline followed by maintenance fluids. She is made nothing by mouth and will be admitted to Dr. Travis's service. She is awaiting a bed on the floor in stable condition - Lab Data Result diagrams: 03/20/20 07:16 03/20/20 07:16 Disposition Clinical Impression: Complications of bariatric procedures, Gastrojejunal anastomotic stricture, History of sleeve gastrectomy Disposition: ADMITTED IP TO THIS [facility] Condition: Good Is patient prescribed a controlled substance at d/c from ED?: No Decision to Admit Reason: Admit from EC Decision Date: 03/19/20 Decision Time: 17:10
[2020-03-19] MEDS ORDERED: ACETAMINOPHEN ORAL SUSP 160 MG/5 ML CUP PO PRN (17:19)
[2020-03-19 17:43] LABS: Basophils % (A) 1 %; Eosinophils # (A) 0.1 k/uL (0-0.7); Eosinophils % (A) 2 %; Lymphocytes # (A) 1.6 k/uL (1.0-4.8); Lymphocytes % (A) 34 %; MCH 30.9 pg (25.0-35.0); MCHC 32.3 g/dL (31.0-37.0); MCV 95.4 fL (80.0-100.0); Mean Platelet Volume 7.2; Monocytes # (A) 0.2 k/uL (0-1.0); Monocytes % (A) 5 %; Neutrophils # (A) 2.5 k/uL (1.3-7.7); Neutrophils % (A) 55 %; Platelet Count 187 k/uL (150-450); RBC 3.56 m/uL (3.80-5.40); WBC 4.6 k/uL (3.8-10.6)
[2020-03-19 17:48] LABS: ALT 18 U/L (4-34); AST 25 U/L (14-36); African American GFR (CKD) >90 (>60 ml/min/1.73 sqM); Albumin 3.8 g/dL (3.5-5.0); Alkaline Phosphatase 82 U/L (38-126); Anion Gap 7 mmol/L; Blood Urea Nitrogen 24 mg/dL (7-17); Calcium 9.2 mg/dL (8.4-10.2); Carbon Dioxide 24 mmol/L (22-30); Chloride 109 mmol/L (98-107); Glucose 91 mg/dL (74-99); Non-African American GFR(CKD) >90 (>60 ml/min/1.73 sqM); Potassium 3.8 mmol/L (3.5-5.1); Sodium 140 mmol/L (137-145); Total Bilirubin 0.5 mg/dL (0.2-1.3); Total Protein 6.2 g/dL (6.3-8.2)
[2020-03-19] MEDS: SODIUM CHLORIDE 0.9% 1,000 ML IV SCH (19:26)
--- NOTE | 2020-03-19 22:52 | P.GSHP ---
History of Present Illness H&P Date: 03/19/20 Patient seen and evaluated. She comes in with obstruction of the esophagus and stomach. "Nothing is going down!" PLAN: 1. Recommend inpatient admission 2. Upper endoscopy for foreign body removal and dilation 3. Surgical options for revision of gastrojejunostomy reviewed. Past Medical History Past Medical History: GERD/Reflux, Hypertension Additional Past Medical History / Comment(s): Hiatal Hernia. ,frequent UTI's, urinary incontinence, constipation, hX kidney stone Dysphagia, History of Any Multi-Drug Resistant Organisms: None Reported Past Surgical History: Bariatric Surgery, Cholecystectomy, Hernia Repair, Hysterectomy, Joint Replacement Additional Past Surgical History / Comment(s): Bilateral knee replacement, sleeve gastrectomy (conversion to gastric bypass 11-13-19), hiatal hernia repair, LITHOTRIPSY WITH STENT (12/27/19), EGD with dilation 01/04/20 Past Anesthesia/Blood Transfusion Reactions: Motion Sickness, Postoperative Nausea & Vomiting (PONV) Additional Past Anesthesia/Blood Transfusion Reaction / Comment(s): Pt states "always get UTI's from mcneal catheters." Past Psychological History: No Psychological Hx Reported Smoking Status: Never smoker Past Alcohol Use History: None Reported Past Drug Use History: None Reported - Past Family History Mother Family Medical History: Cancer Additional Family Medical History / Comment(s): Uterine cancer. Medications and Allergies Home Medications Medication Instructions Recorded Confirmed Type Oxybutynin Chloride [Ditropan XL] 10 mg PO DAILY 11/08/19 03/19/20 History Omeprazole [PriLOSEC] 40 mg PO BID #60 cap 12/07/19 03/19/20 Rx Acetaminophen Oral Susp [Tylenol 500 mg PO Q4-6H PRN #400 ml 02/08/20 03/19/20 Rx Oral Susp] Sucralfate [Carafate] 1 gm PO BID #60 tab 02/14/20 03/19/20 Rx amLODIPine [Norvasc] 10 mg PO DAILY 03/08/20 03/19/20 History Allergies Allergy/AdvReac Type Severity Reaction Status Date / Time Sulfa (Sulfonamide Allergy Rash/Hives Verified 03/19/20 17:16 Antibiotics) milk AdvReac Abdominal Verified 03/19/20 17:16 Pain morphine AdvReac Nausea & Verified 03/19/20 17:16 Vomiting Surgical - Exam Vital Signs Temp Pulse Resp BP Pulse Ox 97.9 F 60 18 161/92 100 03/19/20 16:36 03/19/20 16:36 03/19/20 16:36 03/19/20 16:36 03/19/20 16:36 Results - Labs 03/19/20 17:28 03/19/20 17:28 Abnormal Lab Results - Last 24 Hours (Table) 03/19/20 03/19/20 Range/Units 17:28 17:28 RBC 3.56 L (3.80-5.40) m/uL Hgb 11.0 L (11.4-16.0) gm/dL Chloride 109 H (98-107) mmol/L BUN 24 H (7-17) mg/dL Total Protein 6.2 L (6.3-8.2) g/dL Diabetes panel 03/19/20 Range/Units 17:28 Sodium 140 (137-145) mmol/L Potassium 3.8 (3.5-5.1) mmol/L Chloride 109 H (98-107) mmol/L Carbon Dioxide 24 (22-30) mmol/L BUN 24 H (7-17) mg/dL Creatinine 0.64 (0.52-1.04) mg/dL Glucose 91 (74-99) mg/dL Calcium 9.2 (8.4-10.2) mg/dL AST 25 (14-36) U/L ALT 18 (4-34) U/L Alkaline Phosphatase 82 (38-126) U/L Total Protein 6.2 L (6.3-8.2) g/dL Albumin 3.8 (3.5-5.0) g/dL Calcium panel 03/19/20 Range/Units 17:28 Calcium 9.2 (8.4-10.2) mg/dL Albumin 3.8 (3.5-5.0) g/dL Pituitary panel 03/19/20 Range/Units 17:28 Sodium 140 (137-145) mmol/L Potassium 3.8 (3.5-5.1) mmol/L Chloride 109 H (98-107) mmol/L Carbon Dioxide 24 (22-30) mmol/L BUN 24 H (7-17) mg/dL Creatinine 0.64 (0.52-1.04) mg/dL Glucose 91 (74-99) mg/dL Calcium 9.2 (8.4-10.2) mg/dL Adrenal panel 03/19/20 Range/Units 17:28 Sodium 140 (137-145) mmol/L Potassium 3.8 (3.5-5.1) mmol/L Chloride 109 H (98-107) mmol/L Carbon Dioxide 24 (22-30) mmol/L BUN 24 H (7-17) mg/dL Creatinine 0.64 (0.52-1.04) mg/dL Glucose 91 (74-99) mg/dL Calcium 9.2 (8.4-10.2) mg/dL Total Bilirubin 0.5 (0.2-1.3) mg/dL AST 25 (14-36) U/L ALT 18 (4-34) U/L Alkaline Phosphatase 82 (38-126) U/L Total Protein 6.2 L (6.3-8.2) g/dL Albumin 3.8 (3.5-5.0) g/dL
[2020-03-20] MEDS: SODIUM CHLORIDE 0.9% 1,000 ML IV SCH ×2 (04:45→12:19)
[2020-03-20 07:56] LABS: Basophils % (A) 0 %; Eosinophils # (A) 0.1 k/uL (0-0.7); Eosinophils % (A) 4 %; HCT 32.2 % (34.0-46.0); HGB 10.5 gm/dL (11.4-16.0); Lymphocytes # (A) 1.2 k/uL (1.0-4.8); Lymphocytes % (A) 39 %; MCH 31.7 pg (25.0-35.0); MCHC 32.7 g/dL (31.0-37.0); Mean Platelet Volume 7.7; Monocytes # (A) 0.2 k/uL (0-1.0); Monocytes % (A) 5 %; Neutrophils # (A) 1.6 k/uL (1.3-7.7); Neutrophils % (A) 51 %; Platelet Count 183 k/uL (150-450); RBC 3.31 m/uL (3.80-5.40); RDW 13.1 % (11.5-15.5); WBC 3.1 k/uL (3.8-10.6)
--- NOTE | 2020-03-20 08:11 | P.PN ---
Subjective Progress Note Date: 03/20/20 CHIEF COMPLAINT: Esophageal and gastric obstruction HISTORY OF PRESENT ILLNESS: The patient is a 69-year-old female who presents with acute esophageal and gastric obstruction. She is a history of gastrojejunal stricture. Upper endoscopy was offered for further evaluation and management. PAST MEDICAL HISTORY: Please see list. PAST SURGICAL HISTORY: Please see list. MEDICATIONS: Please see list. ALLERGIES: Please see list. SOCIAL HISTORY: No illicit drug use FAMILY HISTORY: No reports of Crohn disease or ulcerative colitis. REVIEW OF ORGAN SYSTEMS: CONSTITUTIONAL: No reports of fevers or chills. PHYSICAL EXAM: VITAL SIGNS: Stable GENERAL: Well-developed and pleasant in no acute distress. HEENT: No scleral icterus. Extraocular movements grossly intact. Moist buccal mucosa. NECK: Supple without lymphadenopathy. CHEST: Unlabored respirations. Equal bilateral excursions. CARDIOVASCULAR: Regular rate and rhythm. Distal 2+ pulses. ABDOMEN: Soft, nondistended. MUSCULOSKELETAL: No clubbing, cyanosis, or edema. ASSESSMENT: 1. Esophageal and gastric obstruction PLAN: 1. Recommend proceeding with an upper endoscopy Objective - Vital Signs Vital signs: Vital Signs Temp 97.9 F 03/20/20 07:52 Pulse 56 L 03/20/20 07:52 Resp 16 03/20/20 07:52 BP 129/80 03/20/20 07:52 Pulse Ox 98 03/20/20 07:52 Intake & Output 03/19/20 03/20/20 03/20/20 18:59 06:59 18:59 Weight 75.296 kg Other: # Voids 3 - Labs CBC & Chem 7: 03/20/20 07:16 03/19/20 17:28 Labs: Abnormal Lab Results - Last 24 Hours (Table) 03/19/20 03/19/20 03/20/20 Range/Units 17:28 17:28 07:16 WBC 3.1 L (3.8-10.6) k/uL RBC 3.56 L 3.31 L (3.80-5.40) m/uL Hgb 11.0 L 10.5 L (11.4-16.0) gm/dL Hct 32.2 L (34.0-46.0) % Chloride 109 H (98-107) mmol/L BUN 24 H (7-17) mg/dL Total Protein 6.2 L (6.3-8.2) g/dL
[2020-03-20 08:23] LABS: ALT 18 U/L (4-34); AST 28 U/L (14-36); African American GFR (CKD) >90 (>60 ml/min/1.73 sqM); Albumin 3.2 g/dL (3.5-5.0); Alkaline Phosphatase 77 U/L (38-126); Anion Gap 4 mmol/L; Blood Urea Nitrogen 17 mg/dL (7-17); Calcium 8.4 mg/dL (8.4-10.2); Carbon Dioxide 26 mmol/L (22-30); Chloride 111 mmol/L (98-107); Glucose 83 mg/dL (74-99); Non-African American GFR(CKD) >90 (>60 ml/min/1.73 sqM); Potassium 3.5 mmol/L (3.5-5.1); Sodium 141 mmol/L (137-145); Total Bilirubin 0.7 mg/dL (0.2-1.3); Total Protein 5.6 g/dL (6.3-8.2)
[2020-03-20] MEDS ORDERED: OXYBUTYNIN 10 MG TAB.ER.24 PO SCH (09:00)
[2020-03-20] MEDS ORDERED: PANTOPRAZOLE 40 MG/10 ML VIAL IV SCH (09:00)
[2020-03-20] MEDS ORDERED: amLODIPine 10 MG TAB PO SCH (09:00)
[2020-03-20 10:04] VITALS: BMI 31.4
[2020-03-20] MEDS ORDERED: FAT EMULSION 20% 250 ML IV SCH (13:00)
[2020-03-20] MEDS ORDERED: MVI, ADULT NO.4 WITH VIT K 10 ML, TRACE (CONC-1ML/DOSE) 1 ML in AMINO ACID 4.25%-D10W+L... IV ONE ×3 (13:00)
[2020-03-20] MEDS ORDERED: PROPOFOL 10 MG/ML 20 ML VIAL IV ONE (14:23)
[2020-03-20] MEDS ORDERED: LIDOCAINE 1% INJ 10MG/ML (20 ML MDV) ONE (14:23)
[2020-03-20] MEDS ORDERED: MIDAZOLAM 2 MG/2 ML VIAL ONE (14:23)
[2020-03-20] MEDS ORDERED: SODIUM CHLORIDE 0.9% 500 ML 500 ML IV ONE (14:24)
--- NOTE | 2020-03-20 14:50 | P.PCN ---
Date of Procedure: 03/20/20 Description of Procedure: PREOPERATIVE DIAGNOSES: 1. Intractable nausea and vomiting 2. Esophageal and gastric structures 3. History of gastric bypass. 4. History of gastrojejunal anastomotic ulcers with stricture with obstruction 5. Esophageal dysmotility POSTOPERATIVE DIAGNOSES: 1. Intractable nausea and vomiting 2. Esophageal and gastric structures 3. History of gastric bypass. 4. History of gastrojejunal anastomotic ulcers with stricture with obstruction 5. Esophageal dysmotility PROCEDURE PERFORMED: Esophagogastrojejunoscopy. SURGEON: Mackenzie Travis MD ANESTHESIA: MAC. INDICATIONS: The patient is a 69-year-old female who is admitted secondary to dysphagia including history of esophageal and gastric obstruction. She has history of gastric bypass with gastrojejunal anastomotic strictures and ulcers. With her history of Danay-en-Y gastric bypass, upper endoscopy was offered for further evaluation and management. DESCRIPTION: Patient was brought to the endoscopy suite and laid in the left lateral decubitus position. After adequate IV sedation, a bite block was placed. An Olympus gastroscope was passed along the posterior oropharynx down to the distal esophagus where the squamocolumnar junction was found. The anastomosis was widely patent relative to her past upper endoscopies. The scope was advanced 60 cm from the incisors. No evidence of active gastrojejunal ulcerations were encountered. Retained suture was identified at the anastomosis. The GI tract was desufflated. The patient tolerated the procedure well. FINDINGS: 1. No acute gastrojejunal ulceration. 2. Patent gastrojejunal anastomosis PLAN: 1. May start dysphagia grounded diet.
[2020-03-20 16:02] VITALS: BP 147/78; PULSE 55; RESP 17; TEMP 98
--- NOTE | 2020-03-20 18:08 | P.DS ---
Providers Date of admission: 03/19/20 17:10 Expected date of discharge: 03/20/20 Attending physician: Mackenzie Travis Primary care physician: Lilliana Vazquez MD - Discharge Diagnosis(es) (1) Gastrojejunal anastomotic stricture Current Visit: Yes Status: Acute Patient Condition at Discharge: Good Plan - Discharge Summary Discharge Rx Participant: Yes New Discharge Prescriptions: Continue Oxybutynin Chloride [Ditropan XL] 10 mg PO DAILY Omeprazole [PriLOSEC] 40 mg PO BID #60 cap Acetaminophen Oral Susp [Tylenol] 500 mg PO Q4-6H PRN #400 ml PRN Reason: Pain Sucralfate [Carafate] 1 gm PO BID #60 tab amLODIPine [Norvasc] 10 mg PO DAILY Discharge Medication List Oxybutynin Chloride [Ditropan XL] 10 mg PO DAILY 11/08/19 [History] Omeprazole [PriLOSEC] 40 mg PO BID #60 cap 12/07/19 [Rx] Acetaminophen Oral Susp [Tylenol] 500 mg PO Q4-6H PRN #400 ml 02/08/20 [Rx] Sucralfate [Carafate] 1 gm PO BID #60 tab 02/14/20 [Rx] amLODIPine [Norvasc] 10 mg PO DAILY 03/08/20 [History] Follow up Appointment(s)/Referral(s): [facility] [[facility]FF[facility] - Lilliana Vazquez MD [Primary Care Provider] [facility] [place] [facility] - 03/27/20 Patient Instructions/Handouts: Hiatal Hernia (IP), Esophageal Spasm (GEN) Discharge Disposition: HOME SELF-CARE
[2020-03-21] MEDS ORDERED: 1: MVI, ADULT NO.4 WITH VIT K 10 ML, TRACE (CONC-1ML/DOSE) 1 ML in AMINO ACID 4.25%-D10W IV SCH ×3 (06:00)
== END 2020-03-20 18:33 | disposition home or self-care (01) ==
LOC: EC 16:35 → 4SSUR 17:10
PROVIDERS: ADMIT Surgery Plastic and Reconstructive Surgery; ATTEND Surgery Plastic and Reconstructive Surgery
DX: K22.2 Esophageal obstruction (principal); K22.4 Dyskinesia of esophagus; K31.89 Other diseases of stomach and duodenum; R11.2 Nausea with vomiting, unspecified; Z98.84 Bariatric surgery status; I10 Essential (primary) hypertension; K21.9 Gastro-esophageal reflux disease without esophagitis; R32 Unspecified urinary incontinence; K59.00 Constipation, unspecified; Z79.899 Other long term (current) drug therapy; Z88.2 Allergy status to sulfonamides; Z88.5 Allergy status to narcotic agent; Z91.011 Allergy to milk products; Z90.49 Acquired absence of other specified parts of digestive tract; Z87.440 Personal history of urinary (tract) infections; Z96.653 Presence of artificial knee joint, bilateral; Z87.442 Personal history of urinary calculi; Z90.710 Acquired absence of both cervix and uterus; Z87.11 Personal history of peptic ulcer disease; Z87.19 Personal history of other diseases of the digestive system; Z80.49 Family history of malignant neoplasm of other genital organs; Z03.818 Encounter for observation for suspected exposure to other biological agents ruled out
CPT/HCPCS: 96374; 99284; 36415; 86900; 86901; 80053 ×2; 85025 ×2; 86850; 43235; G0378 ×2; U0003; J2250; J2001; J2704; C9113

== ENCOUNTER → 2020-04-05 | Outpatient (CLI) | payer MEDICARE, OTHER ==
[2020-04-05 12:23] LABS: HCT 35.1 % (34.0-46.0); MCH 30.4 pg (25.0-35.0); MCHC 31.4 g/dL (31.0-37.0); MCV 96.6 fL (80.0-100.0); Mean Platelet Volume 7.9; Platelet Count 189 k/uL (150-450); RBC 3.64 m/uL (3.80-5.40); RDW 12.6 % (11.5-15.5)
[2020-04-05 17:49] LABS: % Iron Saturation 32.04 (12.00-45.00); African American GFR (CKD) 106.3 (60.0-200.0); Albumin 4.2 g/dL (3.80-4.90); Albumin/Globulin Ratio 2.1 (1.60-3.17); Anion Gap 6.1 mmol/L (4.00-12.00); BUN/Creat Ratio 33.33 Ratio (12.00-20.00); Calcium 9.4 mg/dL (8.7-10.3); Carbon Dioxide 27.9 mmol/L (21.6-31.8); Chol/HDL Ratio 3.41; LDL Cholesterol,Calculated 85.4 mg/dL (0.0-131.0); Magnesium 1.7 mg/dL (1.5-2.4); Non-African American GFR(CKD) 91.7 (60.0-200.0); Phosphorus 4.1 mg/dL (2.4-5.1); Potassium 3.9 mmol/L (3.5-5.5); Total Bilirubin 0.6 mg/dL (0.3-1.2); Total Protein 6.2 g/dL (6.2-8.2); VLDL Calculation 20.6 mg/dL (5.00-40.00)
[2020-04-05 17:57] LABS: Ferritin 25.2 ng/mL (10.0-291.0)
[2020-04-05 18:04] LABS: Folate, Serum 17.1 ng/mL
[2020-04-05 18:36] LABS: Hemoglobin A1C 5.1 % (4.0-6.0)
[2020-04-05 19:03] LABS: Partial Thromboplastin Time 25.6 sec (24.7-29.9); Prothrombin Time 10.7 sec (9.9-11.9)
[2020-04-08 15:21] LABS: Zinc, Serum 62 ug/dL (60-130)
[2020-04-09 10:02] LABS: Vitamin A 25 ug/dL (38-106)
[2020-04-10 12:40] LABS: Vit B1(Thiamine) 50 ug/L (38-122)
[2020-04-10 18:10] LABS: Selenium 86 mcg/L (63-160)
== END | disposition home or self-care (01) ==
LOC: LABWHC1 11:38
PROVIDERS: ATTEND Surgery Plastic and Reconstructive Surgery
DX: E21.1 Secondary hyperparathyroidism, not elsewhere classified (principal); E89.1 Postprocedural hypoinsulinemia; D50.9 Iron deficiency anemia, unspecified; K90.9 Intestinal malabsorption, unspecified; E55.9 Vitamin D deficiency, unspecified; K74.1 Hepatic sclerosis; N19 Unspecified kidney failure; K50.90 Crohn's disease, unspecified, without complications; E66.01 Morbid (severe) obesity due to excess calories
CPT/HCPCS: 36415; 80053; 80061; 82306; 82525; 82607; 82728; 82746; 83036; 83540; 83550; 83735; 83970; 84100; 84134; 84255; 84425; 84443; 84590; 84630; 85027; 85610; 85730

== ENCOUNTER → 2020-07-03 | Outpatient (CLI) | payer MEDICARE, OTHER ==
[2020-07-03 14:46] LABS: HCT 36.1 % (34.0-46.0); HGB 11.5 gm/dL (11.4-16.0); MCH 30.3 pg (25.0-35.0); MCHC 31.8 g/dL (31.0-37.0); MCV 95.2 fL (80.0-100.0); Mean Platelet Volume 7.3; Platelet Count 202 k/uL (150-450); RBC 3.79 m/uL (3.80-5.40); RDW 12.6 % (11.5-15.5); WBC 5.3 k/uL (3.8-10.6)
[2020-07-03 22:19] LABS: INR 1.04 (0.90-1.11); Partial Thromboplastin Time 27.2 sec (24.7-29.9); Prothrombin Time 11.1 sec (9.9-11.9)
[2020-07-03 22:47] LABS: % Iron Saturation 15.85 (12.00-45.00); African American GFR (CKD) 100.3 (60.0-200.0); Albumin 4.4 g/dL (3.80-4.90); Albumin/Globulin Ratio 2.44 (1.60-3.17); Anion Gap 9.5 mmol/L (4.00-12.00); BUN/Creat Ratio 47.14 Ratio (12.00-20.00); Calcium 9.3 mg/dL (8.7-10.3); Carbon Dioxide 27.5 mmol/L (21.6-31.8); Chol/HDL Ratio 2.49; Ferritin 10.3 ng/mL (10.0-291.0); Folate, Serum 17.9 ng/mL; Globulin 1.8 g/dL (1.6-3.3); LDL Cholesterol,Calculated 64.2 mg/dL (0.0-131.0); Magnesium 1.8 mg/dL (1.5-2.4); Non-African American GFR(CKD) 86.6 (60.0-200.0); Phosphorus 4.3 mg/dL (2.4-5.1); Potassium 4.2 mmol/L (3.5-5.5); Total Bilirubin 0.6 mg/dL (0.3-1.2); Total Protein 6.2 g/dL (6.2-8.2); VLDL Calculation 11.8 mg/dL (5.00-40.00)
[2020-07-04 00:17] LABS: Hemoglobin A1C 5.3 % (4.0-6.0)
[2020-07-04 14:12] LABS: Zinc, Serum 57 ug/dL (60-130)
[2020-07-05 06:58] LABS: Vitamin A 27 ug/dL (38-106)
[2020-07-05 07:53] LABS: Vit B1(Thiamine) 81 ug/L (38-122)
== END | disposition home or self-care (01) ==
LOC: LABWHC1 13:08
PROVIDERS: ATTEND Surgery Plastic and Reconstructive Surgery
DX: E66.01 Morbid (severe) obesity due to excess calories (principal); E89.1 Postprocedural hypoinsulinemia; D50.8 Other iron deficiency anemias; K90.89 Other intestinal malabsorption; E55.9 Vitamin D deficiency, unspecified; K74.1 Hepatic sclerosis; N19 Unspecified kidney failure; K50.90 Crohn's disease, unspecified, without complications
CPT/HCPCS: 36415; 80053; 80061; 82306; 82525; 82607; 82728; 82746; 83036; 83540; 83550; 83735; 83970; 84100; 84134; 84255; 84425; 84443; 84590; 84630; 85027; 85610; 85730

== ENCOUNTER → 2020-08-21 | Outpatient (CLI) | payer MEDICARE, OTHER ==
[2020-08-21 15:45] VITALS: BP 156/94; PULSE 76; RESP 16; TEMP 98.1; BMI 30.5
--- NOTE | 2020-08-21 16:17 | P.PN ---
Subjective Progress Note Date: 08/21/20 DATE OF SERVICE: 08/21/2020 CHIEF COMPLAINT: Status post gastric bypass HISTORY OF PRESENT ILLNESS: Deepti Dyson is a 70-year-old female status post gastric bypass, 11/13/2019. She is 9 months out. She reports trouble with eating bread. She reports trouble with eating turkey. She can tolerate chicken. She denies gastroesophageal reflux disease. She has tried francisco with cottage cheese. She can tolerate pineapple, peaches and has not troubles with eating these fruits. She reports occassional fatigue. She reports her fatigue is immediate without warning. She comes in with pre-existing heart disease. At height of 5 feet 2 inches, her ideal body weight is 135 pounds. Her highest weight was 289 pounds, BMI 53.0. She comes in 167 pounds from 165 pounds, 2 months ago. She has gained 2 pounds in 2 months. Her body mass index highest is 53.0 down to 30.5. Her lifetime weight loss is 122 pounds. Lifetime percent excess weight loss is 79 %. She is 32 pounds overweight. PHYSICAL EXAM: VITAL SIGNS: Height 5 foot 2 inches, weight 167 pounds. BMI 30.5 Vital Signs Temp 98.1 F 08/21/20 15:42 Pulse 76 08/21/20 15:42 Resp 16 08/21/20 15:42 BP 156/94 08/21/20 15:42 Pulse Ox GENERAL: Well-developed in no acute distress. HEENT: No scleral icterus. Extraocular movements grossly intact. Hears conversational speech. No nasal drainage. NECK: Supple without lymphadenopathy. CHEST: Nonlabored respirations with equal bilateral excursions. CARDIOVASCULAR: Regular rate and rhytm. Distal 2+ pulses. ABDOMEN: Soft, nondistended. No peritonitis MUSCULOSKELETAL: No clubbing, cyanosis. NEURO: No focal or lateralizing signs. Cranial nerves 2 through 12 grossly w ithin normal limits. PSYCH: Appropriate affect. Alert and oriented to person, place and time. SKIN: Good skin turgor. Well perfused. ASSESSMENT: 1. Morbid obesity due to excess calories 2. Body mass index of 53.0 to 30.5 3. Gastroesophageal reflux disease 4. Hypertensive heart disease 5. Osteoarthritis bilateral knees 6. Inadequate protein intake 7. Hiatal hernia 8. Vitamin A deficiency 9. 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 Status post gastric bypass 11. Gastrojejunal stricture with ulcer 12. Presbyesophagus PLAN: 1. Recommend seeing budget specialist for fatigue with pre-existing heart disease. Objective - Vital Signs Vital signs: Vital Signs Temp 98.1 F 08/21/20 15:42 Pulse 76 08/21/20 15:42 Resp 16 08/21/20 15:42 BP 156/94 08/21/20 15:42 Pulse Ox Intake & Output 08/20/20 08/21/20 08/21/20 18:59 06:59 18:59 Weight 75.75 kg
== END | disposition home or self-care (01) ==
LOC: BARWHC3 15:26
PROVIDERS: ATTEND Surgery Plastic and Reconstructive Surgery
DX: Z48.815 Encounter for surgical aftercare following surgery on the digestive system (principal); E66.01 Morbid (severe) obesity due to excess calories; K21.9 Gastro-esophageal reflux disease without esophagitis; I11.9 Hypertensive heart disease without heart failure; M17.0 Bilateral primary osteoarthritis of knee; E63.8 Other specified nutritional deficiencies; K44.9 Diaphragmatic hernia without obstruction or gangrene; E50.9 Vitamin A deficiency, unspecified; K95.89 Other complications of other bariatric procedure; K28.9 Gastrojejunal ulcer, unspecified as acute or chronic, without hemorrhage or perforation; K56.699 Other intestinal obstruction unspecified as to partial versus complete obstruction; K31.89 Other diseases of stomach and duodenum; K22.8 Other specified diseases of esophagus; Z68.30 Body mass index [BMI] 30.0-30.9, adult; Z98.84 Bariatric surgery status
CPT/HCPCS: 99211

== ENCOUNTER → 2020-09-30 | Outpatient (CLI) | payer MEDICARE, OTHER ==
[2020-09-30] MEDS: SODIUM CHLORIDE 0.9% 1,000 ML IV SCH ×2 (13:15→14:15)
[2020-09-30 13:26] VITALS: BP 142/87; PULSE 66; RESP 16; TEMP 97.9
[2020-09-30 13:57] LABS: HCT 40.4 % (34.0-46.0); HGB 13.4 gm/dL (11.4-16.0); MCH 31.5 pg (25.0-35.0); MCV 95.3 fL (80.0-100.0); Mean Platelet Volume 7.1; Platelet Count 201 k/uL (150-450); RBC 4.24 m/uL (3.80-5.40); RDW 12.6 % (11.5-15.5); WBC 6.8 k/uL (3.8-10.6)
[2020-09-30 14:13] LABS: ALT 32 U/L (4-34); AST 35 U/L (14-36); African American GFR (CKD) >90 (>60 ml/min/1.73 sqM); Albumin 4.5 g/dL (3.5-5.0); Alkaline Phosphatase 108 U/L (38-126); Anion Gap 6 mmol/L; Blood Urea Nitrogen 30 mg/dL (7-17); Calcium 9.9 mg/dL (8.4-10.2); Carbon Dioxide 30 mmol/L (22-30); Chloride 103 mmol/L (98-107); Glucose 114 mg/dL (74-99); Non-African American GFR(CKD) 86 (>60 ml/min/1.73 sqM); Potassium 4.4 mmol/L (3.5-5.1); Sodium 139 mmol/L (137-145); Total Bilirubin 0.7 mg/dL (0.2-1.3); Total Protein 7.1 g/dL (6.3-8.2)
--- NOTE | 2020-09-30 14:31 | P.PN ---
Subjective Progress Note Date: 09/30/20 Patient presents with generalized weakness including difficulties managing solid food. "I feel like Olympus in my throat." She has history of esophageal obstruction clinic presbyesophagus. CBC including BMPs labs obtained demonstrating no acute abnormalities or infection. With clinical history, recommend upper endoscopy with balloon dilation as outpatient. IV fluid hydration for dehydration prescribed. Objective - Vital Signs Vital signs: Vital Signs Temp 97.9 F 09/30/20 13:22 Pulse 66 09/30/20 13:22 Resp 16 09/30/20 13:22 BP 142/87 09/30/20 13:22 Pulse Ox 94 L 09/30/20 13:22 Intake & Output 09/29/20 09/30/20 09/30/20 18:59 06:59 18:59 Weight 71.214 kg - Labs CBC & Chem 7: 09/30/20 13:20 09/30/20 13:20 Labs: Abnormal Lab Results - Last 24 Hours (Table) 09/30/20 Range/Units 13:20 BUN 30 H (7-17) mg/dL Glucose 114 H (74-99) mg/dL
== END | disposition home or self-care (01) ==
LOC: PROCWHC3 13:02
PROVIDERS: ATTEND Surgery Plastic and Reconstructive Surgery
DX: E86.0 Dehydration (principal)
CPT/HCPCS: 36415; 80053; 85027; 96360; 96361

== ENCOUNTER → 2020-10-02 | Outpatient (CLI) | payer MEDICARE, OTHER ==
[2020-10-02 10:15] LABS: HCT 38.4 % (34.0-46.0); HGB 12.8 gm/dL (11.4-16.0); MCH 31.6 pg (25.0-35.0); MCHC 33.3 g/dL (31.0-37.0); MCV 94.8 fL (80.0-100.0); Mean Platelet Volume 6.9; Platelet Count 175 k/uL (150-450); RBC 4.05 m/uL (3.80-5.40); RDW 12.4 % (11.5-15.5)
[2020-10-02 20:37] LABS: INR 1.02 (0.90-1.11); Partial Thromboplastin Time 24.1 sec (23.5-31.0)
[2020-10-02 21:39] LABS: Hemoglobin A1C 5.2 % (4.0-6.0)
[2020-10-03 02:22] LABS: % Iron Saturation 30.61 (12.00-45.00); ALT 49 U/L (8-44); AST 45 U/L (13-35); African American GFR (CKD) 100.3 (60.0-200.0); Albumin/Globulin Ratio 2.24 (1.60-3.17); Alkaline Phosphatase 127 U/L (41-126); Calcium 9.6 mg/dL (8.7-10.3); Carbon Dioxide 23.3 mmol/L (21.6-31.8); Chloride 108 mmol/L (96-109); Chol/HDL Ratio 2.84; Cholesterol 142 mg/dL (0-200); Globulin 2.1 g/dL (1.6-3.3); Glucose 92 mg/dL (70-110); Iron 101 ug/dL (50-170); LDL Cholesterol,Calculated 77.8 mg/dL (0.0-131.0); Magnesium 1.8 mg/dL (1.5-2.4); Non-African American GFR(CKD) 86.6 (60.0-200.0); Phosphorus 4.1 mg/dL (2.4-5.1); Potassium 3.5 mmol/L (3.5-5.5); Sodium 146 mmol/L (135-145); Total Bilirubin 0.9 mg/dL (0.3-1.2); Total Iron Binding Capacity 330 ug/dL (228-460); Total Protein 6.8 g/dL (6.2-8.2)
[2020-10-03 02:30] LABS: Ferritin 28.5 ng/mL (10.0-291.0)
[2020-10-03 02:54] LABS: Folate, Serum >24.0 ng/mL
[2020-10-03 13:11] LABS: Vitamin A 23 ug/dL (38-106)
[2020-10-03 14:06] LABS: Zinc, Serum 88 ug/dL (60-130)
== END | disposition home or self-care (01) ==
LOC: LABWHC1 09:15
PROVIDERS: ATTEND Surgery Plastic and Reconstructive Surgery
DX: D50.8 Other iron deficiency anemias (principal); K90.89 Other intestinal malabsorption; E55.9 Vitamin D deficiency, unspecified; K74.1 Hepatic sclerosis; N19 Unspecified kidney failure; K50.90 Crohn's disease, unspecified, without complications; E66.01 Morbid (severe) obesity due to excess calories; E89.1 Postprocedural hypoinsulinemia
CPT/HCPCS: 36415; 80053; 80061; 82306; 82525; 82607; 82728; 82746; 83036; 83540; 83550; 83735; 83970; 84100; 84134; 84255; 84425; 84443; 84590; 84630; 85027; 85610; 85730

== ENCOUNTER 2020-10-31 08:08 | Day surgery (SDC) | payer MEDICARE, OTHER ==
[2020-10-01 08:25] VITALS: BMI 29.6
[~2020-10-31 08:08] MED LIST changes: -LIDOCAINE 1% (10MG/ML) FOR IV START INTRADERMA PRN; -LIDOCAINE 1% INJ 10MG/ML (20 ML MDV) ONE; -PROPOFOL 10 MG/ML 20 ML VIAL IV ONE
[2020-10-31 09:51] VITALS: TEMP 97.5
[2020-10-31] MEDS ORDERED: LACTATED RINGERS 1,000 ML IV ONE (09:57)
[2020-10-31] MEDS ORDERED: LIDOCAINE 1% (10MG/ML) FOR IV START INTRADERMA ONE (10:02)
[2020-10-31] MEDS ORDERED: LIDOCAINE 1% INJ 10MG/ML (20 ML MDV) ONE (10:29)
[2020-10-31] MEDS ORDERED: ONDANSETRON 4 MG/2 ML VIAL ONE (10:29)
[2020-10-31] MEDS ORDERED: PROPOFOL 10 MG/ML 20 ML VIAL IV ONE (10:29)
[2020-10-31 11:09] VITALS: PULSE 62
--- NOTE | 2020-10-31 11:09 | P.GSHP ---
History of Present Illness H&P Date: 10/31/20 CHIEF COMPLAINT: Esophageal stricture HISTORY OF PRESENT ILLNESS: The patient is a 70-year-old female who presents reports dysphagia. Upper endoscopy was offered for further evaluation and management. PAST MEDICAL HISTORY: Please see list. PAST SURGICAL HISTORY: Please see list. MEDICATIONS: Please see list. ALLERGIES: Please see list. SOCIAL HISTORY: No illicit drug use FAMILY HISTORY: No reports of Crohn disease or ulcerative colitis. REVIEW OF ORGAN SYSTEMS: CONSTITUTIONAL: No reports of fevers or chills. GI: Denies any blood in stools or constipation. PHYSICAL EXAM: VITAL SIGNS: Stable GENERAL: Well-developed and pleasant in no acute distress. HEENT: No scleral icterus. Extraocular movements grossly intact. Moist buccal mucosa. NECK: Supple without lymphadenopathy. CHEST: Unlabored respirations. Equal bilateral excursions. CARDIOVASCULAR: Regular rate and rhythm. Distal 2+ pulses. ABDOMEN: Soft, nondistended. MUSCULOSKELETAL: No clubbing, cyanosis, or edema. ASSESSMENT: 1. Esophageal stricture PLAN: 1. Recommend proceeding with an upper endoscopy with rigid dilators. Past Medical History Past Medical History: GERD/Reflux, Hypertension Additional Past Medical History / Comment(s): Hiatal Hernia, urinary incontinence, hX kidney stone Dysphagia, History of Any Multi-Drug Resistant Organisms: None Reported Past Surgical History: Bariatric Surgery, Cholecystectomy, Hernia Repair, Hysterectomy, Joint Replacement Additional Past Surgical History / Comment(s): Bilateral knee replacement, sleeve gastrectomy (conversion to gastric bypass 11-13-19), hiatal hernia repair, LITHOTRIPSY WITH STENT, EGD with dilation 01/04/20 Past Anesthesia/Blood Transfusion Reactions: Motion Sickness, Postoperative Nausea & Vomiting (PONV) Additional Past Anesthesia/Blood Transfusion Reaction / Comment(s): Pt states "always get UTI's from mcneal catheters." Past Psychological History: No Psychological Hx Reported Smoking Status: Never smoker Past Alcohol Use History: None Reported Past Drug Use History: None Reported - Past Family History Mother Family Medical History: Cancer Additional Family Medical History / Comment(s): Uterine cancer. Medications and Allergies Home Medications Medication Instructions Recorded Confirmed Type Potassium Gluconate 99 mg PO DAILY 04/17/20 10/31/20 History Vitamin A 8,000 unit PO DAILY 04/17/20 10/31/20 History amLODIPine [Norvasc] 10 mg PO DAILY #60 tablet 04/17/20 10/31/20 Rx Magnesium 200 mg PO DAILY 07/04/20 10/31/20 History Omeprazole [PriLOSEC] 40 mg PO DAILY 10/01/20 10/31/20 History Allergies Allergy/AdvReac Type Severity Reaction Status Date / Time Milk Containing Products Allergy Abdominal Verified 10/28/20 15:26 [Dairy] Pain mirabegron [From Myrbetriq] Allergy raised BP Verified 10/28/20 15:26 phenazopyridine [From Azo] Allergy bladder Verified 10/28/20 15:26 pain Sulfa (Sulfonamide Allergy Rash/Hives Verified 10/28/20 15:26 Antibiotics) milk AdvReac Abdominal Verified 10/28/20 15:26 Pain morphine AdvReac Nausea & Verified 10/28/20 15:26 Vomiting Surgical - Exam Vital Signs Temp Pulse Resp BP Pulse Ox 97.5 F L 86 16 177/93 95 10/31/20 09:44 10/31/20 09:44 10/31/20 09:44 10/31/20 09:44 10/31/20 09:44
[2020-10-31 11:19] VITALS: BP 162/81; RESP 18
--- NOTE | 2020-10-31 11:26 | P.PCN ---
Date of Procedure: 10/31/20 Description of Procedure: PREOPERATIVE DIAGNOSIS: Dysphagia. Gastroesophageal reflux disease Esophageal stricture Esophageal dysmotility POSTOPERATIVE DIAGNOSIS: Dysphagia. Gastroesophageal reflux disease Esophageal dysmotility OPERATION: Esophagogastroduodenoscopy with rigid dilator over the guidewire 57 Fr with dilation of esophagus SURGEON: Mackenzie Travis MD ANESTHESIA: MAC. INDICATIONS: The patient is a 70-year-old male who presents with a history of dysphagia. Benefits and risks of the procedure were described. Informed consent was obtained. DESCRIPTION: The patient was brought into the endoscopy suite and laid in the left lateral decubitus position. After a timeout was confirmed, the procedure was initiated. An Olympus gastroscope was passed into the posterior oropharynx down to the distal esophagus. The posterior oropharynx was hypertensive consistent with dysphagia. The scope was entered into the gastric pouch. No ulcerations were identified. No acute gastrojejunal ulcerations were found. The anastomosis was patent. To address her upper esophageal hypertension including dysphagia, rigid dilator was selected. Next using an Nigerian rigid dilator, a guidewire was placed through the gastroscope. Next the scope was withdrawn. A 57-Iraqi rigid Nigerian dilator was passed carefully along the posterior oropharynx to 50 cm and left in place for 2-3 minutes stretch. The dilator was withdrawn including the guidewire. The scope was reentered along the posterior oropharynx without mucosal defects of the upper esophageal sphincter. No full-thickness injury was encountered. The GI tract was desufflated. The patient tolerated the procedure well. FINDINGS: Gastrojejunal anastomotic patent and without ulcer Upper esophageal stricture dilated Nigerian rigid dilator 57-Iraqi completed. RECOMMENDATIONS: Upper endoscopy as needed Plan - Discharge Summary Discharge Rx Participant: No New Discharge Prescriptions: Continue Potassium Gluconate 99 mg PO DAILY Vitamin A 8,000 unit PO DAILY amLODIPine [Norvasc] 10 mg PO DAILY #60 tablet Magnesium 200 mg PO DAILY Omeprazole [PriLOSEC] 40 mg PO DAILY Discharge Medication List Potassium Gluconate 99 mg PO DAILY 04/17/20 [History] Vitamin A 8,000 unit PO DAILY 04/17/20 [History] amLODIPine [Norvasc] 10 mg PO DAILY #60 tablet 04/17/20 [Rx] Magnesium 200 mg PO DAILY 07/04/20 [History] Omeprazole [PriLOSEC] 40 mg PO DAILY 10/01/20 [History] Follow up Appointment(s)/Referral(s): [facility] [[facility]-STAFF] - 11/06/20 Patient Instructions/Handouts: Esophageal Dilation (DC) Activity/Diet/Wound Care/Special Instructions: May have regular food. Recommend warm beverages. Discharge Disposition: HOME SELF-CARE
== END 2020-10-31 12:49 | disposition home or self-care (01) ==
LOC: ORWHC2ENDO 08:08
PROVIDERS: ATTEND Surgery Plastic and Reconstructive Surgery
DX: K22.2 Esophageal obstruction (principal); K22.4 Dyskinesia of esophagus; Z98.84 Bariatric surgery status; I10 Essential (primary) hypertension; Z79.899 Other long term (current) drug therapy; K21.9 Gastro-esophageal reflux disease without esophagitis; Z98.890 Other specified postprocedural states; Z88.5 Allergy status to narcotic agent; Z88.2 Allergy status to sulfonamides; Z91.011 Allergy to milk products; Z88.8 Allergy status to other drugs, medicaments and biological substances; Z87.442 Personal history of urinary calculi; Z90.49 Acquired absence of other specified parts of digestive tract; Z80.49 Family history of malignant neoplasm of other genital organs
CPT/HCPCS: 43248; J2405; J2001; J2704; 43249

== ENCOUNTER → 2020-11-06 | Outpatient (CLI) | payer MEDICARE, OTHER ==
[2020-11-06 13:42] VITALS: BP 163/90; PULSE 60; RESP 18; TEMP 98; BMI 30.3
--- NOTE | 2020-11-06 14:03 | P.PN ---
Subjective Progress Note Date: 11/06/20 DATE OF SERVICE: 11/06/2020 CHIEF COMPLAINT: Status post gastric bypass HISTORY OF PRESENT ILLNESS: Deepti Dyson is a 70-year-old female status post gastric bypass, 11/13/2019. She is 1 year out. She is status post esophageal dilation 10/31/2020. She is 1 week out. She reports improvement of swallowing along the throat. She has presbyesogus. She has occassional globus from food. She is able to eat cottage cheese, mandarin orange including yogurt without difficulty. She could not tolerate chicken cordon petar. At height of 5 feet 2 inches, her ideal body weight is 135 pounds. Her highest weight was 289 pounds, BMI 53.0. She comes in 166 pounds from 157 pounds, 2 months ago. She has gained 9 pounds in 2 months. Her body mass index highest is 53.0 down to 30.4. Her lifetime weight loss is 123 pounds. Lifetime percent excess weight loss is 80 %. She is 31 pounds overweight. PHYSICAL EXAM: VITAL SIGNS: Height 5 foot 2 inches, weight 166 pounds. BMI 30.4 Vital Signs Temp 98 F 11/06/20 13:39 Pulse 60 11/06/20 13:39 Resp 18 11/06/20 13:39 BP 163/90 11/06/20 13:39 Pulse Ox GENERAL: Well-developed in no acute distress. HEENT: No scleral icterus. Extraocular movements grossly intact. Hears conversational speech. No nasal drainage. NECK: Supple without lymphadenopathy. CHEST: Nonlabored respirations with equal bilateral excursions. CARDIOVASCULAR: Regular rate and rhytm. Distal 2+ pulses. ABDOMEN: Soft, nondistended. No peritonitis MUSCULOSKELETAL: No clubbing, cyanosis. NEURO: No focal or lateralizing signs. Cranial nerves 2 through 12 grossly within normal limits. PSYCH: Appropriate affect. Alert and oriented to person, place and time. SKIN: Good skin turgor. Well perfused. LABS: Reviewed. Liver enzymes are elevated. Pre-albumin is low. Vitamin A is low. ASSESSMENT: 1. Morbid obesity due to excess calories 2. Body mass index of 53.0 to 30.4 3. Gastroesophageal reflux disease 4. Hypertensive heart disease 5. Osteoarthritis bilateral knees 6. Inadequate protein intake 7. Hiatal hernia 8. Vitamin A deficiency 9. 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 Status post gastric bypass 11. Gastrojejunal stricture with ulcer 12. Presbyesophagus PLAN: 1. Clinically she reports improvement of her symptoms 2. She reports already having previous cholecystectomy with elevated liver enzymes 3. Upper endoscopy as needed 4. Vitamin A supplementation Objective - Vital Signs Vital signs: Vital Signs Temp 98 F 11/06/20 13:39 Pulse 60 11/06/20 13:39 Resp 18 11/06/20 13:39 BP 163/90 11/06/20 13:39 Pulse Ox Intake & Output 11/05/20 11/06/20 11/06/20 18:59 06:59 18:59 Weight 75.296 kg
== END | disposition home or self-care (01) ==
LOC: BARWHC3 12:45
PROVIDERS: ATTEND Surgery Plastic and Reconstructive Surgery
DX: Z48.815 Encounter for surgical aftercare following surgery on the digestive system (principal); E66.01 Morbid (severe) obesity due to excess calories; Z68.43 Body mass index [BMI] 50.0-59.9, adult; K21.9 Gastro-esophageal reflux disease without esophagitis; I11.9 Hypertensive heart disease without heart failure; M17.0 Bilateral primary osteoarthritis of knee; K44.9 Diaphragmatic hernia without obstruction or gangrene; E50.9 Vitamin A deficiency, unspecified; K95.89 Other complications of other bariatric procedure; K22.8 Other specified diseases of esophagus; Z98.84 Bariatric surgery status; K91.89 Other postprocedural complications and disorders of digestive system; K25.9 Gastric ulcer, unspecified as acute or chronic, without hemorrhage or perforation
CPT/HCPCS: 99211

== ENCOUNTER → 2021-06-25 | Outpatient (CLI) | payer MEDICARE, OTHER ==
[2021-06-25 13:13] LABS: Prothrombin Time 10.4 sec (9.0-12.0)
[2021-06-25 19:06] LABS: HCT 38.6 % (37.2-46.3); HGB 12.4 g/dL (12.0-15.0); MCH 31.7 pg (27.0-32.0); MCHC 32.1 g/dL (32.0-37.0); MCV 98.7 fL (80.0-97.0); Mean Platelet Volume 9.9 fL (9.5-12.2); Platelet Count 189 X 10*3/uL (140-440); RBC 3.91 X 10*6/uL (4.10-5.20); WBC 5.11 X 10*3/uL (4.50-10.00)
[2021-06-25 20:39] LABS: Hemoglobin A1C 5.2 % (4.0-6.0)
[2021-06-26 03:24] LABS: % Iron Saturation 33.33 (12.00-45.00); African American GFR (CKD) 85.4 (60.0-200.0); Albumin 4.6 g/dL (3.80-4.90); Albumin/Globulin Ratio 2.3 (1.60-3.17); Anion Gap 9.2 mmol/L (4.00-12.00); BUN/Creat Ratio 36.25 Ratio (12.00-20.00); Calcium 9.5 mg/dL (8.7-10.3); Carbon Dioxide 27.8 mmol/L (21.6-31.8); Chol/HDL Ratio 2.74; LDL Cholesterol,Calculated 77.6 mg/dL (0.0-131.0); Magnesium 2.1 mg/dL (1.5-2.4); Non-African American GFR(CKD) 73.7 (60.0-200.0); Potassium 4.4 mmol/L (3.5-5.5); Total Bilirubin 0.3 mg/dL (0.3-1.2); Total Protein 6.6 g/dL (6.2-8.2); VLDL Calculation 16.4 mg/dL (5.00-40.00)
[2021-06-26 03:30] LABS: Ferritin 34.2 ng/mL (10.0-291.0)
[2021-06-26 03:41] LABS: Folate, Serum 19.1 ng/mL
[2021-06-26 12:26] LABS: Zinc, Serum 63 ug/dL (60-130)
[2021-06-27 08:00] LABS: Vitamin A 29 ug/dL (38-106)
== END | disposition home or self-care (01) ==
LOC: LABWHC1 12:10
PROVIDERS: ATTEND Surgery Plastic and Reconstructive Surgery
DX: E66.01 Morbid (severe) obesity due to excess calories (principal); E89.1 Postprocedural hypoinsulinemia; D50.8 Other iron deficiency anemias; E44.0 Moderate protein-calorie malnutrition; E55.9 Vitamin D deficiency, unspecified; K74.1 Hepatic sclerosis; N19 Unspecified kidney failure; K50.90 Crohn's disease, unspecified, without complications; Z98.84 Bariatric surgery status
CPT/HCPCS: 36415; 80053; 80061; 82306; 82525; 82607; 82728; 82746; 83036; 83540; 83550; 83735; 83970; 84100; 84134; 84255; 84425; 84443; 84590; 84630; 85027; 85610; 85730

== ENCOUNTER 2021-07-03 07:27 | Day surgery (SDC) | payer MEDICARE, OTHER ==
[2021-06-30 16:08] VITALS: BMI 32.3
[2021-07-03] MEDS ORDERED: LIDOCAINE 1% (10MG/ML) FOR IV START INTRADERMA PRN (07:47)
[2021-07-03] MEDS ORDERED: LACTATED RINGERS 1,000 ML IV SCH (07:47)
[2021-07-03 08:04] VITALS: RESP 16; TEMP 97.6
[2021-07-03] MEDS ORDERED: PROPOFOL 10 MG/ML 20 ML VIAL IV ONE (08:32)
[2021-07-03] MEDS ORDERED: LIDOCAINE 1% INJ 10MG/ML (20 ML MDV) ONE (08:32)
--- NOTE | 2021-07-03 08:49 | P.GSHP ---
History of Present Illness H&P Date: 07/03/21 CHIEF COMPLAINT: Esophageal stricture HISTORY OF PRESENT ILLNESS: The patient is a 71-year-old female who presents reports dysphagia. Upper endoscopy was offered for further evaluation and management. PAST MEDICAL HISTORY: Please see list. PAST SURGICAL HISTORY: Please see list. MEDICATIONS: Please see list. ALLERGIES: Please see list. SOCIAL HISTORY: No illicit drug use FAMILY HISTORY: No reports of Crohn disease or ulcerative colitis. REVIEW OF ORGAN SYSTEMS: CONSTITUTIONAL: No reports of fevers or chills. GI: Denies any blood in stools or constipation. PHYSICAL EXAM: VITAL SIGNS: Stable GENERAL: Well-developed and pleasant in no acute distress. HEENT: No scleral icterus. Extraocular movements grossly intact. Moist buccal mucosa. NECK: Supple without lymphadenopathy. CHEST: Unlabored respirations. Equal bilateral excursions. CARDIOVASCULAR: Regular rate and rhythm. Distal 2+ pulses. ABDOMEN: Soft, nondistended. MUSCULOSKELETAL: No clubbing, cyanosis, or edema. ASSESSMENT: 1. Esophageal stricture PLAN: 1. Recommend proceeding with an upper endoscopy with rigid dilators. Past Medical History Past Medical History: GERD/Reflux, Hypertension Additional Past Medical History / Comment(s): Hiatal Hernia, urinary incontinence, hX kidney stone Dysphagia, bone scan Oct 2020. History of Any Multi-Drug Resistant Organisms: None Reported Past Surgical History: Bariatric Surgery, Cholecystectomy, Hernia Repair, Hysterectomy, Joint Replacement Additional Past Surgical History / Comment(s): Bilateral knee replacement, sleeve gastrectomy (conversion to gastric bypass 11-13-19), hiatal hernia repair, LITHOTRIPSY WITH STENT, EGD with dilation 01/04/20 Past Anesthesia/Blood Transfusion Reactions: Motion Sickness, Postoperative Nausea & Vomiting (PONV) Additional Past Anesthesia/Blood Transfusion Reaction / Comment(s): Pt states "always get UTI's from mcneal catheters." Smoking Status: Never smoker - Past Family History Mother Family Medical History: Cancer Additional Family Medical History / Comment(s): Uterine cancer. Medications and Allergies Home Medications Medication Instructions Recorded Confirmed Type amLODIPine [Norvasc] 10 mg PO DAILY #60 tablet 04/17/20 07/03/21 Rx Omeprazole [PriLOSEC] 40 mg PO DAILY 10/01/20 07/03/21 History Allergies Allergy/AdvReac Type Severity Reaction Status Date / Time Milk Containing Products Allergy Abdominal Verified 07/03/21 07:53 [Dairy] Pain mirabegron [From Myrbetriq] Allergy raised BP Verified 07/03/21 07:53 phenazopyridine [From Azo] Allergy bladder Verified 07/03/21 07:53 pain Sulfa (Sulfonamide Allergy Rash/Hives Verified 07/03/21 07:53 Antibiotics) milk AdvReac Abdominal Verified 07/03/21 07:53 Pain morphine AdvReac Nausea & Verified 07/03/21 07:53 Vomiting Surgical - Exam Vital Signs Temp Pulse Resp BP Pulse Ox 97.6 F 66 16 211/93 100 07/03/21 07:50 07/03/21 07:50 07/03/21 07:50 07/03/21 07:50 07/03/21 07:50
--- NOTE | 2021-07-03 08:55 | P.PCN ---
Date of Procedure: 07/03/21 Description of Procedure: PREOPERATIVE DIAGNOSIS: Dysphagia. Gastroesophageal reflux disease Esophageal stricture Family history of esophageal dysmotility POSTOPERATIVE DIAGNOSIS: Dysphagia. Gastroesophageal reflux disease Esophageal stricture, upper esophageal sphincter Family history of esophageal dysmotility OPERATION: Esophagogastroduodenoscopy with rigid dilator over the guidewire 51 Fr. SURGEON: Mackenzie Travis MD ANESTHESIA: MAC. INDICATIONS: The patient is a 71-year-old male who presents with a history of dysphagia. She reports family history of esophageal dysmotility and stricture. Benefits and risks of the procedure were described. Informed consent was obtained. DESCRIPTION: The patient was brought into the endoscopy suite and laid in the left lateral decubitus position. After a timeout was confirmed, the procedure was initiated. An Olympus gastroscope was passed into the gastric pouch. The gastrojejunal anastomosis was intact without ulcerations. Next using an Trinidadian rigid dilator, a guidewire was placed through the pediatric gastroscope. Next the scope was withdrawn. A 54-Korean rigid Trinidadian dilator was passed but tight along the upper esophageal sphincter. The dilator was exchanged for a 51-Korean dilator that was carefully along the posterior oropharynx to 50 cm and left in place for 2-3 minutes stretch. The dilator was withdrawn including the guidewire. The scope was reentered along the posterior oropharynx with no findings of full-thickness tear of the upper esophageal sphincter. Next, inflammation of the antrum was identified with cold forceps biopsies obtained. No full-thickness injury was encountered. The GI tract was desufflated. The patient tolerated the procedure well. FINDINGS: Squamocolumnar junction unremarkable at 38 cm. Upper esophageal stricture without ulceration Trinidadian rigid dilator 5-1French completed. Gastric pouch without gastrojejunal ulceration RECOMMENDATIONS: Upper endoscopy with dilation as needed Plan - Discharge Summary Discharge Rx Participant: No New Discharge Prescriptions: Continue amLODIPine [Norvasc] 10 mg PO DAILY #60 tablet Omeprazole [PriLOSEC] 40 mg PO DAILY Discharge Medication List amLODIPine [Norvasc] 10 mg PO DAILY #60 tablet 04/17/20 [Rx] Omeprazole [PriLOSEC] 40 mg PO DAILY 10/01/20 [History] Follow up Appointment(s[facility] [facility] [place] - As Needed Patient Instructions/Handouts: Esophageal Dilation (DC) Activity/Diet/Wound Care/Special Instructions: Diet as tolerated Discharge Disposition: HOME SELF-CARE
[2021-07-03 09:12] VITALS: BP 148/89; PULSE 58
== END 2021-07-03 09:36 | disposition home or self-care (01) ==
LOC: ORWHC2ENDO 07:27
PROVIDERS: ATTEND Surgery Plastic and Reconstructive Surgery
DX: K22.2 Esophageal obstruction (principal); K21.9 Gastro-esophageal reflux disease without esophagitis; K44.9 Diaphragmatic hernia without obstruction or gangrene; I10 Essential (primary) hypertension; R32 Unspecified urinary incontinence; Z87.440 Personal history of urinary (tract) infections; Z87.442 Personal history of urinary calculi; Z88.2 Allergy status to sulfonamides; Z88.5 Allergy status to narcotic agent; Z90.49 Acquired absence of other specified parts of digestive tract; Z98.84 Bariatric surgery status
CPT/HCPCS: 43249; J2001; J2704

== ENCOUNTER → 2021-08-11 | Day surgery (SDC) | payer MEDICARE, OTHER ==
[2021-08-07 09:03] VITALS: BMI 32.1
--- NOTE | 2021-08-11 09:08 | P.GSHP ---
History of Present Illness H&P Date: 08/11/21 CHIEF COMPLAINT: GERD HISTORY OF PRESENT ILLNESS: The patient is a 76-year-old female who presents reports gastroesophageal reflux disease. Upper endoscopy was offered for further evaluation and management. PAST MEDICAL HISTORY: Please see list. PAST SURGICAL HISTORY: Please see list. MEDICATIONS: Please see list. ALLERGIES: Please see list. SOCIAL HISTORY: No illicit drug use FAMILY HISTORY: No reports of Crohn disease or ulcerative colitis. REVIEW OF ORGAN SYSTEMS: CONSTITUTIONAL: No reports of fevers or chills. GI: Denies any blood in stools or constipation. PHYSICAL EXAM: VITAL SIGNS: Stable GENERAL: Well-developed and pleasant in no acute distress. HEENT: No scleral icterus. Extraocular movements grossly intact. Moist buccal mucosa. NECK: Supple without lymphadenopathy. CHEST: Unlabored respirations. Equal bilateral excursions. CARDIOVASCULAR: Regular rate and rhythm. Distal 2+ pulses. ABDOMEN: Soft, nondistended. MUSCULOSKELETAL: No clubbing, cyanosis, or edema. ASSESSMENT: 1. Gastroesophageal reflux disease PLAN: 1. Recommend proceeding with an upper endoscopy Past Medical History Past Medical History: GERD/Reflux, Hypertension Additional Past Medical History / Comment(s): Hiatal Hernia, urinary incontinence, hx. kidney stone, dysphagia recently History of Any Multi-Drug Resistant Organisms: None Reported Past Surgical History: Bariatric Surgery, Cholecystectomy, Hernia Repair, Hysterectomy, Joint Replacement Additional Past Surgical History / Comment(s): Bilateral knee replacement, sleev e gastrectomy (conversion to gastric bypass 11-13-19), hiatal hernia repair, LITHOTRIPSY WITH STENT, EGD with dilation 01/04/20 Past Anesthesia/Blood Transfusion Reactions: Motion Sickness, Postoperative Nausea & Vomiting (PONV) Additional Past Anesthesia/Blood Transfusion Reaction / Comment(s): Pt states "always get UTI's from mcneal catheters." Smoking Status: Never smoker - Past Family History Mother Family Medical History: Cancer Additional Family Medical History / Comment(s): Uterine cancer. Medications and Allergies Home Medications Medication Instructions Recorded Confirmed Type amLODIPine [Norvasc] 10 mg PO DAILY #60 tablet 04/17/20 08/07/21 Rx Omeprazole [PriLOSEC] 40 mg PO DAILY 10/01/20 08/07/21 History Allergies Allergy/AdvReac Type Severity Reaction Status Date / Time Milk Containing Products Allergy Abdominal Verified 08/07/21 08:44 [Dairy] Pain mirabegron [From Myrbetriq] Allergy raised BP Verified 08/07/21 08:44 phenazopyridine [From Azo] Allergy bladder Verified 08/07/21 08:44 pain Sulfa (Sulfonamide Allergy Rash/Hives Verified 08/07/21 08:44 Antibiotics) milk AdvReac Abdominal Verified 08/07/21 08:44 Pain morphine AdvReac Nausea & Verified 08/07/21 08:44 Vomiting
== END ==
LOC: ORWHC2ENDO 09:19
PROVIDERS: ATTEND Surgery Plastic and Reconstructive Surgery
DX: Z53.9 Procedure and treatment not carried out, unspecified reason (principal)

== ENCOUNTER 2021-08-18 06:45 | Day surgery (SDC) | payer MEDICARE, OTHER ==
[2021-08-18] MEDS ORDERED: LACTATED RINGERS 1,000 ML IV SCH (07:06)
[2021-08-18 07:10] VITALS: TEMP 97.8
--- NOTE | 2021-08-18 07:12 | P.GSHP ---
History of Present Illness H&P Date: 08/18/21 CHIEF COMPLAINT: GERD HISTORY OF PRESENT ILLNESS: The patient is a 71-year-old female who presents reports gastroesophageal reflux disease. Upper endoscopy was offered for further evaluation and management. PAST MEDICAL HISTORY: Please see list. PAST SURGICAL HISTORY: Please see list. MEDICATIONS: Please see list. ALLERGIES: Please see list. SOCIAL HISTORY: No illicit drug use FAMILY HISTORY: No reports of Crohn disease or ulcerative colitis. REVIEW OF ORGAN SYSTEMS: CONSTITUTIONAL: No reports of fevers or chills. GI: Denies any blood in stools or constipation. PHYSICAL EXAM: VITAL SIGNS: Stable GENERAL: Well-developed and pleasant in no acute distress. HEENT: No scleral icterus. Extraocular movements grossly intact. Moist buccal mucosa. NECK: Supple without lymphadenopathy. CHEST: Unlabored respirations. Equal bilateral excursions. CARDIOVASCULAR: Regular rate and rhythm. Distal 2+ pulses. ABDOMEN: Soft, nondistended. MUSCULOSKELETAL: No clubbing, cyanosis, or edema. ASSESSMENT: 1. Gastroesophageal reflux disease PLAN: 1. Recommend proceeding with an upper endoscopy Past Medical History Past Medical History: GERD/Reflux, Hypertension Additional Past Medical History / Comment(s): Hiatal Hernia, urinary incontinence, hx. kidney stone, dysphagia recently History of Any Multi-Drug Resistant Organisms: None Reported Past Surgical History: Bariatric Surgery, Cholecystectomy, Hernia Repair, Hysterectomy, Joint Replacement Additional Past Surgical History / Comment(s): Bilateral knee replacement, slee ve gastrectomy (conversion to gastric bypass 11-13-19), hiatal hernia repair, LITHOTRIPSY WITH STENT, EGD with dilation 01/04/20 Past Anesthesia/Blood Transfusion Reactions: Motion Sickness, Postoperative Nausea & Vomiting (PONV) Additional Past Anesthesia/Blood Transfusion Reaction / Comment(s): Pt states "always get UTI's from mcneal catheters." Smoking Status: Never smoker - Past Family History Mother Family Medical History: Cancer Additional Family Medical History / Comment(s): Uterine cancer. Medications and Allergies Home Medications Medication Instructions Recorded Confirmed Type amLODIPine [Norvasc] 10 mg PO DAILY #60 tablet 04/17/20 08/18/21 Rx Omeprazole [PriLOSEC] 40 mg PO DAILY 10/01/20 08/18/21 History Allergies Allergy/AdvReac Type Severity Reaction Status Date / Time Milk Containing Products Allergy Abdominal Verified 08/14/21 13:14 [Dairy] Pain mirabegron [From Myrbetriq] Allergy raised BP Verified 08/14/21 13:14 phenazopyridine [From Azo] Allergy bladder Verified 08/14/21 13:14 pain Sulfa (Sulfonamide Allergy Rash/Hives Verified 08/14/21 13:14 Antibiotics) milk AdvReac Abdominal Verified 08/14/21 13:14 Pain morphine AdvReac Nausea & Verified 08/14/21 13:14 Vomiting Surgical - Exam Vital Signs Temp Pulse Resp BP Pulse Ox 97.8 F 51 L 18 179/88 98 08/18/21 07:10 08/18/21 07:10 08/18/21 07:10 08/18/21 07:10 08/18/21 07:10
[2021-08-18] MEDS ORDERED: LACTATED RINGERS 1,000 ML IV ONE (07:13)
[2021-08-18] MEDS ORDERED: PROPOFOL 10 MG/ML 20 ML VIAL IV ONE (07:34)
[2021-08-18] MEDS ORDERED: LIDOCAINE 1% INJ 10MG/ML (20 ML MDV) ONE (07:34)
--- NOTE | 2021-08-18 07:59 | P.PCN ---
Date of Procedure: 08/18/21 Description of Procedure: PREOPERATIVE DIAGNOSIS: Dysphagia. Esophageal dysmotility Gastroesophageal reflux disease POSTOPERATIVE DIAGNOSIS: Dysphagia. Esophageal dysmotility Gastroesophageal reflux disease OPERATION: Esophagogastrojejunoscopy with rigid dilatation, 57 Fr SURGEON: Mackenzie Travis MD ANESTHESIA: MAC. INDICATIONS: The patient is a 71-year-old female who presents with a history of dysphagia and gastroesophageal reflux disease. Benefits and risks of the procedure were described. Informed consent was obtained. DESCRIPTION: The patient was brought into the endoscopy suite and laid in the left lateral decubitus position. After a timeout was confirmed, the procedure was initiated. An Olympus gastroscope was passed along the posterior oropharynx down to the distal esophagus where the squamocolumnar junction was unremarkable. The gastric pouch was entered. Additional findings below. Esophageal dysmotility was found as the adult gastroscope was 9.5 mm in size. Moderate sputum was identified on the posterior oropharynx including along the esophagus. A guidewire was placed through the scope. The scope was removed. A rigid dilator 57-Irish placed for dilation performed for 2 minutes to address upper esophageal hypertensive sphincter. The patient tolerated the procedure well. FINDINGS: Esophageal dysmotility addressed with rigid dilator, 57-Irish No chronic gastrojejunal ulceration encountered. RECOMMENDATIONS: Upper endoscopy as needed Plan - Discharge Summary New Discharge Prescriptions: Continue amLODIPine [Norvasc] 10 mg PO DAILY #60 tablet Omeprazole [PriLOSEC] 40 mg PO DAILY Discharge Medication List amLODIPine [Norvasc] 10 mg PO DAILY #60 tablet 04/17/20 [Rx] Omeprazole [PriLOSEC] 40 mg PO DAILY 10/01/20 [History] Follow up Appointment(s[facility]Ref[place] [facility] [place] - As Needed Patient Instructions/Handouts: Esophageal Dilation (DC) Discharge Disposition: HOME SELF-CARE
[2021-08-18 08:07] VITALS: BP 132/86; PULSE 59; RESP 14
== END 2021-08-18 08:27 | disposition home or self-care (01) ==
LOC: ORWHC2ENDO 06:45
PROVIDERS: ATTEND Surgery Plastic and Reconstructive Surgery
DX: R13.10 Dysphagia, unspecified (principal); K21.9 Gastro-esophageal reflux disease without esophagitis; Z87.440 Personal history of urinary (tract) infections; I10 Essential (primary) hypertension; R32 Unspecified urinary incontinence; Z87.442 Personal history of urinary calculi; Z98.84 Bariatric surgery status; Z90.49 Acquired absence of other specified parts of digestive tract; Z90.710 Acquired absence of both cervix and uterus; Z96.653 Presence of artificial knee joint, bilateral; Z98.890 Other specified postprocedural states; Z80.59 Family history of malignant neoplasm of other urinary tract organ; Z79.899 Other long term (current) drug therapy; Z88.5 Allergy status to narcotic agent; Z88.2 Allergy status to sulfonamides; Z88.8 Allergy status to other drugs, medicaments and biological substances; Z91.011 Allergy to milk products
CPT/HCPCS: 43248; J2001; J2704; 43249

== ENCOUNTER 2022-03-30 07:22 | Day surgery (SDC) | payer MEDICARE, OTHER ==
[~2022-03-30 07:22] MED LIST changes: -LACTATED RINGERS 1,000 ML IV SCH; +LIDOCAINE 1% (10MG/ML) FOR IV START INTRADERMA PRN
[2022-03-30 07:59] VITALS: TEMP 97.9
--- NOTE | 2022-03-30 08:01 | P.GSHP ---
History of Present Illness H&P Date: 03/30/22 CHIEF COMPLAINT: GERD HISTORY OF PRESENT ILLNESS: The patient is a 71-year-old female who presents reports gastroesophageal reflux disease. Upper endoscopy was offered for further evaluation and management. PAST MEDICAL HISTORY: Please see list. PAST SURGICAL HISTORY: Please see list. MEDICATIONS: Please see list. ALLERGIES: Please see list. SOCIAL HISTORY: No illicit drug use FAMILY HISTORY: No reports of Crohn disease or ulcerative colitis. REVIEW OF ORGAN SYSTEMS: CONSTITUTIONAL: No reports of fevers or chills. GI: Denies any blood in stools or constipation. PHYSICAL EXAM: VITAL SIGNS: Stable GENERAL: Well-developed and pleasant in no acute distress. HEENT: No scleral icterus. Extraocular movements grossly intact. Moist buccal mucosa. NECK: Supple without lymphadenopathy. CHEST: Unlabored respirations. Equal bilateral excursions. CARDIOVASCULAR: Regular rate and rhythm. Distal 2+ pulses. ABDOMEN: Soft, nondistended. MUSCULOSKELETAL: No clubbing, cyanosis, or edema. ASSESSMENT: 1. Gastroesophageal reflux disease PLAN: 1. Recommend proceeding with an upper endoscopy Past Medical History Past Medical History: GERD/Reflux, Hypertension Additional Past Medical History / Comment(s): Hiatal Hernia, urinary incontinence, hx. kidney stone, dysphagia recently History of Any Multi-Drug Resistant Organisms: None Reported Past Surgical History: Bariatric Surgery, Cholecystectomy, Hernia Repair, Hysterectomy, Joint Replacement Additional Past Surgical History / Comment(s): Bilateral knee replacement, sleev e gastrectomy (conversion to gastric bypass 11-13-19), hiatal hernia repair, LITHOTRIPSY WITH STENT, EGD with dilation 01/04/20, moles removed Past Anesthesia/Blood Transfusion Reactions: Motion Sickness, Postoperative Nausea & Vomiting (PONV) Additional Past Anesthesia/Blood Transfusion Reaction / Comment(s): Pt states "always get UTI's from mcneal catheters." Smoking Status: Never smoker - Past Family History Mother Family Medical History: Cancer Additional Family Medical History / Comment(s): Uterine cancer. Medications and Allergies Home Medications Medication Instructions Recorded Confirmed Type amLODIPine [Norvasc] 10 mg PO DAILY #60 tablet 04/17/20 03/27/22 Rx Omeprazole [PriLOSEC] 40 mg PO DAILY 10/01/20 03/27/22 History Bariatric Vitamin 1 tab PO DAILY 03/27/22 History Allergies Allergy/AdvReac Type Severity Reaction Status Date / Time loratadine [From Claritin] Allergy Rash/Hives Verified 03/27/22 12:26 Milk Containing Products Allergy Abdominal Verified 03/27/22 12:26 [Dairy] Pain mirabegron [From Myrbetriq] Allergy raised BP Verified 03/27/22 12:26 phenazopyridine [From Azo] Allergy bladder Verified 03/27/22 12:26 pain Sulfa (Sulfonamide Allergy Rash/Hives Verified 03/27/22 12:26 Antibiotics) milk AdvReac Abdominal Verified 03/27/22 12:26 Pain morphine AdvReac Nausea & Verified 03/27/22 12:26 Vomiting Surgical - Exam Vital Signs Temp Pulse Resp BP Pulse Ox 97.9 F 53 L 16 165/72 97 03/30/22 07:58 03/30/22 07:58 03/30/22 07:58 03/30/22 07:58 03/30/22 07:58
[2022-03-30] MEDS: LACTATED RINGERS 1,000 ML IV SCH ×2 (08:12→08:17)
[2022-03-30] MEDS ORDERED: LIDOCAINE 2% INJ 20 MG/ML (2 ML VIAL) ONE (08:19)
[2022-03-30] MEDS ORDERED: PROPOFOL 10 MG/ML 20 ML VIAL IV ONE (08:19)
--- NOTE | 2022-03-30 08:52 | P.PCN ---
Date of Procedure: 03/30/22 Description of Procedure: PREOPERATIVE DIAGNOSIS: Dysphagia. Gastroesophageal reflux disease Esophageal stricture Esophageal dysmotility POSTOPERATIVE DIAGNOSIS: Dysphagia. Gastroesophageal reflux disease Gastrojejunal stenosis Esophageal dysmotility Esophageal stricture OPERATION: Esophagogastrojejunoscopy with [employer] 20 mm balloon dilator for gastrojejunal stenosis Esophagogastrojejunoscopy with rigid dilator over the guidewire 54 Fr with dilation of esophageal stenosis/dysmotility SURGEON: Mackenzie Travis MD ANESTHESIA: MAC. INDICATIONS: The patient is a 71-year-old female who presents with a history of dysphagia. Benefits and risks of the procedure were described. Informed consent was obtained. DESCRIPTION: The patient was brought into the endoscopy suite and laid in the left lateral decubitus position. After a timeout was confirmed, the procedure was initiated. An Olympus gastroscope was passed into the posterior oropharynx down into the gastric pouch. The scope was entered into the gastric pouch with gastrojejunal stenosis along the gastrojejunal anastomosis. To address her 15 mm gastrojejunal stricture, a 20 mm [employer] [employer] balloon was used to dilate. Next using an Jordanian rigid dilator, a guidewire was placed through the gastroscope. Next the scope was withdrawn. A 54-Irish rigid Jordanian dilator was passed carefully along the posterior oropharynx to 45 cm and left in place for 2-3 minutes stretch. The dilator was withdrawn including the guidewire. The scope was reentered along the posterior oropharynx with no findings of full- thickness tear of the upper esophageal sphincter. No full-thickness injury was encountered. The GI tract was desufflated. The patient tolerated the procedure well. FINDINGS: Gastrojejunal anastomotic stricture without ulceration and stenosis dilated Presbyesophagus with esophageal dysmotility and upper stricture dilated Jordanian rigid dilator 54-Irish completed. RECOMMENDATIONS: Upper endoscopy as needed Plan - Discharge Summary Discharge Rx Participant: No New Discharge Prescriptions: New Omeprazole [PriLOSEC] 40 mg PO DAILY #90 cap Continue amLODIPine [Norvasc] 10 mg PO DAILY #60 tablet Omeprazole [PriLOSEC] 40 mg PO DAILY Bariatric Vitamin 1 tab PO DAILY Discharge Medication List amLODIPine [Norvasc] 10 mg PO DAILY #60 tablet 04/17/20 [Rx] Omeprazole [PriLOSEC] 40 mg PO DAILY 10/01/20 [History] Bariatric Vitamin 1 tab PO DAILY 03/27/22 [History] Omeprazole [PriLOSEC] 40 mg PO DAILY #90 cap 03/30/22 [Rx] Follow up Appointment(s)/Ref[place](s[place] [facility] [place] - 04/15/22 Patient Instructions/Handouts: Esophageal Dilation (DC), Peptic Ulcer (IP) Activity/Diet/Wound Care/Special Instructions: Diet as tolerated Discharge Disposition: HOME SELF-CARE
[2022-03-30 09:01] VITALS: BP 151/86; PULSE 62; RESP 16
== END 2022-03-30 09:27 | disposition home or self-care (01) ==
LOC: ORWHC2ENDO 07:22
PROVIDERS: ATTEND Surgery Plastic and Reconstructive Surgery
DX: K22.2 Esophageal obstruction (principal); K21.9 Gastro-esophageal reflux disease without esophagitis; K56.699 Other intestinal obstruction unspecified as to partial versus complete obstruction; K22.4 Dyskinesia of esophagus; I10 Essential (primary) hypertension; Z87.442 Personal history of urinary calculi; Z98.84 Bariatric surgery status; Z80.49 Family history of malignant neoplasm of other genital organs; Z79.899 Other long term (current) drug therapy; Z88.8 Allergy status to other drugs, medicaments and biological substances; Z88.2 Allergy status to sulfonamides; Z88.5 Allergy status to narcotic agent; Z91.011 Allergy to milk products
CPT/HCPCS: 43245; 43249; J2704; J2001; C1726

== ENCOUNTER 2023-02-01 07:08 | Day surgery (SDC) | payer MEDICARE, OTHER ==
[2023-01-25 14:17] VITALS: BMI 34.0
[2023-02-01] MEDS ORDERED: LACTATED RINGERS 1,000 ML IV SCH (07:18)
[2023-02-01 07:39] VITALS: RESP 16; TEMP 97.5
[2023-02-01] MEDS ORDERED: ONDANSETRON 4 MG/2 ML VIAL ONE (07:50)
[2023-02-01] MEDS ORDERED: ONDANSETRON 4 MG/2 ML VIAL IVP ONE (07:52)
[2023-02-01] MEDS ORDERED: PROPOFOL 10 MG/ML 20 ML VIAL IV ONE (08:05)
[2023-02-01] MEDS ORDERED: LIDOCAINE 2% INJ 20 MG/ML (2 ML VIAL) ONE (08:05)
--- NOTE | 2023-02-01 08:06 | P.GSHP ---
History of Present Illness H&P Date: 02/01/23 CHIEF COMPLAINT: Esophageal stricture HISTORY OF PRESENT ILLNESS: The patient is a 72-year-old female who presents reports dysphagia. Upper endoscopy was offered for further evaluation and management. PAST MEDICAL HISTORY: Please see list. PAST SURGICAL HISTORY: Please see list. MEDICATIONS: Please see list. ALLERGIES: Please see list. SOCIAL HISTORY: No illicit drug use FAMILY HISTORY: No reports of Crohn disease or ulcerative colitis. REVIEW OF ORGAN SYSTEMS: CONSTITUTIONAL: No reports of fevers or chills. GI: Denies any blood in stools or constipation. PHYSICAL EXAM: VITAL SIGNS: Stable GENERAL: Well-developed and pleasant in no acute distress. HEENT: No scleral icterus. Extraocular movements grossly intact. Moist buccal mucosa. NECK: Supple without lymphadenopathy. CHEST: Unlabored respirations. Equal bilateral excursions. CARDIOVASCULAR: Regular rate and rhythm. Distal 2+ pulses. ABDOMEN: Soft, nondistended. MUSCULOSKELETAL: No clubbing, cyanosis, or edema. ASSESSMENT: 1. Esophageal stricture PLAN: 1. Recommend proceeding with an upper endoscopy with rigid dilators. Past Medical History Past Medical History: GERD/Reflux, Hypertension Additional Past Medical History / Comment(s): Hiatal Hernia, urinary incontinence, hx kidney stone. Dysphagia recently. Hx double vision from Aug 2022-Oct 2022. History of Any Multi-Drug Resistant Organisms: None Reported Past Surgical History: Bariatric Surgery, Cholecystectomy, Hernia Repair, Hysterectomy, Joint Replacement Additional Past Surgical History / Comment(s): Bilateral knee replacements, sleeve gastrectomy with conversion to gastric bypass 11-13-19, hiatal hernia repair, LITHOTRIPSY WITH STENT, EGD with dilation, EGD's, moles removed. Past Anesthesia/Blood Transfusion Reactions: Motion Sickness, Postoperative Nausea & Vomiting (PONV) Additional Past Anesthesia/Blood Transfusion Reaction / Comment(s): Pt states "always get UTI's from mcneal catheters." Past Psychological History: No Psychological Hx Reported Smoking Status: Never smoker Past Alcohol Use History: None Reported Past Drug Use History: None Reported - Past Family History Mother Family Medical History: Cancer Additional Family Medical History / Comment(s): Uterine cancer. Medications and Allergies Home Medications Medication Instructions Recorded Confirmed Type amLODIPine [Norvasc] 10 mg PO DAILY #60 tablet 04/17/20 02/01/23 Rx Omeprazole [PriLOSEC] 40 mg PO DAILY 10/01/20 02/01/23 History Aspirin [Adult Low Dose Aspirin EC] 81 mg PO DAILY 01/25/23 02/01/23 History Oxybutynin Chloride 5 mg PO DAILY 01/25/23 02/01/23 History Allergies Allergy/AdvReac Type Severity Reaction Status Date / Time loratadine [From Claritin] Allergy Rash/Hives Verified 02/01/23 07:25 Milk Containing Products Allergy Abdominal Verified 02/01/23 07:25 [Dairy] Pain mirabegron [From Myrbetriq] Allergy raised BP Verified 02/01/23 07:25 phenazopyridine [From Azo] Allergy bladder Verified 02/01/23 07:25 pain Sulfa (Sulfonamide Allergy Rash/Hives Verified 02/01/23 07:25 Antibiotics) milk AdvReac Abdominal Verified 02/01/23 07:25 Pain morphine AdvReac Nausea & Verified 02/01/23 07:25 Vomiting Surgical - Exam Vital Signs Temp Pulse Resp BP Pulse Ox 97.5 F L 58 L 16 173/80 98 02/01/23 07:29 02/01/23 07:29 02/01/23 07:29 02/01/23 07:29 02/01/23 07:29
--- NOTE | 2023-02-01 08:29 | P.PCN ---
Date of Procedure: 02/01/23 Description of Procedure: PREOPERATIVE DIAGNOSIS: Dysphagia. Nausea with vomiting. Atypical chest pain POSTOPERATIVE DIAGNOSIS: Dysphagia. Upper esophageal stenosis Presbyesophagus Gastrojejunal stricture with acute ulcer with recent bleeding without perforation OPERATION: Esophagogastrojejunoscopy with rigid dilator, 54-S[place] Arabian to address upper esophageal stenosis SURGEON: Mackenzie Travis MD ANESTHESIA: MAC. INDICATIONS: The patient is a 72-year-old female who presents with a history of dysphagia, atypical chest pain, including nausea and vomiting. Benefits and risks of the procedure were described. Informed consent was obtained. DESCRIPTION: The patient was brought into the endoscopy suite and laid in the left lateral decubitus position. After a timeout was confirmed, the procedure was initiated. An Olympus gastroscope was passed along the posterior oropharynx down to the distal esophagus where the squamocolumnar junction was unremarkable. Moderate tertiary contractions consistent with presbyesophagus was found. Stenosis along the lower esophageal sphincter was also identified. The gastric pouch was entered. A gastrojejunal stricture of 15 mm was found as the adult gastroscope was 9.5 mm in size. Attention was brought to the upper esophageal stenosis. The bite block was removed and mouth was opened with fingers. A rigid dilator, 54 [place] was placed over a guidewire to 45 cm from the incisors and left for 2 minutes after exchanging the scope. A [email or web address] balloon dilator was placed through the scope. The scope was reentered for balloon dilation of the gastrojejunal anastomosis. Final insufflation from 15 to 20 mm was performed with a total of 2 minutes. The scope was advanced up to 60 cm from the incisors into the Danay limb. The mucosa of the gastrojejunal anastomosis was intact. Acute gastrojejunal marginal ulcer with recent bleeding was encountered. No full- thickness injury was encountered. The GI tract was desufflated. The patient tolerated the procedure well. FINDINGS: Squamocolumnar junction unremarkable at 37 cm. Upper esophageal stenosis Moderate to severe tertiary contractions for presbyesophagus Rigid dilation of upper esophageal sphincter, 54-[place] Acute gastrojejunal ulceration, 4 mm, with recent bleeding encountered. Successful balloon dilatation to 20 mm. RECOMMENDATIONS: Carafate 1 g twice a day for 1 month Continue omeprazole 40 mg daily Upper endoscopy as needed Plan - Discharge Summary Discharge Rx Participant: No New Discharge Prescriptions: New Sucralfate [Carafate] 1 gm PO BID #60 tablet Continue amLODIPine [Norvasc] 10 mg PO DAILY #60 tablet Omeprazole [PriLOSEC] 40 mg PO DAILY Oxybutynin Chloride 5 mg PO DAILY Aspirin [Adult Low Dose Aspirin EC] 81 mg PO DAILY Discharge Medication List amLODIPine [Norvasc] 10 mg PO DAILY #60 tablet 04/17/20 [Rx] Omeprazole [PriLOSEC] 40 mg PO DAILY 10/01/20 [History] Aspirin [Adult Low Dose Aspirin EC] 81 mg PO DAILY 01/25/23 [History] Oxybutynin Chloride 5 mg PO DAILY 01/25/23 [History] Sucralfate [Carafate] 1 gm PO BID #60 tablet 02/01/23 [Rx] Follow up Appointment(s)/Referral(s): [facility] [NON-STAFF] - As Needed Patient Instructions/Handouts: Peptic Ulcer (DC), Esophageal Dilation (GEN) Discharge Disposition: HOME SELF-CARE
[2023-02-01 08:57] VITALS: BP 145/78; PULSE 62
== END 2023-02-01 09:17 | disposition home or self-care (01) ==
LOC: ORWHC2ENDO 07:08
PROVIDERS: ATTEND Surgery Plastic and Reconstructive Surgery
DX: K22.2 Esophageal obstruction (principal); K22.89 Other specified disease of esophagus; K21.9 Gastro-esophageal reflux disease without esophagitis; K91.89 Other postprocedural complications and disorders of digestive system; K31.1 Adult hypertrophic pyloric stenosis; Z98.0 Intestinal bypass and anastomosis status; K28.4 Chronic or unspecified gastrojejunal ulcer with hemorrhage; Z79.82 Long term (current) use of aspirin; Z79.899 Other long term (current) drug therapy; K44.9 Diaphragmatic hernia without obstruction or gangrene; I10 Essential (primary) hypertension; Z98.84 Bariatric surgery status; Z96.653 Presence of artificial knee joint, bilateral; Z90.49 Acquired absence of other specified parts of digestive tract; Z87.440 Personal history of urinary (tract) infections; Z88.2 Allergy status to sulfonamides; Z88.5 Allergy status to narcotic agent; Z88.6 Allergy status to analgesic agent; Z88.8 Allergy status to other drugs, medicaments and biological substances; Z91.011 Allergy to milk products
CPT/HCPCS: 43249; J2405; J2704; J2001

== ENCOUNTER → 2023-02-01 | Outpatient (CLI) | payer MEDICARE ==
[2023-02-01 11:54] LABS: Prothrombin Time 10.6 sec (9.0-12.0)
[2023-02-01 17:14] LABS: % Iron Saturation 27.21 (12.00-45.00); ALT 26 U/L (8-44); AST 29 U/L (13-35); African American GFR (CKD) 88.6 (60.0-200.0); Albumin 4.5 g/dL (3.8-4.9); Albumin/Globulin Ratio 1.98 (1.60-3.17); Alkaline Phosphatase 124 U/L (41-126); Blood Urea Nitrogen 36.2 mg/dL (9.0-27.0); Calcium 9.5 mg/dL (8.7-10.3); Carbon Dioxide 26.2 mmol/L (20.0-27.5); Chloride 104 mmol/L (96-109); Ferritin 61.3 ng/mL (10.0-291.0); Globulin 2.3 g/dL (1.6-3.3); Glucose 95 mg/dL (70-110); Iron 104 ug/dL (50-170); Magnesium 2.1 mg/dL (1.5-2.4); Non-African American GFR(CKD) 76.4 (60.0-200.0); Phosphorus 3.8 mg/dL (2.4-5.1); Potassium 4.2 mmol/L (3.5-5.5); Sodium 145 mmol/L (135-145); Total Iron Binding Capacity 382 ug/dL (228-460); Total Protein 6.8 g/dL (6.2-8.2)
[2023-02-01 17:20] LABS: HCT 41.2 % (37.2-46.3); HGB 13.3 g/dL (12.0-15.0); MCH 31.4 pg (27.0-32.0); MCHC 32.3 g/dL (32.0-37.0); MCV 97.4 fL (80.0-97.0); Mean Platelet Volume 10.3 fL (9.5-12.2); NRBC Per 100 WBC 0 /100 WBCS (0.0-0.0); Platelet Count 214 X 10*3/uL (140-440); RBC 4.23 X 10*6/uL (4.10-5.20); RDW 12.1 % (11.5-14.5); WBC 5.51 X 10*3/uL (4.50-10.00)
[2023-02-01 17:38] LABS: Chol/HDL Ratio 2.83 Ratio; LDL Cholesterol,Calculated 75.8 mg/dL (0.0-131.0); Prealbumin 13.8 mg/dL (18.0-42.0)
[2023-02-02 11:47] LABS: Zinc, Serum 63 ug/dL (60-130)
[2023-02-03 07:17] LABS: Vitamin A 38 ug/dL (38-106)
[2023-02-03 08:43] LABS: Vit B1(Thiamine) 66 ug/L (38-122)
== END | disposition home or self-care (01) ==
LOC: LABWHC1 09:39
PROVIDERS: ATTEND Surgery Plastic and Reconstructive Surgery
DX: E66.01 Morbid (severe) obesity due to excess calories (principal); D50.8 Other iron deficiency anemias; K91.2 Postsurgical malabsorption, not elsewhere classified; E44.0 Moderate protein-calorie malnutrition; E44.1 Mild protein-calorie malnutrition; E55.9 Vitamin D deficiency, unspecified; E45 Retarded development following protein-calorie malnutrition; K74.1 Hepatic sclerosis; N19 Unspecified kidney failure; T56.894A Toxic effect of other metals, undetermined, initial encounter
CPT/HCPCS: 36415; 80053; 80061; 82306; 82525; 82607; 82728; 82746; 83036; 83540; 83550; 83735; 83970; 84100; 84134; 84255; 84425; 84443; 84590; 84630; 85027; 85610; 85730

== ENCOUNTER → 2023-07-14 | Outpatient (CLI) | payer MEDICARE ==
[2023-07-14 13:25] VITALS: BP 134/79; PULSE 76; TEMP 97.8; BMI 33.3
--- NOTE | 2023-07-14 13:38 | P.BASOAP ---
Subjective Progress Note Date: 07/14/23 DATE OF SERVICE: 07/14/2023 CHIEF COMPLAINT: Status post gastric bypass HISTORY OF PRESENT ILLNESS: Deepti Dyson is a 70-year-old female status post gastric bypass, 11/13/2019. She is 3 years out. She has occasional vomiting with food getting stuck. She has pre-existing history of esophageal dysmotility. She has gained 20 pounds after emotional eating from her [id number] . No abdominal pain. She has new heartburn at night and report atypical chest pain for the last 3 to 4 weeks. She reports increased indigestion. At height of 5 feet 2 inches, her ideal body weight is 135 pounds. Her highest weight was 289 pounds, BMI 53.0. She comes in 182 pounds from 178 pounds 1 year ago. She has gained 4 pounds in 1 year. Her body mass index highest is 53.0 down to 33.3. Her lifetime weight loss is 107 pounds. Lifetime percent excess weight loss is 69 %. She is 47 pounds overweight. PAST MEDICAL HISTORY: 1. Morbid obesity due to excess calories 2. Body mass index of 53.0 3. Gastroesophageal reflux disease 4. Hypertensive heart disease 5. Osteoarthritis bilateral knees 6. Esophageal dysmotility 7. Kidney stone PAST SURGICAL HISTORY: 1. Sleeve gastrectomy 2. Bilateral knee replacement 3. Cholecystectomy 4. Hysterectomy 5. Hiatal hernia repair 6. Conversion sleeve gastrectomy to gastric bypass 7. Esophageal dilations HOME MEDICATIONS: Home Medications Medication Instructions Recorded Confirmed Omeprazole [PriLOSEC] 40 mg PO DAILY 10/01/20 08/18/23 oxyBUTYnin chloride 10 mg PO DAILY 01/25/23 08/18/23 Desvenlafaxine Succinate [Pristiq] 10 mg PO DAILY 07/14/23 08/18/23 Multivitamins, Thera [Multivitamin 1 tab PO DAILY 07/14/23 08/18/23 (formulary)] Previous Rx's Medication Instructions Recorded amLODIPine [Norvasc] 10 mg PO DAILY #60 tablet 04/17/20 Sucralfate [Carafate] 1 gm PO BID #30 tablet 08/02/23 ALLERGIES: Allergies Allergy/AdvReac Type Severity Reaction Status Date / Time loratadine [From Claritin] Allergy Rash/Hives Verified 08/02/23 07:44 Milk Containing Products Allergy Abdominal Verified 08/02/23 07:44 (Dairy) Pain [Dairy] mirabegron [From Myrbetriq] Allergy raised BP Verified 08/02/23 07:44 phenazopyridine [From Azo] Allergy bladder Verified 08/02/23 07:44 pain Sulfa (Sulfonamide Allergy Rash/Hives Verified 08/02/23 07:44 Antibiotics) milk AdvReac Abdominal Verified 08/02/23 07:44 Pain morphine AdvReac heachache, Verified 08/02/23 07:44 nausea SOCIAL HISTORY: No past tobacco use. FAMILY HISTORY: No family history of ulcerative colitis disease or Crohn's disease. Family history of morbid obesity. No lupus in the family. No reports of stomach or esophageal cancer. Hereditary esophageal dysmotility and all family members. REVIEW OF ORGAN SYSTEMS: CONSTITUTIONAL: At height of 5 feet 2 inches, her ideal body weight is 135 pounds. Her highest weight was 289 pounds, BMI 53.0. HEENT: Denies any active troubles with vision or hearing. Has troubles with swallowing. ENDOCRINE: No diabetes. No hypothyroidism. CARDIOVASCULAR: No reports of palpitations or heart attacks or chest pain. Has hypertensive heart disease. RESPIRATORY: No daytime somnolence. Has asthma. GI: Denies any bright red blood per rectum. No diarrhea. Has GERD. MUSCULOSKELETAL: Has lower back pain and joint pain. Has osteoarthritis of the knees. NEURO: No headaches. No seizure disorders. PSYCH: No depression. No suicidal ideation. RHEUMATOLOGIC: No lupus. No rheumatoid arthritis. HEMATOLOGIC: Denies any abnormal bleeding or bruising. No personal history of DVTs. SKIN: No rash. No skin cancer. : Kidney stones. PHYSICAL EXAM: VITAL SIGNS: Height 5 foot 2 inches, weight 182 pounds. BMI 33.3 Vital Signs Temp 97.8 F 07/14/23 13:05 Pulse 76 07/14/23 13:05 Resp BP 134/79 07/14/23 13:05 Pulse Ox FiO2 GENERAL: Well-developed in no acute distress. HEENT: No scleral icterus. Extraocular movements grossly intact. Hears conv ersational speech. No nasal drainage. NECK: Supple without lymphadenopathy. CHEST: Nonlabored respirations with equal bilateral excursions. CARDIOVASCULAR: Regular rate and rhytm. Distal 2+ pulses. ABDOMEN: Soft, nondistended. No peritonitis MUSCULOSKELETAL: No clubbing, cyanosis. NEURO: No focal or lateralizing signs. Cranial nerves 2 through 12 grossly within normal limits. PSYCH: Appropriate affect. Alert and oriented to person, place and time. SKIN: Good skin turgor. Well perfused. ASSESSMENT: 1. Morbid obesity due to excess calories 2. Body mass index of 53.0 to 33.3 3. Gastroesophageal reflux disease 4. Hypertensive heart disease 5. Osteoarthritis bilateral knees 6. Inadequate protein intake 7. Hiatal hernia 8. Vitamin A deficiency 9. 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 Status post gastric bypass 11. Gastrojejunal stricture with ulcer 12. Presbyesophagus 13. Elevated liver enzymes 14. Hereditary esophageal dysmotility PLAN: 1. Recommend EGD with dilation due to recurrent dysphagia 2. She is elevated risk for complications due to pre-existing gastric bypass Objective - Vital Signs Vital signs: Vital Signs Temp 97.8 F 07/14/23 13:05 Pulse 76 07/14/23 13:05 Resp BP 134/79 07/14/23 13:05 Pulse Ox FiO2 Intake & Output 07/13/23 07/14/23 07/14/23 18:59 06:59 18:59 Weight 82.554 kg Assessment/Plan Plan: Date: 07/14/23 Initial Weight: 127.006 kg Initial BMI: 51.2 Current Weight: 82.554 kg Current BMI: 33.3 Type of Surgery: Total Volume in Band: Previous Volume: Volume Removed: Volume Added: Band Size:
== END ==
LOC: BARWHC3 12:37
PROVIDERS: ATTEND Surgery Plastic and Reconstructive Surgery
DX: E66.01 Morbid (severe) obesity due to excess calories (principal); K21.9 Gastro-esophageal reflux disease without esophagitis; M17.0 Bilateral primary osteoarthritis of knee; I11.9 Hypertensive heart disease without heart failure; E50.9 Vitamin A deficiency, unspecified; R74.01 Elevation of levels of liver transaminase levels; E46 Unspecified protein-calorie malnutrition; K44.9 Diaphragmatic hernia without obstruction or gangrene; K95.89 Other complications of other bariatric procedure; K31.89 Other diseases of stomach and duodenum; K22.89 Other specified disease of esophagus; K28.5 Chronic or unspecified gastrojejunal ulcer with perforation; Z98.84 Bariatric surgery status; Z68.33 Body mass index [BMI] 33.0-33.9, adult; Z91.011 Allergy to milk products; Z88.2 Allergy status to sulfonamides; Z88.5 Allergy status to narcotic agent; Z88.8 Allergy status to other drugs, medicaments and biological substances
CPT/HCPCS: 97803; 99211

== ENCOUNTER 2023-08-02 07:25 | Day surgery (SDC) | payer MEDICARE ==
[2023-07-29 14:00] VITALS: BMI 34.0
[~2023-08-02 07:25] MED LIST changes: +LACTATED RINGERS 1,000 ML IV SCH
--- NOTE | 2023-08-02 07:39 | P.GSHP ---
History of Present Illness H&P Date: 08/02/23 CHIEF COMPLAINT: GERD HISTORY OF PRESENT ILLNESS: The patient is a 73-year-old female who presents reports gastroesophageal reflux disease. Upper endoscopy was offered for further evaluation and management. PAST MEDICAL HISTORY: Please see list. PAST SURGICAL HISTORY: Please see list. MEDICATIONS: Please see list. ALLERGIES: Please see list. SOCIAL HISTORY: No illicit drug use FAMILY HISTORY: No reports of Crohn disease or ulcerative colitis. REVIEW OF ORGAN SYSTEMS: CONSTITUTIONAL: No reports of fevers or chills. GI: Denies any blood in stools or constipation. PHYSICAL EXAM: VITAL SIGNS: Stable GENERAL: Well-developed and pleasant in no acute distress. HEENT: No scleral icterus. Extraocular movements grossly intact. Moist buccal mucosa. NECK: Supple without lymphadenopathy. CHEST: Unlabored respirations. Equal bilateral excursions. CARDIOVASCULAR: Regular rate and rhythm. Distal 2+ pulses. ABDOMEN: Soft, nondistended. MUSCULOSKELETAL: No clubbing, cyanosis, or edema. ASSESSMENT: 1. Gastroesophageal reflux disease PLAN: 1. Recommend proceeding with an upper endoscopy Past Medical History Past Medical History: GERD/Reflux, Hypertension Additional Past Medical History / Comment(s): Hiatal Hernia, urinary incontinence, hx kidney stone. Dysphagia recently. Hx double vision from Aug 2022-Oct 2022. History of Any Multi-Drug Resistant Organisms: None Reported Past Surgical History: Bariatric Surgery, Bladder Surgery, Cholecystectomy, Hernia Repair, Hysterectomy, Joint Replacement Additional Past Surgical History / Comment(s): Bilateral knee replacements, sleeve gastrectomy with conversion to gastric bypass 11-13-19, hiatal hernia repair, LITHOTRIPSY WITH STENT, EGD with dilation, EGD's, moles removed. bladder lift april 2023 Past Anesthesia/Blood Transfusion Reactions: Motion Sickness, Postoperative Nausea & Vomiting (PONV) Additional Past Anesthesia/Blood Transfusion Reaction / Comment(s): Pt states "always get UTI's from mcneal catheters." Smoking Status: Never smoker - Past Family History Mother Family Medical History: Cancer Additional Family Medical History / Comment(s): Uterine cancer. Medications and Allergies Home Medications Medication Instructions Recorded Confirmed Type amLODIPine [Norvasc] 10 mg PO DAILY #60 tablet 04/17/20 07/29/23 Rx Omeprazole [PriLOSEC] 40 mg PO DAILY 10/01/20 07/29/23 History oxyBUTYnin chloride 10 mg PO DAILY 01/25/23 07/29/23 History Desvenlafaxine Succinate [Pristiq 10 mg PO DAILY 07/14/23 07/29/23 History ER] Multivitamins, Thera [Multivitamin 1 tab PO DAILY 07/14/23 07/29/23 History (formulary)] Allergies Allergy/AdvReac Type Severity Reaction Status Date / Time loratadine [From Claritin] Allergy Rash/Hives Verified 07/29/23 13:28 Milk Containing Products Allergy Abdominal Verified 07/29/23 13:28 (Dairy) Pain [Dairy] mirabegron [From Myrbetriq] Allergy raised BP Verified 07/29/23 13:28 phenazopyridine [From Azo] Allergy bladder Verified 07/29/23 13:28 pain Sulfa (Sulfonamide Allergy Rash/Hives Verified 07/29/23 13:28 Antibiotics) milk AdvReac Abdominal Verified 07/29/23 13:28 Pain morphine AdvReac heachache, Verified 07/29/23 13:47 nausea
[2023-08-02] MEDS ORDERED: LIDOCAINE 2% (PF) 20 MG/ML 5 ML VIAL ONE (08:18)
[2023-08-02] MEDS ORDERED: PROPOFOL 10 MG/ML 20 ML VIAL IV ONE (08:18)
[2023-08-02 08:21] VITALS: TEMP 98.4
--- NOTE | 2023-08-02 08:55 | P.PCN ---
Date of Procedure: 08/02/23 Description of Procedure: PREOPERATIVE DIAGNOSIS: Dysphagia. Gastroesophageal reflux disease History of sleeve gastrectomy POSTOPERATIVE DIAGNOSIS: Dysphagia. Upper esophageal stenosis Presbyesophagus Gastrojejunal stricture with chronic ulcer without perforation Recurrent diaphragmatic hiatal hernia OPERATION: Esophagogastrojejunoscopy with balloon dilatation from 15 to 20 mm for gastric stricture Esophagogastrojejunoscopy with rigid dilator, 54-Maldivian to address upper esophageal stenosis SURGEON: Mackenzie Travis MD ANESTHESIA: MAC. INDICATIONS: The patient is a 73-year-old female who presents with a history of dysphagia. Benefits and risks of the procedure were described. Informed consent was obtained. DESCRIPTION: The patient was brought into the endoscopy suite and laid in the left lateral decubitus position. After a timeout was confirmed, the procedure was initiated. An Olympus gastroscope was passed along the posterior oropharynx down to the distal esophagus where the squamocolumnar junction was unremarkable. Presbyesophagus was found. The gastric pouch was entered. A gastrojejunal stricture of 15 mm was found as the adult gastroscope was 9.5 mm in size. Attention was brought to the upper esophageal stenosis. The bite block was removed and mouth was opened with fingers. A rigid dilator, 51 Maldivian was placed over a guidewire to 45 cm from the incisors and left for 2 minutes after exchanging the scope. A [employer] balloon dilator was placed through the scope. The scope was reentered for balloon dilation of the gastrojejunal anastomosis. Final insufflation from 15 to 20 mm was performed with a total of 2 minutes. The scope was advanced up to 60 cm from the incisors into the Danay limb. The mucosa of the gastrojejunal anastomosis was intact. Has chronic gastrojejunal marginal ulcer was encountered. No full-thickness injury was encountered. The GI tract was desufflated. The patient tolerated the procedure well. FINDINGS: Squamocolumnar junction unremarkable at 37 cm. Stricture of approximately 15 mm encountered. Moderate tertiary contractions for presbyesophagus Rigid dilation of upper esophageal sphincter, 54-Maldivian Chronic gastrojejunal ulceration encountered, 4 mm Successful balloon dilatation to 20 mm. RECOMMENDATIONS: Upper endoscopy as needed. Continue omeprazole Carafate for 2 weeks Plan - Discharge Summary Discharge Rx Participant: Yes New Discharge Prescriptions: Continue amLODIPine [Norvasc] 10 mg PO DAILY #60 tablet Omeprazole [PriLOSEC] 40 mg PO DAILY oxyBUTYnin chloride 10 mg PO DAILY Desvenlafaxine Succinate [Pristiq] 10 mg PO DAILY Multivitamins, Thera [Multivitamin (formulary)] 1 tab PO DAILY Discharge Medication List amLODIPine [Norvasc] 10 mg PO DAILY #60 tablet 04/17/20 [Rx] Omeprazole [PriLOSEC] 40 mg PO DAILY 10/01/20 [History] oxyBUTYnin chloride 10 mg PO DAILY 01/25/23 [History] Desvenlafaxine Succinate [Pristiq] 10 mg PO DAILY 07/14/23 [History] Multivitamins, Thera [Multivitamin (formulary)] 1 tab PO DAILY 07/14/23 [History] Follow up Appointment(s)/Referral(s): Mackenzie Travis MD [STAFF PHYSICIAN] - 08/18/23 Patient Instructions/Handouts: Esophageal Dilation (DC) Activity/Diet/Wound Care/Special Instructions: Warm beverages. Be cautious of cold beverages or foods. Discharge Disposition: HOME SELF-CARE
[2023-08-02 09:28] VITALS: BP 153/67; PULSE 64; RESP 17
== END 2023-08-02 09:37 | disposition home or self-care (01) ==
LOC: ORWHC2ENDO 07:25
PROVIDERS: ATTEND Surgery Plastic and Reconstructive Surgery
DX: K21.00 Gastro-esophageal reflux disease with esophagitis, without bleeding (principal); K22.2 Esophageal obstruction; I10 Essential (primary) hypertension; Z88.2 Allergy status to sulfonamides; Z88.1 Allergy status to other antibiotic agents; Z88.5 Allergy status to narcotic agent; Z88.8 Allergy status to other drugs, medicaments and biological substances; Z90.49 Acquired absence of other specified parts of digestive tract; Z91.011 Allergy to milk products; Z79.899 Other long term (current) drug therapy
CPT/HCPCS: 43245; 43249; J2704; J2001; C1726

== ENCOUNTER → 2024-11-01 | Outpatient (CLI) | payer MEDICARE ==
[2024-11-01 14:03] VITALS: BP 154/90; PULSE 76; RESP 16; TEMP 97.5; BMI 34.0
--- NOTE | 2024-11-01 14:11 | P.HPBAR ---
Bariatric H&P - History & Physicial H&P Date: 11/01/24 History & Physicial: Visit/CC: f/u Patient initial contact: Initial weight: 127.006 kg Initial weight in pounds: 280.00 Height: 5 ft 2 in Initial BMI: 51.2 Last weight: Current weight: 84.51 kg Current weight in pounds: 186.31 Current BMI: 34.0 [place] body weight (based on NIH guidelines): 49.895 kg Excess body weight loss: 55.1% The patient is a 74 year-old F who presents for Bariatric Assessment. She gets 75 to 80 grams of protein daily. No food journal. Her lowest 165 pounds. Blood pressure at home is 120/80. She wants a stretch of the throat. She has a lipoma and wants removal and results in another hospital. Labs were done. Past Medical History Past Medical History: GERD/Reflux, Hypertension Additional Past Medical History / Comment(s): Hiatal Hernia, urinary incontinence, hx kidney stone. Dysphagia recently. Hx double vision from Aug 2022-Oct 2022. History of Any Multi-Drug Resistant Organisms: None Reported Past Surgical History: Bariatric Surgery, Bladder Surgery, Cholecystectomy, Hernia Repair, Hysterectomy, Joint Replacement Additional Past Surgical History / Comment(s): Bilateral knee replacements, sleeve gastrectomy with conversion to gastric bypass 11-13-19, hiatal hernia repair, LITHOTRIPSY WITH STENT, EGD with dilation, EGD's, moles removed. bladder lift april 2023, bilateral cataract surgery Past Anesthesia/Blood Transfusion Reactions: Motion Sickness, Postoperative Nausea & Vomiting (PONV) Additional Past Anesthesia/Blood Transfusion Reaction / Comm: Pt states "always get UTI's from mcneal catheters." Past Psychological History: No Psychological Hx Reported Smoking Status: Never smoker Past Alcohol Use History: None Reported Past Drug Use History: None Reported - Past Family History Mother Family Medical History: Cancer Additional Family Medical History / Comment(s): Uterine cancer. Surgical - Exam Vital Signs Temp Pulse Resp BP 97.5 F L 76 16 154/90 11/01/24 13:55 11/01/24 13:55 11/01/24 13:55 11/01/24 13:55 Results - Labs Abnormal Lab Results - Last 24 Hours (Table) 11/01/24 Range/Units 12:11 APTT 21.9 L (22.0-30.0) sec Bariatric Checklist Checklist: Plan: Checklist: EGD: 1. Hiatal hernia: 2. H. Pylori: HgbA1c: Vitamin D: Smoking: Never smoker Primary care physician referral: PRITI FERGUSON NP Psychiatry clearance: Cardiology clearance: Sleep study: Diet journal: VTE risk score: VTE risk level: Rehab needs at discharge:
[2024-11-01 15:48] LABS: Prealbumin 13.2 mg/dL (18.0-42.0)
[2024-11-01 16:18] LABS: % Iron Saturation 18.04 (12.00-45.00); Chol/HDL Ratio 2.79 Ratio; Iron 68 UG/DL (50-170); LDL Cholesterol,Calculated 84.3 mg/dL (0.0-131.0); Phosphorus 3.6 mg/dL (2.4-5.1); Total Iron Binding Capacity 377 UG/DL (228-460); VLDL Calculation 15.06 mg/dL (5.00-40.00)
[2024-11-01 16:53] LABS: HCT 41.8 % (37.2-46.3); HGB 13.3 g/dL (12.0-15.0); MCH 30.9 pg (27.0-32.0); MCHC 31.8 g/dL (32.0-37.0); Mean Platelet Volume 9.9 FL (9.5-12.2); NRBC Per 100 WBC 0 X 10*3/uL (0.00-0.01); Platelet Count 218 X 10*3/uL (140-440); RBC 4.31 X 10*6/uL (4.10-5.20); RDW 12.5 % (11.5-14.5); WBC 5.32 X 10*3/uL (4.50-10.00)
[2024-11-01 17:08] LABS: BUN/Creat Ratio 49.71 Ratio (12.00-20.00); Blood Urea Nitrogen 34.8 mg/dL (9.0-27.0); Carbon Dioxide 24.8 mmol/L (21.6-31.8); Chloride 104 mmol/L (96-109); Glucose 97 mg/dL (70-110); Potassium 4.2 mmol/L (3.5-5.5); Sodium 140 mmol/L (135-145)
[2024-11-01 17:09] LABS: ALT 77 U/L (8-44); AST 48 U/L (13-35); Albumin 4.4 g/dL (3.8-4.9); Albumin/Globulin Ratio 1.91 Ratio (1.60-3.17); Alkaline Phosphatase 131 U/L (41-126); Calcium 9.3 mg/dL (8.7-10.3); Globulin 2.3 g/dL (1.6-3.3); Total Bilirubin 0.2 mg/dL (0.3-1.2); Total Protein 6.7 g/dL (6.2-8.2)
[2024-11-02 15:27] LABS: Zinc, Serum 71 ug/dL (60-130)
[2024-11-03 07:19] LABS: Vit B1(Thiamine) 111 ug/L (38-122)
[2024-11-03 07:24] LABS: Vitamin A 36 ug/dL (38-106)
== END ==
LOC: BARWHC3 13:23
PROVIDERS: ATTEND Surgery Plastic and Reconstructive Surgery
DX: E66.01 Morbid (severe) obesity due to excess calories (principal); Z91.011 Allergy to milk products; Z88.2 Allergy status to sulfonamides; Z88.5 Allergy status to narcotic agent; Z88.8 Allergy status to other drugs, medicaments and biological substances; Z68.34 Body mass index [BMI] 34.0-34.9, adult
CPT/HCPCS: 80053; 80061; 82306; 82525; 82607; 82728; 82746; 83036; 83540; 83550; 83735; 83970; 84100; 84134; 84255; 84425; 84443; 84590; 84630; 85027; 85730; 99211

== ENCOUNTER 2025-01-08 08:55 | Day surgery (SDC) | payer MEDICARE ==
--- NOTE | 2025-01-08 07:32 | P.GSHP ---
History of Present Illness H&P Date: 01/08/25 CHIEF COMPLAINT: Abdominal mass HISTORY OF PRESENT ILLNESS: The patient is a 74 year-old female with history of mass along the abdomen for over 6 months. She reports pain and discomfort. Swelling is of the lower abdomen. She had imaging studies demonstrated lipoma. Se presents today for surgical excision. PAST MEDICAL HISTORY: Please see list. PAST SURGICAL HISTORY: Please see list. MEDICATIONS: Please see list. ALLERGIES: Please see list. SOCIAL HISTORY: No illicit drug use FAMILY HISTORY: No reports of Crohn disease or ulcerative colitis. REVIEW OF ORGAN SYSTEMS: CONSTITUTIONAL: No reports of fevers or chills. GI: Denies any blood in stools or constipation. PHYSICAL EXAM: VITAL SIGNS: Stable SKIN: Well perfused. Good skin turgor. Mass 5 cm long lower abdomen Musculoskeletal: No clubbing cyanosis or edema GENERAL: Well developed and in no acute distress. Pleasant. HEENT: No sclera icterus. Extraocular movements grossly intact. Moist buccal mucosa. Head is atraumatic, normocephalic. Hears conversational speech. No nasal drainage. NECK: Supple without lymphadenopathy. No JV distention. CHEST: Non-labored respirations and equal bilateral excursions. CARDIOVASCULAR: Regular rate and rhythm. Palpable 2+ radial pulses. ABDOMEN: Soft. Non-tender. Nondistended. NEUROLOGIC: No focal or lateralizing signs. PSYCH: Appropriate affect. Alert and oriented to person, place and time. ASSESSMENT: 1. Mass along lower abdomen PLAN: 1. Will proceed of excision of subcutaneous tumor along the abdomen 2. DVT prophylaxis. 3. Antibiotic prophylaxis. 4. Time of recovery, at least one week. Past Medical History Past Medical History: GERD/Reflux, Hypertension Additional Past Medical History / Comment(s): Hiatal Hernia, urinary incontinence, hx kidney stone. Dysphagia recently. Hx double vision from Aug 2022-Oct 2022. History of Any Multi-Drug Resistant Organisms: None Reported Past Surgical History: Bariatric Surgery, Bladder Surgery, Cholecystectomy, Hernia Repair, Hysterectomy, Joint Replacement Additional Past Surgical History / Comment(s): Bilateral knee replacements, sleeve gastrectomy with conversion to gastric bypass 11-13-19, hiatal hernia repair, LITHOTRIPSY WITH STENT, multiple EGD with dilation - recent 11/2024, EGD's, moles removed. bladder lift april 2023, bilateral cataract surgery Past Anesthesia/Blood Transfusion Reactions: Motion Sickness, Postoperative Nausea & Vomiting (PONV) Additional Past Anesthesia/Blood Transfusion Reaction / Comment(s): Pt states "always get UTI's from mcneal catheters." Smoking Status: Never smoker - Past Family History Mother Family Medical History: Cancer Additional Family Medical History / Comment(s): Uterine cancer. Medications and Allergies Home Medications Medication Instructions Recorded Confirmed Type amLODIPine [Norvasc] 10 mg PO DAILY #60 tablet 04/17/20 01/04/25 Rx Multivitamins, Thera [Multivitamin 1 tab PO BID 07/14/23 01/04/25 History (formulary)] Acetaminophen [Tylenol] 325 mg PO DIRECTED PRN 11/08/24 01/04/25 History Solifenacin Succinate [Vesicare] 10 mg PO DAILY 11/08/24 01/04/25 History Omeprazole [PriLOSEC] 40 mg PO DAILY #90 cap 11/22/24 01/04/25 Rx Vitamin A Acetate [Vitamin A] 9,000 units PO DAILY 11/22/24 01/04/25 History hydroCHLOROthiazide 12.5 mg PO DAILY 01/04/25 01/04/25 History Allergies Allergy/AdvReac Type Severity Reaction Status Date / Time loratadine [From Claritin] Allergy Rash/Hives Verified 01/04/25 11:19 Milk Containing Products Allergy Abdominal Verified 01/04/25 11:19 (Dairy) Pain [Dairy] mirabegron [From Myrbetriq] Allergy raised BP Verified 01/04/25 11:19 phenazopyridine [From Azo] Allergy bladder Verified 01/04/25 11:19 pain Sulfa (Sulfonamide Allergy Rash/Hives Verified 01/04/25 11:19 Antibiotics) morphine AdvReac heachache, Verified 01/04/25 11:19 nausea
[~2025-01-08 08:55] MED LIST changes: -LACTATED RINGERS 1,000 ML IV SCH; -LIDOCAINE 1% (10MG/ML) FOR IV START INTRADERMA PRN; +MIDAZOLAM 2 MG/2 ML VIAL IV PRN
[2025-01-08] MEDS: IV FLUID CONTINUATION 1,000 ML IV ONE (09:28)
[2025-01-08] MEDS: LACTATED RINGERS 1,000 ML IV SCH (09:45)
[2025-01-08] MEDS: ONDANSETRON 4 MG/2 ML VIAL IVP PRN (09:53)
[2025-01-08] MEDS: HEPARIN SODIUM,PORCINE 5,000 UNIT/ML 1 ML VIAL SQ PRN (09:53)
[2025-01-08] MEDS: ACETAMINOPHEN TAB 500 MG TAB PO PRN (09:53)
[2025-01-08] MEDS ORDERED: ePHEDrine 50 MG/ML 1 ML VIAL ONE (10:39)
[2025-01-08] MEDS ORDERED: fentaNYL (PF) 50 MCG/ML 2 ML AMP ONE (10:39)
[2025-01-08] MEDS ORDERED: MIDAZOLAM 2 MG/2 ML VIAL ONE (10:39)
[2025-01-08] MEDS ORDERED: PROPOFOL 10 MG/ML 20 ML VIAL IV ONE (10:39)
[2025-01-08] MEDS ORDERED: LIDOCAINE 1% INJ 10MG/ML (20 ML MDV) ONE (10:39)
[2025-01-08] MEDS: ceFAZolin 2 GM in DEXTROSE 5% IN WATER 50 ML IVPB PRN (10:42)
[2025-01-08] MEDS: LIDOCAINE 1%-EPI 1:100,000 20 ML VIAL SQ ONE ×2 (10:56→11:07)
[2025-01-08 11:39] VITALS: TEMP 97.2
--- NOTE | 2025-01-08 11:39 | P.OP ---
Date of Procedure: 01/08/25 Description of Procedure: SURGEON: HUMBERTO SCHILLING MD PREOPERATIVE DIAGNOSES: 1. Left lower quadrant abdominal mass. 2. Gastroesophageal reflux disease 3. History of gastric bypass 4. Hypertensive heart disease 5. Morbid obesity excess calories, BMI 53.0 to 35.4 POSTOPERATIVE DIAGNOSES: 1. Left lower quadrant abdominal mass, deep subcutaneous tumor, 8 x 7 cm 2. Gastroesophageal reflux disease 3. History of gastric bypass 4. Hypertensive heart disease 5. Morbid obesity excess calories, BMI 53.0 to 35.4 OPERATION: 1. Excision of left lower quadrant abdominal wall deep subcutaneous tumor extending to the fascia 8 x 7 cm. 2. Intermediate closure of the left lower abdominal incision, 8 cm. ANESTHESIA: GETA and local ESTIMATED BLOOD LOSS: 10 mL. SPECIMENS REMOVED: 1. Abdominal wall mass, left lower quadrant COMPLICATIONS: None. FINDINGS: 1. Abdominal wall mass involving the deep subcutaneous tissue and abdominal wall fascia of the left lower quadrant INDICATIONS: The patient is a 74-year-old female who presents with Left lower quadrant pain including increased abdominal wall tenderness and swelling. Outside diagnostic studies demonstrated possible fatty tumor. Surgical options, including excision was discussed. Benefits and risks were described. Informed consent was obtained. DESCRIPTION OF PROCEDURE: In the pre-operative area, the mass was palpated and marked with indelible marker. Patient was brought into the operating room, laid in supine position. After general induction, the abdomen was prepped and draped in standard sterile fashion using ChloraPrep. A timeout protocol was confirmed with the surgical team regarding patient's name including procedures to be performed. Preoperative medications was administered. A soft tissue skin flap was developed after injecting with local. Using #15 blade a 8-cm incision was made into the deep subcutaneous tissues to the fascia. The abdominal mass was palpated and dissected circumferentially using Bovie cautery. The mass was excised to the level of the fascia. Hemostasis was checked with electro-Bovie cautery. The specimen was passed off. Next the wound was closed in layers using 0-Vicryl for the fascia and subcutaneous tissue in an interrupted fashion. The skin was cleansed. For the dermis, 4-0 Monocryl was placed along the length of the incision. Dermabond tape was applied over the incision and with Optifoam. At the end of the procedure, needle, sponge, and instrument count had been verified correct by the surgical supervisor. The patient was taken to the postanesthesia care unit in stable condition. Plan - Discharge Summary Discharge Rx Participant: No New Discharge Prescriptions: New Acetaminophen Tab [Tylenol Tab] 1,000 mg PO Q6HR PRN #30 tablet PRN Reason: Pain Continue amLODIPine [Norvasc] 10 mg PO DAILY #60 tablet Vitamin A Acetate [Vitamin A] 9,000 units PO DAILY hydroCHLOROthiazide 12.5 mg PO DAILY Multivitamins, Thera [Multivitamin (formulary)] 1 tab PO BID Solifenacin Succinate [Vesicare] 10 mg PO DAILY Omeprazole [PriLOSEC] 40 mg PO DAILY #90 cap Discontinued Acetaminophen [Tylenol] 325 mg PO DIRECTED PRN PRN Reason: Pain Discharge Medication List amLODIPine [Norvasc] 10 mg PO DAILY #60 tablet 04/17/20 [Rx] Multivitamins, Thera [Multivitamin (formulary)] 1 tab PO BID 07/14/23 [History] Solifenacin Succinate [Vesicare] 10 mg PO DAILY 11/08/24 [History] Omeprazole [PriLOSEC] 40 mg PO DAILY #90 cap 11/22/24 [Rx] Vitamin A Acetate [Vitamin A] 9,000 units PO DAILY 11/22/24 [History] hydroCHLOROthiazide 12.5 mg PO DAILY 01/04/25 [History] Acetaminophen Tab [Tylenol Tab] 1,000 mg PO Q6HR PRN #30 tablet 01/08/25 [Rx] Follow up Appointment(s)/Ref[place]s[place] [facility] [place] [place] [facility] - 01/17/25 3:00 pm Patient Instructions/Handouts: Lipoma Removal (GEN) Activity/Diet/Wound Care/Special Instructions: DO NOT REMOVE DRESSING. Will be removed in office January 17 Wear abdominal binder daily except for showering No lifting over 10 pounds in 2 weeks until January 22February shower BUT KEEP DRESSING DRY No bath tub soaks for two weeks until January 22 Diet as tolerated. Use Tylenol scheduled for the next 24-48 hours for best pain relief. Use ice along incisions for today to prevent swelling. Discharge Disposition: HOME SELF-CARE
[2025-01-08 13:03] VITALS: RESP 16
[2025-01-08 13:19] VITALS: BP 142/85; PULSE 74
== END 2025-01-08 14:00 | disposition home or self-care (01) ==
LOC: OR 08:55
PROVIDERS: ATTEND Surgery Plastic and Reconstructive Surgery
DX: D17.1 Benign lipomatous neoplasm of skin and subcutaneous tissue of trunk (principal); I11.9 Hypertensive heart disease without heart failure; K21.9 Gastro-esophageal reflux disease without esophagitis; Z91.89 Other specified personal risk factors, not elsewhere classified; E66.01 Morbid (severe) obesity due to excess calories; Z68.43 Body mass index [BMI] 50.0-59.9, adult; F17.200 Nicotine dependence, unspecified, uncomplicated; Z79.899 Other long term (current) drug therapy; Z98.84 Bariatric surgery status; Z88.8 Allergy status to other drugs, medicaments and biological substances; Z91.011 Allergy to milk products; Z88.2 Allergy status to sulfonamides; Z88.5 Allergy status to narcotic agent
CPT/HCPCS: 88304; 84132; 22903; J2250; J1644; J0690; J2405; J2003; J3010; J2704

== ENCOUNTER → 2025-04-18 | Outpatient (CLI) | payer MEDICARE ==
[2025-04-18 14:08] VITALS: BP 137/83; PULSE 87; RESP 16; TEMP 97.9; BMI 35.4
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
== END ==
LOC: BARWHC3 12:58
PROVIDERS: ATTEND Surgery Plastic and Reconstructive Surgery
DX: E66.01 Morbid (severe) obesity due to excess calories (principal); M79.3 Panniculitis, unspecified; Z88.2 Allergy status to sulfonamides; Z91.011 Allergy to milk products; Z88.5 Allergy status to narcotic agent; Z88.8 Allergy status to other drugs, medicaments and biological substances; Z68.35 Body mass index [BMI] 35.0-35.9, adult
CPT/HCPCS: 99211

== ENCOUNTER 2025-04-23 07:44 | Day surgery (SDC) | payer MEDICARE ==
--- NOTE | 2025-04-23 07:38 | P.GSHP ---
History of Present Illness H&P Date: 04/23/25 CHIEF COMPLAINT: GERD and dysphagia HISTORY OF PRESENT ILLNESS: The patient is a 74-year-old female who presents reports gastroesophageal reflux disease and dysphagia. Upper endoscopy was offered for further evaluation and management. PAST MEDICAL HISTORY: Please see list. PAST SURGICAL HISTORY: Please see list. MEDICATIONS: Please see list. ALLERGIES: Please see list. SOCIAL HISTORY: No illicit drug use FAMILY HISTORY: No reports of Crohn disease or ulcerative colitis. REVIEW OF ORGAN SYSTEMS: CONSTITUTIONAL: No reports of fevers or chills. GI: Denies any blood in stools or constipation. PHYSICAL EXAM: VITAL SIGNS: Stable GENERAL: Well-developed and pleasant in no acute distress. HEENT: No scleral icterus. Extraocular movements grossly intact. Moist buccal mucosa. NECK: Supple without lymphadenopathy. CHEST: Unlabored respirations. Equal bilateral excursions. CARDIOVASCULAR: Regular rate and rhythm. Distal 2+ pulses. ABDOMEN: Soft, nondistended. MUSCULOSKELETAL: No clubbing, cyanosis, or edema. ASSESSMENT: 1. Gastroesophageal reflux disease 2. Dysphagia PLAN: 1. Recommend proceeding with an upper endoscopy Past Medical History Past Medical History: Cancer, GERD/Reflux, Hypertension Additional Past Medical History / Comment(s): Hiatal Hernia, urinary incontinence, hx kidney stone. Dysphagia recently. Hx double vision from Aug 2022-Oct 2022. hx skin ca. History of Any Multi-Drug Resistant Organisms: None Reported Past Surgical History: Bariatric Surgery, Bladder Surgery, Cholecystectomy, Hernia Repair, Hysterectomy, Joint Replacement Additional Past Surgical History / Comment(s): Bilateral knee replacements, sleeve gastrectomy with conversion to gastric bypass 11-13-19, hiatal hernia repair, LITHOTRIPSY WITH STENT, multiple EGD with dilation - recent 11/2024, EGD's, moles removed. bladder lift april 2023, bilateral cataract surgery , Lt abdominal wall Lipoma removed 01-08-25 Past Anesthesia/Blood Transfusion Reactions: Motion Sickness, Postoperative Nausea & Vomiting (PONV) Additional Past Anesthesia/Blood Transfusion Reaction / Comment(s): Pt states "always get UTI's from mcneal catheters." PONV after gastric sleeve. Smoking Status: Never smoker - Past Family History Mother Family Medical History: Cancer Additional Family Medical History / Comment(s): Uterine cancer. Medications and Allergies Home Medications Medication Instructions Recorded Confirmed Type amLODIPine [Norvasc] 10 mg PO DAILY #60 tablet 04/17/20 04/20/25 Rx Multivitamins, Thera [Multivitamin 1 tab PO BID 07/14/23 04/20/25 History (formulary)] Solifenacin Succinate [Vesicare] 10 mg PO DAILY 11/08/24 04/20/25 History Omeprazole [PriLOSEC] 40 mg PO DAILY #90 cap 11/22/24 04/20/25 Rx Vitamin A Acetate [Vitamin A] 9,000 units PO DAILY 11/22/24 04/20/25 History hydroCHLOROthiazide 25 mg PO DAILY 01/04/25 04/20/25 History Acetaminophen Tab [Tylenol Tab] 1,000 mg PO Q6HR PRN #30 tablet 01/08/25 04/20/25 Rx Ketoconazole [Ketoconazole 2%] 1 applic TOPICAL BID PRN 04/18/25 04/20/25 History Triamcinolone 0.1% Cream [Kenalog 1 applic TOPICAL BID PRN 04/18/25 04/20/25 History 0.1% Cream] Nystatin 100,000 Unit/gm Powd 1 applic TOPICAL BID PRN 04/20/25 04/20/25 History [Mycostatin Powder] Allergies Allergy/AdvReac Type Severity Reaction Status Date / Time loratadine [From Claritin] Allergy Rash/Hives Verified 04/20/25 10:22 Milk Containing Products Allergy Abdominal Verified 04/20/25 10:22 (Dairy) Pain [Dairy] mirabegron [From Myrbetriq] Allergy raised BP Verified 04/20/25 10:22 Sulfa (Sulfonamide Allergy Rash/Hives Verified 04/20/25 10:22 Antibiotics) morphine AdvReac heachache, Verified 04/20/25 10:22 nausea
[2025-04-23 08:23] VITALS: TEMP 97
[2025-04-23] MEDS: LACTATED RINGERS 1,000 ML IV SCH (08:30)
[2025-04-23] MEDS: IV FLUID CONTINUATION 1,000 ML IV ONE (08:32)
[2025-04-23] MEDS ORDERED: LIDOCAINE 1% INJ 10MG/ML (20 ML MDV) ONE (08:49)
[2025-04-23] MEDS ORDERED: PROPOFOL 10 MG/ML 20 ML VIAL IV ONE (08:49)
[2025-04-23 09:35] VITALS: BP 139/79; PULSE 67; RESP 16
--- NOTE | 2025-04-23 09:47 | P.PCN ---
Date of Procedure: 04/23/25 Description of Procedure: PREOPERATIVE DIAGNOSIS: Dysphagia. Gastroesophageal reflux disease POSTOPERATIVE DIAGNOSIS: Dysphagia. Gastroesophageal reflux disease Gastrojejunal stenosis Esophageal dysmotility OPERATION: Esophagogastrojejunoscopy with [employer] 18 to 20 mm balloon dilator for gastrojejunal stenosis Esophagogastrojejunoscopy with rigid dilator over the guidewire 57 Fr with dilation of esophageal stenosis/dysmotility SURGEON: Mackenzie Travis MD ANESTHESIA: MAC. INDICATIONS: The patient is a 74-year-old female who presents with dysphagia. Benefits and risks of the procedure were described. Informed consent was obtained. DESCRIPTION: The patient was brought into the endoscopy suite and laid in the left lateral decubitus position. After a timeout was confirmed, the procedure was initiated. An Olympus gastroscope was passed into the posterior oropharynx down into the ga stric pouch. The scope was entered into the gastric pouch with gastrojejunal stenosis along the gastrojejunal anastomosis. To address her 15 mm gastrojejunal stricture, a 20 mm [employer] balloon was used to dilate. Next using an [place]ian rigid dilator, a guidewire was placed through the gastroscope. Next the scope was withdrawn. A 57-[employer]ogolese rigid [place]ian dilator was passed carefully along the posterior oropharynx to 45 cm and left in place for 2-3 minutes stretch. The dilator was withdrawn including the guidewire. The scope was reentered along the posterior oropharynx with no findings of full- thickness tear of the upper esophageal sphincter. No full-thickness injury was encountered. The GI tract was desufflated. The patient tolerated the procedure well. 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 RECOMMENDATIONS: Upper endoscopy as needed Review of medications demonstrate side effects of dysphagia with Vesicare Plan - Discharge Summary Discharge Rx Participant: No New Discharge Prescriptions: Continue amLODIPine [Norvasc] 10 mg PO DAILY #60 tablet Vitamin A Acetate [Vitamin A] 9,000 units PO DAILY hydroCHLOROthiazide 25 mg PO DAILY Ketoconazole [Ketoconazole 2%] 1 applic TOPICAL BID PRN PRN Reason: Rash Nystatin 100,000 Unit/gm Powd [Mycostatin Powder] 1 applic TOPICAL BID PRN PRN Reason: Rash Multivitamins, Thera [Multivitamin (formulary)] 1 tab PO BID Omeprazole [PriLOSEC] 40 mg PO DAILY #90 cap Acetaminophen Tab [Tylenol] 1,000 mg PO Q6HR PRN #30 tablet PRN Reason: Pain Triamcinolone 0.1% Cream [Kenalog 0.1% Cream] 1 applic TOPICAL BID PRN PRN Reason: Rash Discontinued Solifenacin Succinate [Vesicare] 10 mg PO DAILY Discharge Medication List amLODIPine [Norvasc] 10 mg PO DAILY #60 tablet 04/17/20 [Rx] Multivitamins, Thera [Multivitamin (formulary)] 1 tab PO BID 07/14/23 [History] Omeprazole [PriLOSEC] 40 mg PO DAILY #90 cap 11/22/24 [Rx] Vitamin A Acetate [Vitamin A] 9,000 units PO DAILY 11/22/24 [History] hydroCHLOROthiazide 25 mg PO DAILY 01/04/25 [History] Acetaminophen Tab [Tylenol] 1,000 mg PO Q6HR PRN #30 tablet 01/08/25 [Rx] Ketoconazole [Ketoconazole 2%] 1 applic TOPICAL BID PRN 04/18/25 [History] Triamcinolone 0.1% Cream [Kenalog 0.1% Cream] 1 applic TOPICAL BID PRN 04/18/25 [History] Nystatin 100,000 Unit/gm Powd [Mycostatin Powder] 1 applic TOPICAL BID PRN 04/20/25 [History] Follow up Appointment(s)/Referral(s): [facility]ric [place], [place] [NON-STAFF] - 05/16/25 3:00 pm Patient Instructions/Handouts: *Surgery [facility] - (Anesthesia) Discharge Instructions Outpatient Surgery, Hiatal Hernia (DC), Soft Diet (DC), Esophageal Stricture (ED), Upper Endoscopy (DC), Esophageal Dilation (DC) Activity/Diet/Wound Care/Special Instructions: Soft diet today. Vesicare increases troubles with swallowing "Pre-existing swallowing difficulties (dysphagia) Individuals with pre-existing dysphagia may experience increased difficulty swallowing while taking Vesicare, particularly if it exacerbates dry mouth symptoms. Vesicare is contraindicated in patients with gastric retention and should be used with caution in individuals with decreased gastrointestinal motility, as it can further reduce gut movement. " Discharge Disposition: HOME SELF-CARE
== END 2025-04-23 10:03 | disposition home or self-care (01) ==
LOC: ORWHC2ENDO 07:44
PROVIDERS: ATTEND Surgery Plastic and Reconstructive Surgery
DX: R13.10 Dysphagia, unspecified (principal); K22.4 Dyskinesia of esophagus; K21.9 Gastro-esophageal reflux disease without esophagitis; I10 Essential (primary) hypertension
CPT/HCPCS: 43248; 43249; J2003; J2704; C1726